=== PATIENT | male | born 1950 | race Caucasian/White ===

== ENCOUNTER 2018-06-11 13:30 | Inpatient (IN) | payer OTHER, MEDICARE ==
[2018-06-11] MEDS ORDERED: ASPIRIN 81 MG PO STA (13:58)
[2018-06-11] MEDS ORDERED: NITROGLYCERIN OINT 1 INCH/GM PACKET TOPICAL STA (13:58)
[2018-06-11] MEDS ORDERED: SODIUM CHLORIDE 0.9% 500 ML 500 ML IV STA (13:58)
[2018-06-11] MEDS ORDERED: HEPARIN SODIUM,PORCINE 5,000 UNIT/ML 1 ML VIAL IV ONE (14:03)
--- NOTE | 2018-06-11 14:03 | ED ---
General Adult HPI - General Chief complaint: Chest Pain Stated complaint: arm pain Time Seen by Provider: 06/11/18 13:30 Source: patient, RN notes reviewed Mode of arrival: wheelchair Limitations: no limitations - History of Present Illness Initial comments: This is a 67-year-old male who presents emergency department comes in with a past medical history of smoking. Family history positive for cardiac disease. Patient states that he started having chest pain on the 11th he's had 3 episodes since. Patient states that about 15 minutes long. Patient states the pressure on his chest and is on the right side of his chest. Patient states it radiates to his right shoulder. Patient states she's also short of breath with it. Patient states he is also diaphoretic when these episodes occur. Today it started 1:00 lasted over 20 minutes and eventually subsided but he was very diaphoretic and felt her blood the time. Patient denies any fever chills or cough per patient denies headache patient denies numbness weakness. Patient denies any lightheadedness dizziness or near syncopal episode. Patient denies any swelling to legs or calf tenderness. - Related Data Home Medications Medication Instructions Recorded Confirmed Ibuprofen [Motrin Ib] 400 mg PO Q6H PRN 06/11/18 06/11/18 Allergies Allergy/AdvReac Type Severity Reaction Status Date / Time No Known Allergies Allergy Verified 06/11/18 13:43 Review of Systems ROS Statement: Those systems with pertinent positive or pertinent negative responses have been documented in the HPI. ROS Other: All systems not noted in ROS Statement are negative. Past Medical History Past Medical History: No Reported History Additional Past Medical History / Comment(s): glaucoma History of Any Multi-Drug Resistant Organisms: None Reported Additional Past Surgical History / Comment(s): mary eye surgery for glaucoma Past Anesthesia/Blood Transfusion Reactions: No Reported Reaction Past Psychological History: No Psychological Hx Reported Smoking Status: Current every day smoker Past Alcohol Use History: Occasional Past Drug Use History: None Reported - Past Family History Father Family Medical History: Cancer Mother Family Medical History: Cancer General Exam - General Exam Comments Initial Comments: GENERAL: Patient is well-developed and well-nourished. Patient is nontoxic and well- hydrated and is in mild distress. ENT: Neck is soft and supple. No significant lymphadenopathy is noted. Oropharynx is clear. Moist mucous membranes. Neck has full range of motion without eliciting any pain. EYES: The sclera were anicteric and conjunctiva were pink and moist. Extraocular movements were intact and pupils were equal round and reactive to light. Eyelids were unremarkable. PULMONARY: Unlabored respirations. Good breath sounds bilaterally. No audible rales rhonchi or wheezing was noted. CARDIOVASCULAR: There is a regular rate and rhythm without any murmurs gallops or rubs. ABDOMEN: Soft and nontender with normal bowel sounds. No palpable organomegaly was noted. There is no palpable pulsatile mass. SKIN: Skin is clear with no lesions or rashes and otherwise unremarkable. NEUROLOGIC: Patient is alert and oriented x3. Cranial nerves II through XII are grossly intact. Motor and sensory are also intact. Normal speech, volume and content. Symmetrical smile. MUSCULOSKELETAL: Normal extremities with adequate strength and full range of motion. No lower extremity swelling or edema. No calf tenderness. LYMPHATICS: No significant lymphadenopathy is noted PSYCHIATRIC: Normal psychiatric evaluation. Limitations: no limitations Course Vital Signs 06/11/18 06/11/18 13:40 14:41 Temperature 97.7 F Pulse Rate 57 L 57 L Respiratory 18 16 Rate Blood Pressure 152/79 149/81 O2 Sat by Pulse 98 97 Oximetry Medical Decision Making - Medical Decision Making EKG shows normal sinus rhythm at 60 bpm AR interval 126 QRS is 86 QT interval is 454 QTC is 454. Patient's EKG shows some ST segment depression in leads V3 through V6. Says the patient had a good story and EKG abnormalities I called Dr. Torres right away he stated he would come down and see the patient and I ordered an echo at this time. I started the patient on heparin ordered the patient aspirin and Nitropaste. I also ordered the patient Lipitor. Dr. Torres came down on the echo was being done and decided take the patient to the catheterization lab. Her chest x-ray showed no acute abnormality. - Lab Data Result diagrams: 06/11/18 14:00 06/11/18 14:00 Lab Results 06/11/18 06/11/18 06/11/18 Range/Units 14:00 14:00 14:00 WBC 9.0 (3.8-10.6) k/uL RBC 5.41 (4.30-5.90) m/uL Hgb 17.3 (13.0-17.5) gm/dL Hct 51.1 (39.0-53.0) % MCV 94.4 (80.0-100.0) fL MCH 31.9 (25.0-35.0) pg MCHC 33.8 (31.0-37.0) g/dL RDW 13.1 (11.5-15.5) % Plt Count 257 (150-450) k/uL Neutrophils % 69 % Lymphocytes % 21 % Monocytes % 6 % Eosinophils % 2 % Basophils % 1 % Neutrophils # 6.2 (1.3-7.7) k/uL Lymphocytes # 1.9 (1.0-4.8) k/uL Monocytes # 0.6 (0-1.0) k/uL Eosinophils # 0.2 (0-0.7) k/uL Basophils # 0.1 (0-0.2) k/uL PT (9.0-12.0) sec INR (<1.2) APTT (22.0-30.0) sec Sodium 140 (137-145) mmol/L Potassium 4.3 (3.5-5.1) mmol/L Chloride 107 (98-107) mmol/L Carbon Dioxide 23 (22-30) mmol/L Anion Gap 10 mmol/L BUN 12 (9-20) mg/dL Creatinine 0.86 (0.66-1.25) mg/dL Est GFR (CKD-EPI)AfAm >90 (>60 ml/min/1.73 sqM) Est GFR (CKD-EPI)NonAf 89 (>60 ml/min/1.73 sqM) Glucose 90 (74-99) mg/dL Calcium 9.5 (8.4-10.2) mg/dL Magnesium 2.2 (1.6-2.3) mg/dL Total Bilirubin 0.8 (0.2-1.3) mg/dL AST 22 (17-59) U/L ALT 20 L (21-72) U/L Alkaline Phosphatase 68 (38-126) U/L Total Creatine Kinase 84 (55-170) U/L CK-MB (CK-2) 1.6 (0.0-2.4) ng/mL CK-MB (CK-2) Rel Index 1.9 Total Protein 7.3 (6.3-8.2) g/dL Albumin 4.2 (3.5-5.0) g/dL 06/11/18 Range/Units 14:00 WBC (3.8-10.6) k/uL RBC (4.30-5.90) m/uL Hgb (13.0-17.5) gm/dL Hct (39.0-53.0) % MCV (80.0-100.0) fL MCH (25.0-35.0) pg MCHC (31.0-37.0) g/dL RDW (11.5-15.5) % Plt Count (150-450) k/uL Neutrophils % % Lymphocytes % % Monocytes % % Eosinophils % % Basophils % % Neutrophils # (1.3-7.7) k/uL Lymphocytes # (1.0-4.8) k/uL Monocytes # (0-1.0) k/uL Eosinophils # (0-0.7) k/uL Basophils # (0-0.2) k/uL PT 10.6 (9.0-12.0) sec INR 1.1 (<1.2) APTT 23.6 (22.0-30.0) sec Sodium (137-145) mmol/L Potassium (3.5-5.1) mmol/L Chloride (98-107) mmol/L Carbon Dioxide (22-30) mmol/L Anion Gap mmol/L BUN (9-20) mg/dL Creatinine (0.66-1.25) mg/dL Est GFR (CKD-EPI)AfAm (>60 ml/min/1.73 sqM) Est GFR (CKD-EPI)NonAf (>60 ml/min/1.73 sqM) Glucose (74-99) mg/dL Calcium (8.4-10.2) mg/dL Magnesium (1.6-2.3) mg/dL Total Bilirubin (0.2-1.3) mg/dL AST (17-59) U/L ALT (21-72) U/L Alkaline Phosphatase (38-126) U/L Total Creatine Kinase (55-170) U/L CK-MB (CK-2) (0.0-2.4) ng/mL CK-MB (CK-2) Rel Index Total Protein (6.3-8.2) g/dL Albumin (3.5-5.0) g/dL Critical Care Time Critical Care Time: Yes Total Critical Care Time: 35 Disposition Clinical Impression: Non-STEMI (non-ST elevated myocardial infarction) Disposition: ADMITTED IP TO THIS HOSP Referrals: [facility],Clinic [Primary Care Provider] - 1-2 days Time of Disposition: 15:09
[2018-06-11] MEDS ORDERED: ATORVASTATIN 80 MG TAB PO STA (14:04)
--- NOTE | 2018-06-11 14:13 | XR ---
EXAMINATION TYPE: XR chest 2V DATE OF EXAM: 06/11/2018 COMPARISON: NONE HISTORY: Chest pain TECHNIQUE: Frontal and lateral views of the chest are obtained. FINDINGS: There is no focal air space opacity, pleural effusion, or pneumothorax seen. The cardiac silhouette size is within normal limits. The osseous structures are intact. There are overlying car diac leads. Interstitium is mildly prominent, the volumes of the lungs are increased which may be ind icative of underlying COPD. Patient is rotated. The aorta is dense. IMPRESSION: No acute cardiopulmonary process.
[2018-06-11] MEDS ORDERED: HEPARIN SOD,PORK IN 0.45% NACL 25,000 UNIT in 0.45% NACL 1 500ML.BAG IV SCH ×2 (14:15→20:00)
[2018-06-11 14:25] LABS: Basophils # (A) 0.1 k/uL (0-0.2); Basophils % (A) 1 %; Eosinophils # (A) 0.2 k/uL (0-0.7); Eosinophils % (A) 2 %; HCT 51.1 % (39.0-53.0); HGB 17.3 gm/dL (13.0-17.5); Lymphocytes # (A) 1.9 k/uL (1.0-4.8); Lymphocytes % (A) 21 %; MCH 31.9 pg (25.0-35.0); MCHC 33.8 g/dL (31.0-37.0); MCV 94.4 fL (80.0-100.0); Mean Platelet Volume 6.9; Monocytes # (A) 0.6 k/uL (0-1.0); Monocytes % (A) 6 %; Neutrophils # (A) 6.2 k/uL (1.3-7.7); Neutrophils % (A) 69 %; Platelet Count 257 k/uL (150-450); RBC 5.41 m/uL (4.30-5.90); RDW 13.1 % (11.5-15.5)
[2018-06-11 14:27] LABS: ALT 20 U/L (21-72); AST 22 U/L (17-59); Albumin 4.2 g/dL (3.5-5.0); Alkaline Phosphatase 68 U/L (38-126); Anion Gap 10 mmol/L; Blood Urea Nitrogen 12 mg/dL (9-20); Calcium 9.5 mg/dL (8.4-10.2); Carbon Dioxide 23 mmol/L (22-30); Chloride 107 mmol/L (98-107); Glucose 90 mg/dL (74-99); Magnesium 2.2 mg/dL (1.6-2.3); Potassium 4.3 mmol/L (3.5-5.1); Sodium 140 mmol/L (137-145); Total Bilirubin 0.8 mg/dL (0.2-1.3); Total Protein 7.3 g/dL (6.3-8.2)
[2018-06-11] MEDS ORDERED: MIDAZOLAM 2 MG/2 ML VIAL ONE (14:35)
[2018-06-11] MEDS ORDERED: LIDOCAINE 1% INJ 10MG/ML (20 ML MDV) ONE (14:35)
[2018-06-11] MEDS ORDERED: fentaNYL (PF) 50 MCG/ML 2 ML AMP ONE (14:36)
[2018-06-11 14:46] LABS: INR 1.1 (<1.2); Partial Thromboplastin Time 23.6 sec (22.0-30.0); Prothrombin Time 10.6 sec (9.0-12.0)
[2018-06-11 15:02] LABS: Creatine Kinase MB 1.6 ng/mL (0.0-2.4)
[2018-06-11 15:08] LABS: Troponin I 0.325 ng/mL (0.000-0.034)
[2018-06-11] MEDS ORDERED: LIDOCAINE 1% INJ 10MG/ML (20 ML MDV) SQ ONE (15:16)
[2018-06-11] MEDS ORDERED: MIDAZOLAM 2 MG/2 ML VIAL IVP ONE (15:17)
[2018-06-11] MEDS ORDERED: fentaNYL (PF) 50 MCG/ML 2 ML AMP IVP ONE (15:17)
[2018-06-11] MEDS ORDERED: IV FLUID CONTINUATION 1,000 ML IV ONE (15:19)
--- NOTE | 2018-06-11 15:22 | CONS ---
CONSULTATION Mr. Ramires is a 67-year-old gentleman who was seen in the emergency room because of the chest discomfort. This patient has been having intermittent chest discomfort since June 02. The pain he describes is in the right anterior part of the chest, dull aching pain, lasting for 20-30 minutes, associated with a cold, clammy sweats as well as shortness of breath. Since June 02. the patient had about 3 or 4 episodes of the chest discomfort. This morning, again, patient was not feeling well and he was pale and diaphoretic and having chest pain. Patient was brought to the emergency room. EKG shows evidence of some horizontal ST depression in V3 and V4 suggestive of possible true posterior wall myocardial infarction. There is no previous history of myocardial infarction or angina. Patient denies any history of diabetes or hypertension. Patient does not smoke. There is no family history of premature coronary artery disease. PAST MEDICAL HISTORY: No history of any major surgeries. REVIEW OF THE SYSTEM: Unremarkable. There is no history of any GI bleeding or stroke. PHYSICAL EXAMINATION: At present reveals a 67-year-old, thinly built gentleman who does not appear to be in any acute distress. Patient's blood pressure is 150/80 mmHg. HEENT examination is negative. Neck is supple. There is no increase in jugular venous pressure. Both the carotid pulses are felt. There is no bruit. Chest is symmetrical. Heart, the PMI is not felt. First and second heart sounds are heard. There is no evidence of any murmur. Lungs are clinically clear to auscultation and percussion. Abdomen is soft. Extremities, peripheral pulsations are 1+. EKG shows evidence of a horizontal ST-segment depression in V2 to V3 suggestive of possible true posterior wall myocardial infarction. Echocardiogram shows evidence of extensive inferior lateral as well as inferior septal hypokinesia. FINAL IMPRESSION: This patient history suggestive of possible true posterior wall myocardial infarction or non ST-segment elevation myocardial infarction. In view of the wall motion abnormality and EKG changes, the patient is advised urgent cardiac catheterization. Procedure and risks were fully discussed with the patient and he wants to proceed with it. MMODL / IJN: [id number] /
[2018-06-11] MEDS ORDERED: IOPAMIDOL-300 50ML BTL INJ ONE (15:34)
[2018-06-11] MEDS ORDERED: IOPAMIDOL-370 125ML BTL INJ ONE (15:35)
[2018-06-11] MEDS ORDERED: NITROGLYCERIN-D5W PMX 50 MG in DEXTROSE/WATER 1 250ML.BAG IV ONE (16:00)
[2018-06-11] MEDS ORDERED: RX INFO: IV CONTRAST WAS GIVEN 1 EACH MISC MISCELLANE PRN (16:01)
[2018-06-11 16:30] LABS: Glucose,Whole Blood 91 mg/dL (75-99)
--- NOTE | 2018-06-11 16:31 | CC ---
CARDIAC CATHETERIZATION REPORT Mr. Ramires is a 67-year-old gentleman who came to the emergency room with a complaint of chest discomfort. Patient's history was suggestive of ila-XY-cjnumkj-elevation myocardial infarction. Patient had a horizontal ST-segment depression in V2 and V3. Echocardiogram showed evidence of inferolateral hypokinesia. In view of that, the patient was advised urgent cardiac catheterization. Initial troponin came back as 0.3. PROCEDURE: The right groin was prepped and draped in the usual manner and the skin was infiltrated with 2% Xylocaine. The right femoral artery was entered using Seldinger technique. A #6- Bengali sheath was placed in. Selective coronary angiography was then performed in multiple projections and left ventriculography was performed. Patient tolerated the procedure well. Sheath was removed and good hemostasis was achieved with manual compression. Patient's right superficial femoral artery is totally occluded. HEMODYNAMICS: Left ventricular end-diastolic pressure was 16 mmHg prior to angiography. No gradient is noted across the aortic valve. SELECTIVE CORONARY ANGIOGRAPHY: Left main coronary artery is normal and patent. LAD is a good-caliber blood vessel and there is ostial stenosis of 85% to 90% with some haziness noted suggestive of thrombus. Circumflex coronary artery is a large-caliber blood vessel with evidence of thrombus in the ostial circumflex with 99% stenosis. Right coronary artery has ostial stenosis of 80% to 90%. Mid RCA has another area of 85% stenosis. Distal RCA is totally occluded. The distal RCA fills collaterals from the left coronary system. Moderate sedation was used. Total sedation time was 20 minutes. RECOMMENDATIONS: Films were reviewed with Dr. Guillory. In view of the ostial stenosis of LAD and circumflex as well as the total right, patient will be considered for coronary artery bypass surgery urgently. MMODL / IJN: [id number] /
[2018-06-11] MEDS ORDERED: NITROGLYCERIN-D5W PMX 50 MG in DEXTROSE/WATER 1 250ML.BAG IV SCH (16:45)
[2018-06-11] MEDS ORDERED: MD COMMUNICATION TO PHARMACY 1 EACH MISC PO ONE ×4 (16:56)
[2018-06-11] MEDS: SODIUM CHLORIDE 0.9% 1,000 ML IV SCH (17:23)
--- NOTE | 2018-06-11 17:37 | P.CNPUL ---
History of Present Illness Consult date: 06/11/18 Requesting physician: Neil Torres Reason for consult: COPD, other (Preoperative pulmonary clearance) Chief complaint: Chest pain History of present illness: This is a 67-year-old white male, heavy smoker over the years, but no documentation of COPD, not on any bronchodilators for COPD, patient usually sees Dr. Oro as his primary care physician in [place]. Patient presented to the emergency room today with chest pain and abnormal cardiac panel. Patient was noted to have non-ST segment elevation myocardial infarction. He was noted to have ST segment depression in V2 and V3, echocardiogram showed evidence of inferior lateral hypokinesia. Patient underwent cardiac catheterization. And he was found to have evidence of thrombus in the ostial circumflex with 99% stenosis. His LAD was noted to have 85-90% stenosis also suggestive of thrombus. Circumflex was noted to have 99% stenosis. Considering the findings , patient was advised to undergo coronary artery bypass surgery. He was transferred out of the cardiac catheterization lab to the ICU, and I was asked to see him on consultation. Presently the patient denies any pain or discomfort. Denies any shortness of breath, no cough, no wheezing. Has been a very heavy smoker over the years, and until recently he was smoking about half pack per day on the average. Patient describes slight dyspnea on exertion however he is able to walk 2-3 blocks without any significant dyspnea. Patient was never seen by any cardiopulmonary specialist, and according to him he never had any issues related to his lungs. Presently denies any headache, no blurred vision, no dizziness, no chest pain, no shortness of breath no cough no wheezing no nausea no vomiting no abdominal pain no palpitations no dysuria and no frequency no urgency. Has occasional joints aches and pains for which she takes Aleve on when necessary basis. Labs on admission were noted to be relatively normal and his troponin was 0.325 on admission. Review of Systems 14 point review of systems were obtained, please refer to pertinent positives and negatives as noted in HPI. Otherwise remaining systems are negative Past Medical History Past Medical History: No Reported History Additional Past Medical History / Comment(s): glaucoma History of Any Multi-Drug Resistant Organisms: None Reported Additional Past Surgical History / Comment(s): mary eye surgery for glaucoma Past Anesthesia/Blood Transfusion Reactions: No Reported Reaction Past Psychological History: No Psychological Hx Reported Smoking Status: Current every day smoker Past Alcohol Use History: Occasional Past Drug Use History: None Reported - Past Family History Father Family Medical History: Cancer Mother Family Medical History: Cancer Medications and Allergies Home Medications Medication Instructions Recorded Confirmed Type Ibuprofen [Motrin Ib] 400 mg PO Q6H PRN 06/11/18 06/11/18 History Allergies Allergy/AdvReac Type Severity Reaction Status Date / Time No Known Allergies Allergy Verified 06/11/18 13:43 Physical Exam Vitals: Vital Signs Temp Pulse Pulse Resp BP Pulse Ox 06/11/18 17:00 58 L 16 132/74 93 L 06/11/18 16:45 59 L 24 127/78 94 L 06/11/18 16:30 97.7 F 58 L 14 131/77 94 L 06/11/18 14:41 97.9 F 57 L 16 149/81 97 06/11/18 13:45 66 20 06/11/18 13:40 97.7 F 57 L 18 152/79 98 Intake and Output 06/11/18 06/11/18 06/11/18 06:59 14:59 22:59 Intake Total 375 Balance 375 Intake: IV 375 Sodium Chloride 0.9% 1, 75 000 ml @ 75 mls/hr IV . [id number] [facility] Rx#:[id number] Other: Weight 81.647 kg Physical Exam: Revealed a 67-year-old white male in no distress. Head: Atraumatic, normocephalic. HEENT:[Neck is supple.] [No neck masses.] [No thyromegaly.] [No JVD.] Dry mucous membranes. Chest: [Diminished breath sounds at the bases, no crackles, no rhonchi and no wheezes. Symmetrical chest expansion, no chest wall tenderness. Cardiac Exam: [Normal S1 and S2, no S3 gallop, no murmur.] Abdomen: [Soft, nontender, no megaly, no rebound, no guarding, normal bowel sounds.] Extremities: [No clubbing, no edema, no cyanosis.] Neurological Exam: [No focal neurologic deficit.] Alert oriented 3. Psychiatric: Normal mood, affect and mental status examination. Skin: No rashes, evidence of onychomycosis noted. Results - Laboratory Findings CBC and BMP: 06/11/18 14:00 06/11/18 14:00 PT/INR, D-dimer PT 10.6 sec (9.0-12.0) 06/11/18 14:00 INR 1.1 (<1.2) 06/11/18 14:00 Abnormal lab findings: Abnormal Labs 06/11/18 06/11/18 14:00 14:00 ALT 20 L Troponin I 0.325 H* - Diagnostic Findings Chest x-ray: image reviewed (Chest x-ray was reviewed, indicative of COPD, no acute pulmonary processes noted) Assessment and Plan Assessment: Impression: 1 acute non-ST elevation myocardial infarction. 2 triple-vessel coronary artery disease as noted on his cardiac catheterization , done today. 3 suspect moderate component of chronic obstructive pulmonary disease, especially considering his symptoms and considering his smoking history. Hence the patient will have preoperative FEV1 ordered, in the meantime we'll place the patient on bronchodilators in the form of DuoNeb updrafts 4 times a day and when necessary, and place the patient on incentive spirometry. Recommendation: Agree with the present treatment plan, patient is moderate operative risk, however I'm yet to review his FEV1 which will likely be done either later today or tomorrow in a.m. We'll continue to follow. Time with Patient: Greater than 30
[2018-06-11 18:29] LABS: Magnesium 2.2 mg/dL (1.6-2.3)
[2018-06-11] MEDS ORDERED: ALPRAZolam 0.25 MG TAB PO PRN (18:44)
[2018-06-11] MEDS ORDERED: ACETAMINOPHEN TAB 500 MG TAB PO PRN (18:44)
[2018-06-11] MEDS ORDERED: HYDROcodone/APAP 5-325MG 1 EACH TAB PO PRN (18:44)
[2018-06-11] MEDS ORDERED: NICOTINE 14MG/24HR PATCH TRANSDERM SCH (18:45)
[2018-06-11 19:38] LABS: Appearance,Urine Clear (Clear); Bilirubin,Urine Negative (Negative); Blood,Urine Trace (Negative); Color,Urine Light Yellow; Glucose,Urine (UA) Negative (Negative); Ketones,Urine Negative (Negative); Leukocyte Esterase,Urine Negative (Negative); Nitrite,Urine Negative (Negative); PH, Urine 5.5 (5.0-8.0); Protein,Urine Negative (Negative); RBC,Urine 1 /hpf (0-5); Urobilinogen,Urine <2.0 mg/dL (<2.0); WBC,Urine <1 /hpf (0-5)
[2018-06-11 19:39] LABS: Specific Gravity,Urine >1.050 (1.001-1.035)
--- NOTE | 2018-06-11 19:56 | P.GSCN ---
History of Present Illness Consult date: 06/11/18 Reason for Consult: Non-STEMI, coronary artery disease. Requesting physician: Neil Torres History of present illness: This is a 67-year-old gentleman who is followed by Dr. Cezar Oro on an outpatient basis. Patient has a past medical history significant for current nicotine dependence, cataracts and glaucoma. The patient presented to the emergency department here at [facility] today with complaints of chest pain which radiated down his right arm, the chest pain was associated with shortness of breath and diaphoresis. He denies any complaints of nausea, chills, vomiting, dizziness, or syncope. He reports that the pain has been coming and episodes off and on which started around 06/02/2018. The pain he experienced last night woke him up from sleep and lasted for about 20-25 minutes. In the emergency department a 12-lead EKG was completed which demonstrated normal sinus rhythm with ST segment depression in V3 through V6. Lab work was completed which showed a troponin level of 0.325. Subsequently the patient was seen and examined by Dr. Torres from cardiology and due to the patient's presenting symptoms and elevated troponins a cardiac catheterization was recommended. The cardiac catheterization results demonstrated a 90% ostial stenosis to his left anterior descending coronary artery, a 99% stenosis to his ostial circumflex coronary artery and a 90% stenosis to his right coronary artery. Also during heart catheterization the left ventriculogram was completed which showed him to have an ejection fraction of 45%. A 2-D echocardiogram result was also obtained although the results remain pending. His cardiac catheterization results were reviewed with the patient and his family by Dr. Torres and a consult was placed to Dr. Rowe from cardiothoracic surgery for recommendations on myocardial revascularization surgery. Review of Systems A 14 point review of systems was completed and was negative except as mentioned in HPI. Past Medical History Past Medical History: Eye Disorder Additional Past Medical History / Comment(s): glaucoma.past cataracts(sx) History of Any Multi-Drug Resistant Organisms: None Reported Additional Past Surgical History / Comment(s): 06-11-18 heart cath. [facility]ary eye surgery for glaucoma, cataaracts removedlens implants, colonoscopy 2014, Past Anesthesia/Blood Transfusion Reactions: No Reported Reaction Past Psychological History: No Psychological Hx Reported Smoking Status: Current every day smoker Past Alcohol Use History: Occasional Past Drug Use History: None Reported - Past Family History Father Family Medical History: Cancer Mother Family Medical History: Cancer Medications and Allergies Home Medications Medication Instructions Recorded Confirmed Type Ibuprofen [Motrin Ib] 400 mg PO Q6H PRN 06/11/18 06/11/18 History Allergies Allergy/AdvReac Type Severity Reaction Status Date / Time No Known Allergies Allergy Verified 06/11/18 13:43 Surgical - Exam Vital Signs Temp Pulse Resp BP Pulse Ox 97.7 F 57 L 18 152/79 98 06/11/18 13:40 06/11/18 13:40 06/11/18 13:40 06/11/18 13:40 06/11/18 13:40 - General well developed, well nourished, no distress, no pain - Eyes PERRL, normal ocular movement - ENT normal pinna, normal nares, normal mucosa, no congestion, dentures - Neck Neck is supple, no lymphadenopathy. no masses, no bruits, trachea midline, no venous distension - Respiratory Lungs sounds are essentially clear throughout, diminished to his bilateral bases. Respirations are symmetrical and nonlabored. Oxygen saturation are 95% on 2 L nasal cannula. - Cardiovascular Regular rhythm and rate. S1 and S2 present, negative for S3, gallop or murmur. No edema present. Bedside telemetry showing sinus bradycardia heart rate 57. - Abdomen Abdomen is soft, nontender and nondistended. Active bowel sounds all 4 abdominal quadrants. No guarding or rigidity. No organomegaly. - Genitourinary Deferred - Rectum Deferred - Integumentary no rash, no growths, no abnormal pigmentation - Neurologic normal coordination, normal sensation - Musculoskeletal normal gait, normal posture - Psychiatric oriented to time, oriented to person, oriented to place, speech is normal, memory intact Results - Labs 06/11/18 14:00 06/11/18 14:00 Abnormal Lab Results - Last 24 Hours (Table) 06/11/18 06/11/18 Range/Units 14:00 14:00 ALT 20 L (21-72) U/L Troponin I 0.325 H* (0.000-0.034) ng/mL Diabetes panel 06/11/18 Range/Units 14:00 Sodium 140 (137-145) mmol/L Potassium 4.3 (3.5-5.1) mmol/L Chloride 107 (98-107) mmol/L Carbon Dioxide 23 (22-30) mmol/L BUN 12 (9-20) mg/dL Creatinine 0.86 (0.66-1.25) mg/dL Glucose 90 (74-99) mg/dL Calcium 9.5 (8.4-10.2) mg/dL AST 22 (17-59) U/L ALT 20 L (21-72) U/L Alkaline Phosphatase 68 (38-126) U/L Total Protein 7.3 (6.3-8.2) g/dL Albumin 4.2 (3.5-5.0) g/dL Calcium panel 06/11/18 Range/Units 14:00 Calcium 9.5 (8.4-10.2) mg/dL Albumin 4.2 (3.5-5.0) g/dL Pituitary panel 06/11/18 Range/Units 14:00 Sodium 140 (137-145) mmol/L Potassium 4.3 (3.5-5.1) mmol/L Chloride 107 (98-107) mmol/L Carbon Dioxide 23 (22-30) mmol/L BUN 12 (9-20) mg/dL Creatinine 0.86 (0.66-1.25) mg/dL Glucose 90 (74-99) mg/dL Calcium 9.5 (8.4-10.2) mg/dL Adrenal panel 06/11/18 Range/Units 14:00 Sodium 140 (137-145) mmol/L Potassium 4.3 (3.5-5.1) mmol/L Chloride 107 (98-107) mmol/L Carbon Dioxide 23 (22-30) mmol/L BUN 12 (9-20) mg/dL Creatinine 0.86 (0.66-1.25) mg/dL Glucose 90 (74-99) mg/dL Calcium 9.5 (8.4-10.2) mg/dL Total Bilirubin 0.8 (0.2-1.3) mg/dL AST 22 (17-59) U/L ALT 20 L (21-72) U/L Alkaline Phosphatase 68 (38-126) U/L Total Protein 7.3 (6.3-8.2) g/dL Albumin 4.2 (3.5-5.0) g/dL - Imaging Comments: Heart catheterization and 2-D echo results reviewed by Dr. Rowe. Chest x-ray: report reviewed, image reviewed Assessment and Plan (1) Nicotine dependence Current Visit: Yes Status: Acute Code(s): F17.200 - NICOTINE DEPENDENCE, UNSPECIFIED, UNCOMPLICATED SNOMED Code(s): 91194345 (2) History of bilateral cataract extraction Current Visit: Yes Status: Acute Code(s): Z98.41 - CATARACT EXTRACTION STATUS, RIGHT EYE; Z98.42 - CATARACT EXTRACTION STATUS, LEFT EYE SNOMED Code(s ): 288080081 (3) Glaucoma Current Visit: Yes Status: Acute Code(s): H40.9 - UNSPECIFIED GLAUCOMA SNOMED Code(s): 32712081 (4) Non-STEMI (non-ST elevated myocardial infarction) Current Visit: Yes Status: Acute Code(s): I21.4 - NON-ST ELEVATION (NSTEMI) MYOCARDIAL INFARCTION SNOMED Code(s): 404997673 Plan: The patient was seen and examined. His chart and diagnostics were reviewed. Preoperative teaching and preoperative testing was initiated. The patient was seen and examined by Dr. Rowe from cardiothoracic surgery. Dr. Rowe reviewed the cardiac catheterization results and 2-D echo cardiogram results with the patient and his family at his bedside. The risks and benefits of myocardial revascularization surgery have been discussed with the patient has family and the patient wishes to proceed with myocardial revascularization surgery. The patient will be scheduled for an urgent coronary artery bypass grafting surgery tomorrow 06/12/2018 to be performed by Dr. Anival Sim. Thank you Dr. Torres for this consult and we'll look forward to working with you in the care of your patient. Time with Patient: Greater than 30
[2018-06-11] MEDS ORDERED: MD COMMUNICATION TO PHARMACY 1 EACH MISC PO PRN (20:07)
[2018-06-11] MEDS: IPRATROPIUM-ALBUTEROL 3 ML NEB INHALATION SCH (20:34)
--- NOTE | 2018-06-11 20:43 | HP ---
HISTORY AND PHYSICAL DATE OF SERVICE: 06/11/2018 CHIEF COMPLAINT: Chest pain. HISTORY OF PRESENT ILLNESS: This 67-year-old gentleman who had a past medical history of glaucoma, [facility] was taken to [facility] with complaints of chest pain. The patient has strong family history of coronary artery disease. The chest pain was on June 02 and had at least 3 episodes, mainly on the center part of right-sided chest. Patient diaphoretic. EKG showed ST-T changes. Troponins elevated indicating acute non ST segment myocardial infarction. Patient underwent cardiac catheterization and patient found to have three vessel coronary artery disease with 90% stenosis. Patient admitted for further evaluation and treatment. There is no history of fever, rigors or chills. No history of headache, loss of consciousness, seizures. PAST MEDICAL HISTORY: Glaucoma. Nicotine dependence. MEDICATIONS PRIOR TO ADMISSION: Include home medications are: Motrin p.r.n. ALLERGIES: None. FAMILY HISTORY: History of cancer in the family. SOCIAL HISTORY: History of smoking. Occasional alcohol intake. REVIEW OF SYSTEMS: ENT: No diminished hearing or vision. CARDIOVASCULAR: As mentioned earlier. Respiration as mentioned earlier. GI: No nausea or vomiting. no dysuria. Nervous system: No numbness or weakness. Allergy/Immunology: No asthma or hayfever. Musculoskeletal as mentioned earlier. HEMATOLOGY/ONCOLOGY: No history of anemia. ENDOCRINE: No history of diabetes or hypothyroidism. CONSTITUTIONAL: As mentioned earlier. Dermatology: Negative. Rheumatology: Negative. Psychiatry: As mentioned earlier. PHYSICAL EXAM: Alert and oriented times three. Pulse 57, blood pressure 114/64. Respirations 15. Temperature normal. Pulse ox 93% on room air. HEENT: Conjunctivae normal. Oral mucosa moist. Neck is no jugular venous distention. No carotid bruit. No lymph node enlargement. Cardiovascular system: S1, S2 muffled. No S3, no s4. Respiratory : Breath sounds diminished in the bases. No rhonchi. No crackles. ABDOMEN: Soft, nontender. No mass palpable. Legs: No edema. No swelling. NERVOUS SYSTEM: Higher functions as mentioned earlier. Moves all four extremities. No focal deficits. Lymphatics: No lymph nodes palpable in the neck, axillae or groin. SKIN: No ulcer, rash or bleeding. LABS: CBC within normal limits and troponin 0.325 and LDL is 115. ASSESSMENT: 1. Acute non ST segment elevation myocardial infarction status post cardiac catheterization, previous coronary artery disease. 2. Hyperlipidemia. 3. History of nicotine dependence. 4. Glaucoma. RECOMMENDATIONS AND DISCUSSION: Recommend to continue current medications, management and symptomatic treatment. Otherwise, at this time, I recommend closely monitor the patient along with continue with antiplatelet agents, Lipitor. Smoking cessation advised. Guarded prognosis because of multiple complex medical issues. Further recommendations to follow. Cardiothoracic surgery has been consulted. MMODL / IJN: [id number] / JUVENTINO
[2018-06-11] MEDS ORDERED: ATORVASTATIN 80 MG TAB PO SCH (21:00)
[2018-06-11] MEDS ORDERED: METOPROLOL TARTRATE 25 MG TAB PO SCH (21:00)
[2018-06-11] MEDS ORDERED: MUPIROCIN 2% OINT 22 GM TUBE NASAL SCH (21:00)
--- NOTE | 2018-06-12 00:34 | US ---
EXAMINATION TYPE: US carotid duplex BILAT DATE OF EXAM: 06/11/2018 COMPARISON: NONE CLINICAL HISTORY: PreOp Cardiac Surgery. PreOP heart surgery. EXAM MEASUREMENTS: RIGHT: Peak Systolic Velocity (PSV) cm/sec ----- Right CCA: 121.0 ----- Right ICA: 104.8 ----- Right ECA: 106.4 ICA/CCA ratio: 0.9 RIGHT: End Diastole cm/sec ----- Right CCA: 19.2 ----- Right ICA: 19.2 ----- Right ECA: 0 LEFT: Peak Systolic Velocity (PSV) cm/sec ----- Left CCA: 100.3 ----- Left ICA: 118.0 ----- Left ECA: 160.1 ICA/CCA ratio: 1.2 LEFT: End Diastole cm/sec ----- Left CCA: 13.6 ----- Left ICA: 17.5 ----- Left ECA: 0 VERTEBRALS (direction of flow): Right Vertebral: Antegrade Left Vertebral: Antegrade Rhythm: Normal Bilateral plaque seen in bulbs and RT ICA. Left ECA is elevated. No significant stenosis seen IMPRESSION: There is antegrade flow in the vertebral arteries. There is bilateral plaque formation a nd less than 50% stenosis in the common and internal carotid arteries. There is 50-70% stenosis in th e left external carotid artery. Criteria for Assigning % of Stenosis / Diameter reduction (Estimation based on the indirect measurements of the internal carotid artery velocities (ICA PSV). 1. Normal (no stenosis)=ICA PSV < 125 cm/s: ratio < 2.0: ICA EDV<40 cm/s. 2. Less than 50% stenosis=ICA PSV < 125 cm/s: ratio < 2.0: ICA EDV<40 cm/s. 3. 50 to 69% stenosis=ICA PSV of 125 to 230 cm/s: ration 2.0 ? 4.0: ICA EDV 40-100 cm/s. 4. Greater than 70% stenosis to near occlusion= ICA PSV > 230 cm/s: ratio > 4.0: ICA EDV > 100 cm/s. 5. Near occlusion= ICA PSV velocities may be low or undetectable: variable ratio and ICA EDV. 6. Total occlusion=unable to detect flow.
[2018-06-12 03:23] LABS: Hepatitis A Antibody IgM Non-Reactive (Non-Reactive); Hepatitis B Core IgM Non-Reactive (Non-Reactive)
[2018-06-12 04:18] LABS: Hemoglobin A1C 5.5 % (4.0-6.0)
[2018-06-12] MEDS ORDERED: TRANEXAMIC ACID 2,000 MG in SODIUM CHLORIDE 0.9% 180 ML IV ONE (05:00)
[2018-06-12] MEDS ORDERED: PAPAVERINE 360 MG in SODIUM CHLORIDE 0.9% 90 ML IV ONE (05:00)
[2018-06-12] MEDS ORDERED: CHLORHEXIDINE GLUCONATE 15 ML CUP MUCOUS MEM ONE (05:00)
[2018-06-12] MEDS ORDERED: PHENYLEPHRINE 40 MG in SODIUM CHLORIDE 0.9% 250 ML IV ONE (05:00)
[2018-06-12] MEDS ORDERED: ceFAZolin 2 GM in SODIUM CHLORIDE 0.9% 30 ML IVPB ONE (05:00)
[2018-06-12] MEDS ORDERED: NOREPINEPHRINE 4 MG in SODIUM CHLORIDE 0.9% 250 ML IV SCH (05:00)
[2018-06-12] MEDS ORDERED: HEPARIN SODIUM,PORCINE 5,000 UNIT in SODIUM CHLORIDE 0.9% 500 ML 500 ML IV ONE (05:00)
[2018-06-12] MEDS ORDERED: HEPARIN SODIUM 1,000 UN/ML (10ML VL) IV ONE (05:00)
[2018-06-12] MEDS ORDERED: PROPOFOL 1,000 MG in EMPTY BAG 1 BAG IV ONE (05:00)
[2018-06-12] MEDS ORDERED: CALCIUM CHLORIDE 100 MG/ML 10 ML SYRINGE IVP ONE (05:00)
[2018-06-12] MEDS ORDERED: METOPROLOL TARTRATE 12.5 MG TAB PO ONE (05:00)
[2018-06-12] MEDS ORDERED: MANNITOL 25% 12.5 GM/50 ML VIAL IV ONE ×2 (05:00)
[2018-06-12] MEDS ORDERED: PHENYLEPHRINE-0.9% NACL SYG 1 MG/10 ML SYRINGE IV ONE ×4 (05:00)
[2018-06-12] MEDS ORDERED: PROTAMINE SULFATE 250 MG in EMPTY BAG 1 BAG IV ONE (05:00)
[2018-06-12] MEDS ORDERED: NITROGLYCERIN-D5W PMX 50 MG in DEXTROSE/WATER 1 250ML.BAG IV ONE (05:00)
[2018-06-12] MEDS ORDERED: SODIUM BICARB 8.4% 50 ML SYR (1 MEQ/ML) IV ONE (05:00)
[2018-06-12] MEDS ORDERED: INSULIN REGULAR 100 UNIT in SODIUM CHLORIDE 0.9% 100 ML IV ONE (05:00)
[2018-06-12] MEDS ORDERED: CLEVIDIPINE BUTYRATE 25 MG in EMPTY BAG 1 BAG IV ONE (05:00)
[2018-06-12] MEDS ORDERED: ATORVASTATIN 10 MG TAB PO ONE (05:00)
[2018-06-12] MEDS ORDERED: ALBUMIN HUMAN 5% 500 ML in EMPTY BAG 1 BAG IVPB ONE ×6 (05:00)
[2018-06-12] MEDS ORDERED: ASPIRIN 325 MG TAB PO ONE (05:00)
[2018-06-12] MEDS ORDERED: PROTAMINE SULFATE 10 MG/ML 25 ML VIAL IV ONE ×2 (05:00→13:16)
[2018-06-12] MEDS ORDERED: NITROGLYCERIN-D5W PMX 25 MG/250 ML BTL IV ONE (05:00)
[2018-06-12] MEDS ORDERED: ceFAZolin 1,000 MG in SODIUM CHLORIDE 0.9% IRRIGATIO 1,000 ML IRRIGATION ONE (05:00)
[2018-06-12] MEDS ORDERED: ALBUMIN HUMAN 25% 50 ML in EMPTY BAG 1 BAG IVPB ONE (05:00)
[2018-06-12] MEDS ORDERED: MAGNESIUM SULFATE SYG 4.06 MEQ/ML SYRINGE IV ONE (05:00)
[2018-06-12] MEDS ORDERED: DILTIAZEM 50 MG in SODIUM CHLORIDE 0.9% 40 ML IV SCH (05:00)
[2018-06-12] MEDS ORDERED: ceFAZolin 2,000 MG in SODIUM CHLORIDE 0.9% 30 ML IVPB ONE (05:00)
[2018-06-12 05:30] LABS: Basophils # (A) 0.1 k/uL (0-0.2); Basophils % (A) 1 %; Eosinophils # (A) 0.1 k/uL (0-0.7); Eosinophils % (A) 1 %; HCT 39.7 % (39.0-53.0); Lymphocytes # (A) 1.6 k/uL (1.0-4.8); Lymphocytes % (A) 21 %; MCH 31.4 pg (25.0-35.0); MCHC 33.2 g/dL (31.0-37.0); MCV 94.6 fL (80.0-100.0); Mean Platelet Volume 6.8; Monocytes # (A) 0.5 k/uL (0-1.0); Monocytes % (A) 7 %; Neutrophils # (A) 5.3 k/uL (1.3-7.7); Neutrophils % (A) 69 %; Platelet Count 206 k/uL (150-450); RBC 4.19 m/uL (4.30-5.90); RDW 13.3 % (11.5-15.5); WBC 7.7 k/uL (3.8-10.6)
[2018-06-12] MEDS ORDERED: DEXTROSE 5% IN WATER 1,000 ML with POTASSIUM CHLORIDE 110 MEQ, MAGNESIUM SULFATE 16 MEQ... IV SCH ×5 (05:30)
[2018-06-12] MEDS ORDERED: DEXTROSE 5% IN WATER 1,000 ML with POTASSIUM CHLORIDE 25 MEQ, SODIUM CHLORIDE 2.5MEQ/ML... IV SCH ×6 (05:30)
[2018-06-12 05:42] LABS: HGB 13.2 gm/dL (13.0-17.5)
[2018-06-12 05:44] LABS: Anion Gap 4 mmol/L; Blood Urea Nitrogen 12 mg/dL (9-20); Calcium 8.2 mg/dL (8.4-10.2); Carbon Dioxide 23 mmol/L (22-30); Chloride 110 mmol/L (98-107); Glucose 97 mg/dL (74-99); Sodium 137 mmol/L (137-145)
[2018-06-12] MEDS ORDERED: PANTOPRAZOLE 40 MG TABLET PO SCH (07:30)
[2018-06-12] MEDS: IPRATROPIUM-ALBUTEROL 3 ML NEB INHALATION SCH ×5 (08:05→23:54)
[2018-06-12] MEDS ORDERED: ASPIRIN 81 MG PO SCH (09:00)
--- NOTE | 2018-06-12 09:25 | P.PN ---
Subjective Progress Note Date: 06/12/18 Principal diagnosis: Acute non-ST elevation myocardial infarction, triple vessel coronary artery disease. This is a 67-year-old white male, heavy smoker over the years, but no documentation of COPD, not on any bronchodilators for COPD, patient usually sees Dr. Oro as his primary care physician in [place]. Patient presented to the emergency room today with chest pain and abnormal cardiac panel. Patient was noted to have non-ST segment elevation myocardial infarction. He was noted to have ST segment depression in V2 and V3, echocardiogram showed evidence of inferior lateral hypokinesia. Patient underwent cardiac catheterization. And he was found to have evidence of thrombus in the ostial circumflex with 99% stenosis. His LAD was noted to have 85-90% stenosis also suggestive of thrombus. Circumflex was noted to have 99% stenosis. Considering the findings , patient was advised to undergo coronary artery bypass surgery. He was transferred out of the cardiac catheterization lab to the ICU, and I was asked to see him on consultation. Presently the patient denies any pain or discomfort. Denies any shortness of breath, no cough, no wheezing. Has been a very heavy smoker over the years, and until recently he was smoking about half pack per day on the average. Patient describes slight dyspnea on exertion however he is able to walk 2-3 blocks without any significant dyspnea. Patient was never seen by any student education specialist, and according to him he never had any issues related to his lungs. Presently denies any headache, no blurred vision, no dizziness, no chest pain, no shortness of breath no cough no wheezing no nausea no vomiting no abdominal pain no palpitations no dysuria and no frequency no urgency. Has occasional joints aches and pains for which she takes Aleve on when necessary basis. Labs on admission were noted to be relatively normal and his troponin was 0.325 on admission. Patient was reevaluated today on 06/12/2018, doing well, asymptomatic. Denies any shortness of breath, no cough, no wheezing, he is hemodynamically stable, denies any chest pain. Labs including CBC and basic metabolic profile were reviewed, troponin is 0.413. Patient already had preoperative teaching and preoperative testing initiated by cardiac surgery, risks and benefits of myocardial revascularization was already discussed by cardiac surgery with the patient, patient is likely to undergo urgent coronary artery bypass grafting surgery today this p.m. Objective - Vital Signs Vital signs: Vital Signs Temp 98 F 06/12/18 08:00 Pulse 67 06/12/18 08:25 Resp 16 06/12/18 08:00 BP 110/64 06/12/18 08:00 Pulse Ox 95 06/12/18 08:09 Intake & Output 06/11/18 06/12/18 06/12/18 18:59 06:59 18:59 Intake Total 450 845 20 Output Total 1000 Balance 450 -155 20 Weight 81.647 kg 82.4 kg Intake: IV 450 845 20 Sodium Chloride 0.9% 1, 150 845 20 000 ml @ 75 mls/hr IV . [id number] Rx#:[id number] Output: Urine 1000 Other: Voiding Method Urinal - Exam Physical Exam: Revealed a 67-year-old white male in no distress. Head: Atraumatic, normocephalic. HEENT:[Neck is supple.] [No neck masses.] [No thyromegaly.] [No JVD.] Dry mucous membranes. Chest: [Diminished breath sounds at the bases, no crackles, no rhonchi and no wheezes. Symmetrical chest expansion, no chest wall tenderness. Cardiac Exam: [Normal S1 and S2, no S3 gallop, no murmur.] Abdomen: [Soft, nontender, no megaly, no rebound, no guarding, normal bowel sounds.] Extremities: [No clubbing, no edema, no cyanosis.] Neurological Exam: [No focal neurologic deficit.] Alert oriented 3. Psychiatric: Normal mood, affect and mental status examination. Skin: No rashes, evidence of onychomycosis noted. - Labs CBC & Chem 7: 06/12/18 04:54 06/12/18 04:54 Labs: Abnormal Lab Results - Last 24 Hours (Table) 06/11/18 06/11/18 06/11/18 Range/Units 14:00 14:00 17:29 RBC (4.30-5.90) m/uL Chloride (98-107) mmol/L Calcium (8.4-10.2) mg/dL ALT 20 L (21-72) U/L Troponin I 0.325 H* 0.402 H* (0.000-0.034) ng/mL Triglycerides (<150) mg/dL LDL Cholesterol, Calc (0-99) mg/dL Ur Specific [place] (1.001-1.035) Urine Blood (Negative) Crossmatch 06/11/18 06/11/18 06/11/18 Range/Units 17:29 17:29 18:55 RBC (4.30-5.90) m/uL Chloride (98-107) mmol/L Calcium (8.4-10.2) mg/dL ALT (21-72) U/L Troponin I (0.000-0.034) ng/mL Triglycerides 153 H (<150) mg/dL LDL Cholesterol, Calc 115 H (0-99) mg/dL Ur Specific [place] >1.050 H (1.001-1.035) Urine Blood Trace H (Negative) Crossmatch See Detail 06/12/18 06/12/18 06/12/18 Range/Units 04:54 04:54 04:54 RBC 4.19 L (4.30-5.90) m/uL Chloride 110 H (98-107) mmol/L Calcium 8.2 L (8.4-10.2) mg/dL ALT (21-72) U/L Troponin I 0.413 H* (0.000-0.034) ng/mL Triglycerides (<150) mg/dL LDL Cholesterol, Calc (0-99) mg/dL Ur Specific [place] (1.001-1.035) Urine Blood (Negative) Crossmatch Microbiology - Last 24 Hours (Table) 06/11/18 18:55 Urine Culture - Preliminary Urine,Clean Catch 06/11/18 20:30 Nasal Screen MRSA/MSSA - Preliminary Nasal Swab Assessment and Plan Assessment: Impression: 1 acute non-ST elevation myocardial infarction. 2 triple-vessel coronary artery disease as noted on his cardiac catheterization , done today. 3 suspect moderate component of chronic obstructive pulmonary disease, especially considering his symptoms and considering his smoking history. Patient would likely have FEV1 done today. And he is already scheduled for surgery this p.m. Agree with the present treatment plan, patient is moderate operative risk, however I'm yet to review his FEV1 which will likely be done either later today or tomorrow in a.m. We'll continue to follow. Time with Patient: Less than 30
--- NOTE | 2018-06-12 10:38 | PN ---
PROGRESS NOTE This patient was admitted with non ST-segment elevation myocardial infarction. The patient has severe triple-vessel disease with ostial 99% of the circumflex as well as ostial LAD. The patient has remained stable overnight without any chest pain or shortness of breath. The maximum troponin was 0.413. EKG shows improvement in the mild ST-segment changes. Patient is going to have a surgery today. Patient's vital signs remains stable. He is not in any respiratory distress. There is no reoccurrence of the pain. First and second heart sounds are normal. Lungs are clinically clear to auscultation and percussion. We will continue the current medications and the family was updated regarding the surgery this afternoon. MMODL / IJN: [id number] /
--- NOTE | 2018-06-12 11:32 | P.PN ---
Subjective Progress Note Date: 06/12/18 Principal diagnosis: 5 m walk test completed by the sound engineer: Time 1:5.75 seconds, time 2: 6.32 seconds, time 3:5.33 seconds. STS risk score was calculated and was discussed with the patient by Dr. Sim. Objective - Vital Signs Vital signs: Vital Signs Temp 98 F 06/12/18 08:00 Pulse 52 L 06/12/18 11:22 Resp 16 06/12/18 09:00 BP 116/62 06/12/18 09:00 Pulse Ox 94 L 06/12/18 09:00 Intake & Output 06/11/18 06/12/18 06/12/18 18:59 06:59 18:59 Intake Total 450 845 30 Output Total 1000 Balance 450 -155 30 Weight 81.647 kg 82.4 kg Intake: IV 450 845 30 Sodium Chloride 0.9% 1, 150 845 30 000 ml @ 75 mls/hr IV . [id number] [facility] Rx#:[id number] Output: Urine 1000 Other: Voiding Method Urinal Urinal - Labs CBC & Chem 7: 06/12/18 04:54 06/12/18 04:54 Labs: Abnormal Lab Results - Last 24 Hours (Table) 06/11/18 06/11/18 06/11/18 Range/Units 14:00 14:00 17:29 RBC (4.30-5.90) m/uL Chloride (98-107) mmol/L Calcium (8.4-10.2) mg/dL ALT 20 L (21-72) U/L Troponin I 0.325 H* 0.402 H* (0.000-0.034) ng/mL Triglycerides (<150) mg/dL LDL Cholesterol, Calc (0-99) mg/dL Ur Specific [place] (1.001-1.035) Urine Blood (Negative) Crossmatch 06/11/18 06/11/18 06/11/18 Range/Units 17:29 17:29 18:55 RBC (4.30-5.90) m/uL Chloride (98-107) mmol/L Calcium (8.4-10.2) mg/dL ALT (21-72) U/L Troponin I (0.000-0.034) ng/mL Triglycerides 153 H (<150) mg/dL LDL Cholesterol, Calc 115 H (0-99) mg/dL Ur Specific [place] >1.050 H (1.001-1.035) Urine Blood Trace H (Negative) Crossmatch See Detail 06/12/18 06/12/18 06/12/18 Range/Units 04:54 04:54 04:54 RBC 4.19 L (4.30-5.90) m/uL Chloride 110 H (98-107) mmol/L Calcium 8.2 L (8.4-10.2) mg/dL ALT (21-72) U/L Troponin I 0.413 H* (0.000-0.034) ng/mL Triglycerides (<150) mg/dL LDL Cholesterol, Calc (0-99) mg/dL Ur Specific [place] (1.001-1.035) Urine Blood (Negative) Crossmatch Microbiology - Last 24 Hours (Table) 06/11/18 18:55 Urine Culture - Preliminary Urine,Clean Catch 06/11/18 20:30 Nasal Screen MRSA/MSSA - Preliminary Nasal Swab Assessment and Plan (1) Nicotine dependence Current Visit: Yes Status: Acute Code(s): F17.200 - NICOTINE DEPENDENCE, UNSPECIFIED, UNCOMPLICATED SNOMED Code(s): 30978854 (2) History of bilateral cataract extraction Current Visit: Yes Status: Acute Code(s): Z98.41 - CATARACT EXTRACTION STATUS, RIGHT EYE; Z98.42 - CATARACT EXTRACTION STATUS, LEFT EYE SNOMED Code(s ): 946526372 (3) Glaucoma Current Visit: Yes Status: Acute Code(s): H40.9 - UNSPECIFIED GLAUCOMA SNOMED Code(s): 90600523 (4) Non-STEMI (non-ST elevated myocardial infarction) Current Visit: Yes Status: Acute Code(s): I21.4 - NON-ST ELEVATION (NSTEMI) MYOCARDIAL INFARCTION SNOMED Code(s): 210696896
--- NOTE | 2018-06-12 12:28 | ECHOF ---
Referral Reason:Chest pain MEASUREMENTS -------- HEIGHT: 185.4 cm WEIGHT: 81.6 kg BP: 149/85 RVIDd: 2.7 cm (< 3.3) IVSd: 1.5 cm (0.6 - 1.1) LVIDd: 4.5 cm (3.9 - 5.3) LVPWd: 1.3 cm (0.6 - 1.1) IVSs: 1.8 cm LVIDs: 3.4 cm LVPWs: 1.3 cm LA Diam: 3.4 cm (2.7 - 3.8) LAESV Index (A-L): 33.43 ml/m Ao Diam: 3.6 cm (2.0 - 3.7) AV Cusp: 2.0 cm (1.5 - 2.6) MV EXCURSION: 20.477 mm (> 18.000) MV EF SLOPE: 99 mm/s (70 - 150) EPSS: 1.0 cm MV E Addison: 0.72 m/s MV DecT: 316 ms MV A Addison: 0.58 m/s MV E/A Ratio: 1.25 AR PHT: 649 ms RAP: 5.00 mmHg RVSP: 38.03 mmHg FINDINGS -------- Sinus rhythm. This was a technically adequate study. The left ventricular size is normal. There is moderate concentric left ventricular hypertrophy. O verall left ventricular systolic function is mild-moderately impaired with, an EF between 40 - 45 %. Basal posterior LV wall motion is hypokinetic. Basal inferior LV wall motion is hypokinetic. Mid posterior LV wall motion is hypokinetic. The right ventricle is normal in size. Normal LA size by volume 22+/-6 ml/m2. The right atrium is normal in size. Aortic valve is trileaflet and is mildly thickened. There is [id number] aortic regurgitation. Mild mitral annular calcification present. Mild mitral regurgitation is present. Mild tricuspid regurgitation present. There is mild pulmonary hypertension. The right ventricular systolic pressure, as measured by Doppler, is 38.03mmHg. Trace/mild (physiologic) pulmonic regurgitation. The aortic root size is normal. Normal inferior vena cava with normal inspiratory collapse consistent with estimated right atrial pre ssure of 5 mmHg. There is no pericardial effusion. CONCLUSIONS -------- 1. Sinus rhythm. 2. This was a technically adequate study. 3. The left ventricular size is normal. 4. There is moderate concentric left ventricular hypertrophy. 5. Overall left ventricular systolic function is mild-moderately impaired with, an EF between 40 - 45 %. 6. Basal posterior LV wall motion is hypokinetic. 7. Basal inferior LV wall motion is hypokinetic. 8. Mid posterior LV wall motion is hypokinetic. 9. The right ventricle is normal in size. 10. Normal LA size by volume 22+/-6 ml/m2. 11. The right atrium is normal in size. 12. Aortic valve is trileaflet and is mildly thickened. 13. There is [id number] aortic regurgitation. 14. Mild mitral annular calcification present. 15. Mild mitral regurgitation is present. 16. Mild tricuspid regurgitation present. 17. There is mild pulmonary hypertension. 18. The right ventricular systolic pressure, as measured by Doppler, is 38.03mmHg. 19. Trace/mild (physiologic) pulmonic regurgitation. 20. The aortic root size is normal. 21. Normal inferior vena cava with normal inspiratory collapse consistent with estimated right atrial pressure of 5 mmHg. 22. There is no pericardial effusion. HUMANITIES DIVISION CHAIR: Sonia Marina RDCS
[2018-06-12] MEDS ORDERED: fentaNYL (PF) 50 MCG/ML 50 ML VIAL ONE (13:16)
[2018-06-12] MEDS ORDERED: VECURONIUM 10 MG VIAL IV ONE (13:16)
[2018-06-12] MEDS ORDERED: TRANEXAMIC ACID 1,000 MG/10 ML VIAL ONE (13:16)
[2018-06-12] MEDS ORDERED: CALCIUM CHLORIDE 100 MG/ML 10 ML SYRINGE ONE (13:16)
[2018-06-12] MEDS ORDERED: SODIUM CHLORIDE 0.9% IRRIG 1,000 ML BTL IRRIGATION ONE (13:16)
[2018-06-12] MEDS ORDERED: MIDAZOLAM 2 MG/2 ML VIAL ONE (13:16)
[2018-06-12] MEDS ORDERED: fentaNYL (PF) 50 MCG/ML 2 ML AMP ONE (13:16)
[2018-06-12] MEDS ORDERED: PROPOFOL 10 MG/ML 20 ML VIAL IV ONE (13:16)
[2018-06-12] MEDS ORDERED: MAGNESIUM SULFATE 4 MEQ/ML 10ML VIAL ONE (13:16)
[2018-06-12] MEDS ORDERED: HEPARIN SODIUM,PORCINE 10,000 UNIT/ML 1 ML VIAL ONE (13:16)
[2018-06-12] MEDS ORDERED: SODIUM CHLORIDE 0.9% 250 ML BAG ONE (13:16)
[2018-06-12] MEDS ORDERED: ATROPINE SULFATE 0.4 MG/ML 1 ML VIAL ONE (13:16)
[2018-06-12] MEDS ORDERED: SODIUM BICARB 8.4% 50 ML SYR (1 MEQ/ML) ONE (13:16)
[2018-06-12] MEDS ORDERED: ELECTROLYTE-R (PH 7.4) 1,000 ML IV.SOLN IV ONE (13:16)
[2018-06-12] MEDS ORDERED: PHENYLEPHRINE-0.9% NACL SYG 1 MG/10 ML SYRINGE ONE (13:16)
[2018-06-12] MEDS ORDERED: ePHEDrine SULFATE/0.9% NACL/PF 50 MG/5 ML SYRINGE IV ONE (13:16)
[2018-06-12] MEDS: VANCOMYCIN MISCELLANE SCH ×3 (15:00→20:38)
[2018-06-12 15:07] LABS: ABG Base Excess -3.5 mmol/L; ABG HCO3 22 mmol/L (21-25); ABG Oxygen Saturation 97.5 % (94-97); ABG PCO2 42 mmHg (35-45); ABG PH 7.33 (7.35-7.45); ABG PO2 101 mmHg (83-108); ABG Potassium Whole Blood 3.8 mmol/L (3.4-4.5); ABG Sodium Whole Blood 140 mmol/L (135-146); ABG TCO2 24 mmol/L (19-24)
[2018-06-12] MEDS ORDERED: SODIUM CHLORIDE 0.9% 500 ML 500 ML with HEPARIN SODIUM,PORCINE 5,000 UNIT IV ONE ×2 (16:15)
[2018-06-12 16:36] LABS: ABG Base Excess -8.7 mmol/L; ABG HCO3 21 mmol/L (21-25); ABG PCO2 58 mmHg (35-45); ABG PO2 116 mmHg (83-108); ABG Potassium Whole Blood 4.6 mmol/L (3.4-4.5); ABG Sodium Whole Blood 138 mmol/L (135-146); ABG TCO2 22 mmol/L (19-24)
[2018-06-12 16:49] LABS: ABG HCO3 24 mmol/L (21-25); ABG Oxygen Saturation 99.8 % (94-97); ABG PCO2 55 mmHg (35-45); ABG PH 7.24 (7.35-7.45); ABG PO2 371 mmHg (83-108); ABG Potassium Whole Blood 4.1 mmol/L (3.4-4.5); ABG Sodium Whole Blood 137 mmol/L (135-146); ABG TCO2 25 mmol/L (19-24)
[2018-06-12 17:20] LABS: ABG Base Excess -2.1 mmol/L; ABG HCO3 22 mmol/L (21-25); ABG Oxygen Saturation 99.9 % (94-97); ABG PCO2 36 mmHg (35-45); ABG PO2 378 mmHg (83-108); ABG Potassium Whole Blood 5.1 mmol/L (3.4-4.5); ABG Sodium Whole Blood 135 mmol/L (135-146); ABG TCO2 24 mmol/L (19-24)
[2018-06-12 17:48] LABS: ABG Base Excess -2.8 mmol/L; ABG HCO3 22 mmol/L (21-25); ABG Oxygen Saturation 99.9 % (94-97); ABG PCO2 38 mmHg (35-45); ABG PH 7.37 (7.35-7.45); ABG PO2 372 mmHg (83-108); ABG Potassium Whole Blood 4.7 mmol/L (3.4-4.5); ABG Sodium Whole Blood 136 mmol/L (135-146); ABG TCO2 23 mmol/L (19-24)
[2018-06-12 18:51] LABS: ABG PH 7.16 (7.35-7.45)
[2018-06-12] MEDS ORDERED: DEXTROSE 5% IN WATER 100 ML with AMIODARONE 150 MG IV PRN (19:22)
[2018-06-12] MEDS ORDERED: IPRATROPIUM-ALBUTEROL 3 ML NEB INHALATION PRN (19:22)
[2018-06-12] MEDS ORDERED: Phosphorus Replacement Protoco 1 EACH MISC MISCELLANE PRN (19:22)
[2018-06-12] MEDS ORDERED: Magnesium Replacement Protocol 1 EACH MISC MISCELLANE PRN (19:22)
[2018-06-12] MEDS ORDERED: NITROGLYCERIN-D5W PMX 50 MG in DEXTROSE/WATER 1 250ML.BAG IV SCH (19:22)
[2018-06-12] MEDS ORDERED: CLEVIDIPINE BUTYRATE 25 MG in EMPTY BAG 1 BAG IV SCH (19:22)
[2018-06-12] MEDS ORDERED: ONDANSETRON 4 MG/2 ML VIAL IVP PRN (19:22)
[2018-06-12] MEDS ORDERED: CALCIUM CHLORIDE 1,000 MG in SODIUM CHLORIDE 0.9% 100 ML IV PRN (19:22)
[2018-06-12] MEDS ORDERED: Potassium Replacement Protocol 1 EACH MISC MISCELLANE PRN (19:22)
[2018-06-12] MEDS ORDERED: BENZOCAINE/MENTHOL LOZENG 1 EACH LOZENGE MUCOUS MEM PRN (19:22)
[2018-06-12] MEDS ORDERED: METOCLOPRAMIDE 5 MG/ML 2 ML VIAL IVP PRN (19:22)
[2018-06-12 19:34] LABS: Basophils # (A) 0.1 k/uL (0-0.2); Basophils % (A) 0 %; Eosinophils # (A) 0.1 k/uL (0-0.7); Eosinophils % (A) 1 %; HGB 11.8 gm/dL (13.0-17.5); Lymphocytes # (A) 1.3 k/uL (1.0-4.8); Lymphocytes % (A) 11 %; MCH 32.3 pg (25.0-35.0); MCHC 33.7 g/dL (31.0-37.0); MCV 95.8 fL (80.0-100.0); Mean Platelet Volume 7.6; Monocytes # (A) 0.6 k/uL (0-1.0); Monocytes % (A) 5 %; Neutrophils # (A) 9.9 k/uL (1.3-7.7); Neutrophils % (A) 83 %; Platelet Count 127 k/uL (150-450); RBC 3.65 m/uL (4.30-5.90); RDW 13.2 % (11.5-15.5); WBC 11.9 k/uL (3.8-10.6)
[2018-06-12 19:38] LABS: ABG Base Excess -0.6 mmol/L; ABG HCO3 26 mmol/L (21-25); ABG PCO2 51 mmHg (35-45); ABG PH 7.31 (7.35-7.45); ABG PO2 278 mmHg (83-108); ABG TCO2 27 mmol/L (19-24)
[2018-06-12 19:39] LABS: Ionized Calcium 4.6 mg/dL (4.5-5.3)
[2018-06-12 19:44] LABS: INR 1.3 (<1.2); Prothrombin Time 12.3 sec (9.0-12.0)
[2018-06-12] MEDS ORDERED: PROPOFOL 1,000 MG in EMPTY BAG 1 BAG IV SCH (19:45)
[2018-06-12 19:50] LABS: ALT 27 U/L (21-72); AST 34 U/L (17-59); Albumin 2.1 g/dL (3.5-5.0); Alkaline Phosphatase 27 U/L (38-126); Anion Gap 4 mmol/L; Blood Urea Nitrogen 11 mg/dL (9-20); Calcium 7.4 mg/dL (8.4-10.2); Carbon Dioxide 25 mmol/L (22-30); Chloride 110 mmol/L (98-107); Glucose 100 mg/dL (74-99); Magnesium 2.9 mg/dL (1.6-2.3); Potassium 4.2 mmol/L (3.5-5.1); Sodium 139 mmol/L (137-145); Total Bilirubin 0.6 mg/dL (0.2-1.3); Total Protein 3.9 g/dL (6.3-8.2)
[2018-06-12 19:51] LABS: Glucose,Whole Blood 102 mg/dL (75-99)
[2018-06-12] MEDS ORDERED: INSULIN REGULAR 100 UNIT in SODIUM CHLORIDE 0.9% 100 ML IV SCH (20:00)
--- NOTE | 2018-06-12 20:01 | XR ---
EXAMINATION TYPE: XR chest 1V portable DATE OF EXAM: 06/12/2018 COMPARISON: Yesterday HISTORY: Postop findings There is endotracheal tube With the tip 4 cm from the nicci. Nasogastric tube is noted. This is prob ably in good position. There is left jugular catheter with the tip in the main pulmonary artery. Ther e are drains over the heart. There are chest leads. There is general coarsening of interstitial pulmo nary markings. TECHNIQUE: Single frontal view of the chest is obtained. IMPRESSION: Recent surgery. Mild pulmonary vascular congestion and interstitial fibrosis. Congestion is new compared to last exam. No pneumothorax.
[2018-06-12 20:09] LABS: Glucose,Whole Blood 101 mg/dL (75-99)
[2018-06-12] MEDS: SODIUM CHLORIDE 0.9% 1,000 ML IV SCH (20:37)
[2018-06-12] MEDS: LACTATED RINGERS 1,000 ML IV SCH (20:41)
[2018-06-12 21:08] LABS: Glucose,Whole Blood 99 mg/dL (75-99)
[2018-06-12 22:05] LABS: Glucose,Whole Blood 128 mg/dL (75-99)
[2018-06-12] MEDS: MUPIROCIN 2% OINT 22 GM TUBE NASAL SCH (22:14)
[2018-06-12] MEDS: ceFAZolin IN SWFI 2 GM/20 ML SYRINGE IVP SCH (22:22)
[2018-06-12 22:57] LABS: Basophils % (A) 0 %; Eosinophils # (A) 0.1 k/uL (0-0.7); Eosinophils % (A) 1 %; HCT 39.2 % (39.0-53.0); HGB 13.1 gm/dL (13.0-17.5); Lymphocytes # (A) 1.4 k/uL (1.0-4.8); Lymphocytes % (A) 14 %; MCH 31.9 pg (25.0-35.0); MCHC 33.4 g/dL (31.0-37.0); MCV 95.5 fL (80.0-100.0); Mean Platelet Volume 7.2; Monocytes # (A) 0.6 k/uL (0-1.0); Monocytes % (A) 6 %; Neutrophils # (A) 7.9 k/uL (1.3-7.7); Neutrophils % (A) 79 %; Platelet Count 137 k/uL (150-450); RDW 13.4 % (11.5-15.5); WBC 10.1 k/uL (3.8-10.6)
[2018-06-12 23:06] LABS: Glucose,Whole Blood 137 mg/dL (75-99)
[2018-06-12 23:56] LABS: Glucose,Whole Blood 132 mg/dL (75-99)
[2018-06-13] MEDS: ACETAMINOPHEN IV (For NPO) 1,000 MG in EMPTY BAG 1 BAG IVPB SCH ×4 (00:02→17:11)
[2018-06-13] MEDS: ALBUMIN HUMAN 5% 250 ML in EMPTY BAG 1 BAG IVPB PRN ×3 (00:25→08:24)
[2018-06-13] MEDS ORDERED: DEXMEDETOMIDINE/0.9% NACL(PMX) 400 MCG in EMPTY BAG 1 BAG IV SCH (00:30)
[2018-06-13 00:52] LABS: Basophils % (A) 0 %; Eosinophils % (A) 0 %; HGB 11.5 gm/dL (13.0-17.5); Lymphocytes # (A) 0.4 k/uL (1.0-4.8); Lymphocytes % (A) 5 %; MCHC 33.7 g/dL (31.0-37.0); Mean Platelet Volume 7.2; Monocytes # (A) 0.5 k/uL (0-1.0); Monocytes % (A) 5 %; Neutrophils # (A) 7.8 k/uL (1.3-7.7); Neutrophils % (A) 89 %; Platelet Count 126 k/uL (150-450); RBC 3.57 m/uL (4.30-5.90); WBC 8.8 k/uL (3.8-10.6)
[2018-06-13 01:04] LABS: Glucose,Whole Blood 122 mg/dL (75-99)
[2018-06-13] MEDS: IPRATROPIUM-ALBUTEROL 3 ML NEB INHALATION SCH ×5 (01:09→19:49)
[2018-06-13 01:46] LABS: Anion Gap 3 mmol/L; Blood Urea Nitrogen 12 mg/dL (9-20); Calcium 7.5 mg/dL (8.4-10.2); Carbon Dioxide 25 mmol/L (22-30); Chloride 110 mmol/L (98-107); Glucose 112 mg/dL (74-99); Potassium 4.1 mmol/L (3.5-5.1); Sodium 138 mmol/L (137-145)
[2018-06-13 02:18] LABS: Glucose,Whole Blood 122 mg/dL (75-99)
[2018-06-13] MEDS: HEPARIN SODIUM,PORCINE 5,000 UNIT/ML 1 ML VIAL SQ SCH ×3 (02:18→15:14)
[2018-06-13 03:00] LABS: Glucose,Whole Blood 118 mg/dL (75-99)
[2018-06-13 03:58] LABS: Glucose,Whole Blood 126 mg/dL (75-99)
[2018-06-13 03:59] LABS: Basophils % (A) 0 %; Eosinophils % (A) 1 %; HCT 31.3 % (39.0-53.0); HGB 10.9 gm/dL (13.0-17.5); Lymphocytes # (A) 0.4 k/uL (1.0-4.8); Lymphocytes % (A) 5 %; MCHC 34.8 g/dL (31.0-37.0); MCV 94.8 fL (80.0-100.0); Mean Platelet Volume 7.8; Monocytes # (A) 0.5 k/uL (0-1.0); Monocytes % (A) 6 %; Neutrophils # (A) 7.5 k/uL (1.3-7.7); Neutrophils % (A) 87 %; Platelet Count 123 k/uL (150-450); RBC 3.31 m/uL (4.30-5.90); RDW 13.1 % (11.5-15.5); WBC 8.6 k/uL (3.8-10.6)
[2018-06-13 04:07] LABS: INR 1.2 (<1.2); Partial Thromboplastin Time 25.8 sec (22.0-30.0); Prothrombin Time 11.7 sec (9.0-12.0)
[2018-06-13 04:15] LABS: Ionized Calcium 4.5 mg/dL (4.5-5.3)
[2018-06-13 04:23] LABS: ALT 30 U/L (21-72); AST 60 U/L (17-59); Albumin 2.6 g/dL (3.5-5.0); Alkaline Phosphatase 36 U/L (38-126); Anion Gap 1 mmol/L; Blood Urea Nitrogen 12 mg/dL (9-20); Calcium 7.5 mg/dL (8.4-10.2); Carbon Dioxide 26 mmol/L (22-30); Chloride 110 mmol/L (98-107); Glucose 114 mg/dL (74-99); Magnesium 2.4 mg/dL (1.6-2.3); Potassium 4.2 mmol/L (3.5-5.1); Sodium 137 mmol/L (137-145); Total Bilirubin 0.8 mg/dL (0.2-1.3); Total Protein 4.5 g/dL (6.3-8.2)
[2018-06-13 04:59] LABS: Glucose,Whole Blood 123 mg/dL (75-99)
[2018-06-13] MEDS ORDERED: NOREPINEPHRINE 4 MG in SODIUM CHLORIDE 0.9% 250 ML IV SCH (05:15)
[2018-06-13 05:58] LABS: Glucose,Whole Blood 120 mg/dL (75-99)
[2018-06-13 06:05] LABS: ABG HCO3 25 mmol/L (21-25); ABG Oxygen Saturation 99.1 % (94-97); ABG PCO2 37 mmHg (35-45); ABG PH 7.44 (7.35-7.45); ABG PO2 112 mmHg (83-108); ABG TCO2 26 mmol/L (19-24)
[2018-06-13] MEDS: ceFAZolin IN SWFI 2 GM/20 ML SYRINGE IVP SCH ×2 (06:06→16:10)
[2018-06-13 07:06] LABS: Glucose,Whole Blood 128 mg/dL (75-99)
--- NOTE | 2018-06-13 07:23 | XR ---
EXAMINATION TYPE: XR chest 1V portable DATE OF EXAM: 06/13/2018 COMPARISON: 06/12/2018 HISTORY: SOB, Follow Up FINDINGS: Indwelling tubes and catheters are unchanged. No change in bibasilar opacities. Stable appearance of the cardio-mediastinal structures at this time. Pleural effusion unchanged. IMPRESSION: 1. Stable portable chest. Clinical correlation and follow up until resolution is recommended.
[2018-06-13 08:05] LABS: Glucose,Whole Blood 137 mg/dL (75-99)
[2018-06-13] MEDS: ATORVASTATIN 40 MG TAB PO SCH (08:28)
[2018-06-13] MEDS: ASPIRIN 325 MG TAB PO SCH (08:28)
[2018-06-13] MEDS: CLOPIDOGREL 75 MG TAB PO SCH (08:28)
[2018-06-13] MEDS: MUPIROCIN 2% OINT 22 GM TUBE NASAL SCH ×2 (08:30→20:36)
[2018-06-13] MEDS ORDERED: PANTOPRAZOLE 40 MG/10 ML VIAL IVP SCH (09:00)
[2018-06-13] MEDS ORDERED: METOPROLOL TARTRATE 12.5 MG TAB PO SCH ×2 (09:00→21:00)
[2018-06-13 09:04] LABS: Glucose,Whole Blood 135 mg/dL (75-99)
[2018-06-13 10:00] LABS: Glucose,Whole Blood 132 mg/dL (75-99)
--- NOTE | 2018-06-13 11:05 | P.PN ---
Subjective Progress Note Date: 06/13/18 Principal diagnosis: Non-STEMI this admission, severe three-vessel coronary artery disease, current nicotine abuse. POD #1 coronary artery bypass grafting 3 vessels, left internal mammary artery to the left anterior descending coronary artery, a reverse greater saphenous vein graft off the aorta to the obtuse marginal coronary artery and a reverse greater saphenous vein graft off the aorta to the posterior descending coronary artery. Endoscopic vein harvest of the left greater saphenous vein and intraoperative transesophageal echocardiogram. The patient is laying in bed in the intensive care unit. He is in no acute distress. He was extubated from mechanical ventilation at 742 this a.m. he denies any complaints of pain or shortness of breath at this time. Oxygen saturations are 93% on 4 L nasal cannula. He is achieving 750 mL on his incentive spirometry with encouragement. He is hemodynamically stable. His and son are at his bedside and have been updated on his care. Objective - Vital Signs Vital signs: Vital Signs Temp 98.4 F 06/13/18 08:00 Pulse 65 06/13/18 10:00 Resp 16 06/13/18 10:00 BP 104/65 06/12/18 11:00 Pulse Ox 91 L 06/13/18 10:00 Intake & Output 06/12/18 06/13/18 06/13/18 18:59 06:59 18:59 Intake Total 71 1943.600 246.445 Output Total 2500 1404 203 Balance -2429 539.600 43.445 Weight 88.3 kg 88.3 kg Intake: IV 71 1828 237 ACETAMINOPHEN IV (For NPO 200 ) 1,000 mg In Empty Bag 1 bag @ 400 mls/hr IVPB Q6HR [facility] Rx#:[id number] Albumin Human 5% 250 ml 500 In Empty Bag 1 bag @ 250 mls/hr IVPB Q1HR PRN Rx#: [id number] Co/CI 360 60 Lactated Ringers 1,000 ml 600 150 @ 20 mls/hr IV .Q24H [facility] Rx#:[id number] Pressure bag 108 27 Sodium Chloride 0.9% 1, 40 000 ml @ 75 mls/hr IV . [id number] [facility] Rx#:[id number] ceFAZolin 2,000 mg In 60 Sodium Chloride 0.9% 30 ml @ 999 mls/hr IVPB ONCE ONE Rx#:[id number] Intake, IV Titration 115.600 9.445 Amount Clevidipine Butyrate 25 1.567 mg In Empty Bag 1 bag @ 1 MG/HR 2 mls/hr IV .Q24H [facility] Rx#:[id number] Dexmedetomidine/0.9% NaCl 24.686 (Pmx) 400 mcg In Empty Bag 1 bag @ Titrate IV . Q0M [facility] Rx#:[id number] Insulin Regular 100 unit 6.075 1.517 In Sodium Chloride 0.9% 100 ml @ Per Protocol IV .Q0M [facility] Rx#:[id number] Norepinephrine 4 mg In 18.75 7.928 Sodium Chloride 0.9% 250 ml @ Titrate IV .Q0M [facility] Rx#:[id number] Propofol 1,000 mg In 64.522 Empty Bag 1 bag @ Titrate IV .Q0M [facility] Rx#: [id number] Output: Chest Tube Drainage 606 78 Left Pleural 130 28 Mediastinal x2 476 50 Urine 500 798 125 Estimated Blood Loss 1999 Other: Voiding Method Urinal Indwelling Catheter Indwelling Catheter ABP, PAP, CO, CI - Last Documented Arterial Blood Pressure 116/51 Pulmonary Artery Pressure 37/16 Cardiac Output 4.4 Cardiac Index 2.1 - Constitutional General appearance: Present: cooperative, no acute distress - Respiratory Details: Lungs sounds essentially clear to his bilateral upper lobes and decreased to his bilateral bases. Respirations are symmetrical and nonlabored. Oxygen saturation are 93% on 4 L nasal cannula. He is achieving 750 mL on his incentive spirometry. Mediastinal and left pleural Casey chest tubes in place to low continuous wall suction -20 cm H2O. No air leak is present. They are draining thin serosanguineous drainage. Mediastinal chest tubes drained 450 mL since surgery and 120 mL output in the last 8 hours, left pleural chest tube drained 140 mL output since surgery, 55 mL output in the last 8 hours. - Cardiovascular Details: Regular rhythm and rate. S1 and S2 present, negative for S3, gallop or murmur. Bedside telemetry showing normal sinus rhythm heart rate 65. Sternum is stable. Heart hugger is in place and he is demonstrating appropriate use. Knee -high SUE hose and sequential compression devices in place to his bilateral lower extremities. Atrial and ventricular epicardial pacemaker wires in place and connected to backup pacemaker generator with a VVI 50. Left IJ Cordis in place with Fortuna-Marcio catheter patent and functioning. Current CVP pressure 10 mmHg, PA pressures 31/15, cardiac output 4.8, cardiac index 2.3. Right radial arterial line in place and functioning. - Gastrointestinal Gastrointestinal Comment(s): Abdomen is soft, nontender and nondistended. Hypoactive bowel sounds to all 4 abdominal quadrants. No guarding or rigidity. No organomegaly. - Genitourinary Genitourinary Comment(s): Al catheter for accurate I&O. Draining clear yellow urine. 475 mL output in the last 8 hours. - Integumentary Integumentary Comment(s): Skin is warm and dry. No clubbing or cyanosis present. Midline sternal incision clean and dry and approximated. No drainage or redness present. Gauze dressing clean dry and intact. Left lower extremity EVH site clean dry and approximated. No drainage or redness present. - Neurologic Neurologic: Present: CNII-XII intact - Musculoskeletal Musculoskeletal: Present: generalized weakness, strength equal bilaterally - Psychiatric Psychiatric: Present: A&O x's 3, appropriate affect, intact judgment & insight - Allied health notes Allied health notes reviewed: nursing - Labs CBC & Chem 7: 06/13/18 03:45 06/13/18 03:45 Labs: Abnormal Lab Results - Last 24 Hours (Table) 06/11/18 06/12/18 06/12/18 Range/Units 17:29 14:09 16:43 WBC (3.8-10.6) k/uL RBC (4.30-5.90) m/uL Hgb (13.0-17.5) gm/dL Hct (39.0-53.0) % Plt Count (150-450) k/uL Neutrophils # (1.3-7.7) k/uL Lymphocytes # (1.0-4.8) k/uL PT (9.0-12.0) sec INR (<1.2) ABG pH 7.33 L 7.16 L* (7.35-7.45) ABG pCO2 58 H (35-45) mmHg ABG pO2 116 H (83-108) mmHg ABG HCO3 (21-25) mmol/L ABG Total CO2 (19-24) mmol/L ABG O2 Saturation 97.5 H (94-97) % ABG Hematocrit (34.0-46.0) % ABG Potassium 4.6 H (3.4-4.5) mmol/L ABG Ionized Calcium (4.5-5.3) mg/dL ABG Glucose 119 H (75-99) mg/dL ABG Lactic Acid 2.9 H* (0.5-1.6) mmol/L Hemoglobin (13.0-17.5) gm/dL Chloride (98-107) mmol/L Glucose (74-99) mg/dL POC Glucose (mg/dL) (75-99) mg/dL Calcium (8.4-10.2) mg/dL Magnesium (1.6-2.3) mg/dL AST (17-59) U/L Alkaline Phosphatase (38-126) U/L Total Protein (6.3-8.2) g/dL Albumin (3.5-5.0) g/dL Arterial Blood Potassium 4.6 H (3.4-4.5) mmol/L Arterial Blood Glucose 119 H (75-99) mg/dL Crossmatch See Detail 06/12/18 06/12/18 06/12/18 Range/Units 16:47 17:18 17:47 WBC (3.8-10.6) k/uL RBC (4.30-5.90) m/uL Hgb (13.0-17.5) gm/dL Hct (39.0-53.0) % Plt Count (150-450) k/uL Neutrophils # (1.3-7.7) k/uL Lymphocytes # (1.0-4.8) k/uL PT (9.0-12.0) sec INR (<1.2) ABG pH 7.24 L (7.35-7.45) ABG pCO2 55 H (35-45) mmHg ABG pO2 371 H 378 H 372 H (83-108) mmHg ABG HCO3 (21-25) mmol/L ABG Total CO2 25 H (19-24) mmol/L ABG O2 Saturation 99.8 H 99.9 H 99.9 H (94-97) % ABG Hematocrit 29 L 29 L 29 L (34.0-46.0) % ABG Potassium 5.1 H 4.7 H (3.4-4.5) mmol/L ABG Ionized Calcium 3.7 L 3.8 L 3.9 L (4.5-5.3) mg/dL ABG Glucose 127 H 183 H 168 H (75-99) mg/dL ABG Lactic Acid 2.3 H* (0.5-1.6) mmol/L Hemoglobin 9.3 L 9.4 L 9.3 L (13.0-17.5) gm/dL Chloride (98-107) mmol/L Glucose (74-99) mg/dL POC Glucose (mg/dL) (75-99) mg/dL Calcium (8.4-10.2) mg/dL Magnesium (1.6-2.3) mg/dL AST (17-59) U/L Alkaline Phosphatase (38-126) U/L Total Protein (6.3-8.2) g/dL Albumin (3.5-5.0) g/dL Arterial Blood Potassium 5.1 H 4.7 H (3.4-4.5) mmol/L Arterial Blood Glucose 127 H 183 H 168 H (75-99) mg/dL Crossmatch 06/12/18 06/12/18 06/12/18 Range/Units 19:24 19:27 19:27 WBC 11.9 H (3.8-10.6) k/uL RBC 3.65 L (4.30-5.90) m/uL Hgb 11.8 L (13.0-17.5) gm/dL Hct 35.0 L (39.0-53.0) % Plt Count 127 L (150-450) k/uL Neutrophils # 9.9 H (1.3-7.7) k/uL Lymphocytes # (1.0-4.8) k/uL PT (9.0-12.0) sec INR (<1.2) ABG pH (7.35-7.45) ABG pCO2 (35-45) mmHg ABG pO2 (83-108) mmHg ABG HCO3 (21-25) mmol/L ABG Total CO2 (19-24) mmol/L ABG O2 Saturation (94-97) % ABG Hematocrit (34.0-46.0) % ABG Potassium (3.4-4.5) mmol/L ABG Ionized Calcium (4.5-5.3) mg/dL ABG Glucose (75-99) mg/dL ABG Lactic Acid (0.5-1.6) mmol/L Hemoglobin (13.0-17.5) gm/dL Chloride 110 H (98-107) mmol/L Glucose 100 H (74-99) mg/dL POC Glucose (mg/dL) 102 H (75-99) mg/dL Calcium 7.4 L (8.4-10.2) mg/dL Magnesium 2.9 H (1.6-2.3) mg/dL AST (17-59) U/L Alkaline Phosphatase 27 L (38-126) U/L Total Protein 3.9 L (6.3-8.2) g/dL Albumin 2.1 L (3.5-5.0) g/dL Arterial Blood Potassium (3.4-4.5) mmol/L Arterial Blood Glucose (75-99) mg/dL Crossmatch 06/12/18 06/12/18 06/12/18 Range/Units 19:27 19:36 19:58 WBC (3.8-10.6) k/uL RBC (4.30-5.90) m/uL Hgb (13.0-17.5) gm/dL Hct (39.0-53.0) % Plt Count (150-450) k/uL Neutrophils # (1.3-7.7) k/uL Lymphocytes # (1.0-4.8) k/uL PT 12.3 H (9.0-12.0) sec INR 1.3 H (<1.2) ABG pH 7.31 L (7.35-7.45) ABG pCO2 51 H (35-45) mmHg ABG pO2 278 H (83-108) mmHg ABG HCO3 26 H (21-25) mmol/L ABG Total CO2 27 H (19-24) mmol/L ABG O2 Saturation 100.0 H (94-97) % ABG Hematocrit (34.0-46.0) % ABG Potassium (3.4-4.5) mmol/L ABG Ionized Calcium (4.5-5.3) mg/dL ABG Glucose (75-99) mg/dL ABG Lactic Acid (0.5-1.6) mmol/L Hemoglobin (13.0-17.5) gm/dL Chloride (98-107) mmol/L Glucose (74-99) mg/dL POC Glucose (mg/dL) 101 H (75-99) mg/dL Calcium (8.4-10.2) mg/dL Magnesium (1.6-2.3) mg/dL AST (17-59) U/L Alkaline Phosphatase (38-126) U/L Total Protein (6.3-8.2) g/dL Albumin (3.5-5.0) g/dL Arterial Blood Potassium (3.4-4.5) mmol/L Arterial Blood Glucose (75-99) mg/dL Crossmatch 06/12/18 06/12/18 06/12/18 Range/Units 21:30 21:54 22:55 WBC (3.8-10.6) k/uL RBC 4.10 L (4.30-5.90) m/uL Hgb (13.0-17.5) gm/dL Hct (39.0-53.0) % Plt Count 137 L (150-450) k/uL Neutrophils # 7.9 H (1.3-7.7) k/uL Lymphocytes # (1.0-4.8) k/uL PT (9.0-12.0) sec INR (<1.2) ABG pH (7.35-7.45) ABG pCO2 (35-45) mmHg ABG pO2 (83-108) mmHg ABG HCO3 (21-25) mmol/L ABG Total CO2 (19-24) mmol/L ABG O2 Saturation (94-97) % ABG Hematocrit (34.0-46.0) % ABG Potassium (3.4-4.5) mmol/L ABG Ionized Calcium (4.5-5.3) mg/dL ABG Glucose (75-99) mg/dL ABG Lactic Acid (0.5-1.6) mmol/L Hemoglobin (13.0-17.5) gm/dL Chloride (98-107) mmol/L Glucose (74-99) mg/dL POC Glucose (mg/dL) 128 H 137 H (75-99) mg/dL Calcium (8.4-10.2) mg/dL Magnesium (1.6-2.3) mg/dL AST (17-59) U/L Alkaline Phosphatase (38-126) U/L Total Protein (6.3-8.2) g/dL Albumin (3.5-5.0) g/dL Arterial Blood Potassium (3.4-4.5) mmol/L Arterial Blood Glucose (75-99) mg/dL Crossmatch 06/12/18 06/13/18 06/13/18 Range/Units 23:45 00:35 00:53 WBC (3.8-10.6) k/uL RBC 3.57 L (4.30-5.90) m/uL Hgb 11.5 L (13.0-17.5) gm/dL Hct 34.0 L (39.0-53.0) % Plt Count 126 L (150-450) k/uL Neutrophils # 7.8 H (1.3-7.7) k/uL Lymphocytes # 0.4 L (1.0-4.8) k/uL PT (9.0-12.0) sec INR (<1.2) ABG pH (7.35-7.45) ABG pCO2 (35-45) mmHg ABG pO2 (83-108) mmHg ABG HCO3 (21-25) mmol/L ABG Total CO2 (19-24) mmol/L ABG O2 Saturation (94-97) % ABG Hematocrit (34.0-46.0) % ABG Potassium (3.4-4.5) mmol/L ABG Ionized Calcium (4.5-5.3) mg/dL ABG Glucose (75-99) mg/dL ABG Lactic Acid (0.5-1.6) mmol/L Hemoglobin (13.0-17.5) gm/dL Chloride (98-107) mmol/L Glucose (74-99) mg/dL POC Glucose (mg/dL) 132 H 122 H (75-99) mg/dL Calcium (8.4-10.2) mg/dL Magnesium (1.6-2.3) mg/dL AST (17-59) U/L Alkaline Phosphatase (38-126) U/L Total Protein (6.3-8.2) g/dL Albumin (3.5-5.0) g/dL Arterial Blood Potassium (3.4-4.5) mmol/L Arterial Blood Glucose (75-99) mg/dL Crossmatch 06/13/18 06/13/18 06/13/18 Range/Units 01:15 02:07 02:49 WBC (3.8-10.6) k/uL RBC (4.30-5.90) m/uL Hgb (13.0-17.5) gm/dL Hct (39.0-53.0) % Plt Count (150-450) k/uL Neutrophils # (1.3-7.7) k/uL Lymphocytes # (1.0-4.8) k/uL PT (9.0-12.0) sec INR (<1.2) ABG pH (7.35-7.45) ABG pCO2 (35-45) mmHg ABG pO2 (83-108) mmHg ABG HCO3 (21-25) mmol/L ABG Total CO2 (19-24) mmol/L ABG O2 Saturation (94-97) % ABG Hematocrit (34.0-46.0) % ABG Potassium (3.4-4.5) mmol/L ABG Ionized Calcium (4.5-5.3) mg/dL ABG Glucose (75-99) mg/dL ABG Lactic Acid (0.5-1.6) mmol/L Hemoglobin (13.0-17.5) gm/dL Chloride 110 H (98-107) mmol/L Glucose 112 H (74-99) mg/dL POC Glucose (mg/dL) 122 H 118 H (75-99) mg/dL Calcium 7.5 L (8.4-10.2) mg/dL Magnesium (1.6-2.3) mg/dL AST (17-59) U/L Alkaline Phosphatase (38-126) U/L Total Protein (6.3-8.2) g/dL Albumin (3.5-5.0) g/dL Arterial Blood Potassium (3.4-4.5) mmol/L Arterial Blood Glucose (75-99) mg/dL Crossmatch 06/13/18 06/13/18 06/13/18 Range/Units 03:45 03:45 03:45 WBC (3.8-10.6) k/uL RBC 3.31 L (4.30-5.90) m/uL Hgb 10.9 L (13.0-17.5) gm/dL Hct 31.3 L (39.0-53.0) % Plt Count 123 L (150-450) k/uL Neutrophils # (1.3-7.7) k/uL Lymphocytes # 0.4 L (1.0-4.8) k/uL PT (9.0-12.0) sec INR 1.2 H (<1.2) ABG pH (7.35-7.45) ABG pCO2 (35-45) mmHg ABG pO2 (83-108) mmHg ABG HCO3 (21-25) mmol/L ABG Total CO2 (19-24) mmol/L ABG O2 Saturation (94-97) % ABG Hematocrit (34.0-46.0) % ABG Potassium (3.4-4.5) mmol/L ABG Ionized Calcium (4.5-5.3) mg/dL ABG Glucose (75-99) mg/dL ABG Lactic Acid (0.5-1.6) mmol/L Hemoglobin (13.0-17.5) gm/dL Chloride 110 H (98-107) mmol/L Glucose 114 H (74-99) mg/dL POC Glucose (mg/dL) (75-99) mg/dL Calcium 7.5 L (8.4-10.2) mg/dL Magnesium 2.4 H (1.6-2.3) mg/dL AST 60 H (17-59) U/L Alkaline Phosphatase 36 L (38-126) U/L Total Protein 4.5 L (6.3-8.2) g/dL Albumin 2.6 L (3.5-5.0) g/dL Arterial Blood Potassium (3.4-4.5) mmol/L Arterial Blood Glucose (75-99) mg/dL Crossmatch 06/13/18 06/13/18 06/13/18 Range/Units 03:47 04:47 05:47 WBC (3.8-10.6) k/uL RBC (4.30-5.90) m/uL Hgb (13.0-17.5) gm/dL Hct (39.0-53.0) % Plt Count (150-450) k/uL Neutrophils # (1.3-7.7) k/uL Lymphocytes # (1.0-4.8) k/uL PT (9.0-12.0) sec INR (<1.2) ABG pH (7.35-7.45) ABG pCO2 (35-45) mmHg ABG pO2 (83-108) mmHg ABG HCO3 (21-25) mmol/L ABG Total CO2 (19-24) mmol/L ABG O2 Saturation (94-97) % ABG Hematocrit (34.0-46.0) % ABG Potassium (3.4-4.5) mmol/L ABG Ionized Calcium (4.5-5.3) mg/dL ABG Glucose (75-99) mg/dL ABG Lactic Acid (0.5-1.6) mmol/L Hemoglobin (13.0-17.5) gm/dL Chloride (98-107) mmol/L Glucose (74-99) mg/dL POC Glucose (mg/dL) 126 H 123 H 120 H (75-99) mg/dL Calcium (8.4-10.2) mg/dL Magnesium (1.6-2.3) mg/dL AST (17-59) U/L Alkaline Phosphatase (38-126) U/L Total Protein (6.3-8.2) g/dL Albumin (3.5-5.0) g/dL Arterial Blood Potassium (3.4-4.5) mmol/L Arterial Blood Glucose (75-99) mg/dL Crossmatch 06/13/18 06/13/18 06/13/18 Range/Units 05:59 06:55 07:54 WBC (3.8-10.6) k/uL RBC (4.30-5.90) m/uL Hgb (13.0-17.5) gm/dL Hct (39.0-53.0) % Plt Count (150-450) k/uL Neutrophils # (1.3-7.7) k/uL Lymphocytes # (1.0-4.8) k/uL PT (9.0-12.0) sec INR (<1.2) ABG pH (7.35-7.45) ABG pCO2 (35-45) mmHg ABG pO2 112 H (83-108) mmHg ABG HCO3 (21-25) mmol/L ABG Total CO2 26 H (19-24) mmol/L ABG O2 Saturation 99.1 H (94-97) % ABG Hematocrit (34.0-46.0) % ABG Potassium (3.4-4.5) mmol/L ABG Ionized Calcium (4.5-5.3) mg/dL ABG Glucose (75-99) mg/dL ABG Lactic Acid (0.5-1.6) mmol/L Hemoglobin (13.0-17.5) gm/dL Chloride (98-107) mmol/L Glucose (74-99) mg/dL POC Glucose (mg/dL) 128 H 137 H (75-99) mg/dL Calcium (8.4-10.2) mg/dL Magnesium (1.6-2.3) mg/dL AST (17-59) U/L Alkaline Phosphatase (38-126) U/L Total Protein (6.3-8.2) g/dL Albumin (3.5-5.0) g/dL Arterial Blood Potassium (3.4-4.5) mmol/L Arterial Blood Glucose (75-99) mg/dL Crossmatch 06/13/18 06/13/18 Range/Units 08:53 09:58 WBC (3.8-10.6) k/uL RBC (4.30-5.90) m/uL Hgb (13.0-17.5) gm/dL Hct (39.0-53.0) % Plt Count (150-450) k/uL Neutrophils # (1.3-7.7) k/uL Lymphocytes # (1.0-4.8) k/uL PT (9.0-12.0) sec INR (<1.2) ABG pH (7.35-7.45) ABG pCO2 (35-45) mmHg ABG pO2 (83-108) mmHg ABG HCO3 (21-25) mmol/L ABG Total CO2 (19-24) mmol/L ABG O2 Saturation (94-97) % ABG Hematocrit (34.0-46.0) % ABG Potassium (3.4-4.5) mmol/L ABG Ionized Calcium (4.5-5.3) mg/dL ABG Glucose (75-99) mg/dL ABG Lactic Acid (0.5-1.6) mmol/L Hemoglobin (13.0-17.5) gm/dL Chloride (98-107) mmol/L Glucose (74-99) mg/dL POC Glucose (mg/dL) 135 H 132 H (75-99) mg/dL Calcium (8.4-10.2) mg/dL Magnesium (1.6-2.3) mg/dL AST (17-59) U/L Alkaline Phosphatase (38-126) U/L Total Protein (6.3-8.2) g/dL Albumin (3.5-5.0) g/dL Arterial Blood Potassium (3.4-4.5) mmol/L Arterial Blood Glucose (75-99) mg/dL Crossmatch Microbiology - Last 24 Hours (Table) 06/11/18 18:55 Urine Culture - Final Urine,Clean Catch - Imaging and Cardiology Chest x-ray: report reviewed, image reviewed Assessment and Plan (1) Nicotine dependence Current Visit: Yes Status: Acute Code(s): F17.200 - NICOTINE DEPENDENCE, UNSPECIFIED, UNCOMPLICATED SNOMED Code(s): 86699789 (2) History of bilateral cataract extraction Current Visit: Yes Status: Acute Code(s): Z98.41 - CATARACT EXTRACTION STATUS, RIGHT EYE; Z98.42 - CATARACT EXTRACTION STATUS, LEFT EYE SNOMED Code(s ): 964054843 (3) Glaucoma Current Visit: Yes Status: Acute Code(s): H40.9 - UNSPECIFIED GLAUCOMA SNOMED Code(s): 77032796 (4) Non-STEMI (non-ST elevated myocardial infarction) Current Visit: Yes Status: Acute Code(s): I21.4 - NON-ST ELEVATION (NSTEMI) MYOCARDIAL INFARCTION SNOMED Code(s): 255473594 Plan: 1. Continue aspirin, statin, Plavix and beta ajson. The Beta jason will be increased as tolerated. 2. Wean norepinephrine as tolerated. 3. Wean oxygen as tolerated, encourage use of his incentive spirometry every hour while awake. 4. Bronchodilator and pulmonary management recommendations per Dr. Nicole. 5. Will monitor daily labs and x-rays. 6. GI prophylaxis with Protonix, DVT prophylaxis with subcu heparin and SCDs. 7. Insulin management per primary care service. 8. Increased activity. PT/OT/cardiac rehab consulted. 9. Discussed the importance of smoking cessation. 10. More recommendations to follow based on patient's clinical course Time with Patient: Greater than 30
[2018-06-13 11:08] LABS: Glucose,Whole Blood 106 mg/dL (75-99)
[2018-06-13 11:11] VITALS: BMI 25.7
--- NOTE | 2018-06-13 11:18 | P.PN ---
Subjective Progress Note Date: 06/13/18 Principal diagnosis: Acute non-ST elevation myocardial infarction, triple vessel coronary artery disease. Status post CABG, postoperative day #1 This is a 67-year-old white male, heavy smoker over the years, but no documentation of COPD, not on any bronchodilators for COPD, patient usually sees Dr. Oro as his primary care physician in [place]. Patient presented to the emergency room today with chest pain and abnormal cardiac panel. Patient was noted to have non-ST segment elevation myocardial infarction. He was noted to have ST segment depression in V2 and V3, echocardiogram showed evidence of inferior lateral hypokinesia. Patient underwent cardiac catheterization. And he was found to have evidence of thrombus in the ostial circumflex with 99% stenosis. His LAD was noted to have 85-90% stenosis also suggestive of thrombus. Circumflex was noted to have 99% stenosis. Considering the findings , patient was advised to undergo coronary artery bypass surgery. He was transferred out of the cardiac catheterization lab to the ICU, and I was asked to see him on consultation. Presently the patient denies any pain or discomfort. Denies any shortness of breath, no cough, no wheezing. Has been a very heavy smoker over the years, and until recently he was smoking about half pack per day on the average. Patient describes slight dyspnea on exertion however he is able to walk 2-3 blocks without any significant dyspnea. Patient was never seen by any client success specialist, and according to him he never had any issues related to his lungs. Presently denies any headache, no blurred vision, no dizziness, no chest pain, no shortness of breath no cough no wheezing no nausea no vomiting no abdominal pain no palpitations no dysuria and no frequency no urgency. Has occasional joints aches and pains for which she takes Aleve on when necessary basis. Labs on admission were noted to be relatively normal and his troponin was 0.325 on admission. Patient was reevaluated today on 06/12/2018, doing well, asymptomatic. Denies any shortness of breath, no cough, no wheezing, he is hemodynamically stable, denies any chest pain. Labs including CBC and basic metabolic profile were reviewed, troponin is 0.413. Patient already had preoperative teaching and preoperative testing initiated by cardiac surgery, risks and benefits of myocardial revascularization was already discussed by cardiac surgery with the patient, patient is likely to undergo urgent coronary artery bypass grafting surgery today this p.m. On 06/13/2018, patient was seen, and he is still on mechanical ventilation this morning. Patient underwent CABG 3 vessels, MIR to LAD, reverse greater saphenous vein graft off the aorta to the upper twos marginal coronary artery and reverse greater saphenous vein graft off the aorta to the posterior descending coronary artery. Patient is now postoperative day #1. Last night could not be extubated because the patient was getting extremely agitated and restless. We kept him on mechanical ventilation overnight, switched his propofol this morning to Precedex, awaken the patient, gave him a short weaning trial with pressure support and CPAP, and before he became agitated, patient was extubated. Post extubation the patient seems to be doing well, and tolerating the extubation well. I was actually at bedside during the process. Chest x-ray showed minimal bibasilar opacity, and small tiny effusions. This is expected finding post CABG. Labs this morning showed a WBC count of 8.8 hemoglobin of 11.5. ABG showed a pO2 of 112 pCO2 of 37 pH of 7.44. Objective - Vital Signs Vital signs: Vital Signs Temp 98.4 F 06/13/18 08:00 Pulse 65 06/13/18 10:00 Resp 16 06/13/18 10:00 BP 104/65 06/12/18 11:00 Pulse Ox 91 L 06/13/18 10:00 Intake & Output 06/12/18 06/13/18 06/13/18 18:59 06:59 18:59 Intake Total 71 1943.600 246.445 Output Total 2500 1404 203 Balance -2429 539.600 43.445 Weight 88.3 kg 88.3 kg Intake: IV 71 1828 237 ACETAMINOPHEN IV (For NPO 200 ) 1,000 mg In Empty Bag 1 bag @ 400 mls/hr IVPB Q6HR [facility] Rx#:[id number] Albumin Human 5% 250 ml 500 In Empty Bag 1 bag @ 250 mls/hr IVPB Q1HR PRN Rx#: [id number] Co/CI 360 60 Lactated Ringers 1,000 ml 600 150 @ 20 mls/hr IV .Q24H [facility] Rx#:[id number] Pressure bag 108 27 Sodium Chloride 0.9% 1, 40 000 ml @ 75 mls/hr IV . [id number] [facility] Rx#:[id number] ceFAZolin 2,000 mg In 60 Sodium Chloride 0.9% 30 ml @ 999 mls/hr IVPB ONCE ONE Rx#:[id number] Intake, IV Titration 115.600 9.445 Amount Clevidipine Butyrate 25 1.567 mg In Empty Bag 1 bag @ 1 MG/HR 2 mls/hr IV .Q24H [facility] Rx#:[id number] Dexmedetomidine/0.9% NaCl 24.686 (Pmx) 400 mcg In Empty Bag 1 bag @ Titrate IV . Q0M [facility] Rx#:[id number] Insulin Regular 100 unit 6.075 1.517 In Sodium Chloride 0.9% 100 ml @ Per Protocol IV .Q0M [facility] Rx#:[id number] Norepinephrine 4 mg In 18.75 7.928 Sodium Chloride 0.9% 250 ml @ Titrate IV .Q0M [facility] Rx#:[id number] Propofol 1,000 mg In 64.522 Empty Bag 1 bag @ Titrate IV .Q0M [facility] Rx#: [id number] Output: Chest Tube Drainage 606 78 Left Pleural 130 28 Mediastinal x2 476 50 Urine 500 798 125 Estimated Blood Loss 1999 Other: Voiding Method Urinal Indwelling Catheter Indwelling Catheter ABP, PAP, CO, CI - Last Documented Arterial Blood Pressure 116/51 Pulmonary Artery Pressure 37/16 Cardiac Output 4.4 Cardiac Index 2.1 - Exam Physical Exam: Revealed a 67-year-old white male in no distress. On mechanical ventilation, endotracheal tube and orogastric tube are intact. Head: Atraumatic, normocephalic. HEENT:[Neck is supple.] [No neck masses.] [No thyromegaly.] [No JVD.] Moist mucous membranes. PERRLA, EOMI, no icterus. Tubes are intact. And in proper position. Chest: [Diminished breath sounds at the bases, no crackles, no rhonchi and no wheezes. Symmetrical chest expansion, no chest wall tenderness. Cardiac Exam: [Normal S1 and S2, no S3 gallop, no murmur.] Abdomen: [Soft, nontender, no megaly, no rebound, no guarding, normal bowel sounds.] Extremities: [No clubbing, no edema, no cyanosis.] Neurological Exam: [No focal neurologic deficit.] . Skin: No rashes, evidence of onychomycosis noted. - Labs CBC & Chem 7: 06/13/18 03:45 06/13/18 03:45 Labs: Abnormal Lab Results - Last 24 Hours (Table) 06/11/18 06/12/18 06/12/18 Range/Units 17:29 14:09 16:43 WBC (3.8-10.6) k/uL RBC (4.30-5.90) m/uL Hgb (13.0-17.5) gm/dL Hct (39.0-53.0) % Plt Count (150-450) k/uL Neutrophils # (1.3-7.7) k/uL Lymphocytes # (1.0-4.8) k/uL PT (9.0-12.0) sec INR (<1.2) ABG pH 7.33 L 7.16 L* (7.35-7.45) ABG pCO2 58 H (35-45) mmHg ABG pO2 116 H (83-108) mmHg ABG HCO3 (21-25) mmol/L ABG Total CO2 (19-24) mmol/L ABG O2 Saturation 97.5 H (94-97) % ABG Hematocrit (34.0-46.0) % ABG Potassium 4.6 H (3.4-4.5) mmol/L ABG Ionized Calcium (4.5-5.3) mg/dL ABG Glucose 119 H (75-99) mg/dL ABG Lactic Acid 2.9 H* (0.5-1.6) mmol/L Hemoglobin (13.0-17.5) gm/dL Chloride (98-107) mmol/L Glucose (74-99) mg/dL POC Glucose (mg/dL) (75-99) mg/dL Calcium (8.4-10.2) mg/dL Magnesium (1.6-2.3) mg/dL AST (17-59) U/L Alkaline Phosphatase (38-126) U/L Total Protein (6.3-8.2) g/dL Albumin (3.5-5.0) g/dL Arterial Blood Potassium 4.6 H (3.4-4.5) mmol/L Arterial Blood Glucose 119 H (75-99) mg/dL Crossmatch See Detail 06/12/18 06/12/18 06/12/18 Range/Units 16:47 17:18 17:47 WBC (3.8-10.6) k/uL RBC (4.30-5.90) m/uL Hgb (13.0-17.5) gm/dL Hct (39.0-53.0) % Plt Count (150-450) k/uL Neutrophils # (1.3-7.7) k/uL Lymphocytes # (1.0-4.8) k/uL PT (9.0-12.0) sec INR (<1.2) ABG pH 7.24 L (7.35-7.45) ABG pCO2 55 H (35-45) mmHg ABG pO2 371 H 378 H 372 H (83-108) mmHg ABG HCO3 (21-25) mmol/L ABG Total CO2 25 H (19-24) mmol/L ABG O2 Saturation 99.8 H 99.9 H 99.9 H (94-97) % ABG Hematocrit 29 L 29 L 29 L (34.0-46.0) % ABG Potassium 5.1 H 4.7 H (3.4-4.5) mmol/L ABG Ionized Calcium 3.7 L 3.8 L 3.9 L (4.5-5.3) mg/dL ABG Glucose 127 H 183 H 168 H (75-99) mg/dL ABG Lactic Acid 2.3 H* (0.5-1.6) mmol/L Hemoglobin 9.3 L 9.4 L 9.3 L (13.0-17.5) gm/dL Chloride (98-107) mmol/L Glucose (74-99) mg/dL POC Glucose (mg/dL) (75-99) mg/dL Calcium (8.4-10.2) mg/dL Magnesium (1.6-2.3) mg/dL AST (17-59) U/L Alkaline Phosphatase (38-126) U/L Total Protein (6.3-8.2) g/dL Albumin (3.5-5.0) g/dL Arterial Blood Potassium 5.1 H 4.7 H (3.4-4.5) mmol/L Arterial Blood Glucose 127 H 183 H 168 H (75-99) mg/dL Crossmatch 1106/12/18 06/12/18 Range/Units 19:24 19:27 19:27 WBC 11.9 H (3.8-10.6) k/uL RBC 3.65 L (4.30-5.90) m/uL Hgb 11.8 L (13.0-17.5) gm/dL Hct 35.0 L (39.0-53.0) % Plt Count 127 L (150-450) k/uL Neutrophils # 9.9 H (1.3-7.7) k/uL Lymphocytes # (1.0-4.8) k/uL PT (9.0-12.0) sec INR (<1.2) ABG pH (7.35-7.45) ABG pCO2 (35-45) mmHg ABG pO2 (83-108) mmHg ABG HCO3 (21-25) mmol/L ABG Total CO2 (19-24) mmol/L ABG O2 Saturation (94-97) % ABG Hematocrit (34.0-46.0) % ABG Potassium (3.4-4.5) mmol/L ABG Ionized Calcium (4.5-5.3) mg/dL ABG Glucose (75-99) mg/dL ABG Lactic Acid (0.5-1.6) mmol/L Hemoglobin (13.0-17.5) gm/dL Chloride 110 H (98-107) mmol/L Glucose 100 H (74-99) mg/dL POC Glucose (mg/dL) 102 H (75-99) mg/dL Calcium 7.4 L (8.4-10.2) mg/dL Magnesium 2.9 H (1.6-2.3) mg/dL AST (17-59) U/L Alkaline Phosphatase 27 L (38-126) U/L Total Protein 3.9 L (6.3-8.2) g/dL Albumin 2.1 L (3.5-5.0) g/dL Arterial Blood Potassium (3.4-4.5) mmol/L Arterial Blood Glucose (75-99) mg/dL Crossmatch 06/12/18 06/12/18 06/12/18 Range/Units 19:27 19:36 19:58 WBC (3.8-10.6) k/uL RBC (4.30-5.90) m/uL Hgb (13.0-17.5) gm/dL Hct (39.0-53.0) % Plt Count (150-450) k/uL Neutrophils # (1.3-7.7) k/uL Lymphocytes # (1.0-4.8) k/uL PT 12.3 H (9.0-12.0) sec INR 1.3 H (<1.2) ABG pH 7.31 L (7.35-7.45) ABG pCO2 51 H (35-45) mmHg ABG pO2 278 H (83-108) mmHg ABG HCO3 26 H (21-25) mmol/L ABG Total CO2 27 H (19-24) mmol/L ABG O2 Saturation 100.0 H (94-97) % ABG Hematocrit (34.0-46.0) % ABG Potassium (3.4-4.5) mmol/L ABG Ionized Calcium (4.5-5.3) mg/dL ABG Glucose (75-99) mg/dL ABG Lactic Acid (0.5-1.6) mmol/L Hemoglobin (13.0-17.5) gm/dL Chloride (98-107) mmol/L Glucose (74-99) mg/dL POC Glucose (mg/dL) 101 H (75-99) mg/dL Calcium (8.4-10.2) mg/dL Magnesium (1.6-2.3) mg/dL AST (17-59) U/L Alkaline Phosphatase (38-126) U/L Total Protein (6.3-8.2) g/dL Albumin (3.5-5.0) g/dL Arterial Blood Potassium (3.4-4.5) mmol/L Arterial Blood Glucose (75-99) mg/dL Crossmatch 06/12/18 06/12/18 06/12/18 Range/Units 21:30 21:54 22:55 WBC (3.8-10.6) k/uL RBC 4.10 L (4.30-5.90) m/uL Hgb (13.0-17.5) gm/dL Hct (39.0-53.0) % Plt Count 137 L (150-450) k/uL Neutrophils # 7.9 H (1.3-7.7) k/uL Lymphocytes # (1.0-4.8) k/uL PT (9.0-12.0) sec INR (<1.2) ABG pH (7.35-7.45) ABG pCO2 (35-45) mmHg ABG pO2 (83-108) mmHg ABG HCO3 (21-25) mmol/L ABG Total CO2 (19-24) mmol/L ABG O2 Saturation (94-97) % ABG Hematocrit (34.0-46.0) % ABG Potassium (3.4-4.5) mmol/L ABG Ionized Calcium (4.5-5.3) mg/dL ABG Glucose (75-99) mg/dL ABG Lactic Acid (0.5-1.6) mmol/L Hemoglobin (13.0-17.5) gm/dL Chloride (98-107) mmol/L Glucose (74-99) mg/dL POC Glucose (mg/dL) 128 H 137 H (75-99) mg/dL Calcium (8.4-10.2) mg/dL Magnesium (1.6-2.3) mg/dL AST (17-59) U/L Alkaline Phosphatase (38-126) U/L Total Protein (6.3-8.2) g/dL Albumin (3.5-5.0) g/dL Arterial Blood Potassium (3.4-4.5) mmol/L Arterial Blood Glucose (75-99) mg/dL Crossmatch 06/12/18 06/13/18 06/13/18 Range/Units 23:45 00:35 00:53 WBC (3.8-10.6) k/uL RBC 3.57 L (4.30-5.90) m/uL Hgb 11.5 L (13.0-17.5) gm/dL Hct 34.0 L (39.0-53.0) % Plt Count 126 L (150-450) k/uL Neutrophils # 7.8 H (1.3-7.7) k/uL Lymphocytes # 0.4 L (1.0-4.8) k/uL PT (9.0-12.0) sec INR (<1.2) ABG pH (7.35-7.45) ABG pCO2 (35-45) mmHg ABG pO2 (83-108) mmHg ABG HCO3 (21-25) mmol/L ABG Total CO2 (19-24) mmol/L ABG O2 Saturation (94-97) % ABG Hematocrit (34.0-46.0) % ABG Potassium (3.4-4.5) mmol/L ABG Ionized Calcium (4.5-5.3) mg/dL ABG Glucose (75-99) mg/dL ABG Lactic Acid (0.5-1.6) mmol/L Hemoglobin (13.0-17.5) gm/dL Chloride (98-107) mmol/L Glucose (74-99) mg/dL POC Glucose (mg/dL) 132 H 122 H (75-99) mg/dL Calcium (8.4-10.2) mg/dL Magnesium (1.6-2.3) mg/dL AST (17-59) U/L Alkaline Phosphatase (38-126) U/L Total Protein (6.3-8.2) g/dL Albumin (3.5-5.0) g/dL Arterial Blood Potassium (3.4-4.5) mmol/L Arterial Blood Glucose (75-99) mg/dL Crossmatch 06/13/18 06/13/18 06/13/18 Range/Units 01:15 02:07 02:49 WBC (3.8-10.6) k/uL RBC (4.30-5.90) m/uL Hgb (13.0-17.5) gm/dL Hct (39.0-53.0) % Plt Count (150-450) k/uL Neutrophils # (1.3-7.7) k/uL Lymphocytes # (1.0-4.8) k/uL PT (9.0-12.0) sec INR (<1.2) ABG pH (7.35-7.45) ABG pCO2 (35-45) mmHg ABG pO2 (83-108) mmHg ABG HCO3 (21-25) mmol/L ABG Total CO2 (19-24) mmol/L ABG O2 Saturation (94-97) % ABG Hematocrit (34.0-46.0) % ABG Potassium (3.4-4.5) mmol/L ABG Ionized Calcium (4.5-5.3) mg/dL ABG Glucose (75-99) mg/dL ABG Lactic Acid (0.5-1.6) mmol/L Hemoglobin (13.0-17.5) gm/dL Chloride 110 H (98-107) mmol/L Glucose 112 H (74-99) mg/dL POC Glucose (mg/dL) 122 H 118 H (75-99) mg/dL Calcium 7.5 L (8.4-10.2) mg/dL Magnesium (1.6-2.3) mg/dL AST (17-59) U/L Alkaline Phosphatase (38-126) U/L Total Protein (6.3-8.2) g/dL Albumin (3.5-5.0) g/dL Arterial Blood Potassium (3.4-4.5) mmol/L Arterial Blood Glucose (75-99) mg/dL Crossmatch 06/13/18 06/13/18 06/13/18 Range/Units 03:45 03:45 03:45 WBC (3.8-10.6) k/uL RBC 3.31 L (4.30-5.90) m/uL Hgb 10.9 L (13.0-17.5) gm/dL Hct 31.3 L (39.0-53.0) % Plt Count 123 L (150-450) k/uL Neutrophils # (1.3-7.7) k/uL Lymphocytes # 0.4 L (1.0-4.8) k/uL PT (9.0-12.0) sec INR 1.2 H (<1.2) ABG pH (7.35-7.45) ABG pCO2 (35-45) mmHg ABG pO2 (83-108) mmHg ABG HCO3 (21-25) mmol/L ABG Total CO2 (19-24) mmol/L ABG O2 Saturation (94-97) % ABG Hematocrit (34.0-46.0) % ABG Potassium (3.4-4.5) mmol/L ABG Ionized Calcium (4.5-5.3) mg/dL ABG Glucose (75-99) mg/dL ABG Lactic Acid (0.5-1.6) mmol/L Hemoglobin (13.0-17.5) gm/dL Chloride 110 H (98-107) mmol/L Glucose 114 H (74-99) mg/dL POC Glucose (mg/dL) (75-99) mg/dL Calcium 7.5 L (8.4-10.2) mg/dL Magnesium 2.4 H (1.6-2.3) mg/dL AST 60 H (17-59) U/L Alkaline Phosphatase 36 L (38-126) U/L Total Protein 4.5 L (6.3-8.2) g/dL Albumin 2.6 L (3.5-5.0) g/dL Arterial Blood Potassium (3.4-4.5) mmol/L Arterial Blood Glucose (75-99) mg/dL Crossmatch 06/13/18 06/13/18 06/13/18 Range/Units 03:47 04:47 05:47 WBC (3.8-10.6) k/uL RBC (4.30-5.90) m/uL Hgb (13.0-17.5) gm/dL Hct (39.0-53.0) % Plt Count (150-450) k/uL Neutrophils # (1.3-7.7) k/uL Lymphocytes # (1.0-4.8) k/uL PT (9.0-12.0) sec INR (<1.2) ABG pH (7.35-7.45) ABG pCO2 (35-45) mmHg ABG pO2 (83-108) mmHg ABG HCO3 (21-25) mmol/L ABG Total CO2 (19-24) mmol/L ABG O2 Saturation (94-97) % ABG Hematocrit (34.0-46.0) % ABG Potassium (3.4-4.5) mmol/L ABG Ionized Calcium (4.5-5.3) mg/dL ABG Glucose (75-99) mg/dL ABG Lactic Acid (0.5-1.6) mmol/L Hemoglobin (13.0-17.5) gm/dL Chloride (98-107) mmol/L Glucose (74-99) mg/dL POC Glucose (mg/dL) 126 H 123 H 120 H (75-99) mg/dL Calcium (8.4-10.2) mg/dL Magnesium (1.6-2.3) mg/dL AST (17-59) U/L Alkaline Phosphatase (38-126) U/L Total Protein (6.3-8.2) g/dL Albumin (3.5-5.0) g/dL Arterial Blood Potassium (3.4-4.5) mmol/L Arterial Blood Glucose (75-99) mg/dL Crossmatch 06/13/18 06/13/18 06/13/18 Range/Units 05:59 06:55 07:54 WBC (3.8-10.6) k/uL RBC (4.30-5.90) m/uL Hgb (13.0-17.5) gm/dL Hct (39.0-53.0) % Plt Count (150-450) k/uL Neutrophils # (1.3-7.7) k/uL Lymphocytes # (1.0-4.8) k/uL PT (9.0-12.0) sec INR (<1.2) ABG pH (7.35-7.45) ABG pCO2 (35-45) mmHg ABG pO2 112 H (83-108) mmHg ABG HCO3 (21-25) mmol/L ABG Total CO2 26 H (19-24) mmol/L ABG O2 Saturation 99.1 H (94-97) % ABG Hematocrit (34.0-46.0) % ABG Potassium (3.4-4.5) mmol/L ABG Ionized Calcium (4.5-5.3) mg/dL ABG Glucose (75-99) mg/dL ABG Lactic Acid (0.5-1.6) mmol/L Hemoglobin (13.0-17.5) gm/dL Chloride (98-107) mmol/L Glucose (74-99) mg/dL POC Glucose (mg/dL) 128 H 137 H (75-99) mg/dL Calcium (8.4-10.2) mg/dL Magnesium (1.6-2.3) mg/dL AST (17-59) U/L Alkaline Phosphatase (38-126) U/L Total Protein (6.3-8.2) g/dL Albumin (3.5-5.0) g/dL Arterial Blood Potassium (3.4-4.5) mmol/L Arterial Blood Glucose (75-99) mg/dL Crossmatch 06/13/18 06/13/18 06/13/18 Range/Units 08:53 09:58 11:06 WBC (3.8-10.6) k/uL RBC (4.30-5.90) m/uL Hgb (13.0-17.5) gm/dL Hct (39.0-53.0) % Plt Count (150-450) k/uL Neutrophils # (1.3-7.7) k/uL Lymphocytes # (1.0-4.8) k/uL PT (9.0-12.0) sec INR (<1.2) ABG pH (7.35-7.45) ABG pCO2 (35-45) mmHg ABG pO2 (83-108) mmHg ABG HCO3 (21-25) mmol/L ABG Total CO2 (19-24) mmol/L ABG O2 Saturation (94-97) % ABG Hematocrit (34.0-46.0) % ABG Potassium (3.4-4.5) mmol/L ABG Ionized Calcium (4.5-5.3) mg/dL ABG Glucose (75-99) mg/dL ABG Lactic Acid (0.5-1.6) mmol/L Hemoglobin (13.0-17.5) gm/dL Chloride (98-107) mmol/L Glucose (74-99) mg/dL POC Glucose (mg/dL) 135 H 132 H 106 H (75-99) mg/dL Calcium (8.4-10.2) mg/dL Magnesium (1.6-2.3) mg/dL AST (17-59) U/L Alkaline Phosphatase (38-126) U/L Total Protein (6.3-8.2) g/dL Albumin (3.5-5.0) g/dL Arterial Blood Potassium (3.4-4.5) mmol/L Arterial Blood Glucose (75-99) mg/dL Crossmatch Microbiology - Last 24 Hours (Table) 06/11/18 18:55 Urine Culture - Final Urine,Clean Catch Assessment and Plan Assessment: Impression: 1 acute non-ST elevation myocardial infarction. 2 triple-vessel coronary artery disease as noted on his cardiac catheterization , . 3 suspect moderate component of chronic obstructive pulmonary disease, 4 status post CABG, postoperative day #1. Patient was extubated uneventfully this morning, will continue to follow. Recommendation: Continue bronchodilators, incentive spirometry, early ambulation , and his usual cardiac meds post CABG. Time with Patient: Less than 30
[2018-06-13 11:59] LABS: Glucose,Whole Blood 109 mg/dL (75-99)
--- NOTE | 2018-06-13 12:30 | PN ---
PROGRESS NOTE HISTORY: Mr. Ramires is a 67-year-old male who underwent coronary bypass grafting yesterday. He is extubated in sinus mechanism. He feels well. He is denying any chest pain. His breathing has been stable. He denies any dizziness. He received a MIR to the LAD, saphenous vein graft to the obtuse marginal branch and the PDA. Hemodynamically, he is stable and he is on no pressors. He continues to be, at this time, on aspirin once a day Lipitor 40 mg daily, Plavix 75 mg daily, metoprolol tartrate 12.5 mg twice a day. PHYSICAL EXAMINATION: Blood pressure 116/60 with a heart in the 60s. Lungs with mild decreased breath sounds no wheezes. Heart, regular rhythm S1, S2. No S3. Systolic ejection murmur. Abdomen is soft, nontender. Extremities, no significant edema. LAB DATA: Lab data revealed a BUN and creatinine of 12 and 0.75, hemoglobin of 10.9. IMPRESSION: 1. Status post bypass grafting, stable. 2. Recent non ST-segment elevation myocardial infarction. 3. Mild to moderate ischemic cardiomyopathy. 4. Hyperlipidemia. RECOMMENDATIONS: From the cardiac standpoint, we will continue present therapy. Depending on his blood pressure, beta jason, ISIDORO inhibitor will be added to his regimen. He will continue incentive spirometry. MMODL / IJN: [id number] /
[2018-06-13 12:58] LABS: Glucose,Whole Blood 122 mg/dL (75-99)
[2018-06-13] MEDS ORDERED: CALCIUM GLUCONATE 1,000 MG in SODIUM CHLORIDE 0.9% 100 ML IVPB ONE (13:00)
[2018-06-13] MEDS ORDERED: METOPROLOL TARTRATE 12.5 MG TAB PO STA (13:14)
[2018-06-13 14:12] LABS: Glucose,Whole Blood 122 mg/dL (75-99)
[2018-06-13 15:15] LABS: Glucose,Whole Blood 132 mg/dL (75-99)
[2018-06-13] MEDS: LACTATED RINGERS 1,000 ML IV SCH (16:00)
[2018-06-13 16:04] LABS: Glucose,Whole Blood 141 mg/dL (75-99)
[2018-06-13 16:45] LABS: Glucose,Whole Blood 147 mg/dL (75-99)
[2018-06-13] MEDS: AMIODARONE 450 MG in DEXTROSE 5% IN WATER 250 ML IV PRN ×2 (18:07)
[2018-06-13] MEDS ORDERED: HYDROcodone/APAP 5-325MG 1 EACH TAB PO PRN ×2 (18:13)
[2018-06-13] MEDS ORDERED: MAGNESIUM HYDROXIDE 2,400 MG/10 ML CUP PO PRN (18:15)
[2018-06-13] MEDS ORDERED: BISACODYL 10 MG SUPP RECTAL PRN (18:15)
[2018-06-13 18:17] LABS: Glucose,Whole Blood 149 mg/dL (75-99)
[2018-06-13 18:58] LABS: Glucose,Whole Blood 142 mg/dL (75-99)
[2018-06-13] MEDS: SENNOSIDES-DOCUSATE SODIUM 1 EACH TAB PO SCH (20:34)
[2018-06-13 20:53] LABS: Glucose,Whole Blood 154 mg/dL (75-99)
[2018-06-13 21:56] LABS: Glucose,Whole Blood 136 mg/dL (75-99)
[2018-06-13 22:59] LABS: Glucose,Whole Blood 121 mg/dL (75-99)
[2018-06-13 23:49] LABS: Glucose,Whole Blood 115 mg/dL (75-99)
[2018-06-14] MEDS: AMIODARONE 450 MG in DEXTROSE 5% IN WATER 250 ML IV PRN ×2
--- NOTE | 2018-06-14 00:03 | PN ---
PROGRESS NOTE DATE OF SERVICE: 06/13/2018 This 67-year-old gentleman admitted with acute non ST elevation myocardial infarction and had severe coronary artery disease. The patient underwent CABG. The patient is extubated. Patient being closely monitored. No chest pain. No palpitations. No fever. EXAM: Alert and oriented x3. Pulse 65. Blood pressure 162/51. Respiratory rate 16, temperature normal. Pulse ox 98% on 5 L. HEENT: Conjunctivae normal. Oral mucosa moist. Neck is no jugular venous distention. No carotid bruit. No lymph node enlargement. Cardiovascular: S1, S2 muffled. Respirations: Breath sounds diminished in the bases. A few scattered rhonchi and crackles. Abdomen is soft, nontender. Legs are no edema. No swelling. Central nervous system: No focal deficits. LABS: At this time shows WBC 8.8, hemoglobin 11.5, otherwise, Accu-Cheks are noted. Troponin 0.413. ASSESSMENT: 1. Acute non ST-segment elevation myocardial infarction, present on admission, cardiac catheterization and three-vessel coronary artery disease status post coronary artery bypass grafting. 2. Hyperlipidemia. 3. History of nicotine dependence. 4. Glaucoma. RECOMMENDATIONS AND DISCUSSION: Recommend to continue current medications, monitoring, management and symptomatic treatment. Otherwise, continue the beta blockers, antiplatelet agents, closely follow. Incentive spirometry. Monitor blood sugars. Closely follow with Cardiology and Cardiothoracic surgery. Further recommendations to follow. JOSÉ MIGUEL / YASMEEN: [id number] /
[2018-06-14] MEDS: ACETAMINOPHEN IV (For NPO) 1,000 MG in EMPTY BAG 1 BAG IVPB SCH (00:28)
[2018-06-14] MEDS: HEPARIN SODIUM,PORCINE 5,000 UNIT/ML 1 ML VIAL SQ SCH ×3 (00:28→16:17)
[2018-06-14 02:09] LABS: Glucose,Whole Blood 128 mg/dL (75-99)
[2018-06-14 04:06] LABS: Glucose,Whole Blood 126 mg/dL (75-99)
[2018-06-14 05:04] LABS: Basophils % (A) 0 %; Eosinophils % (A) 0 %; HCT 32.3 % (39.0-53.0); HGB 10.8 gm/dL (13.0-17.5); Lymphocytes # (A) 0.9 k/uL (1.0-4.8); Lymphocytes % (A) 7 %; MCHC 33.6 g/dL (31.0-37.0); MCV 95.3 fL (80.0-100.0); Mean Platelet Volume 7.5; Monocytes # (A) 0.7 k/uL (0-1.0); Monocytes % (A) 6 %; Neutrophils # (A) 10.3 k/uL (1.3-7.7); Neutrophils % (A) 86 %; Platelet Count 141 k/uL (150-450); RBC 3.39 m/uL (4.30-5.90); RDW 13.2 % (11.5-15.5)
[2018-06-14 05:05] LABS: Ionized Calcium 4.6 mg/dL (4.5-5.3)
[2018-06-14 05:08] LABS: INR 1.3 (<1.2); Prothrombin Time 12.2 sec (9.0-12.0)
[2018-06-14 05:14] LABS: ALT 27 U/L (21-72); AST 48 U/L (17-59); Albumin 2.8 g/dL (3.5-5.0); Alkaline Phosphatase 40 U/L (38-126); Anion Gap 7 mmol/L; Blood Urea Nitrogen 13 mg/dL (9-20); Calcium 8.1 mg/dL (8.4-10.2); Carbon Dioxide 22 mmol/L (22-30); Chloride 108 mmol/L (98-107); Glucose 117 mg/dL (74-99); Magnesium 2.3 mg/dL (1.6-2.3); Potassium 3.9 mmol/L (3.5-5.1); Sodium 137 mmol/L (137-145); Total Bilirubin 0.9 mg/dL (0.2-1.3); Total Protein 4.8 g/dL (6.3-8.2)
[2018-06-14 06:04] LABS: Glucose,Whole Blood 110 mg/dL (75-99)
[2018-06-14] MEDS: PANTOPRAZOLE 40 MG TABLET PO SCH (06:59)
[2018-06-14 07:04] LABS: Glucose,Whole Blood 112 mg/dL (75-99)
[2018-06-14] MEDS ORDERED: DEXTROSE 5% IN WATER 100 ML with AMIODARONE 150 MG IV ONE (07:31)
[2018-06-14] MEDS: IPRATROPIUM-ALBUTEROL 3 ML NEB INHALATION SCH ×4 (07:33→19:21)
--- NOTE | 2018-06-14 07:45 | XR ---
EXAMINATION TYPE: XR chest 1V portable DATE OF EXAM: 06/14/2018 COMPARISON: Prior chest x-ray 06/13/2018 HISTORY: Status post coronary artery bypass graft TECHNIQUE: Single frontal view of the chest is obtained. FINDINGS: Left-sided chest tube, central venous sheath remain in place. Endotracheal tube and NG tub e have been removed. Patient is post median sternotomy. Median sternal drain remains in place. There is a lucency at the level of the right hemidiaphragm. Patchy bibasilar density persists. Heart remain s enlarged. Interstitium is increased. IMPRESSION: Interval extubation. Cannot exclude pneumoperitoneum, follow-up recommended. Xander Blake in formed of the finding telephonically at the time of interpretation.
[2018-06-14 08:00] LABS: Glucose,Whole Blood 135 mg/dL (75-99)
[2018-06-14] MEDS ORDERED: POTASSIUM CHLORIDE ER 20 MEQ TAB.ER PO ONE (08:00)
[2018-06-14] MEDS: ATORVASTATIN 40 MG TAB PO SCH (08:39)
[2018-06-14] MEDS: AMIODARONE 200 MG TAB PO SCH ×2 (08:39→20:23)
[2018-06-14] MEDS: CLOPIDOGREL 75 MG TAB PO SCH (08:39)
[2018-06-14] MEDS: MUPIROCIN 2% OINT 22 GM TUBE NASAL SCH ×2 (08:39→20:24)
[2018-06-14] MEDS: ASPIRIN 325 MG TAB PO SCH (08:39)
[2018-06-14] MEDS ORDERED: FUROSEMIDE 10 MG/ML 2 ML VIAL IV STA (08:51)
[2018-06-14] MEDS ORDERED: METOPROLOL TARTRATE 25 MG TAB PO SCH (09:00)
[2018-06-14] MEDS ORDERED: METOPROLOL TARTRATE 25 MG TAB PO STA (10:23)
[2018-06-14] MEDS: AMIODARONE 450 MG in DEXTROSE 5% IN WATER 250 ML IV SCH ×2 (10:27)
[2018-06-14 11:55] LABS: Glucose,Whole Blood 127 mg/dL (75-99)
[2018-06-14] MEDS: INSULIN ASPART 100 UNIT/ML 1 ML 10 ML VIAL SQ SCH ×3 (11:55→20:24)
--- NOTE | 2018-06-14 12:28 | PN ---
PROGRESS NOTE Mr. Ramires is a 67-year-old male status post coronary artery bypass grafting. He is extubated. He went into atrial fibrillation earlier. Hemodynamically he is stable. His ventricular response is on the rapid range and he was started on IV amiodarone. He has chest wall discomfort. His breathing has been stable. He continues to be on the IV amiodarone drip. Otherwise, he is on aspirin once a day, Lipitor 40 mg daily, Plavix 75 mg daily, metoprolol tartrate 25 mg twice a day. PHYSICAL EXAMINATION: Blood pressure 130/60 with a heart rate in the 90s. Lungs with mild decrease in breath sounds at the bases. No wheezes. Heart irregularly irregular, S1, S2. No S3 with systolic murmur. No diastolic murmur. No rub. ABDOMEN: Soft, nontender. EXTREMITIES: No significant edema. LAB DATA: Revealed BUN creatinine 13 and 0.73, potassium 3.9, hemoglobin of 10.8. IMPRESSION: 1. Status post coronary artery bypass grafting. 2. Paroxysmal atrial fibrillation, patient is in atrial fibrillation postoperatively. 3. Mild to moderate ischemic cardiomyopathy. 4. Hyperlipidemia. RECOMMENDATIONS: We will continue present therapy. If he remains in atrial fibrillation, then anticoagulation should be initiated. We will follow his blood pressure and depending on the trend, an ISIDORO inhibitor will be added. We will increase his level of activity. MMODL / IJN: [id number] /
--- NOTE | 2018-06-14 12:53 | P.PN ---
Subjective Progress Note Date: 06/14/18 Principal diagnosis: Non-STEMI this admission, severe three-vessel coronary artery disease, glaucoma and current nicotine abuse. POD #2 coronary artery bypass grafting 3 vessels, left internal mammary artery to the left anterior descending coronary artery, a reverse greater saphenous vein graft off the aorta to the obtuse marginal coronary artery and a reverse greater saphenous vein graft off the aorta to the posterior descending coronary artery. Endoscopic vein harvest of the left greater saphenous vein and intraoperative transesophageal echocardiogram. Postoperative paroxysmal atrial fibrillation, an unexpected but potential outcome of surgery. Patient is currently sitting up to bedside chair. He is in no acute distress. He currently rates his pain 4 out of 10 on the pain scale and denies any complaints of shortness of breath. States his pain is to his chest tube insertion sites. Bedside telemetry showing atrial fibrillation heart rate 104. Amiodarone drip per protocol was initiated last evening for his atrial fibrillation. His chest x-ray this morning demonstrates a lucency at the level of his right hemidiaphragm, we will continue to monitor this. He remains hemodynamically stable. He is achieving 1000 mL on his incentive spirometry. Objective - Vital Signs Vital signs: Vital Signs Temp 97.4 F L 06/14/18 08:00 Pulse 101 H 06/14/18 09:00 Resp 16 06/14/18 09:00 BP 111/69 06/14/18 09:00 Pulse Ox 93 L 06/14/18 09:00 Intake & Output 06/13/18 06/14/18 06/14/18 18:59 06:59 18:59 Intake Total 650.561 959.927 373.7 Output Total 558 726 140 Balance 92.561 233.927 233.7 Weight 88.3 kg 85.4 kg Intake: IV 637 592.2 123.7 ACETAMINOPHEN IV (For NPO 100 ) 1,000 mg In Empty Bag 1 bag @ 400 mls/hr IVPB Q6HR [facility] Rx#:[id number] Amiodarone 450 mg In 33 298.2 48.7 Dextrose 5% in Water 250 ml @ 1 MG/MIN 34.53 mls/ hr IV .Q7H31M PRN Rx#: [id number] Co/CI 80 Lactated Ringers 1,000 ml 310 240 60 @ 20 mls/hr IV .Q24H [facility] Rx#:[id number] Pressure bag 84 54 15 ceFAZolin 2,000 mg In 30 Sodium Chloride 0.9% 30 ml @ 999 mls/hr IVPB ONCE ONE Rx#:[id number] Intake, IV Titration 13.561 217.727 Amount Amiodarone 450 mg In 203.151 Dextrose 5% in Water 250 ml @ 1 MG/MIN 34.53 mls/ hr IV .Q7H31M PRN Rx#: [id number] Insulin Regular 100 unit 5.633 14.576 In Sodium Chloride 0.9% 100 ml @ Per Protocol IV .Q0M [facility] Rx#:[id number] Norepinephrine 4 mg In 7.928 Sodium Chloride 0.9% 250 ml @ Titrate IV .Q0M [facility] Rx#:[id number] Oral 150 250 Output: Chest Tube Drainage 228 276 50 Left Pleural 58 26 0 Mediastinal x2 170 250 50 Urine 330 450 90 Other: Voiding Method Indwelling Catheter Indwelling Catheter # Voids 25 35 ABP, PAP, CO, CI - Last Documented Arterial Blood Pressure 135/64 Pulmonary Artery Pressure 34/13 Cardiac Output 5.1 Cardiac Index 2.4 - Constitutional General appearance: Present: cooperative, no acute distress - Respiratory Details: Lung sounds essentially clear to his bilateral upper lobes and diminished to his bilateral bases. Respirations are symmetrical and nonlabored. Oxygen saturation are 96% on 6 L nasal cannula. He is achieving 1000 mL on his incentive spirometry with encouragement. Mediastinal and left pleural Casey chest tubes remain in place to low continuous wall suction -20 cm H2O. No air leak is present. Chest tubes are draining thin serosanguineous drainage. Left chest tube drained 80 mL in the last 24 hours, 20 mL in the last 8 hours. Mediastinal chest tubes drained 470 mL output in the last 24 hours, 160 mL output in the last 8 hours. - Cardiovascular Details: Irregular rhythm with a tachycardic rate. S1 and S2 present, negative for S3, gallop or murmur. Sternum is stable. Bedside telemetry showing atrial fibrillation heart rate 104. Heart hugger is in place and is demonstrating appropriate use. Atrial and ventricular epicardial pacemaker wires in place and connected to backup pacemaker generator had a VVI at 50. Knee-high SUE hose and sequential compression devices in place to his bilateral lower extremities. Left IJ cordis in place to continue CVP monitoring, current CVP pressure is 12 mmHg. - Gastrointestinal Gastrointestinal Comment(s): Abdomen is soft, nontender and nondistended. Hypoactive bowel sounds to all 4 abdominal quadrants. Tolerating oral intake. Passing flatus. No organomegaly , no guarding or rigidity. - Genitourinary Genitourinary Comment(s): Al catheter for accurate I&O. Draining clear norm urine. 365 mL output in the last 8 hours. - Integumentary Integumentary Comment(s): Skin is warm and dry. No clubbing or cyanosis present. Midline sternal incision clean, dry and approximated. No redness or drainage present. Gauze dressing remains clean, dry and intact. Left lower extremity EVH site clean dry and approximated. No drainage or redness present. - Neurologic Neurologic: Present: CNII-XII intact - Musculoskeletal Musculoskeletal: Present: gait normal, generalized weakness, strength equal bilaterally - Psychiatric Psychiatric: Present: A&O x's 3, appropriate affect, intact judgment & insight - Allied health notes Allied health notes reviewed: nursing - Labs CBC & Chem 7: 06/14/18 04:30 06/14/18 04:30 Labs: Abnormal Lab Results - Last 24 Hours (Table) 06/13/18 06/13/18 06/13/18 Range/Units 11:06 11:58 12:57 WBC (3.8-10.6) k/uL RBC (4.30-5.90) m/uL Hgb (13.0-17.5) gm/dL Hct (39.0-53.0) % Plt Count (150-450) k/uL Neutrophils # (1.3-7.7) k/uL Lymphocytes # (1.0-4.8) k/uL PT (9.0-12.0) sec INR (<1.2) Chloride (98-107) mmol/L Glucose (74-99) mg/dL POC Glucose (mg/dL) 106 H 109 H 122 H (75-99) mg/dL Calcium (8.4-10.2) mg/dL Total Protein (6.3-8.2) g/dL Albumin (3.5-5.0) g/dL 06/13/18 06/13/18 06/13/18 Range/Units 14:11 15:14 16:03 WBC (3.8-10.6) k/uL RBC (4.30-5.90) m/uL Hgb (13.0-17.5) gm/dL Hct (39.0-53.0) % Plt Count (150-450) k/uL Neutrophils # (1.3-7.7) k/uL Lymphocytes # (1.0-4.8) k/uL PT (9.0-12.0) sec INR (<1.2) Chloride (98-107) mmol/L Glucose (74-99) mg/dL POC Glucose (mg/dL) 122 H 132 H 141 H (75-99) mg/dL Calcium (8.4-10.2) mg/dL Total Protein (6.3-8.2) g/dL Albumin (3.5-5.0) g/dL 06/13/18 06/13/18 06/13/18 Range/Units 16:40 18:15 18:56 WBC (3.8-10.6) k/uL RBC (4.30-5.90) m/uL Hgb (13.0-17.5) gm/dL Hct (39.0-53.0) % Plt Count (150-450) k/uL Neutrophils # (1.3-7.7) k/uL Lymphocytes # (1.0-4.8) k/uL PT (9.0-12.0) sec INR (<1.2) Chloride (98-107) mmol/L Glucose (74-99) mg/dL POC Glucose (mg/dL) 147 H 149 H 142 H (75-99) mg/dL Calcium (8.4-10.2) mg/dL Total Protein (6.3-8.2) g/dL Albumin (3.5-5.0) g/dL 06/13/18 06/13/18 06/13/18 Range/Units 20:52 21:54 22:57 WBC (3.8-10.6) k/uL RBC (4.30-5.90) m/uL Hgb (13.0-17.5) gm/dL Hct (39.0-53.0) % Plt Count (150-450) k/uL Neutrophils # (1.3-7.7) k/uL Lymphocytes # (1.0-4.8) k/uL PT (9.0-12.0) sec INR (<1.2) Chloride (98-107) mmol/L Glucose (74-99) mg/dL POC Glucose (mg/dL) 154 H 136 H 121 H (75-99) mg/dL Calcium (8.4-10.2) mg/dL Total Protein (6.3-8.2) g/dL Albumin (3.5-5.0) g/dL 06/13/18 06/14/18 06/14/18 Range/Units 23:47 02:07 04:05 WBC (3.8-10.6) k/uL RBC (4.30-5.90) m/uL Hgb (13.0-17.5) gm/dL Hct (39.0-53.0) % Plt Count (150-450) k/uL Neutrophils # (1.3-7.7) k/uL Lymphocytes # (1.0-4.8) k/uL PT (9.0-12.0) sec INR (<1.2) Chloride (98-107) mmol/L Glucose (74-99) mg/dL POC Glucose (mg/dL) 115 H 128 H 126 H (75-99) mg/dL Calcium (8.4-10.2) mg/dL Total Protein (6.3-8.2) g/dL Albumin (3.5-5.0) g/dL 06/14/18 06/14/18 06/14/18 Range/Units 04:30 04:30 04:30 WBC 12.0 H (3.8-10.6) k/uL RBC 3.39 L (4.30-5.90) m/uL Hgb 10.8 L (13.0-17.5) gm/dL Hct 32.3 L (39.0-53.0) % Plt Count 141 L (150-450) k/uL Neutrophils # 10.3 H (1.3-7.7) k/uL Lymphocytes # 0.9 L (1.0-4.8) k/uL PT 12.2 H (9.0-12.0) sec INR 1.3 H (<1.2) Chloride 108 H (98-107) mmol/L Glucose 117 H (74-99) mg/dL POC Glucose (mg/dL) (75-99) mg/dL Calcium 8.1 L (8.4-10.2) mg/dL Total Protein 4.8 L (6.3-8.2) g/dL Albumin 2.8 L (3.5-5.0) g/dL 06/14/18 06/14/18 06/14/18 Range/Units 06:03 07:02 07:58 WBC (3.8-10.6) k/uL RBC (4.30-5.90) m/uL Hgb (13.0-17.5) gm/dL Hct (39.0-53.0) % Plt Count (150-450) k/uL Neutrophils # (1.3-7.7) k/uL Lymphocytes # (1.0-4.8) k/uL PT (9.0-12.0) sec INR (<1.2) Chloride (98-107) mmol/L Glucose (74-99) mg/dL POC Glucose (mg/dL) 110 H 112 H 135 H (75-99) mg/dL Calcium (8.4-10.2) mg/dL Total Protein (6.3-8.2) g/dL Albumin (3.5-5.0) g/dL Microbiology - Last 24 Hours (Table) 06/11/18 20:30 Nasal Screen MRSA/MSSA - Final Nasal Swab - Imaging and Cardiology Chest x-ray: report reviewed, image reviewed Assessment and Plan (1) Nicotine dependence Current Visit: Yes Status: Acute Code(s): F17.200 - NICOTINE DEPENDENCE, UNSPECIFIED, UNCOMPLICATED SNOMED Code(s): 31972390 (2) History of bilateral cataract extraction Current Visit: Yes Status: Acute Code(s): Z98.41 - CATARACT EXTRACTION STATUS, RIGHT EYE; Z98.42 - CATARACT EXTRACTION STATUS, LEFT EYE SNOMED Code(s ): 086350711 (3) Glaucoma Current Visit: Yes Status: Acute Code(s): H40.9 - UNSPECIFIED GLAUCOMA SNOMED Code(s): 45864883 (4) Non-STEMI (non-ST elevated myocardial infarction) Current Visit: Yes Status: Acute Code(s): I21.4 - NON-ST ELEVATION (NSTEMI) MYOCARDIAL INFARCTION SNOMED Code(s): 901264573 Plan: 1. Continue aspirin, statin, Plavix and beta jason. We will increase his metoprolol tartrate 50 mg by mouth twice a day. 2. Lasix 20 mg IV 1 now. 3. Wean oxygen as tolerated, encourage use of his incentive spirometry every hour while awake. 4. Bronchodilator and pulmonary management recommendations per Dr. Nicole. 5. Will monitor daily labs and chest x-rays. 6. GI prophylaxis with Protonix, DVT prophylaxis with subcu heparin and SCDs. 7. Insulin management per primary care service. 8. Increased activity. PT/OT/cardiac rehab consulted. 9. Discussed the importance of smoking cessation. 10. Amiodarone drip per protocol for atrial fibrillation prophylaxis. 11. Repeat potassium per protocol, recheck potassium level at 4 PM today. 12. Discontinue left IJ Cordis. 13. Discontinue Al catheter. 14. More recommendations to follow based on patient's clinical course. Time with Patient: Greater than 30
--- NOTE | 2018-06-14 13:23 | P.PN ---
Subjective Progress Note Date: 06/14/18 Principal diagnosis: Acute non-ST elevation myocardial infarction, triple vessel coronary artery disease. Status post CABG, postoperative day #2 This is a 67-year-old white male, heavy smoker over the years, but no documentation of COPD, not on any bronchodilators for COPD, patient usually sees Dr. Oro as his primary care physician in [place]. Patient presented to the emergency room today with chest pain and abnormal cardiac panel. Patient was noted to have non-ST segment elevation myocardial infarction. He was noted to have ST segment depression in V2 and V3, echocardiogram showed evidence of inferior lateral hypokinesia. Patient underwent cardiac catheterization. And he was found to have evidence of thrombus in the ostial circumflex with 99% stenosis. His LAD was noted to have 85-90% stenosis also suggestive of thrombus. Circumflex was noted to have 99% stenosis. Considering the findings , patient was advised to undergo coronary artery bypass surgery. He was transferred out of the cardiac catheterization lab to the ICU, and I was asked to see him on consultation. Presently the patient denies any pain or discomfort. Denies any shortness of breath, no cough, no wheezing. Has been a very heavy smoker over the years, and until recently he was smoking about half pack per day on the average. Patient describes slight dyspnea on exertion however he is able to walk 2-3 blocks without any significant dyspnea. Patient was never seen by any occupational health specialist, and according to him he never had any issues related to his lungs. Presently denies any headache, no blurred vision, no dizziness, no chest pain, no shortness of breath no cough no wheezing no nausea no vomiting no abdominal pain no palpitations no dysuria and no frequency no urgency. Has occasional joints aches and pains for which she takes Aleve on when necessary basis. Labs on admission were noted to be relatively normal and his troponin was 0.325 on admission. Patient was reevaluated today on 06/12/2018, doing well, asymptomatic. Denies any shortness of breath, no cough, no wheezing, he is hemodynamically stable, denies any chest pain. Labs including CBC and basic metabolic profile were reviewed, troponin is 0.413. Patient already had preoperative teaching and preoperative testing initiated by cardiac surgery, risks and benefits of myocardial revascularization was already discussed by cardiac surgery with the patient, patient is likely to undergo urgent coronary artery bypass grafting surgery today this p.m. On 06/13/2018, patient was seen, and he is still on mechanical ventilation this morning. Patient underwent CABG 3 vessels, MIR to LAD, reverse greater saphenous vein graft off the aorta to the upper twos marginal coronary artery and reverse greater saphenous vein graft off the aorta to the posterior descending coronary artery. Patient is now postoperative day #1. Last night could not be extubated because the patient was getting extremely agitated and restless. We kept him on mechanical ventilation overnight, switched his propofol this morning to Precedex, awaken the patient, gave him a short weaning trial with pressure support and CPAP, and before he became agitated, patient was extubated. Post extubation the patient seems to be doing well, and tolerating the extubation well. I was actually at bedside during the process. Chest x-ray showed minimal bibasilar opacity, and small tiny effusions. This is expected finding post CABG. Labs this morning showed a WBC count of 8.8 hemoglobin of 11.5. ABG showed a pO2 of 112 pCO2 of 37 pH of 7.44. On 06/14/2018, patient was reevaluated again, he tolerated the extubation well over the last 24 hours, patient denies any specific complaints, he is however now on amiodarone for new onset atrial fibrillation. Rate is about 120 and regular. Chest x-ray from this morning showed free air under the right hemidiaphragm, being monitored by cardiac surgery, felt it may have been iatrogenic during mediastinal tube placement. In addition to all of this the patient has no clinical symptoms to suggest perforated viscus, and the amount of air under the right hemidiaphragm is extremely minimal. Does not seem to be expanding. All labs were reviewed, and chest x-ray was reviewed and discussed with cardiac surgery. Objective - Vital Signs Vital signs: Vital Signs Temp 97.9 F 06/14/18 12:00 Pulse 104 H 06/14/18 12:06 Resp 17 06/14/18 12:00 BP 124/79 06/14/18 12:00 Pulse Ox 96 06/14/18 12:00 Intake & Output 06/13/18 06/14/18 06/14/18 18:59 06:59 18:59 Intake Total 650.561 959.927 633.7 Output Total 558 726 555 Balance 92.561 233.927 78.7 Weight 88.3 kg 85.4 kg Intake: IV 637 592.2 383.7 ACETAMINOPHEN IV (For NPO 100 ) 1,000 mg In Empty Bag 1 bag @ 400 mls/hr IVPB Q6HR [facility] Rx#:[id number] Amiodarone 450 mg In 33 298.2 230.7 Dextrose 5% in Water 250 ml @ 1 MG/MIN 34.53 mls/ hr IV .Q7H31M PRN Rx#: [id number] Co/CI 80 Lactated Ringers 1,000 ml 310 240 120 @ 20 mls/hr IV .Q24H [facility] Rx#:[id number] Pressure bag 84 54 33 ceFAZolin 2,000 mg In 30 Sodium Chloride 0.9% 30 ml @ 999 mls/hr IVPB ONCE ONE Rx#:[id number] Intake, IV Titration 13.561 217.727 Amount Amiodarone 450 mg In 203.151 Dextrose 5% in Water 250 ml @ 1 MG/MIN 34.53 mls/ hr IV .Q7H31M PRN Rx#: [id number] Insulin Regular 100 unit 5.633 14.576 In Sodium Chloride 0.9% 100 ml @ Per Protocol IV .Q0M [facility] Rx#:[id number] Norepinephrine 4 mg In 7.928 Sodium Chloride 0.9% 250 ml @ Titrate IV .Q0M [facility] Rx#:[id number] Oral 150 250 Output: Chest Tube Drainage 228 276 100 Left Pleural 58 26 10 Mediastinal x2 170 250 90 Urine 330 450 455 Other: Voiding Method Indwelling Catheter Indwelling Catheter Indwelling Catheter # Voids 25 35 0 ABP, PAP, CO, CI - Last Documented Arterial Blood Pressure 141/70 Pulmonary Artery Pressure 34/13 Cardiac Output 5.1 Cardiac Index 2.4 - Exam Physical Exam: Revealed a 67-year-old white male in no distress. On 2 L nasal cannula. Head: Atraumatic, normocephalic. HEENT:[Neck is supple.] [No neck masses.] [No thyromegaly.] [No JVD.] Moist mucous membranes. PERRLA, EOMI, no icterus. Tubes are intact. And in proper position. Chest: [Diminished breath sounds at the bases, no crackles, no rhonchi and no wheezes. Symmetrical chest expansion, no chest wall tenderness. Cardiac Exam: [Irregular irregular rhythm. Normal S1 and S2, no S3 gallop, no murmur.] Abdomen: [Soft, nontender, no megaly, no rebound, no guarding, normal bowel sounds.] Positive bowel sounds. Extremities: [No clubbing, no edema, no cyanosis.] Neurological Exam: [No focal neurologic deficit.] . Skin: No rashes, evidence of onychomycosis noted. Psychiatric: Normal mood, affect and mental status examination. - Labs CBC & Chem 7: 06/14/18 04:30 06/14/18 04:30 Labs: Abnormal Lab Results - Last 24 Hours (Table) 06/13/18 06/13/18 06/13/18 Range/Units 14:11 15:14 16:03 WBC (3.8-10.6) k/uL RBC (4.30-5.90) m/uL Hgb (13.0-17.5) gm/dL Hct (39.0-53.0) % Plt Count (150-450) k/uL Neutrophils # (1.3-7.7) k/uL Lymphocytes # (1.0-4.8) k/uL PT (9.0-12.0) sec INR (<1.2) Chloride (98-107) mmol/L Glucose (74-99) mg/dL POC Glucose (mg/dL) 122 H 132 H 141 H (75-99) mg/dL Calcium (8.4-10.2) mg/dL Total Protein (6.3-8.2) g/dL Albumin (3.5-5.0) g/dL 06/13/18 06/13/18 06/13/18 Range/Units 16:40 18:15 18:56 WBC (3.8-10.6) k/uL RBC (4.30-5.90) m/uL Hgb (13.0-17.5) gm/dL Hct (39.0-53.0) % Plt Count (150-450) k/uL Neutrophils # (1.3-7.7) k/uL Lymphocytes # (1.0-4.8) k/uL PT (9.0-12.0) sec INR (<1.2) Chloride (98-107) mmol/L Glucose (74-99) mg/dL POC Glucose (mg/dL) 147 H 149 H 142 H (75-99) mg/dL Calcium (8.4-10.2) mg/dL Total Protein (6.3-8.2) g/dL Albumin (3.5-5.0) g/dL 06/13/18 06/13/18 06/13/18 Range/Units 20:52 21:54 22:57 WBC (3.8-10.6) k/uL RBC (4.30-5.90) m/uL Hgb (13.0-17.5) gm/dL Hct (39.0-53.0) % Plt Count (150-450) k/uL Neutrophils # (1.3-7.7) k/uL Lymphocytes # (1.0-4.8) k/uL PT (9.0-12.0) sec INR (<1.2) Chloride (98-107) mmol/L Glucose (74-99) mg/dL POC Glucose (mg/dL) 154 H 136 H 121 H (75-99) mg/dL Calcium (8.4-10.2) mg/dL Total Protein (6.3-8.2) g/dL Albumin (3.5-5.0) g/dL 06/13/18 06/14/18 06/14/18 Range/Units 23:47 02:07 04:05 WBC (3.8-10.6) k/uL RBC (4.30-5.90) m/uL Hgb (13.0-17.5) gm/dL Hct (39.0-53.0) % Plt Count (150-450) k/uL Neutrophils # (1.3-7.7) k/uL Lymphocytes # (1.0-4.8) k/uL PT (9.0-12.0) sec INR (<1.2) Chloride (98-107) mmol/L Glucose (74-99) mg/dL POC Glucose (mg/dL) 115 H 128 H 126 H (75-99) mg/dL Calcium (8.4-10.2) mg/dL Total Protein (6.3-8.2) g/dL Albumin (3.5-5.0) g/dL 06/14/18 06/14/18 06/14/18 Range/Units 04:30 04:30 04:30 WBC 12.0 H (3.8-10.6) k/uL RBC 3.39 L (4.30-5.90) m/uL Hgb 10.8 L (13.0-17.5) gm/dL Hct 32.3 L (39.0-53.0) % Plt Count 141 L (150-450) k/uL Neutrophils # 10.3 H (1.3-7.7) k/uL Lymphocytes # 0.9 L (1.0-4.8) k/uL PT 12.2 H (9.0-12.0) sec INR 1.3 H (<1.2) Chloride 108 H (98-107) mmol/L Glucose 117 H (74-99) mg/dL POC Glucose (mg/dL) (75-99) mg/dL Calcium 8.1 L (8.4-10.2) mg/dL Total Protein 4.8 L (6.3-8.2) g/dL Albumin 2.8 L (3.5-5.0) g/dL 06/14/18 06/14/18 06/14/18 Range/Units 06:03 07:02 07:58 WBC (3.8-10.6) k/uL RBC (4.30-5.90) m/uL Hgb (13.0-17.5) gm/dL Hct (39.0-53.0) % Plt Count (150-450) k/uL Neutrophils # (1.3-7.7) k/uL Lymphocytes # (1.0-4.8) k/uL PT (9.0-12.0) sec INR (<1.2) Chloride (98-107) mmol/L Glucose (74-99) mg/dL POC Glucose (mg/dL) 110 H 112 H 135 H (75-99) mg/dL Calcium (8.4-10.2) mg/dL Total Protein (6.3-8.2) g/dL Albumin (3.5-5.0) g/dL 06/14/18 Range/Units 11:54 WBC (3.8-10.6) k/uL RBC (4.30-5.90) m/uL Hgb (13.0-17.5) gm/dL Hct (39.0-53.0) % Plt Count (150-450) k/uL Neutrophils # (1.3-7.7) k/uL Lymphocytes # (1.0-4.8) k/uL PT (9.0-12.0) sec INR (<1.2) Chloride (98-107) mmol/L Glucose (74-99) mg/dL POC Glucose (mg/dL) 127 H (75-99) mg/dL Calcium (8.4-10.2) mg/dL Total Protein (6.3-8.2) g/dL Albumin (3.5-5.0) g/dL Microbiology - Last 24 Hours (Table) 06/11/18 20:30 Nasal Screen MRSA/MSSA - Final Nasal Swab Assessment and Plan Assessment: Impression: 1 acute non-ST elevation myocardial infarction. 2 triple-vessel coronary artery disease as noted on his cardiac catheterization , . 3 suspect moderate component of chronic obstructive pulmonary disease, 4 status post CABG, postoperative day #2 Patient was extubated uneventfully this morning, will continue to follow. 5 free air under the right hemidiaphragm seen on chest x-ray today, however clinically the patient does not seem to have acute surgical abdomen or perforated viscus. Cardiac surgery is aware. Recommendation: Continue bronchodilators, incentive spirometry, early ambulation , we'll continue to follow. Time with Patient: Less than 30
[2018-06-14] MEDS: LACTATED RINGERS 1,000 ML IV SCH (16:26)
[2018-06-14 17:03] LABS: Glucose,Whole Blood 111 mg/dL (75-99)
[2018-06-14] MEDS: BENZOCAINE/MENTHOL LOZENG 1 EACH LOZENGE MUCOUS MEM PRN ×2 (20:12→23:05)
[2018-06-14 20:15] LABS: Glucose,Whole Blood 120 mg/dL (75-99)
[2018-06-14] MEDS: METOPROLOL TARTRATE 50 MG TAB PO SCH (20:23)
[2018-06-14] MEDS: SENNOSIDES-DOCUSATE SODIUM 1 EACH TAB PO SCH (20:23)
--- NOTE | 2018-06-14 20:25 | PN ---
PROGRESS NOTE DATE OF SERVICE: 06/14/2018 This 67-year-old gentleman admitted after CAD, CABG was extubated. No chest pain. No palpitations. No fever. EXAM: Alert and oriented x2. Pulse is 55, blood pressure 112/62, respirations 17, temperature 97.9, pulse ox 94% on 6 L. HEENT: Conjunctivae normal. NECK: No jugular venous distention. CARDIOVASCULAR: S1, S2. RESPIRATORY: Breath sounds diminished in the bases. A few scattered rhonchi and crackles. ABDOMEN: Soft, nontender. No mass. LEGS: No edema. NERVOUS SYSTEM: No focal deficits. LAB STUDIES: WBC 12, hemoglobin is 10.8. Sodium 137, potassium 3.9. Albumin is 2.8. ASSESSMENT: 1. Coronary artery disease status post coronary artery bypass grafting. 2. Acute non ST-segment elevation myocardial infarction, status post cardiac catheterization. 3. Hyperlipidemia. 4. History of nicotine dependence. 5. Glaucoma. 6. Hypoalbuminemia. RECOMMENDATIONS AND DISCUSSION: I recommend to continue current management and symptomatic treatment. Continue with incentive spirometry. Continue the DVT prophylaxis. Continue the rest of medications. Closely monitor with Cardiology and Cardiothoracic Surgery. Further recommendations to follow. Monitor sugars closely. MMODL / IJN: [id number] /
[2018-06-14] MEDS ORDERED: INSULIN NPH 300 UNIT/3 ML VIAL SQ SCH (21:00)
[2018-06-15] MEDS: HEPARIN SODIUM,PORCINE 5,000 UNIT/ML 1 ML VIAL SQ SCH ×3 (01:01→16:38)
[2018-06-15] MEDS: AMIODARONE 450 MG in DEXTROSE 5% IN WATER 250 ML IV SCH ×2 (01:01)
[2018-06-15] MEDS: INSULIN ASPART 100 UNIT/ML 1 ML 10 ML VIAL SQ SCH ×5 (01:04→20:04)
[2018-06-15 01:06] LABS: Glucose,Whole Blood 116 mg/dL (75-99)
[2018-06-15] MEDS: KETOROLAC 30 MG/ML 1 ML VIAL IVP PRN ×2 (04:00→09:08)
[2018-06-15 05:15] LABS: Basophils % (A) 0 %; Eosinophils # (A) 0.1 k/uL (0-0.7); Eosinophils % (A) 1 %; HGB 10.5 gm/dL (13.0-17.5); Lymphocytes # (A) 0.8 k/uL (1.0-4.8); Lymphocytes % (A) 8 %; MCH 32.3 pg (25.0-35.0); MCHC 34.9 g/dL (31.0-37.0); MCV 92.5 fL (80.0-100.0); Mean Platelet Volume 7.8; Monocytes # (A) 0.6 k/uL (0-1.0); Monocytes % (A) 6 %; Neutrophils # (A) 8.4 k/uL (1.3-7.7); Neutrophils % (A) 84 %; Platelet Count 140 k/uL (150-450); RBC 3.24 m/uL (4.30-5.90); RDW 13.2 % (11.5-15.5)
[2018-06-15 05:30] LABS: ALT 24 U/L (21-72); AST 31 U/L (17-59); Albumin 2.5 g/dL (3.5-5.0); Alkaline Phosphatase 52 U/L (38-126); Anion Gap 8 mmol/L; Blood Urea Nitrogen 20 mg/dL (9-20); Calcium 7.8 mg/dL (8.4-10.2); Carbon Dioxide 21 mmol/L (22-30); Chloride 104 mmol/L (98-107); Glucose 102 mg/dL (74-99); Potassium 3.9 mmol/L (3.5-5.1); Sodium 133 mmol/L (137-145); Total Bilirubin 1.1 mg/dL (0.2-1.3); Total Protein 4.7 g/dL (6.3-8.2)
[2018-06-15 07:02] LABS: Glucose,Whole Blood 111 mg/dL (75-99)
[2018-06-15 07:20] LABS: Glucose,Whole Blood 111 mg/dL (75-99)
[2018-06-15] MEDS ORDERED: INSULN ASP PRT/INSULIN ASPART 100 UNIT/ML 10 ML VIAL SQ SCH (07:30)
[2018-06-15] MEDS: PANTOPRAZOLE 40 MG TABLET PO SCH (07:37)
--- NOTE | 2018-06-15 07:52 | XR ---
EXAMINATION TYPE: XR chest 1V portable DATE OF EXAM: 06/15/2018 CLINICAL HISTORY: Difficulty breathing progress study. Post open CABG procedure. TECHNIQUE: Single AP portable semiupright view of the chest is obtained. COMPARISON: Chest x-ray from one day earlier and older studies. FINDINGS: There is interval removal of left internal jugular cordis sheath. There are persistent med iastinal drainage catheters and left basilar lateral chest tube redemonstrated. Post CABG changes wit h mediastinal clips and sternal wires is redemonstrated. Cardiac silhouette size is stable and mildly enlarged. There is background chronic emphysematous change with reticulonodular opacities bilaterall y, left greater than right most prominent in the lower lungs. Increasing lateral left mid lung opacit y is seen. No large pleural effusion or pneumothorax is noted. Possible Pneumoperitoneum below diaphr agm is less well-seen on current study. Osseous structures are intact. IMPRESSION: There is mild cardiomegaly and chronic parenchymal change with left greater than right bi lateral lower lung infiltrate and/or edema redemonstrated, no sizable pneumothorax is seen. Slightly more prominent lateral left mid lung focal infiltrate and/or edema is noted.
[2018-06-15] MEDS ORDERED: POTASSIUM CHLORIDE ER 20 MEQ TAB.ER PO SCH ×2 (08:00)
[2018-06-15] MEDS: IPRATROPIUM-ALBUTEROL 3 ML NEB INHALATION SCH ×4 (08:22→19:12)
[2018-06-15] MEDS: AMIODARONE 200 MG TAB PO SCH ×2 (09:08→20:04)
[2018-06-15] MEDS: CLOPIDOGREL 75 MG TAB PO SCH (09:08)
[2018-06-15] MEDS: LISINOPRIL 5 MG TAB PO SCH (09:08)
[2018-06-15] MEDS: ATORVASTATIN 40 MG TAB PO SCH (09:08)
[2018-06-15] MEDS: METOPROLOL TARTRATE 50 MG TAB PO SCH ×2 (09:09→20:04)
[2018-06-15] MEDS: ASPIRIN 325 MG TAB PO SCH (09:09)
[2018-06-15] MEDS: MUPIROCIN 2% OINT 22 GM TUBE NASAL SCH ×2 (09:09→20:05)
--- NOTE | 2018-06-15 09:23 | PN ---
PROGRESS NOTE Mr. Ramires is a 67-year-old male status post coronary artery bypass grafting. He is feeling well today. He is back in sinus mechanism. Hemodynamically stable. He is denying any chest pain. His breathing has been stable. He denies any dizziness or palpitation. He denies any nausea. He continues to be on aspirin once a day, amiodarone 400 mg twice a day, Lipitor 40 mg daily, Plavix 75 mg daily and metoprolol tartrate 50 mg twice a day. PHYSICAL EXAMINATION: Blood pressure 130/50 with a heart rate in the 60s. Lungs with a few crackles at the bases. HEART: Regular rate and rhythm S1, S2. No S3. No rub. ABDOMEN: Soft, nontender. EXTREMITIES: No significant edema. LAB DATA: BUN and creatinine 20 and 0.9. Potassium 3.9, hemoglobin of 10.5. IMPRESSION: 1. Status post coronary artery bypass grafting, stable. 2. Paroxysmal atrial fibrillation remains back in sinus mechanism. 3. Pneumothorax, resolved. 4. History of ischemic cardiomyopathy. 5. Hyperlipidemia. RECOMMENDATIONS: I will add to his regimen an ISIDORO inhibitor in view of his cardiomyopathy. Continue the rest of his medical regimen. Increase his level activity. If he has recurrent episode of atrial fibrillation, the issue of anticoagulation needs to be addressed. MMODL / IJN: [id number] /
--- NOTE | 2018-06-15 11:46 | P.PN ---
Subjective Progress Note Date: 06/15/18 Principal diagnosis: Acute non-ST elevation myocardial infarction, triple vessel coronary artery disease. Status post CABG, postoperative day #3 This is a 67-year-old white male, heavy smoker over the years, but no documentation of COPD, not on any bronchodilators for COPD, patient usually sees Dr. Oro as his primary care physician in [place]. Patient presented to the emergency room today with chest pain and abnormal cardiac panel. Patient was noted to have non-ST segment elevation myocardial infarction. He was noted to have ST segment depression in V2 and V3, echocardiogram showed evidence of inferior lateral hypokinesia. Patient underwent cardiac catheterization. And he was found to have evidence of thrombus in the ostial circumflex with 99% stenosis. His LAD was noted to have 85-90% stenosis also suggestive of thrombus. Circumflex was noted to have 99% stenosis. Considering the findings , patient was advised to undergo coronary artery bypass surgery. He was transferred out of the cardiac catheterization lab to the ICU, and I was asked to see him on consultation. Presently the patient denies any pain or discomfort. Denies any shortness of breath, no cough, no wheezing. Has been a very heavy smoker over the years, and until recently he was smoking about half pack per day on the average. Patient describes slight dyspnea on exertion however he is able to walk 2-3 blocks without any significant dyspnea. Patient was never seen by any transportation maintenance specialist, and according to him he never had any issues related to his lungs. Presently denies any headache, no blurred vision, no dizziness, no chest pain, no shortness of breath no cough no wheezing no nausea no vomiting no abdominal pain no palpitations no dysuria and no frequency no urgency. Has occasional joints aches and pains for which she takes Aleve on when necessary basis. Labs on admission were noted to be relatively normal and his troponin was 0.325 on admission. Patient was reevaluated today on 06/12/2018, doing well, asymptomatic. Denies any shortness of breath, no cough, no wheezing, he is hemodynamically stable, denies any chest pain. Labs including CBC and basic metabolic profile were reviewed, troponin is 0.413. Patient already had preoperative teaching and preoperative testing initiated by cardiac surgery, risks and benefits of myocardial revascularization was already discussed by cardiac surgery with the patient, patient is likely to undergo urgent coronary artery bypass grafting surgery today this p.m. On 06/13/2018, patient was seen, and he is still on mechanical ventilation this morning. Patient underwent CABG 3 vessels, MIR to LAD, reverse greater saphenous vein graft off the aorta to the upper twos marginal coronary artery and reverse greater saphenous vein graft off the aorta to the posterior descending coronary artery. Patient is now postoperative day #1. Last night could not be extubated because the patient was getting extremely agitated and restless. We kept him on mechanical ventilation overnight, switched his propofol this morning to Precedex, awaken the patient, gave him a short weaning trial with pressure support and CPAP, and before he became agitated, patient was extubated. Post extubation the patient seems to be doing well, and tolerating the extubation well. I was actually at bedside during the process. Chest x-ray showed minimal bibasilar opacity, and small tiny effusions. This is expected finding post CABG. Labs this morning showed a WBC count of 8.8 hemoglobin of 11.5. ABG showed a pO2 of 112 pCO2 of 37 pH of 7.44. On 06/14/2018, patient was reevaluated again, he tolerated the extubation well over the last 24 hours, patient denies any specific complaints, he is however now on amiodarone for new onset atrial fibrillation. Rate is about 120 and regular. Chest x-ray from this morning showed free air under the right hemidiaphragm, being monitored by cardiac surgery, felt it may have been iatrogenic during mediastinal tube placement. In addition to all of this the patient has no clinical symptoms to suggest perforated viscus, and the amount of air under the right hemidiaphragm is extremely minimal. Does not seem to be expanding. All labs were reviewed, and chest x-ray was reviewed and discussed with cardiac surgery. Patient was reevaluated today on 06/11/2018, sitting in a chair, relatively asymptomatic, very compliant with incentive spirometry, good cough effort, patient is in sinus rhythm, asymptomatic. Chest x-ray is showing some atelectasis, possibly some component of interstitial edema. No clear-cut evidence of pneumonia. Clinically the patient does not have pneumonia.Free air below the right hemidiaphragm has resolved. And his abdomen is basically benign. All his labs were reviewed including renal profile normal lites are normal CBC is relatively normal hemoglobin is 10.5 Objective - Vital Signs Vital signs: Vital Signs Temp 98.3 F 06/15/18 08:00 Pulse 62 06/15/18 11:40 Resp 20 06/15/18 11:05 BP 123/72 06/15/18 11:00 Pulse Ox 98 06/15/18 11:00 Intake & Output 06/14/18 06/15/18 06/15/18 18:59 06:59 18:59 Intake Total 789.7 529 75 Output Total 805 820 280 Balance -15.3 -291 -205 Weight 83.3 kg 83.3 kg Intake: IV 539.7 279 75 Amiodarone 450 mg In 230.7 Dextrose 5% in Water 250 ml @ 1 MG/MIN 34.53 mls/ hr IV .Q7H31M PRN Rx#: [id number] Lactated Ringers 1,000 ml 240 240 60 @ 20 mls/hr IV .Q24H [facility] Rx#:[id number] Pressure bag 69 39 15 Oral 250 Blood Product 250 Output: Chest Tube Drainage 120 70 30 Left Pleural 10 20 10 Mediastinal x2 110 50 20 Urine 685 750 250 Other: Voiding Method Indwelling Catheter Indwelling Catheter Urinal # Voids 0 0 ABP, PAP, CO, CI - Last Documented Arterial Blood Pressure 139/57 Pulmonary Artery Pressure 34/13 Cardiac Output 5.1 Cardiac Index 2.4 - Exam Physical Exam: Revealed a 67-year-old white male in no distress. On 2 L nasal cannula. Head: Atraumatic, normocephalic. HEENT:[Neck is supple.] [No neck masses.] [No thyromegaly.] [No JVD.] Moist mucous membranes. PERRLA, EOMI, no icterus. Chest: [Diminished breath sounds at the bases, no crackles, no rhonchi and no wheezes. Symmetrical chest expansion, no chest wall tenderness. Cardiac Exam: [Irregular irregular rhythm. Normal S1 and S2, no S3 gallop, no murmur.] Abdomen: [Soft, nontender, no megaly, no rebound, no guarding, normal bowel sounds.] Positive bowel sounds. Extremities: [No clubbing, no edema, no cyanosis.] Neurological Exam: [No focal neurologic deficit.] . Skin: No rashes, evidence of onychomycosis noted. Psychiatric: Normal mood, affect and mental status examination. - Labs CBC & Chem 7: 06/15/18 04:40 06/15/18 04:40 Labs: Abnormal Lab Results - Last 24 Hours (Table) 06/14/18 06/14/18 06/14/18 Range/Units 11:54 17:01 20:14 RBC (4.30-5.90) m/uL Hgb (13.0-17.5) gm/dL Hct (39.0-53.0) % Plt Count (150-450) k/uL Neutrophils # (1.3-7.7) k/uL Lymphocytes # (1.0-4.8) k/uL Sodium (137-145) mmol/L Carbon Dioxide (22-30) mmol/L Glucose (74-99) mg/dL POC Glucose (mg/dL) 127 H 111 H 120 H (75-99) mg/dL Calcium (8.4-10.2) mg/dL Total Protein (6.3-8.2) g/dL Albumin (3.5-5.0) g/dL 06/15/18 06/15/18 06/15/18 Range/Units 01:03 04:40 04:40 RBC 3.24 L (4.30-5.90) m/uL Hgb 10.5 L (13.0-17.5) gm/dL Hct 30.0 L (39.0-53.0) % Plt Count 140 L (150-450) k/uL Neutrophils # 8.4 H (1.3-7.7) k/uL Lymphocytes # 0.8 L (1.0-4.8) k/uL Sodium 133 L (137-145) mmol/L Carbon Dioxide 21 L (22-30) mmol/L Glucose 102 H (74-99) mg/dL POC Glucose (mg/dL) 116 H (75-99) mg/dL Calcium 7.8 L (8.4-10.2) mg/dL Total Protein 4.7 L (6.3-8.2) g/dL Albumin 2.5 L (3.5-5.0) g/dL 06/15/18 06/15/18 Range/Units 07:00 07:19 RBC (4.30-5.90) m/uL Hgb (13.0-17.5) gm/dL Hct (39.0-53.0) % Plt Count (150-450) k/uL Neutrophils # (1.3-7.7) k/uL Lymphocytes # (1.0-4.8) k/uL Sodium (137-145) mmol/L Carbon Dioxide (22-30) mmol/L Glucose (74-99) mg/dL POC Glucose (mg/dL) 111 H 111 H (75-99) mg/dL Calcium (8.4-10.2) mg/dL Total Protein (6.3-8.2) g/dL Albumin (3.5-5.0) g/dL Assessment and Plan Assessment: Impression: 1 acute non-ST elevation myocardial infarction. 2 triple-vessel coronary artery disease as noted on his cardiac catheterization , . 3 suspect moderate component of chronic obstructive pulmonary disease, 4 status post CABG, postoperative day #3 Patient was extubated uneventfully this morning, will continue to follow. 5 free air under the right hemidiaphragm seen on chest x-ray today, not seen on chest x-ray today 06/15. Recommendation: Continue bronchodilators, incentive spirometry, early ambulation , we'll continue to follow. Time with Patient: Less than 30
[2018-06-15] MEDS ORDERED: FUROSEMIDE 10 MG/ML 2 ML VIAL IV STA (11:52)
[2018-06-15 12:19] LABS: Glucose,Whole Blood 84 mg/dL (75-99)
[2018-06-15 17:04] LABS: Glucose,Whole Blood 91 mg/dL (75-99)
[2018-06-15] MEDS: BENZOCAINE/MENTHOL LOZENG 1 EACH LOZENGE MUCOUS MEM PRN (18:29)
[2018-06-15] MEDS: SENNOSIDES-DOCUSATE SODIUM 1 EACH TAB PO SCH (20:04)
[2018-06-15 20:10] LABS: Glucose,Whole Blood 109 mg/dL (75-99)
--- NOTE | 2018-06-15 21:38 | PN ---
PROGRESS NOTE DATE OF SERVICE: 06/15/2018 This 67-year-old gentleman was admitted with CAD, CABG, is improving significantly. No chest pain. No palpitations. No fever. Chest tubes have been removed. EXAM: Alert and oriented times three. Pulse is 78/60. Blood pressure 107/60, respirations 18, temperature 97 degrees, pulse ox 98% on 6 L. HEENT: Conjunctivae normal. NECK: No jugular venous distention. CARDIOVASCULAR: S1, S2 muffled. RESPIRATORY: Breath sounds diminished in the bases. A few scattered rhonchi. Abdomen: Soft, nontender. LEGS: No edema, no swelling. Central nervous system: No focal deficits. LABS: WBC 10, hemoglobin 10.5. Accu-Cheks are noted. ASSESSMENT: 1. Coronary artery disease, coronary artery bypass grafting. 2. Acute non ST segment elevation myocardial infarction status post cardiac catheterization, present on admission. 3. Hyperlipidemia. 4. History of nicotine dependence. 5. Glaucoma. 6. Hypoalbuminemia. DISCUSSION AND RECOMMENDATIONS: Continue current medications, management, continue with monitoring. Symptomatic treatment. Otherwise, we will monitor the patient closely. Recommend monitor Accu- Cheks closely. DVT prophylaxis. Incentive spirometry. Further recommendations to follow. MMODL / IJN: [id number] /
[2018-06-16] MEDS: INSULIN ASPART 100 UNIT/ML 1 ML 10 ML VIAL SQ SCH ×5 (00:29→21:11)
[2018-06-16] MEDS: HEPARIN SODIUM,PORCINE 5,000 UNIT/ML 1 ML VIAL SQ SCH ×4 (00:29→22:24)
[2018-06-16 05:17] LABS: Basophils % (A) 0 %; Eosinophils # (A) 0.1 k/uL (0-0.7); Eosinophils % (A) 1 %; HCT 32.5 % (39.0-53.0); Lymphocytes # (A) 0.7 k/uL (1.0-4.8); Lymphocytes % (A) 10 %; MCH 31.8 pg (25.0-35.0); MCHC 33.7 g/dL (31.0-37.0); MCV 94.4 fL (80.0-100.0); Mean Platelet Volume 7.2; Monocytes # (A) 0.4 k/uL (0-1.0); Monocytes % (A) 6 %; Neutrophils # (A) 5.4 k/uL (1.3-7.7); Neutrophils % (A) 82 %; Platelet Count 197 k/uL (150-450); RBC 3.44 m/uL (4.30-5.90); RDW 13.3 % (11.5-15.5); WBC 6.5 k/uL (3.8-10.6)
[2018-06-16 05:28] LABS: ALT 22 U/L (21-72); AST 32 U/L (17-59); Albumin 2.7 g/dL (3.5-5.0); Alkaline Phosphatase 61 U/L (38-126); Anion Gap 7 mmol/L; Blood Urea Nitrogen 19 mg/dL (9-20); Carbon Dioxide 22 mmol/L (22-30); Chloride 105 mmol/L (98-107); Glucose 100 mg/dL (74-99); Potassium 3.6 mmol/L (3.5-5.1); Sodium 134 mmol/L (137-145); Total Bilirubin 1.2 mg/dL (0.2-1.3); Total Protein 4.9 g/dL (6.3-8.2)
[2018-06-16] MEDS: IPRATROPIUM-ALBUTEROL 3 ML NEB INHALATION SCH ×4 (06:56→19:25)
[2018-06-16] MEDS ORDERED: POTASSIUM CHLORIDE ER 20 MEQ TAB.ER PO SCH (07:00)
[2018-06-16 07:23] LABS: Glucose,Whole Blood 105 mg/dL (75-99)
[2018-06-16] MEDS: PANTOPRAZOLE 40 MG TABLET PO SCH (07:23)
--- NOTE | 2018-06-16 07:44 | XR ---
EXAMINATION TYPE: XR chest 2V DATE OF EXAM: 06/16/2018 COMPARISON: 06/15/2018 HISTORY: Shortness of breath TECHNIQUE: Frontal and lateral views of the chest are obtained. FINDINGS: Scattered senescent parenchymal changes noted. Hyperinflation compatible with COPD. Scattered patchy infiltrates are noted. Overall no significant interval change appreciated. Heart size is stable. Mediastinal structures are stable and grossly unremarkable. No evidence for hilar prominence. Degenerative changes dorsal spine. IMPRESSION: 1. Scattered patchy infiltrates are noted. Overall no significant interval change appreciated.
[2018-06-16] MEDS: ATORVASTATIN 40 MG TAB PO SCH (08:55)
[2018-06-16] MEDS: CLOPIDOGREL 75 MG TAB PO SCH (08:55)
[2018-06-16] MEDS: AMIODARONE 200 MG TAB PO SCH ×2 (08:56→21:05)
[2018-06-16] MEDS: METOPROLOL TARTRATE 50 MG TAB PO SCH ×2 (08:57→21:05)
[2018-06-16] MEDS: ASPIRIN 325 MG TAB PO SCH (08:57)
[2018-06-16] MEDS: LISINOPRIL 5 MG TAB PO SCH (08:57)
[2018-06-16] MEDS ORDERED: ACETAMINOPHEN TAB 325 MG TAB PO PRN (09:33)
--- NOTE | 2018-06-16 10:06 | PN ---
PROGRESS NOTE Mr. Ramires is a 67-year-old male with a known history of coronary artery disease status post coronary artery bypass grafting. He is doing well this morning. Remains in sinus mechanism. Sitting up in the chair. Hemodynamically stable. He denies any chest pain. No dizziness or palpitation. He denies any nausea. He continues to be on aspirin once a day, Plavix 75 mg daily, Lipitor 40 mg daily, lisinopril 5 mg daily, metoprolol tartrate 50 mg twice a day. PHYSICAL EXAMINATION: Blood pressure 127/60 with a heart rate in the 70s. LUNGS: Clear with a few crackles at the bases. HEART: Regular rate and rhythm S1, S2. No S3. No rub. ABDOMEN: Soft, nontender. Extremities: No significant edema. LAB DATA: Revealed BUN and creatinine 19 and 0.87, potassium 3.6, hemoglobin 8, hemoglobin of 11. IMPRESSION: 1. Status post coronary artery bypass grafting stable. 2. Ischemic cardiomyopathy. No evidence of heart failure. 3. Paroxysmal atrial fibrillation remains in sinus mechanism. 4. Hyperlipidemia. RECOMMENDATION: We will continue present therapy. Increase his level of activity. MMODL / IJN: [id number] /
--- NOTE | 2018-06-16 10:52 | P.PN ---
Subjective Progress Note Date: 06/16/18 Principal diagnosis: Non-STEMI this admission, severe three-vessel coronary artery disease, glaucoma and current nicotine abuse. POD #4 coronary artery bypass grafting 3 vessels, left internal mammary artery to the left anterior descending coronary artery, a reverse greater saphenous vein graft off the aorta to the obtuse marginal coronary artery and a reverse greater saphenous vein graft off the aorta to the posterior descending coronary artery. Endoscopic vein harvest of the left greater saphenous vein and intraoperative transesophageal echocardiogram. Postoperative paroxysmal atrial fibrillation, an unexpected but potential outcome of surgery. Patient is currently sitting up to bedside chair. He is in no acute distress. Currently denies any complaints of pain or shortness of breath. His bedside telemetry is showing normal sinus rhythm heart rate 77, no further episodes of atrial fibrillation. He is on 3 L nasal cannula and his oxygen saturations are 94% and he is achieving 2000 mL on his incentive spirometry. Objective - Vital Signs Vital signs: Vital Signs Temp 98 F 06/16/18 08:00 Pulse 75 06/16/18 08:00 Resp 20 06/16/18 08:00 BP 127/68 06/16/18 08:00 Pulse Ox 92 L 06/16/18 08:00 Intake & Output 06/15/18 06/16/18 06/16/18 18:59 06:59 18:59 Intake Total 78 250 Output Total 1480 930 450 Balance -1402 -680 -450 Weight 83.3 kg 78.9 kg Intake: IV 78 Lactated Ringers 1,000 ml 60 @ 20 mls/hr IV .Q24H [facility] Rx#:[id number] Pressure bag 18 Oral 250 Output: Chest Tube Drainage 30 30 Left Pleural 10 30 Mediastinal x2 20 Urine 1450 900 450 Other: Voiding Method Urinal Urinal Urinal # Voids 0 # Bowel Movements 2 3 ABP, PAP, CO, CI - Last Documented Arterial Blood Pressure 139/56 Pulmonary Artery Pressure 34/13 Cardiac Output 5.1 Cardiac Index 2.4 - Constitutional General appearance: Present: cooperative, no acute distress - Respiratory Details: Lungs sounds essentially clear to his bilateral upper lobes, few scattered crackles to his bilateral bases. Respirations are symmetrical and nonlabored. Oxygen saturation are 94% on 3 L nasal cannula. He is achieving 2000 mL on his incentive spirometry. - Cardiovascular Details: Regular rhythm and rate. S1 and S2 present, negative for S3, gallop or murmur. Sternum is stable. Bedside telemetry showing normal sinus rhythm heart rate 77. Heart hugger is in place and is demonstrating appropriate use. Knee-high SUE hose and sequential compression devices in place to his bilateral lower extremities. Atrial and ventricular epicardial pacemaker wires in place and grounded. - Gastrointestinal Gastrointestinal Comment(s): Abdomen is soft, nontender and nondistended. Active bowel sounds all 4 abdominal quadrants. Tolerating oral intake. Bowel movement this a.m. - Genitourinary Genitourinary Comment(s): Voiding clear yellow urine. 1050 mL output in the last 8 hours. - Integumentary Integumentary Comment(s): Skin is warm and dry. No clubbing or cyanosis present. Midline sternal incision clean, dry and approximated. No drainage or redness present. Gauze dressing clean and dry. Left lower extremity EVH site clean dry and approximated. No drainage or redness present. Scattered ecchymosis to his left thigh. Soft to touch, nontender. - Neurologic Neurologic: Present: CNII-XII intact - Musculoskeletal Musculoskeletal: Present: gait normal, strength equal bilaterally - Psychiatric Psychiatric: Present: A&O x's 3, appropriate affect, intact judgment & insight - Allied health notes Allied health notes reviewed: nursing - Labs CBC & Chem 7: 06/16/18 04:50 06/16/18 04:50 Labs: Abnormal Lab Results - Last 24 Hours (Table) 06/15/18 06/16/18 06/16/18 Range/Units 19:58 04:50 04:50 RBC 3.44 L (4.30-5.90) m/uL Hgb 11.0 L (13.0-17.5) gm/dL Hct 32.5 L (39.0-53.0) % Lymphocytes # 0.7 L (1.0-4.8) k/uL Sodium 134 L (137-145) mmol/L Glucose 100 H (74-99) mg/dL POC Glucose (mg/dL) 109 H (75-99) mg/dL Calcium 8.0 L (8.4-10.2) mg/dL Total Protein 4.9 L (6.3-8.2) g/dL Albumin 2.7 L (3.5-5.0) g/dL 06/16/18 Range/Units 07:11 RBC (4.30-5.90) m/uL Hgb (13.0-17.5) gm/dL Hct (39.0-53.0) % Lymphocytes # (1.0-4.8) k/uL Sodium (137-145) mmol/L Glucose (74-99) mg/dL POC Glucose (mg/dL) 105 H (75-99) mg/dL Calcium (8.4-10.2) mg/dL Total Protein (6.3-8.2) g/dL Albumin (3.5-5.0) g/dL - Imaging and Cardiology Chest x-ray: report reviewed, image reviewed Assessment and Plan (1) Nicotine dependence Current Visit: Yes Status: Acute Code(s): F17.200 - NICOTINE DEPENDENCE, UNSPECIFIED, UNCOMPLICATED SNOMED Code(s): 48441671 (2) History of bilateral cataract extraction Current Visit: Yes Status: Acute Code(s): Z98.41 - CATARACT EXTRACTION STATUS, RIGHT EYE; Z98.42 - CATARACT EXTRACTION STATUS, LEFT EYE SNOMED Code(s ): 928720779 (3) Glaucoma Current Visit: Yes Status: Acute Code(s): H40.9 - UNSPECIFIED GLAUCOMA SNOMED Code(s): 21395297 (4) Non-STEMI (non-ST elevated myocardial infarction) Current Visit: Yes Status: Acute Code(s): I21.4 - NON-ST ELEVATION (NSTEMI) MYOCARDIAL INFARCTION SNOMED Code(s): 893447589 Plan: 1. Continue aspirin, statin, Plavix and beta jason. We will increase his beta jason as tolerated. 2. Continue amiodarone 400 mg by mouth twice a day for atrial fibrillation prophylaxis. 3. Wean oxygen as tolerated, encourage use of his incentive spirometry every hour while awake. 4. Bronchodilator and pulmonary management recommendations per Dr. Nicole. 5. Will monitor daily labs and chest x-rays. 6. GI prophylaxis with Protonix, DVT prophylaxis with subcu heparin and SCDs. 7. Insulin management per primary care service. 8. Increased activity. PT/OT/cardiac rehab following. 9. Discussed the importance of smoking cessation. 10. Anticipate discharge home within the next 24 hours with home care. 11. More recommendations to follow based on patient's clinical course Time with Patient: Greater than 30
[2018-06-16 11:59] LABS: Glucose,Whole Blood 93 mg/dL (75-99)
--- NOTE | 2018-06-16 13:28 | P.PN ---
Subjective Progress Note Date: 06/16/18 Principal diagnosis: Acute non-ST elevation myocardial infarction, triple vessel coronary artery disease. Status post CABG, postoperative day #4 This is a 67-year-old white male, heavy smoker over the years, but no documentation of COPD, not on any bronchodilators for COPD, patient usually sees Dr. Oro as his primary care physician in [place]. Patient presented to the emergency room today with chest pain and abnormal cardiac panel. Patient was noted to have non-ST segment elevation myocardial infarction. He was noted to have ST segment depression in V2 and V3, echocardiogram showed evidence of inferior lateral hypokinesia. Patient underwent cardiac catheterization. And he was found to have evidence of thrombus in the ostial circumflex with 99% stenosis. His LAD was noted to have 85-90% stenosis also suggestive of thrombus. Circumflex was noted to have 99% stenosis. Considering the findings , patient was advised to undergo coronary artery bypass surgery. He was transferred out of the cardiac catheterization lab to the ICU, and I was asked to see him on consultation. Presently the patient denies any pain or discomfort. Denies any shortness of breath, no cough, no wheezing. Has been a very heavy smoker over the years, and until recently he was smoking about half pack per day on the average. Patient describes slight dyspnea on exertion however he is able to walk 2-3 blocks without any significant dyspnea. Patient was never seen by any sales development specialist, and according to him he never had any issues related to his lungs. Presently denies any headache, no blurred vision, no dizziness, no chest pain, no shortness of breath no cough no wheezing no nausea no vomiting no abdominal pain no palpitations no dysuria and no frequency no urgency. Has occasional joints aches and pains for which she takes Aleve on when necessary basis. Labs on admission were noted to be relatively normal and his troponin was 0.325 on admission. Patient was reevaluated today on 06/12/2018, doing well, asymptomatic. Denies any shortness of breath, no cough, no wheezing, he is hemodynamically stable, denies any chest pain. Labs including CBC and basic metabolic profile were reviewed, troponin is 0.413. Patient already had preoperative teaching and preoperative testing initiated by cardiac surgery, risks and benefits of myocardial revascularization was already discussed by cardiac surgery with the patient, patient is likely to undergo urgent coronary artery bypass grafting surgery today this p.m. On 06/13/2018, patient was seen, and he is still on mechanical ventilation this morning. Patient underwent CABG 3 vessels, MIR to LAD, reverse greater saphenous vein graft off the aorta to the upper twos marginal coronary artery and reverse greater saphenous vein graft off the aorta to the posterior descending coronary artery. Patient is now postoperative day #1. Last night could not be extubated because the patient was getting extremely agitated and restless. We kept him on mechanical ventilation overnight, switched his propofol this morning to Precedex, awaken the patient, gave him a short weaning trial with pressure support and CPAP, and before he became agitated, patient was extubated. Post extubation the patient seems to be doing well, and tolerating the extubation well. I was actually at bedside during the process. Chest x-ray showed minimal bibasilar opacity, and small tiny effusions. This is expected finding post CABG. Labs this morning showed a WBC count of 8.8 hemoglobin of 11.5. ABG showed a pO2 of 112 pCO2 of 37 pH of 7.44. On 06/14/2018, patient was reevaluated again, he tolerated the extubation well over the last 24 hours, patient denies any specific complaints, he is however now on amiodarone for new onset atrial fibrillation. Rate is about 120 and regular. Chest x-ray from this morning showed free air under the right hemidiaphragm, being monitored by cardiac surgery, felt it may have been iatrogenic during mediastinal tube placement. In addition to all of this the patient has no clinical symptoms to suggest perforated viscus, and the amount of air under the right hemidiaphragm is extremely minimal. Does not seem to be expanding. All labs were reviewed, and chest x-ray was reviewed and discussed with cardiac surgery. Patient was reevaluated today on 06/15/2018, sitting in a chair, relatively asymptomatic, very compliant with incentive spirometry, good cough effort, patient is in sinus rhythm, asymptomatic. Chest x-ray is showing some atelectasis, possibly some component of interstitial edema. No clear-cut evidence of pneumonia. Clinically the patient does not have pneumonia.Free air below the right hemidiaphragm has resolved. And his abdomen is basically benign. All his labs were reviewed including renal profile normal lites are normal CBC is relatively normal hemoglobin is 10.5 Reevaluated today on 06/16/2018, patient remains in the ICU, doing well, relatively asymptomatic. No cough no wheezing no shortness of breath, doing much better with incentive spirometer. He is off all the drips. Sitting in a bedside chair. Seems to be quite comfortable. He is in sinus rhythm, and no further episodes of atrial fibrillation. On nasal cannula at 3 L/m with O2 saturation is 95%. He is achieving about 2000 mL on incentive spirometry. Objective - Vital Signs Vital signs: Vital Signs Temp 98 F 06/16/18 08:00 Pulse 73 06/16/18 12:00 Resp 20 06/16/18 12:00 BP 100/82 06/16/18 12:00 Pulse Ox 96 06/16/18 12:00 Intake & Output 06/15/18 06/16/18 06/16/18 18:59 06:59 18:59 Intake Total 78 250 Output Total 1480 930 700 Balance -1402 -680 -700 Weight 83.3 kg 78.9 kg Intake: IV 78 Lactated Ringers 1,000 ml 60 @ 20 mls/hr IV .Q24H KWAME Rx#:[id number] Pressure bag 18 Oral 250 Output: Chest Tube Drainage 30 30 Left Pleural 10 30 Mediastinal x2 20 Urine 1450 900 700 Other: Voiding Method Urinal Urinal Urinal # Voids 0 # Bowel Movements 2 3 ABP, PAP, CO, CI - Last Documented Arterial Blood Pressure 139/56 Pulmonary Artery Pressure 34/13 Cardiac Output 5.1 Cardiac Index 2.4 - Exam Physical Exam: Revealed a 67-year-old white male in no distress. On 3 L nasal cannula. Head: Atraumatic, normocephalic. HEENT:[Neck is supple.] [No neck masses.] [No thyromegaly.] [No JVD.] Moist mucous membranes. PERRLA, EOMI, no icterus. Chest: [Diminished breath sounds at the bases, no crackles, no rhonchi and no wheezes. Symmetrical chest expansion, no chest wall tenderness. Cardiac Exam: [ Normal S1 and S2, no S3 gallop, no murmur.] Abdomen: [Soft, nontender, no megaly, no rebound, no guarding, normal bowel sounds.] Positive bowel sounds. Extremities: [No clubbing, no edema, no cyanosis.] Neurological Exam: [No focal neurologic deficit.] . Skin: No rashes, evidence of onychomycosis noted. Psychiatric: Normal mood, affect and mental status examination. - Labs CBC & Chem 7: 06/16/18 04:50 06/16/18 04:50 Labs: Abnormal Lab Results - Last 24 Hours (Table) 06/15/18 06/16/18 06/16/18 Range/Units 19:58 04:50 04:50 RBC 3.44 L (4.30-5.90) m/uL Hgb 11.0 L (13.0-17.5) gm/dL Hct 32.5 L (39.0-53.0) % Lymphocytes # 0.7 L (1.0-4.8) k/uL Sodium 134 L (137-145) mmol/L Glucose 100 H (74-99) mg/dL POC Glucose (mg/dL) 109 H (75-99) mg/dL Calcium 8.0 L (8.4-10.2) mg/dL Total Protein 4.9 L (6.3-8.2) g/dL Albumin 2.7 L (3.5-5.0) g/dL 06/16/18 Range/Units 07:11 RBC (4.30-5.90) m/uL Hgb (13.0-17.5) gm/dL Hct (39.0-53.0) % Lymphocytes # (1.0-4.8) k/uL Sodium (137-145) mmol/L Glucose (74-99) mg/dL POC Glucose (mg/dL) 105 H (75-99) mg/dL Calcium (8.4-10.2) mg/dL Total Protein (6.3-8.2) g/dL Albumin (3.5-5.0) g/dL Assessment and Plan Assessment: Impression: 1 acute non-ST elevation myocardial infarction. 2 triple-vessel coronary artery disease as noted on his cardiac catheterization , . 3 suspect moderate component of chronic obstructive pulmonary disease, 4 status post CABG, postoperative day #4 Patient was extubated uneventfully the following day.. 5 free air under the right hemidiaphragm seen on chest x-ray noted few days ago , has resolved, patient has no clinical signs of perforated viscus Recommendation: Continue bronchodilators, incentive spirometry, likely transfer to a monitor bed on selective today. Time with Patient: Less than 30
[2018-06-16] MEDS: SENNOSIDES-DOCUSATE SODIUM 1 EACH TAB PO SCH (21:11)
[2018-06-16 21:21] LABS: Glucose,Whole Blood 105 mg/dL (75-99)
--- NOTE | 2018-06-16 23:24 | PN ---
PROGRESS NOTE DATE OF SERVICE: 06/16/2018 This 67-year-old gentleman who was admitted with CAD and CABG also had acute non ST elevation myocardial infarction. The patient pattie cardiac catheterization and the patient being closely monitored. No chest pain. No palpitations. No fever. EXAM: Alert and oriented x3. Pulse 78, blood pressure 109/60 respirations 20, pulse ox 98% on 3 L. Patient is alert, oriented x3. Pulse 115, blood pressure 139/70, respiration 18, temperature 98.8, pulse ox 98% on room air. HEENT: Conjunctivae normal. Oral mucosa. NECK: No jugular venous distention. No lymph node enlargement. CARDIOVASCULAR: S1, S2. RESPIRATORY: Diminished breath sounds at the bases. Bilateral scattered rhonchi, no crackles. ABDOMEN: Soft, nontender. LEGS: No swelling. NERVOUS SYSTEM: No focal deficits. LABS: WBC 6.2, hemoglobin is 11. ASSESSMENT: 1. Coronary artery disease status post coronary artery bypass grafting. 2. Acute non ST-segment elevation myocardial infarction status post cardiac incision present on admission. 3. Hyperlipidemia. 4. History of nicotine dependence. 5. Glaucoma. 6. Hypoalbuminemia. RECOMMENDATION: Recommend to continue current management, Incentive spirometry and DVT prophylaxis. Otherwise, beta blockers and antiplatelet agents. Continue to monitor. Further recommendations to follow. MMODL / IJN: [id number] /
[2018-06-17 03:07] LABS: Glucose,Whole Blood 96 mg/dL (75-99)
[2018-06-17] MEDS: INSULIN ASPART 100 UNIT/ML 1 ML 10 ML VIAL SQ SCH ×3 (04:15→12:51)
[2018-06-17] MEDS: PANTOPRAZOLE 40 MG TABLET PO SCH (05:37)
[2018-06-17 05:46] LABS: Glucose,Whole Blood 86 mg/dL (75-99)
[2018-06-17 05:46] LABS: Glucose,Whole Blood 92 mg/dL (75-99)
[2018-06-17 05:58] LABS: Glucose,Whole Blood 92 mg/dL (75-99)
[2018-06-17 07:36] LABS: Basophils % (A) 0 %; Eosinophils % (A) 1 %; HCT 30.3 % (39.0-53.0); HGB 10.3 gm/dL (13.0-17.5); Lymphocytes # (A) 0.7 k/uL (1.0-4.8); Lymphocytes % (A) 12 %; MCH 31.6 pg (25.0-35.0); MCHC 34.1 g/dL (31.0-37.0); MCV 92.8 fL (80.0-100.0); Monocytes # (A) 0.5 k/uL (0-1.0); Monocytes % (A) 8 %; Neutrophils % (A) 79 %; Platelet Count 240 k/uL (150-450); RBC 3.26 m/uL (4.30-5.90); RDW 13.5 % (11.5-15.5); WBC 6.4 k/uL (3.8-10.6)
[2018-06-17 07:46] LABS: Anion Gap 7 mmol/L; Blood Urea Nitrogen 14 mg/dL (9-20); Calcium 7.7 mg/dL (8.4-10.2); Carbon Dioxide 23 mmol/L (22-30); Chloride 107 mmol/L (98-107); Glucose 85 mg/dL (74-99); Potassium 3.7 mmol/L (3.5-5.1); Sodium 137 mmol/L (137-145)
--- NOTE | 2018-06-17 08:23 | P.CONS ---
History of Present Illness - Chief Complaint Cardiac debility - History of Present Illness I had the opportunity to see patient for inpatient rehab consultation with regard to cardiac debility. He was admitted to [facility] June 17 with chest pain. Underwent three-vessel coronary bypass in June 17. Seen in ICU by Dr. Reyna. PT reports supervision for mobility and gait 100 feet, hand-held. OT prescribed. Chest x-rays demonstrated only scattered infiltrate. Previous functional history as this from patient: 67-year-old right-handed white male who is lives in one floor home with . Retired. does the cooking and laundry. Patient independent with driving, standing shower and gait without device. History smoking about past. Doesn't smoke and has rare drink currently. Regular doctor is the [place] [facility], Dr. Oro. Family history father with cancer. Review of Systems Review of systems: ENT: Denies sneezes or discharge. Eyes: Denies discharge or photophobia. Cardiac: Denies chest pain or palpitation. Pulmonary: Denies cough or shortness of breath. Gastrointestinal: Denies nausea, emesis, constipation, diarrhea. Genitourinary: Denies discharge or frequency. Musculoskeletal: Denies muscle or bone aches. Neurologic: Denies motor or sensory change. Endocrine: Denies shakes or sweats. Oncology: Denies cancers. Dermatologic: Denies rash, itching, pruritus. ALLERGY/immunology: Denies sneezes, rashes. Past Medical History Past Medical History: Eye Disorder Additional Past Medical History / Comment(s): glaucoma.past cataracts(sx) History of Any Multi-Drug Resistant Organisms: None Reported Additional Past Surgical History / Comment(s): 06-11-18 heart cath. mary eye surgery for glaucoma, cataaracts removedlens implants, colonoscopy 2014, Past Anesthesia/Blood Transfusion Reactions: No Reported Reaction Past Psychological History: No Psychological Hx Reported Smoking Status: Current every day smoker Past Alcohol Use History: Occasional Past Drug Use History: None Reported - Past Family History Father Family Medical History: Cancer Mother Family Medical History: Cancer Medications and Allergies Home Medications Medication Instructions Recorded Confirmed Type Ibuprofen [Motrin Ib] 400 mg PO Q6H PRN 06/11/18 06/11/18 History Allergies Allergy/AdvReac Type Severity Reaction Status Date / Time No Known Allergies Allergy Verified 06/11/18 13:43 Physical Exam Vitals: Vital Signs Temp Pulse Pulse Resp BP BP Pulse Ox 06/17/18 04:00 98.3 F 72 18 119/65 93 L 06/17/18 00:00 18 06/16/18 23:01 98.2 F 18 125/67 95 06/16/18 20:00 98.7 F 81 16 127/63 06/16/18 19:38 68 06/16/18 19:25 70 06/16/18 18:00 74 06/16/18 16:00 78 20 109/61 93 L 06/16/18 15:38 74 06/16/18 15:24 70 06/16/18 12:00 73 20 100/82 96 06/16/18 11:12 86 06/16/18 10:58 84 06/16/18 10:00 65 Intake and Output 06/16/18 06/17/18 06/17/18 22:59 06:59 14:59 Intake Total 240 Output Total 125 250 Balance -125 -250 240 Intake: Oral 240 Output: Urine 125 250 Other: Voiding Method Urinal # Voids 1 Weight 80.9 kg Skin: Good color, texture, turgor. General: Medium build and comfortable appearance. Head: Normocephalic, atraumatic. Eyes: Symmetric. Pupils equal round. Ears: Symmetric. Hearing within normal limits. Mouth: Clear. Neck: Supple. Carotid without bruit. Cardiac: Regular rate and rhythm. Chest clean and dressed. Wearing harness. Lungs: Clear anteriorly and posteriorly. Abdomen: Soft active nontender. Extremities: Normal tone. Neurological: Mental status: Alert, cooperative, pleasant. Cranial nerves: Symmetric facial tone and trapezius. Motor: Normal strength and isolation all 4 limbs. Sensation: Intact throughout. DTRs: Symmetric and equal throughout. Mobility: Sits without assistance or verbal cueing or loss of balance. Results CBC & Chem 7: 06/17/18 07:03 06/17/18 07:03 Labs: Abnormal Lab Results - Last 24 Hours (Table) 06/16/18 06/17/18 06/17/18 Range/Units 21:08 07:03 07:03 RBC 3.26 L (4.30-5.90) m/uL Hgb 10.3 L (13.0-17.5) gm/dL Hct 30.3 L (39.0-53.0) % Lymphocytes # 0.7 L (1.0-4.8) k/uL POC Glucose (mg/dL) 105 H (75-99) mg/dL Calcium 7.7 L (8.4-10.2) mg/dL Assessment and Plan (1) Non-STEMI (non-ST elevated myocardial infarction) Current Visit: Yes Status: Acute Code(s): I21.4 - NON-ST ELEVATION (NSTEMI) MYOCARDIAL INFARCTION SNOMED Code(s): 528630254 Plan: Impression: 1. Cardiac debility. 2. Non-STEMI. 3. Status post coronary bypass, three-vessel. Comments and plan: At this time PT ongoing in patient doing well but prior to cardiac surgery. Cardiac care and nurse reports patient with wobbly gait over weekend. Await PT and OT notes today.
[2018-06-17 08:25] VITALS: RESP 16
[2018-06-17] MEDS: IPRATROPIUM-ALBUTEROL 3 ML NEB INHALATION SCH ×2 (08:27→11:39)
[2018-06-17] MEDS ORDERED: FUROSEMIDE 10 MG/ML 2 ML VIAL IV ONE (08:50)
--- NOTE | 2018-06-17 08:59 | XR ---
EXAMINATION TYPE: XR chest 1V portable DATE OF EXAM: 06/17/2018 COMPARISON: 06/16/2018 HISTORY: Postop CABG TECHNIQUE: Single frontal view of the chest is obtained. FINDINGS: Scattered senescent parenchymal changes noted. Hyperinflation compatible with COPD. Scatte red patchy infiltrates are noted. Overall no significant interval change appreciated. Heart size is s table. Mediastinal structures are stable and grossly unremarkable. No evidence for hilar prominence. Degenerative changes dorsal spine. Small bilateral pleural effusions. IMPRESSION: 1. Scattered patchy infiltrates are stable. Underlying COPD and persistent interstitial lung disease or congestion suspected with small bilateral pleural effusions.
[2018-06-17] MEDS ORDERED: POTASSIUM CHLORIDE ER 20 MEQ TAB.ER PO SCH (09:00)
--- NOTE | 2018-06-17 09:04 | P.PN ---
Progress Note - Text Progress Note Date: 06/17/18 Atrial and ventricular epicardial pacemaker wires were removed at 9 AM today without incident. The patient will be on bedrest for 1 hour post pacemaker wire removal.
[2018-06-17] MEDS: HEPARIN SODIUM,PORCINE 5,000 UNIT/ML 1 ML VIAL SQ SCH (09:54)
[2018-06-17] MEDS: METOPROLOL TARTRATE 50 MG TAB PO SCH (09:54)
[2018-06-17] MEDS: ATORVASTATIN 40 MG TAB PO SCH (09:55)
[2018-06-17] MEDS: CLOPIDOGREL 75 MG TAB PO SCH (09:55)
[2018-06-17] MEDS: AMIODARONE 200 MG TAB PO SCH (09:55)
[2018-06-17] MEDS: ASPIRIN 325 MG TAB PO SCH (10:00)
--- NOTE | 2018-06-17 10:08 | P.PN ---
Subjective Progress Note Date: 06/17/18 This is a pleasant 67-year-old gentleman with known history of coronary artery disease, status post coronary artery bypass grafting surgery. He was seen and examined this morning, overall doing well. Remaining in normal sinus rhythm. Blood pressure this morning 120/60 with a heart rate in the 70s. Arrangements are being made for potential transfer to inpatient rehab today. Objective - Vital Signs Vital signs: Vital Signs Temp 97.4 F L 06/17/18 08:15 Pulse 67 06/17/18 08:37 Resp 16 06/17/18 08:15 BP 122/69 06/17/18 08:15 Pulse Ox 93 L 06/17/18 08:15 Intake & Output 06/16/18 06/17/18 06/17/18 18:59 06:59 18:59 Intake Total 240 Output Total 825 250 Balance -825 -250 240 Weight 80.9 kg Intake: Oral 240 Output: Urine 825 250 Other: Voiding Method Urinal # Voids 1 # Bowel Movements 3 ABP, PAP, CO, CI - Last Documented Arterial Blood Pressure 139/56 Pulmonary Artery Pressure 34/13 Cardiac Output 5.1 Cardiac Index 2.4 - Exam PHYSICAL EXAMINATION: GENERAL: 67-year-old gentleman in no acute distress at the time of my examination HEENT: Head is atraumatic, normocephalic. Pupils equal, round. Sclera anicteric. Conjunctiva are clear. Mucous membranes of the mouth are moist. Neck is supple. There is no elevated jugular venous pressure. No carotid bruit is heard. HEART EXAMINATION: Heart S1, S2 normal. No murmur or gallop heard. CHEST EXAMINATION: Lungs are clear with fine crackles to the bases. No chest wall tenderness is noted on palpation or with deep breathing. ABDOMEN: Soft, nontender. Bowel sounds are heard. No organomegaly noted. EXTREMITIES: 2+ peripheral pulses with no evidence of peripheral edema and no calf tenderness noted. NEUROLOGIC patient is awake, alert and oriented 3 . . - Labs CBC & Chem 7: 06/17/18 07:03 06/17/18 07:03 Labs: Abnormal Lab Results - Last 24 Hours (Table) 06/16/18 06/17/18 06/17/18 Range/Units 21:08 07:03 07:03 RBC 3.26 L (4.30-5.90) m/uL Hgb 10.3 L (13.0-17.5) gm/dL Hct 30.3 L (39.0-53.0) % Lymphocytes # 0.7 L (1.0-4.8) k/uL POC Glucose (mg/dL) 105 H (75-99) mg/dL Calcium 7.7 L (8.4-10.2) mg/dL Assessment and Plan Plan: Assessment and plan #1 status post coronary bypass grafting surgery #2 ischemic cardiomyopathy #3 paroxysmal atrial fibrillation, remaining in normal sinus rhythm #4 hyperlipidemia Plan Patient's current medications have been reviewed, we will continue with the medications as they are. Arrangements are being made for potential transfer to inpatient rehab today. Follow-up appointment will be made with cardiology in the office 2 weeks post discharge. DNP note has been reviewed, I agree with a documented findings and plan of care. Patient was seen and examined.
[2018-06-17 11:57] VITALS: BP 124/66; PULSE 66; TEMP 97.8
[2018-06-17 12:17] LABS: Glucose,Whole Blood 84 mg/dL (75-99)
[2018-06-17] MEDS: LISINOPRIL 5 MG TAB PO SCH (12:55)
--- NOTE | 2018-06-17 14:02 | P.DS ---
Providers Date of admission: 06/11/18 15:13 Expected date of discharge: 06/17/18 Attending physician: Neil Torres Consults: 06/11/18 16:56 Consult Physician Routine Consulting Provider: Froilan Nicole Consult Reason/Comments: Pulmonary management Do you want consulting provider notified?: Yes Consult Physician Routine Consulting Provider: Puneet Cervantes Consult Reason/Comments: Medical management Do you want consulting provider notified?: Yes Consult to Anesthesia Routine Consulting Provider: Anesthesia,Services Consult Reason/Comments: Cardiac Surgery Pre-Op 06/17/18 07:30 Consult Physician Routine Consulting Provider: Harshil Haines Consult Reason/Comments: assessment inpatient rehab placement Do you want consulting provider notified?: Yes Primary care physician: [facility] - Discharge Diagnosis(es) (1) Nicotine dependence Current Visit: Yes Status: Acute (2) History of bilateral cataract extraction Current Visit: Yes Status: Acute (3) Glaucoma Current Visit: Yes Status: Acute (4) Non-STEMI (non-ST elevated myocardial infarction) Current Visit: Yes Status: Acute Hospital Course: FINAL DIAGNOSIS: 1. Non-STEMI this admission 2. Severe triple-vessel coronary artery disease 3. Glaucoma 4. Chronic nicotine abuse 5. Ischemic cardiomyopathy 6. Hyperlipidemia 7. Postoperative paroxysmal atrial fibrillation, an unexpected but potential outcome of surgery PRINCIPAL PROCEDURE: 1. Selective coronary angiography and left ventriculography. 2. Urgent coronary artery bypass grafting with placement of his left internal mammary artery to left anterior setting coronary artery, a reverse greater saphenous vein graft off the aorta to the obtuse marginal coronary artery and a reverse greater saphenous vein graft off the aorta to the posterior descending coronary artery. 3. Endoscopic vein harvesting of the left greater saphenous vein. 4. Intraoperative transesophageal echocardiogram. HISTORY OF PRESENT ILLNESS: This is a 67-year-old gentleman who is followed by Dr. Cezar Oro on an outpatient basis at the [facility] in [place]. He has a past medical history significant for glaucoma, chronic nicotine abuse, ischemic cardiomyopathy and hyperlipidemia. Due to some complaints of chest pain which radiated down his right arm associated with shortness of breath and diaphoresis he presented to the emergency department here at [facility]. He was subsequently seen by Dr. VC Torres from cardiology associates. A 12- lead EKG was completed and demonstrated normal sinus rhythm with ST segment depression in V3 through V6. Lab work was completed and demonstrated a troponin level which was elevated and as high as 0.413. Subsequently due to his presenting symptoms and elevated troponins he was taken for a heart catheterization which demonstrated a 90% stenosis to his ostial left anterior descending coronary artery, a 99% stenosis to his ostial circumflex coronary artery and a 90% stenosis to his right coronary artery. During heart catheterization a left ventriculogram was completed which showed him to have an ejection fraction of 45%. A 2-D echocardiogram was also completed which showed an overall left ventricular systolic function to be mild to moderately impaired with an ejection fraction between 40 and 45%, [id number] aortic valve regurgitation, mild mitral valve regurgitation, and mild tricuspid valve regurgitation. Due to the heart catheterization results a consult was placed to Dr. Sim from cardiothoracic surgery to evaluate the patient for possible myocardial respiratory lesion surgery. HOSPITAL COURSE: The patient was admitted to the hospital, the cardiac catheterization results were reviewed with the patient and his family by Dr. Sim and an urgent myocardial revascularization surgery was recommended. The patient agreed and decided to undergo urgent myocardial revascularization surgery. Subsequently, after obtaining consent the patient was taken to the operating room where Dr. Sim performed an urgent coronary artery bypass grafting surgery 3 with placement of his left internal mammary artery to the left anterior descending coronary artery, reverse greater saphenous vein graft off the aorta to the obtuse marginal coronary artery and a reverse greater saphenous vein graft off the aorta to the posterior descending coronary artery. He also underwent endoscopic vein harvest of the left greater saphenous vein and an intraoperative transesophageal echocardiogram. Postoperatively the patient was transferred to the cardiovascular intensive care unit where he was recovered, monitored hemodynamically and where he progressed to cardiac dilatation phase 1. He was extubated, all lines, tubes and supportive drips were discontinued when appropriate and he was transferred to [address] [place] [address] cardiac stepdown unit for further rehabilitation and monitoring. His oxygen was weaned off and he has been maintaining good oxygen saturations on room air, he continued to work with physical and occupational therapy and has been tolerating an oral diet. Postoperatively he did have some paroxysmal atrial fibrillation which was treated accordingly. Due to some postoperative weakness and unsteadiness he will be discharged today on postoperative day #5 to [facility] for further rehabilitation needs. He has received written and verbal instructions regarding his medications, activity restrictions, signs and symptoms requiring physician notification and his follow-up appointments. COMPLICATIONS: his postoperative period was complicated by some paroxysmal atrial fibrillation which was treated accordingly. CONSULTATIONS: 1. Dr. Nicole for pulmonary and ventilator management. 2. Dr. VC Torres for cardiology management. 3. Dr. Cervantes for medical management. 4. Dr. Haines for rehab management. DISCHARGE INSTRUCTIONS: 1. No driving for 4 weeks, or until physician gives their ok. 2. The patient should sleep in their own bed, no medical bed needed. 3. Stairs are not an issue. If the bedroom is upstairs, it is advised that the patient go up at night and down in the morning for the first week. Go slowly, using handrail and take 1 step at a time. 4. SUE hose are to be worn for 30 days or until physician discontinues. 5. Heart hugger is to be worn 100% of the time until physician discontinues.( except when showering) 6. No lifting, pushing, or pulling more than 10 pounds for 12 weeks. The physician will advise of any restriction changes. 7. The patient is expected to continue the prescribed walking program. 8. Continue pain control per as needed orders. 9. Continue with incentive spirometry and splinting/heart hugger until otherwise directed by the physician. 10. Must shower daily using liquid antibacterial soap and a separate white washcloth for each individual incision. 11. Routine sternal incision care, no ointments, lotions or powders on the incisions. 12. Please notify surgeon/nurse practitioner for temperature greater than 101F or purulent drainage from incisions 13. Prescriptions for first 30 days given per cardiac surgery service. After 30 days, all prescription refills obtained through cardiology/primary care physician. 14. A red arm and has been placed on this patient it should be worn for 30 days post surgery and will be removed by the cardiothoracic surgeons. If an ER visit is necessary, please make sure the number on the red arm band is called. REHAB SERVICES TO PROVIDE: RN SKILLED HOME CARE SERVICES FOR POST-OP SURGICAL PATIENTS WITH THE FOLLOWING: Coronary Artery Bypass Surgery (CABG), Mitral Valve Replacement/ Repair ( MVR), Aortic Valve Replacement/Repair (AVR) RN TO CONTINUE EDUCATION FROM ``ROAD TO A HEALTH HEART PATIENT EDUCATION MANUAL" (GIVEN TO PATIENT IN THE HOSPITAL) MEDICATION RECONCILIATION WITH EDUCATION NEEDED ON FIRST HOME VISIT EMPHASIZE IMPORTANCE OF WEARING BREAST SUPPORT/HEART HUGGER ENCOURAGE USE OF INCENTIVE SPIROMETER 10 X EVERY HOUR WHILE AWAKE ENCOURAGE UTILIZATION OF LOWER EXTREMITY COMPRESSION STOCKINGS/SUE HOSE and ELEVATE LEGS ABOVE LEVEL OF HEART WHILE AT REST. ENCOURAGE AMBULATION 3-5x/day INCREASING TOLERATES, WHILE AVOID EXTREMES IN TEMPERATURE FREQUENCY: WHEN DISCHARGED HOME, RN TO OPEN THE PATIENT WITHIN 24 HOURS OF DISCHARGE FROM THE HOSPITAL WITH TELEHEALTH INSTALLED AT [facility], RN TO VISIT 2-3 X A WEEK FOR 4 WEEKS ESTABLISHED BY PATIENT NEEDS. LABORATORY: CBC, CMP TO BE DRAWN ON THE THIRD DAY FROM DISCHARGE, , 06/20/2018 (RAN STAT) FAX RESULTS TO [phone]. TELEHEALTH PARAMETERS: WEIGHT: NOTIFY MD OF WEIGHT GAIN OF 2 LBS IN 24 HOURS OR 5 LBS IN ONE WEEK HR: NOTIFY MD OF HR <55 BPM OR HR>100 BPM BP: NOTIFY MD IF BP <90/55 OR BP>140/100 O2 SAT: NOTIFY MD IF PO2<93% ON ROOM AIR SEND TELEHEALTH REPORT TO MARKETING MGR AND CARDIOVASCULAR SURGEON THE FIRST WEEK OF CARE AND THEN BI-WEEKLY. PLEASE ADDITIONALLY COMMUNICATE ANY ABNORMALS AND NEW FINDINGS TO THE SURGEONS OFFICE. Plan - Discharge Summary Discharge Rx Participant: No New Discharge Prescriptions: New Acetaminophen Tab [Tylenol] 650 mg PO Q4HR PRN tab PRN Reason: Fever And/ Or Pain Amiodarone [Cordarone] 400 mg PO BID tab Aspirin 325 mg PO DAILY tab Atorvastatin [Lipitor] 40 mg PO DAILY tab Bisacodyl [Dulcolax] 10 mg RECTAL DAILY PRN supp PRN Reason: Constipation Clopidogrel [Plavix] 75 mg PO DAILY tab Ipratropium-Albuterol Nebulize [Duoneb 0.5 mg-3 mg/3 ml Soln] 3 ml INHALATION RT-QID ampul.neb Ipratropium-Albuterol Nebulize [Duoneb 0.5 mg-3 mg/3 ml Soln] 3 ml INHALATION RT-Q2H PRN ampul.neb PRN Reason: Shortness Of Breath Or Wheezing Lisinopril [Zestril] 5 mg PO DAILY tab Magnesium Hydroxide [Milk of Magnesia Concentrate] 2,400 mg PO BID PRN ml PRN Reason: Constipation Metoprolol Tartrate [Lopressor] 50 mg PO BID tab Pantoprazole [Protonix] 40 mg PO AC-BRKFST tablet. Senkailey-Docusate Sodium [Senokot-S] 2 each PO HS tab Discontinued Ibuprofen [Motrin Ib] 400 mg PO Q6H PRN PRN Reason: Pain Discharge Medication List Acetaminophen Tab [Tylenol] 650 mg PO Q4HR PRN tab 06/17/18 [Rx] Amiodarone [Cordarone] 400 mg PO BID tab 06/17/18 [Rx] Aspirin 325 mg PO DAILY tab 06/17/18 [Rx] Atorvastatin [Lipitor] 40 mg PO DAILY tab 06/17/18 [Rx] Bisacodyl [Dulcolax] 10 mg RECTAL DAILY PRN supp 06/17/18 [Rx] Clopidogrel [Plavix] 75 mg PO DAILY tab 06/17/18 [Rx] Ipratropium-Albuterol Nebulize [Duoneb 0.5 mg-3 mg/3 ml Soln] 3 ml INHALATION RT -Q2H PRN ampul.neb 06/17/18 [Rx] Ipratropium-Albuterol Nebulize [Duoneb 0.5 mg-3 mg/3 ml Soln] 3 ml INHALATION RT -QID ampul.neb 06/17/18 [Rx] Lisinopril [Zestril] 5 mg PO DAILY tab 06/17/18 [Rx] Magnesium Hydroxide [Milk of Magnesia Concentrate] 2,400 mg PO BID PRN ml 06/17 [Rx] Metoprolol Tartrate [Lopressor] 50 mg PO BID tab 06/17/18 [Rx] Pantoprazole [Protonix] 40 mg PO AC-BRKFST tablet. 06/17/18 [Rx] Sennosides-Docusate Sodium [Senokot-S] 2 each PO HS tab 06/17/18 [Rx] Follow up Appointment(s)/Referral(s): Froilan Nicole MD [STAFF PHYSICIAN] - 06/27/18 1:15 pm Krys Figueroa NPC [Nurse Practitioner] - 06/28/18 1:00 pm Anival Sim MD [REFERRING] - 3 Weeks (Dr. Calderón's office will call with a follow-up appointment.) Neil Torres MD [STAFF PHYSICIAN] - 06/24/18 9:30 am [facility] [Primary Care Provider] - 06/26/18 8:00 am (Follow-up with Yenny Galloway's physician golf player assistant [facility]03/[facility] [place] Ambulatory/Diagnostic Orders: Complete Blood Count w/diff [LAB.AMB] Time Frame: 06/20/18, Facility: [facility], Location: Laboratory [facility] Comprehensive Metabolic Panel [LAB.AMB] Time Frame: 06/20/18, Facility: [facility], Location: Laboratory [facility] Discharge Disposition: TRANSFER TO SNF/ECF
--- NOTE | 2018-06-17 15:57 | P.PN ---
Subjective Progress Note Date: 06/17/18 Principal diagnosis: Acute non-ST segment elevation myocardial infarction, triple-vessel coronary disease. Status post coronary bypass grafting. This is a 67-year-old white male, heavy smoker over the years, but no documentation of COPD, not on any bronchodilators for COPD, patient usually sees Dr. Oro as his primary care physician in [place]. Patient presented to the emergency room today with chest pain and abnormal cardiac panel. Patient was noted to have non-ST segment elevation myocardial infarction. He was noted to have ST segment depression in V2 and V3, echocardiogram showed evidence of inferior lateral hypokinesia. Patient underwent cardiac catheterization. And he was found to have evidence of thrombus in the ostial circumflex with 99% stenosis. His LAD was noted to have 85-90% stenosis also suggestive of thrombus. Circumflex was noted to have 99% stenosis. Considering the findings , patient was advised to undergo coronary artery bypass surgery. He was transferred out of the cardiac catheterization lab to the ICU, and I was asked to see him on consultation. Presently the patient denies any pain or discomfort. Denies any shortness of breath, no cough, no wheezing. Has been a very heavy smoker over the years, and until recently he was smoking about half pack per day on the average. Patient describes slight dyspnea on exertion however he is able to walk 2-3 blocks without any significant dyspnea. Patient was never seen by any import/export specialist, and according to him he never had any issues related to his lungs. Presently denies any headache, no blurred vision, no dizziness, no chest pain, no shortness of breath no cough no wheezing no nausea no vomiting no abdominal pain no palpitations no dysuria and no frequency no urgency. Has occasional joints aches and pains for which she takes Aleve on when necessary basis. Labs on admission were noted to be relatively normal and his troponin was 0.325 on admission. Patient was reevaluated today on 06/12/2018, doing well, asymptomatic. Denies any shortness of breath, no cough, no wheezing, he is hemodynamically stable, denies any chest pain. Labs including CBC and basic metabolic profile were reviewed, troponin is 0.413. Patient already had preoperative teaching and preoperative testing initiated by cardiac surgery, risks and benefits of myocardial revascularization was already discussed by cardiac surgery with the patient, patient is likely to undergo urgent coronary artery bypass grafting surgery today this p.m. On 06/13/2018, patient was seen, and he is still on mechanical ventilation this morning. Patient underwent CABG 3 vessels, MIR to LAD, reverse greater saphenous vein graft off the aorta to the upper twos marginal coronary artery and reverse greater saphenous vein graft off the aorta to the posterior descending coronary artery. Patient is now postoperative day #1. Last night could not be extubated because the patient was getting extremely agitated and restless. We kept him on mechanical ventilation overnight, switched his propofol this morning to Precedex, awaken the patient, gave him a short weaning trial with pressure support and CPAP, and before he became agitated, patient was extubated. Post extubation the patient seems to be doing well, and tolerating the extubation well. I was actually at bedside during the process. Chest x-ray showed minimal bibasilar opacity, and small tiny effusions. This is expected finding post CABG. Labs this morning showed a WBC count of 8.8 hemoglobin of 11.5. ABG showed a pO2 of 112 pCO2 of 37 pH of 7.44. On 06/14/2018, patient was reevaluated again, he tolerated the extubation well over the last 24 hours, patient denies any specific complaints, he is however now on amiodarone for new onset atrial fibrillation. Rate is about 120 and regular. Chest x-ray from this morning showed free air under the right hemidiaphragm, being monitored by cardiac surgery, felt it may have been iatrogenic during mediastinal tube placement. In addition to all of this the patient has no clinical symptoms to suggest perforated viscus, and the amount of air under the right hemidiaphragm is extremely minimal. Does not seem to be expanding. All labs were reviewed, and chest x-ray was reviewed and discussed with cardiac surgery. Patient was reevaluated today on 06/15/2018, sitting in a chair, relatively asymptomatic, very compliant with incentive spirometry, good cough effort, patient is in sinus rhythm, asymptomatic. Chest x-ray is showing some atelectasis, possibly some component of interstitial edema. No clear-cut evidence of pneumonia. Clinically the patient does not have pneumonia.Free air below the right hemidiaphragm has resolved. And his abdomen is basically benign. All his labs were reviewed including renal profile normal lites are normal CBC is relatively normal hemoglobin is 10.5 Reevaluated today on 06/16/2018, patient remains in the ICU, doing well, relatively asymptomatic. No cough no wheezing no shortness of breath, doing much better with incentive spirometer. He is off all the drips. Sitting in a bedside chair. Seems to be quite comfortable. He is in sinus rhythm, and no further episodes of atrial fibrillation. On nasal cannula at 3 L/m with O2 saturation is 95%. He is achieving about 2000 mL on incentive spirometry. Patient is seen again today 06/17/2018 in follow-up on the selective care unit. He is currently sitting up in a chair at the bedside. He is awake and alert in no acute distress. He denies any worsening shortness of breath, cough or congestion. He is working well with the incentive spirometer. His maintaining good O2 saturations in the 90s on room air. He's afebrile. Hemodynamically stable. Today's chest x-ray revealed scattered patchy infiltrates which are stable compared to previous. There is underlying COPD and persistent interstitial lung disease with small bilateral pleural effusions. White count 6.4. Hemoglobin 10.3. Platelet count 240,000. Creatinine 0.78. Objective - Vital Signs Vital signs: Vital Signs Temp 97.8 F 06/17/18 11:57 Pulse 66 06/17/18 11:57 Resp 16 06/17/18 11:57 BP 124/66 06/17/18 11:57 Pulse Ox 92 L 06/17/18 12:00 Intake & Output 06/16/18 06/17/18 06/17/18 18:59 06:59 18:59 Intake Total 480 Output Total 825 250 600 Balance -825 -250 -120 Weight 80.9 kg Intake: Oral 480 Output: Urine 825 250 600 Other: Voiding Method Urinal Urinal # Voids 1 # Bowel Movements 3 ABP, PAP, CO, CI - Last Documented Arterial Blood Pressure 139/56 Pulmonary Artery Pressure 34/13 Cardiac Output 5.1 Cardiac Index 2.4 - Exam GENERAL EXAM: Alert, active, comfortable in no apparent distress. On room air. HEAD: Normocephalic. EYES: Normal reaction of pupils, equal size. NOSE: Clear with pink turbinates. THROAT: No erythema or exudates. NECK: No masses, no JVD. CHEST: Rhythm stable. Incision clean dry well approximated. LUNGS: Equal air entry with few scattered rhonchi. CVS: S1 and S2 normal with no audible murmur, regular rhythm. ABDOMEN: No hepatosplenomegaly, normal bowel sounds, no guarding or rigidity. SPINE: No scoliosis or deformity SKIN: No rashes CENTRAL NERVOUS SYSTEM: No focal deficits, tone is normal in all 4 extremities. EXTREMITIES: There is no peripheral edema. No clubbing, no cyanosis. Peripheral pulses are intact. - Labs CBC & Chem 7: 06/17/18 07:03 06/17/18 07:03 Labs: Abnormal Lab Results - Last 24 Hours (Table) 06/16/18 06/17/18 06/17/18 Range/Units 21:08 07:03 07:03 RBC 3.26 L (4.30-5.90) m/uL Hgb 10.3 L (13.0-17.5) gm/dL Hct 30.3 L (39.0-53.0) % Lymphocytes # 0.7 L (1.0-4.8) k/uL POC Glucose (mg/dL) 105 H (75-99) mg/dL Calcium 7.7 L (8.4-10.2) mg/dL Assessment and Plan Assessment: Impression: 1 acute non-ST elevation myocardial infarction. 2 triple-vessel coronary artery disease as noted on his cardiac catheterization , . 3 suspect moderate component of chronic obstructive pulmonary disease, 4 status post CABG, Patient was extubated uneventfully the following day.. 5 free air under the right hemidiaphragm seen on chest x-ray noted few days ago , has resolved, patient has no clinical signs of perforated viscus Recommendation: The patient was seen and evaluated by Dr. Vera. Chest x-ray and labs reviewed. The patient is doing well from the pulmonary standpoint. The plan is to discharge home today. He will follow-up in our office in 1 week's time. We'll repeat a chest x-ray then. He isn't ALLERGIC regarding the continued use the incentive spirometer and cough and deep breathing exercises. Activity as tolerated. I, the cosigning physician, performed a history & physical examination of the patient. Lungs sounds faint crackles in the posterior bases. Maintaining good O2 saturations in the 90s on room air. I discussed the assessment and plan of care with my nurse practitioner, Iris Hughes. I attest to the above note as dictated by her.
--- NOTE | 2018-06-17 17:06 | P.PN ---
Subjective Progress Note Date: 06/17/18 Progress note being dictated for Dr. Cervantes. Interval history: This is a 67-year-old gentleman admitted with CAD, acute non- STEMI, status post cardiac catheterization and CABG. Denies chest pain, palpitations or increasing shortness of breath. Stable chest x-ray. Maintaining O2 sats in the 90s on room air .Afebrile. Objective - Vital Signs Vital signs: Vital Signs Temp 97.8 F 06/17/18 11:57 Pulse 66 06/17/18 11:57 Resp 16 06/17/18 11:57 BP 124/66 06/17/18 11:57 Pulse Ox 92 L 06/17/18 12:00 Intake & Output 06/16/18 06/17/18 06/17/18 18:59 06:59 18:59 Intake Total 480 Output Total 825 250 600 Balance -825 -250 -120 Weight 80.9 kg Intake: Oral 480 Output: Urine 825 250 600 Other: Voiding Method Urinal Urinal # Voids 1 # Bowel Movements 3 ABP, PAP, CO, CI - Last Documented Arterial Blood Pressure 139/56 Pulmonary Artery Pressure 34/13 Cardiac Output 5.1 Cardiac Index 2.4 - Exam PHYSICAL EXAM: VITAL SIGNS: As above GENERAL: Sitting up in bed, no acute distress HEENT: Conjunctivae normal. eyes normal. Oral mucosa moist NECK: No JVD. No thyroid enlargement. No LNs CARDIOVASCULAR: S1, S2 muffled. No murmur RESPIRATION: Breath sounds diminished in the bases. Occasional scattered rhonchi , no crackles. ABDOMEN: Soft, nontender . No guarding. no masses palpable. Bowel sounds heard. LEGS: No edema. no swelling PSYCHIATRY: Alert and oriented -3, mood and affect normal. NERVOUS SYSTEM: Cranial N 2-12 grossly normal. Moves all 4 limbs. Diffuse weakness No focal deficits. Skin: no ulcer no rash Joints: No active swelling. No inflammation. - Labs CBC & Chem 7: 06/17/18 07:03 06/17/18 07:03 Labs: Abnormal Lab Results - Last 24 Hours (Table) 06/16/18 06/17/18 06/17/18 Range/Units 21:08 07:03 07:03 RBC 3.26 L (4.30-5.90) m/uL Hgb 10.3 L (13.0-17.5) gm/dL Hct 30.3 L (39.0-53.0) % Lymphocytes # 0.7 L (1.0-4.8) k/uL POC Glucose (mg/dL) 105 H (75-99) mg/dL Calcium 7.7 L (8.4-10.2) mg/dL Assessment and Plan Assessment: -CAD, status post CABG -Acute non-STEMI, status post cardiac catheterization -COPD -Hyperlipidemia -History of nicotine dependence -Glaucoma Plan: Continue on current medication regime , beta blockers, antiplatelet agents , GI and DVT prophylaxis ,monitoring and symptomatic treatment. Aggressive pulmonary toileting. Discharge planning in progress for inpatient rehab today as per cardiothoracic surgery. The impression and plan of care has been dictated as directed. : I performed a history and examination of this patient, discussed the same with the dictator. I agree with the dictator's note ,documented as a scribe. Any additional findings or plans will be noted.
--- NOTE | 2018-06-19 15:00 | P.VSCSTY ---
Greater Saphenous Vein Mapping This is bilateral lower extremity greater saphenous vein mapping. Date of service 06/11/2018 Vein quality and ultrasound appearance no intraluminal thrombus or wall changes are visualized. Vein size groin right 6.8 x 5.3 groin left 6.1 x 5.5 High thigh right 3.3 x 3.4 high thigh left 3.9 x 2.9 Mid thigh right 6.0 x 5.2 mid thigh left 3.3 x 2.0 Above-knee right 4.8 x 4.8 above- knee left 2.8 x 2.7 Below knee right 3.2 x 2.7 below-knee left 2.9 x 1.7 Mid calf right 2.0 x 1.9 mid calf left 1.8 x 2.0 Ankle right 2.7 x 2.9 ankle left 3.8 x 2.2 Impression usable bilateral greater saphenous vein. There are areas in the mid calf on both sides that are bit small..
== END 2018-06-17 15:59 | DRG 234 ==
LOC: EC 13:30 → 3SCARD 15:13 → 2SICU 15:52 → 3SCARD 06-16 22:51
PROVIDERS: ADMIT Internal Medicine Cardiovascular Disease; ATTEND Internal Medicine Cardiovascular Disease
PROC: 4A023N7 Measurement of Cardiac Sampling and Pressure, Left Heart, Percutaneous Approach (ICD-10-PCS; 2018-06-11)
PROC: B2111ZZ Fluoroscopy of Multiple Coronary Arteries using Low Osmolar Contrast (ICD-10-PCS; 2018-06-11)
PROC: B2151ZZ Fluoroscopy of Left Heart using Low Osmolar Contrast (ICD-10-PCS; 2018-06-11)
PROC: 06BP4ZZ Excision of Right Saphenous Vein, Percutaneous Endoscopic Approach (ICD-10-PCS; 2018-06-12)
PROC: 5A1221Z Performance of Cardiac Output, Continuous (ICD-10-PCS; 2018-06-12)
PROC: B246ZZ4 Ultrasonography of Right and Left Heart, Transesophageal (ICD-10-PCS; 2018-06-12)
PROC: 02100Z9 Bypass Coronary Artery, One Artery from Left Internal Mammary, Open Approach (ICD-10-PCS; principal; 2018-06-12 08:30)
PROC: 021109W Bypass Coronary Artery, Two Arteries from Aorta with Autologous Venous Tissue, Open Approach (ICD-10-PCS; 2018-06-12 08:30)
DX: I21.4 Non-ST elevation (NSTEMI) myocardial infarction (principal); J84.9 Interstitial pulmonary disease, unspecified; J93.9 Pneumothorax, unspecified; I97.190 Other postprocedural cardiac functional disturbances following cardiac surgery; E78.5 Hyperlipidemia, unspecified; F17.210 Nicotine dependence, cigarettes, uncomplicated; Z98.42 Cataract extraction status, left eye; Z98.41 Cataract extraction status, right eye; Z96.1 Presence of intraocular lens; H40.9 Unspecified glaucoma; I08.3 Combined rheumatic disorders of mitral, aortic and tricuspid valves; I25.10 Atherosclerotic heart disease of native coronary artery without angina pectoris; I25.5 Ischemic cardiomyopathy; I48.0 Paroxysmal atrial fibrillation; J44.9 Chronic obstructive pulmonary disease, unspecified; Z79.02 Long term (current) use of antithrombotics/antiplatelets; Z79.82 Long term (current) use of aspirin; Z79.899 Other long term (current) drug therapy; Z80.9 Family history of malignant neoplasm, unspecified; Z82.49 Family history of ischemic heart disease and other diseases of the circulatory system; Y83.2 Surgical operation with anastomosis, bypass or graft as the cause of abnormal reaction of the patient, or of later complication, without mention of misadventure at the time of the procedure
CPT/HCPCS: 36415; 71045; 71046; 80048; 80053; 80061; 80074; 81001; 82330; 82550; 82553; 82805; 83036; 83735; 84443; 84484; 85025; 85347; 85520; 85610; 85730; 86850; 86891; 86900; 86901; 86920; 87070; 87086; 93005; 93306; 93458; 93880; 93970; 94002; 94150; 94640; 96374; 99291

== ENCOUNTER 2019-05-21 09:53 | Day surgery (SDC) | payer MEDICARE, OTHER ==
[~2019-05-21 09:53] MED LIST: ALPRAZolam 0.25 MG TAB PO PRN; ASPIRIN 325 MG TAB PO ONE; SODIUM CHLORIDE 0.9% 1,000 ML in EMPTY BAG 1 BAG IV ONE
[2019-05-21 10:35] LABS: Basophils # (A) 0.2 k/uL (0-0.2); Basophils % (A) 3 %; Eosinophils # (A) 0.4 k/uL (0-0.7); Eosinophils % (A) 4 %; HCT 45.3 % (39.0-53.0); HGB 15.3 gm/dL (13.0-17.5); Lymphocytes # (A) 1.4 k/uL (1.0-4.8); Lymphocytes % (A) 18 %; MCH 31.9 pg (25.0-35.0); MCHC 33.7 g/dL (31.0-37.0); MCV 94.4 fL (80.0-100.0); Mean Platelet Volume 6.9; Monocytes # (A) 0.5 k/uL (0-1.0); Monocytes % (A) 7 %; Neutrophils # (A) 5.3 k/uL (1.3-7.7); Neutrophils % (A) 67 %; Platelet Count 280 k/uL (150-450); RDW 13.2 % (11.5-15.5); WBC 7.9 k/uL (3.8-10.6)
[2019-05-21 10:44] LABS: Calcium 9.5 mg/dL (8.4-10.2); Potassium 4.5 mmol/L (3.5-5.1)
[2019-05-21] MEDS ORDERED: SODIUM CHLORIDE 0.9% 1,000 ML IV ONE (10:49)
[2019-05-21] MEDS ORDERED: MIDAZOLAM 2 MG/2 ML VIAL IVP ONE (11:09)
[2019-05-21] MEDS ORDERED: LIDOCAINE 1% INJ 10MG/ML (20 ML MDV) SQ ONE (11:20)
[2019-05-21] MEDS ORDERED: SODIUM CHLORIDE 0.9% 500 ML 500 ML with niCARdipine 6.25 MG, NITROGLYCERIN-D5W PMX 0.05... IV ONE ×12 (11:21→14:02)
[2019-05-21] MEDS ORDERED: HEPARIN SODIUM 1,000 UN/ML (10ML VL) IV ONE (11:28)
[2019-05-21] MEDS: MIDAZOLAM 2 MG/2 ML VIAL IVP ONE ×2 (12:36→12:38)
[2019-05-21] MEDS ORDERED: NITROGLYCERIN 1000MCG/10ML SYRINGE INTRAARTER ONE (14:57)
[2019-05-21] MEDS ORDERED: niCARdipine Syringe (1,000 mcg/10 mL) INTRAARTER ONE (14:58)
[2019-05-21] MEDS ORDERED: CLOPIDOGREL 75 MG TAB PO ONE (15:16)
[2019-05-21] MEDS ORDERED: ALBUTEROL NEBULIZED 2.5 MG/3 ML INHALATION PRN (15:21)
[2019-05-21] MEDS ORDERED: ACETAMINOPHEN TAB 325 MG TAB PO PRN (15:21)
[2019-05-21] MEDS ORDERED: SODIUM CHLORIDE 0.9% 1,000 ML IV SCH (15:30)
[2019-05-21] MEDS ORDERED: HYDROmorphone 1 MG/ML 1 ML SYRINGE IVP PRN (15:52)
[2019-05-21] MEDS ORDERED: ATROPINE SULFATE 0.1 MG/ML 10ML SYRINGE ONE (18:12)
[2019-05-21] MEDS ORDERED: ONDANSETRON 4 MG/2 ML VIAL IVP PRN (18:24)
[2019-05-21 19:02] VITALS: BMI 23.8
--- NOTE | 2019-05-21 20:53 | P.PCN ---
Date of Procedure: 05/21/19 Operative Findings: PERCUTANEOUS PERIPHERAL INTERVENTION Performing physician Mohsen Guillory M.D. Procedure performed 1. Right lower extremity angiogram 2. Successful crossing chronic total occlusion of the right popliteal and right SFA 3. Intravascular ultrasound (IVUS) of the right posterior TBL, tibial peroneal trunk, popliteal, and SFA 4. An atherectomy of the right tibial peroneal trunk, and popliteal, using the orbital atherectomy device (CSI) 5. Successful balloon angioplasty of the right tibioperoneal truck and right popliteal 6. Successful stenting of the right SFA using three Zilver PTX drug-coated stents with an excellent angiographic result 7. Selective left common femoral artery angiogram Indication This is a pleasant 68-year-old gentleman with a past medical history significant for hypertension and dyslipidemia was experiencing bilateral lower extremities intermittent claudication. He underwent a peripheral angiogram and that revealed chronic total occlusion of the right popliteal and right SFA. He was brought today to undergo an intervention. Approach Left common femoral artery. Right posterior tibial artery Complication None Level of sedation Moderate sedation with sedation duration of 188 minutes Procedure description After obtaining an informed consent the patient was brought to the cardiac woods laborer. The left common femoral artery was cannulated using micropuncture technique, the micropuncture wire passed easily, then I placed a 6-Iraqi 11 cm sheath at the left common femoral artery. At that point anticoagulation was initiated using heparin where the patient was given 6000 use of heparin at the beginning of the procedure with continuous ACT monitoring throughout the procedure. Subsequently I did selective the right profunda using an 035 glide advantage wire with a backup support of 5-Iraqi rim catheter. After that I did exchange my 11 cm 6-Iraqi sheath into 70 cm 6-Iraqi sheath using the 035 glide advantage wire and the tip of the long sheath was positioned at the level of the right common femoral artery. At that point I did right lower extremity angiogram which revealed 3 vessels run off below the knee with chronic total occlusion of the right popliteal and right SFA. I did cross the chronic total occlusion of the right SFA and right popliteal using 018 Gold doubled Glidewire in antegrade technique with adjunctive use of an 035 catheter was placed through a sheath in the right posterior tibial artery to help me direct the wire to posterior tibial artery. After that I did intravascular ultrasound of the right posterior TBL, tibioperoneal trunk, popliteal, the SFA, which revealed that I was in the true lumen at the level of the right tibioperoneal trunk and popliteal but I was in the false lumen at the level of the right SFA. Because of that I decided to do one atherectomy of the right tibioperoneal trunk and popliteal. I did exchange my 014 wire into 014 Viber wire preparing for atherectomy. I did atherectomy and her low, medium, and high-speed. Subsequently I did balloon angioplasty of the right tibioperoneal trunk and ri ght popliteal using 4 mm chocolate balloon and then 4 mm drug-coated balloon with the following angiogram showing excellent angiographic results. For the right SFA I deployed 3 Zilver PTX drug-coated stents. I deployed distally 6.0 x 140, in the mid 7.0 x 140, and proximal 7.0 x 114 mm. Subsequently a postoperative the stent using 6 mm balloon. The final angiogram showed excellent angiographic results. Subsequently I did exchange my long sheath into short sheath using 035 glide advantage wire before I did selective left common femoral artery angiogram and we did achieve hemostasis using the Angio-Seal device. The procedure was completed without any complication. Postprocedure management Dual antiplatelet therapy Risk factors modifications Overnight stay Follow-up with the patient Additional CC's: Wilfrido Banegas
[2019-05-21] MEDS ORDERED: ATORVASTATIN 20 MG TAB PO SCH (21:00)
[2019-05-21] MEDS: METOPROLOL TARTRATE 50 MG TAB PO SCH (21:31)
[2019-05-22 07:12] LABS: Basophils # (A) 0.1 k/uL (0-0.2); Basophils % (A) 1 %; Eosinophils # (A) 0.1 k/uL (0-0.7); Eosinophils % (A) 1 %; HCT 38.7 % (39.0-53.0); HGB 12.7 gm/dL (13.0-17.5); Lymphocytes # (A) 1.6 k/uL (1.0-4.8); Lymphocytes % (A) 11 %; MCH 31.1 pg (25.0-35.0); MCHC 32.8 g/dL (31.0-37.0); MCV 94.8 fL (80.0-100.0); Monocytes # (A) 0.8 k/uL (0-1.0); Monocytes % (A) 6 %; Neutrophils # (A) 11.6 k/uL (1.3-7.7); Neutrophils % (A) 81 %; Platelet Count 233 k/uL (150-450); RBC 4.08 m/uL (4.30-5.90); RDW 13.2 % (11.5-15.5); WBC 14.2 k/uL (3.8-10.6)
[2019-05-22 07:22] LABS: African American GFR (CKD) >90 (>60 ml/min/1.73 sqM); Anion Gap 8 mmol/L; Blood Urea Nitrogen 15 mg/dL (9-20); Calcium 9.3 mg/dL (8.4-10.2); Carbon Dioxide 24 mmol/L (22-30); Chloride 109 mmol/L (98-107); Glucose 108 mg/dL (74-99); Potassium 5.2 mmol/L (3.5-5.1); Sodium 141 mmol/L (137-145)
[2019-05-22] MEDS ORDERED: PANTOPRAZOLE 40 MG TABLET PO SCH (07:30)
[2019-05-22] MEDS: METOPROLOL TARTRATE 50 MG TAB PO SCH (08:52)
[2019-05-22] MEDS ORDERED: LISINOPRIL 5 MG TAB PO SCH (09:00)
[2019-05-22] MEDS ORDERED: ASPIRIN 81 MG PO SCH (09:00)
[2019-05-22] MEDS ORDERED: CLOPIDOGREL 75 MG TAB PO SCH (09:00)
[2019-05-22 09:03] VITALS: BP 121/59; PULSE 84; RESP 18; TEMP 98
--- NOTE | 2019-05-22 13:17 | P.DS ---
Providers Date of admission: 05/21/2019 Attending physician: Mohsen Guillory Primary care physician: [facility] Course: This is a pleasant 68-year-old gentleman who underwent yesterday successful recanalizing chronically occluded right SFA and the right popliteal with an excellent angiographic results by the end and without any complication. The procedure was performed from the left groin. The left groin is soft and nontender and without any bruises. The patient was seen and evaluated this morning. He is going to be discharged home on dual antiplatelet therapy along with a statin and I will follow-up with the patient next week in the office Patient Condition at Discharge: Stable Plan - Discharge Summary Discharge Rx Participant: No New Discharge Prescriptions: Continue Acetaminophen Tab [Tylenol] 650 mg PO Q4HR PRN tab PRN Reason: Fever And/ Or Pain Metoprolol Tartrate [Lopressor] 50 mg PO BID tab Pantoprazole [Protonix] 40 mg PO AC-BRKFST tablet. Lisinopril [Zestril] 5 mg PO QAM Clopidogrel [Plavix] 75 mg PO QAM Aspirin [Adult Low Dose Aspirin EC] 81 mg PO DAILY Albuterol Nebulized (Conc) [Ventolin Nebulized (Conc)] 1 dose INHALATION QID PRN PRN Reason: Congestion Rosuvastatin [Crestor] 10 mg PO HS Discharge Medication List Acetaminophen Tab [Tylenol] 650 mg PO Q4HR PRN tab 06/17/18 [Rx] Metoprolol Tartrate [Lopressor] 50 mg PO BID tab 06/17/18 [Rx] Pantoprazole [Protonix] 40 mg PO AC-BRKFST tablet. 06/17/18 [Rx] Albuterol Nebulized (Conc) [Ventolin Nebulized (Conc)] 1 dose INHALATION QID PRN 05/16/19 [History] Aspirin [Adult Low Dose Aspirin EC] 81 mg PO DAILY 05/16/19 [History] Clopidogrel [Plavix] 75 mg PO QAM 05/16/19 [History] Lisinopril [Zestril] 5 mg PO QAM 05/16/19 [History] Rosuvastatin [Crestor] 10 mg PO HS 05/16/19 [History] Follow up Appointment(s)/Referral(s): Mohsen Guillory MD [STAFF PHYSICIAN] - 11/04/19 1:00 pm (Sunday) Patient Instructions/Handouts: *Surgery [facility] - After Heart Catheterization - Regional Marketing Manager Instructions, How to Stop Smoking (DC), Peripheral Vascular Angioplasty (DC) Activity/Diet/Wound Care/Special Instructions: PERIPHERAL CATHETERIZATION INSTRUCTIONS: 1. Support your puncture site by applying firm, steady pressure whenever you cough, laugh, sneeze or bear down to have a bowel movement (2-day restriction). 2. Watch for any excessive bruising, active bleeding, a firm knot forming under your skin, extreme tenderness and signs of infection (redness, swelling, fever). 3. Shower daily, do not soak puncture in a tub bath, jacuzzi, pool, vang etc. for 1 week. This is to prevent risk of infection. 4. Drink plenty of fluids the day of and day after your procedure to flush contrast dye out of your kidneys. 5. Take all medications as directed. Never stop any new medication without your physicians OK. 6. No driving for 2 days after procedure. 7. 10- pound weight lifting restriction for 1 week. 8. Low sodium/low fat diet. 9. Activity limited until follow up appointment with your sql programmer. In case of any problems, please call [facility] [place] @ [phone]. Discharge Disposition: HOME SELF-CARE
--- NOTE | 2019-05-22 16:08 | IR ---
EXAMINATION TYPE: IR stent intravas non coronary DATE OF EXAM: 05/21/2019 COMPARISON: NONE HISTORY: Fluoroscopy time. Fluoroscopy was provided to the referring clinician.
== END 2019-05-22 10:22 | disposition home or self-care (01) ==
LOC: CATHCVL 09:53 → 3SCARD 16:27 → CATHCVL 05-22 10:22
PROVIDERS: ATTEND Internal Medicine Interventional Cardiology
DX: I70.213 Atherosclerosis of native arteries of extremities with intermittent claudication, bilateral legs (principal); I70.92 Chronic total occlusion of artery of the extremities; Z72.0 Tobacco use; I10 Essential (primary) hypertension; E78.5 Hyperlipidemia, unspecified; Z95.1 Presence of aortocoronary bypass graft; Z79.02 Long term (current) use of antithrombotics/antiplatelets; Z79.82 Long term (current) use of aspirin; Z79.899 Other long term (current) drug therapy
CPT/HCPCS: 37227; 37229; 85347; 37252; 37253; 80048 ×2; 85025 ×2; C1894 ×3; C1769 ×10; C1714; C1887; C1725 ×2; C1753; C2623; C1874; J2250; J1644 ×2; J2405; J2001; J1170

== ENCOUNTER → 2019-05-26 | Outpatient (CLI) | payer MEDICARE, OTHER ==
[2019-05-26 14:43] LABS: HGB 12.9 gm/dL (13.0-17.5); MCH 32.5 pg (25.0-35.0); MCHC 33.9 g/dL (31.0-37.0); MCV 95.9 fL (80.0-100.0); Mean Platelet Volume 6.2; Platelet Count 280 k/uL (150-450); RBC 3.96 m/uL (4.30-5.90); RDW 13.1 % (11.5-15.5); WBC 8.8 k/uL (3.8-10.6)
[2019-05-26 14:54] LABS: Potassium 4.8 mmol/L (3.5-5.1)
== END | disposition home or self-care (01) ==
LOC: LABPAT 13:53
PROVIDERS: ATTEND Internal Medicine Interventional Cardiology
DX: Z01.812 Encounter for preprocedural laboratory examination (principal); I70.213 Atherosclerosis of native arteries of extremities with intermittent claudication, bilateral legs
CPT/HCPCS: 36415; 80051; 82565; 84520; 85027

== ENCOUNTER 2019-06-18 06:19 | Day surgery (SDC) | payer MEDICARE, OTHER ==
[2019-06-13 15:29] VITALS: BMI 23.0
[2019-06-18] MEDS ORDERED: SODIUM CHLORIDE 0.9% 1,000 ML in EMPTY BAG 1 BAG IV ONE (06:25)
[2019-06-18] MEDS ORDERED: ALPRAZolam 0.5 MG TAB PO PRN (06:25)
[2019-06-18] MEDS ORDERED: ASPIRIN 325 MG TAB PO STA (06:25)
[2019-06-18] MEDS ORDERED: LIDOCAINE 1% INJ 10MG/ML (20 ML MDV) SQ ONE (07:50)
[2019-06-18] MEDS ORDERED: MIDAZOLAM 2 MG/2 ML VIAL IVP ONE (07:50)
[2019-06-18] MEDS ORDERED: HEPARIN SODIUM 1,000 UN/ML (10ML VL) IV ONE ×2 (07:55→08:35)
[2019-06-18] MEDS ORDERED: fentaNYL (PF) 50 MCG/ML 2 ML AMP ONE (08:16)
[2019-06-18] MEDS ORDERED: MIDAZOLAM 2 MG/2 ML VIAL ONE (08:16)
[2019-06-18] MEDS ORDERED: PROPOFOL 10 MG/ML 20 ML VIAL IV ONE (08:16)
[2019-06-18] MEDS ORDERED: niCARdipine Syringe (1,000 mcg/10 mL) INTRAARTER ONE (08:41)
[2019-06-18] MEDS ORDERED: IOPAMIDOL-250 100ML BTL INTRAARTER ONE (08:59)
[2019-06-18] MEDS ORDERED: ALBUTEROL NEBULIZED 2.5 MG/3 ML INHALATION PRN (09:06)
[2019-06-18] MEDS ORDERED: ACETAMINOPHEN TAB 325 MG TAB PO PRN (09:06)
[2019-06-18] MEDS ORDERED: SODIUM CHLORIDE 0.9% 1,000 ML IV SCH (09:15)
[2019-06-18] MEDS ORDERED: NICOTINE 14MG/24HR PATCH TRANSDERM ONE (10:06)
--- NOTE | 2019-06-18 11:05 | IR ---
Fluoroscopy HISTORY: Peripheral vascular occlusive disease 21.4 minutes fluoroscopy time supplied to the [place] clinician. 810 intraoperative C-arm images document the procedure. See dictated report from cardio logy.
[2019-06-18] MEDS: METOPROLOL TARTRATE 50 MG TAB PO SCH (20:13)
[2019-06-19 07:29] LABS: Basophils # (A) 0.1 k/uL (0-0.2); Basophils % (A) 1 %; Eosinophils # (A) 0.2 k/uL (0-0.7); Eosinophils % (A) 3 %; HCT 41.1 % (39.0-53.0); HGB 13.7 gm/dL (13.0-17.5); Lymphocytes # (A) 1.3 k/uL (1.0-4.8); Lymphocytes % (A) 15 %; MCH 32.4 pg (25.0-35.0); MCHC 33.4 g/dL (31.0-37.0); MCV 96.8 fL (80.0-100.0); Mean Platelet Volume 6.9; Monocytes # (A) 0.6 k/uL (0-1.0); Monocytes % (A) 7 %; Neutrophils # (A) 6.4 k/uL (1.3-7.7); Neutrophils % (A) 73 %; Platelet Count 224 k/uL (150-450); RBC 4.25 m/uL (4.30-5.90); RDW 12.9 % (11.5-15.5); WBC 8.8 k/uL (3.8-10.6)
[2019-06-19] MEDS ORDERED: PANTOPRAZOLE 40 MG TABLET PO SCH (07:30)
--- NOTE | 2019-06-19 07:53 | AN ---
ANGIOGRAPHY REPORT DATE OF SERVICE: June 18, 2019 PERFORMING PHYSICIAN: Mohsen Guillory M.D. PROCEDURE PERFORMED: 1. Left lower extremity angiogram. 2. Successful crossing chronic total occlusion of the left superficial femoral artery. 3. Intravascular ultrasound IVUS of the left SFA. 4. An atherectomy of the proximal and distal left SFA. 5. Successful balloon angioplasty of the proximal left SFA using 5 x 80 mm drug-coated balloon with an excellent angiographic results and reduction of stenosis from 90% to 0%. 6. Successful stenting of the distal left SFA using 7 x 100 mm Zilver PTX with an excellent angiographic results and reduction of stenosis from 100% to 0%. 7. Gradient measurement across the left iliac artery. 8. Selective right common femoral artery angiogram. INDICATION: This is a pleasant 68-year-old gentleman with history of hypertension as well as dyslipidemia who was experiencing bilateral lower extremities intermittent claudication and underwent a peripheral angiogram recently that revealed severe peripheral arterial disease related to atherosclerosis. He was brought today to undergo an atherectomy and balloon angioplasty of the left SFA. APPROACH: Right common femoral artery. COMPLICATION: None. LEVEL OF SEDATION: Moderate with sedation length of 60 minutes. SEDATION: The procedure was initially performed under conscious sedation, then it was switched to general anesthesia. PROCEDURE DESCRIPTION: After obtaining informed consent, the patient was brought to the cardiac field laborer. The right common femoral artery was cannulated using micropuncture technique, the micropuncture wire passed easily then I placed a 6-Pakistani sheath 11 cm in the right common femoral artery. At that point, anticoagulation was initiated using heparin where the patient was given a weight-based heparin with continuous ACT monitoring throughout the procedure. Subsequently, I did select the left SFA using 0.035 [place] Advantage wire with the backup support of 5-Pakistani Rim catheter. After that, I did exchange my 11 cm sheath into 70 cm 6-Pakistani Raabe sheath using 0.035 [place] Advantage wire. The tip of the sheath was positioned at the left common femoral artery. Subsequently, I did left lower extremity angiogram which revealed 3 vessel runoff below the knee with chronic total occlusion of the left SFA distally as well as critical disease involving the SFA in the proximal portion. I did cross the chronic total occlusion of the left SFA using 018 [place] tip glidewire with the backup support of 0.018 CXI catheter. After that, I did advance the wire all the way to the left peroneal, where I did selective left peroneal angiogram to prove that I was in the true lumen. Subsequently, I did exchange my 018 wire into 0.014 wire. I did that using the 018 CXI catheter. After that, subsequently I did intravascular ultrasound IVUS of the left SFA, which revealed the diameter of 6 mm as well as the length of the lesion which was about 100 mm. After that I did atherectomy of the left SFA using the TurboHawk device with extraction of significant plaque. That was performed in the distal as well as proximal left SFA. After that, I did balloon angioplasty of the left SFA using 6 mm chocolate balloon but the following angiogram showed severe residual dissection appeared to be flow-limiting and because of that I decided to stent the SFA distally. I deployed distally 7 x 100 mm Zilver PTX drug-coated stent where the stent was positioned under fluoroscopy guidance and deployed under its under fluoroscopy guidance. Subsequently the stent was dilated using 6 mm balloon. The following angiogram showed great angiographic results. For the lesion in the proximal left SFA, after atherectomy, I did balloon angioplasty using 5 mm drug-coated balloon with the following angiogram showed excellent angiographic results. After the balloon was inflated for 3 minutes. The procedure was completed without any complication. After that, I did a gradient measurement across the lesions in the left iliac artery which came into be about 30 mmHg. After that, I did exchange my long sheath into short sheath using 035 glidewire. Then I did selective right common femoral artery angiogram. The procedure was completed without any complication. POSTPROCEDURE MANAGEMENT: 1. NET DEVELOPER ARCHITECT of the right SFA. 2. Stenting of the left as well as right iliac arteries to be done at the same time. 3. Follow up with the patient. MMODL / IJN: [id number] /
[2019-06-19 07:59] LABS: African American GFR (CKD) >90 (>60 ml/min/1.73 sqM); Anion Gap 8 mmol/L; Blood Urea Nitrogen 10 mg/dL (9-20); Calcium 9.1 mg/dL (8.4-10.2); Carbon Dioxide 24 mmol/L (22-30); Chloride 108 mmol/L (98-107); Glucose 99 mg/dL (74-99); Non-African American GFR(CKD) 89 (>60 ml/min/1.73 sqM); Potassium 4.3 mmol/L (3.5-5.1); Sodium 140 mmol/L (137-145)
[2019-06-19] MEDS: METOPROLOL TARTRATE 50 MG TAB PO SCH (08:38)
[2019-06-19] MEDS ORDERED: ATORVASTATIN 20 MG TAB PO SCH (09:00)
[2019-06-19] MEDS ORDERED: ASPIRIN 81 MG PO SCH (09:00)
[2019-06-19] MEDS ORDERED: LISINOPRIL 5 MG TAB PO SCH (09:00)
[2019-06-19] MEDS ORDERED: CLOPIDOGREL 75 MG TAB PO SCH (09:00)
[2019-06-19 09:19] VITALS: BP 125/78; PULSE 57; RESP 18; TEMP 96.2
--- NOTE | 2019-06-19 11:14 | DS ---
DISCHARGE SUMMARY DATE OF SERVICE: June 19, 2019 This is a 68-year-old gentleman who underwent yesterday successful percutaneous peripheral intervention of the left SFA. The procedure was performed from the right groin which is soft and nontender and without any bruises. The patient is going to be discharged home on dual anti-platelet therapy and I will follow up with the patient next week in the office. MMJAE / YASMEEN: [id number] /
== END 2019-06-19 11:02 | disposition home or self-care (01) ==
LOC: CATHCVL 06:19 → 3SCARD 09:03 → CATHCVL 06-19 11:02
PROVIDERS: ATTEND Internal Medicine Interventional Cardiology
DX: I70.213 Atherosclerosis of native arteries of extremities with intermittent claudication, bilateral legs (principal); I70.92 Chronic total occlusion of artery of the extremities; I25.10 Atherosclerotic heart disease of native coronary artery without angina pectoris; I10 Essential (primary) hypertension; E78.2 Mixed hyperlipidemia; F17.210 Nicotine dependence, cigarettes, uncomplicated; Z95.1 Presence of aortocoronary bypass graft; Z79.82 Long term (current) use of aspirin; Z79.02 Long term (current) use of antithrombotics/antiplatelets; Z79.899 Other long term (current) drug therapy
CPT/HCPCS: 37227; 85347 ×2; 37252; 80048; 85025; C1894 ×2; C1725 ×2; C1769 ×5; C1714; C1753; C2623; C1874; S4990; J2250; J2001; J3010; J1644; J2704; Q9966

== ENCOUNTER 2023-03-06 11:57 | Day surgery (SDC) | payer MEDICARE ==
[~2023-03-06 11:57] MED LIST changes: +ALPRAZolam 0.5 MG TAB PO PRN; +NITROGLYCERIN SL TABS 0.4 MG TAB SUBLINGUAL PRN; -SODIUM CHLORIDE 0.9% 1,000 ML in EMPTY BAG 1 BAG IV ONE
[2023-03-06 12:38] LABS: Basophils # (A) 0.1 k/uL (0-0.2); Basophils % (A) 1 %; Eosinophils # (A) 0.1 k/uL (0-0.7); Eosinophils % (A) 1 %; HCT 46.9 % (39.0-53.0); Lymphocytes # (A) 2.2 k/uL (1.0-4.8); Lymphocytes % (A) 25 %; MCH 32.7 pg (25.0-35.0); MCHC 34.2 g/dL (31.0-37.0); MCV 95.7 fL (80.0-100.0); Mean Platelet Volume 7.5; Monocytes # (A) 0.6 k/uL (0-1.0); Monocytes % (A) 7 %; Neutrophils # (A) 5.8 k/uL (1.3-7.7); Neutrophils % (A) 65 %; Platelet Count 227 k/uL (150-450); RBC 4.91 m/uL (4.30-5.90); RDW 13.6 % (11.5-15.5); WBC 8.9 k/uL (3.8-10.6)
[2023-03-06] MEDS: SODIUM CHLORIDE 0.9% 1,000 ML in EMPTY BAG 1 BAG IV SCH ×2 (12:38→18:35)
[2023-03-06 12:51] LABS: African American GFR (CKD) >90 (>60 ml/min/1.73 sqM); Anion Gap 10 mmol/L; Blood Urea Nitrogen 11 mg/dL (9-20); Calcium 9.1 mg/dL (8.4-10.2); Carbon Dioxide 23 mmol/L (22-30); Chloride 107 mmol/L (98-107); Glucose 99 mg/dL (74-99); Non-African American GFR(CKD) 88 (>60 ml/min/1.73 sqM); Potassium 4.5 mmol/L (3.5-5.1); Sodium 140 mmol/L (137-145)
[2023-03-06] MEDS ORDERED: fentaNYL (PF) 50 MCG/ML 2 ML AMP ONE (14:21)
[2023-03-06] MEDS ORDERED: VERAPAMIL 2.5 MG/ML 2 ML AMP ONE (14:21)
[2023-03-06] MEDS ORDERED: LIDOCAINE 1% INJ 10MG/ML (20 ML MDV) ONE (14:21)
[2023-03-06] MEDS ORDERED: HEPARIN SODIUM 1,000 UN/ML (10ML VL) ONE (14:22)
[2023-03-06] MEDS ORDERED: fentaNYL (PF) 50 MCG/ML 2 ML AMP IVP ONE (14:35)
[2023-03-06] MEDS ORDERED: MIDAZOLAM 2 MG/2 ML VIAL IVP ONE (14:35)
[2023-03-06] MEDS ORDERED: LIDOCAINE 1% INJ 10MG/ML (5 ML VIAL-PF) SQ ONE (14:36)
[2023-03-06] MEDS ORDERED: VERAPAMIL SYRINGE (5 MG/10 ML) INTRAARTER ONE (14:38)
[2023-03-06] MEDS ORDERED: HEPARIN SODIUM 1,000 UN/ML (10ML VL) IV ONE (14:45)
[2023-03-06] MEDS ORDERED: HEPARIN SODIUM 1,000 UN/ML (10ML VL) IVP ONE (15:05)
[2023-03-06] MEDS ORDERED: IOPAMIDOL-370 100ML BTL INJ ONE ×2 (15:07→15:47)
[2023-03-06] MEDS ORDERED: NITROGLYCERIN 1000MCG/10ML SYRINGE INTRACORON ONE (15:15)
[2023-03-06] MEDS ORDERED: SODIUM CHLORIDE 0.9% 250 ML IV ONE (15:25)
[2023-03-06] MEDS: HEPARIN SODIUM 1,000 UN/ML (10ML VL) IVP ONE ×2 (15:42→15:52)
[2023-03-06] MEDS ORDERED: MAG HYDROX/AL HYDROX/SIMETH 30 ML CUP PO PRN (15:59)
[2023-03-06] MEDS ORDERED: NITROGLYCERIN SL TABS 0.4 MG TAB SUBLINGUAL PRN (15:59)
[2023-03-06] MEDS ORDERED: RX INFO: IV CONTRAST WAS GIVEN 1 EACH MISC MISCELLANE PRN (15:59)
[2023-03-06] MEDS ORDERED: ZOLPIDEM 5 MG TAB PO PRN (15:59)
[2023-03-06] MEDS ORDERED: ATROPINE SULFATE 0.1 MG/ML 10ML SYRINGE IV PRN (15:59)
--- NOTE | 2023-03-06 15:59 | P.PRCINT ---
Percutaneous Coronary Int. - Percutaneous Coronary Intervention Percutaneous Coronary Intervention: PROCEDURES PERFORMED: Left heart catheterization, bilateral coronary angiography, ultrasound guided arterial access, iFR of the LAD, IVUS of the LAD, MIR to LAD, SVG to PDA and SVG to OM angiography, PCI left main into LAD with a 3.5 x 28mm Xience DAVID, post dilated with a 4.5 and 5.0 NC balloon INDICATION: Increasing dyspnea on exertion consistent with unstable angina CONSENT:I have discussed the risks, benefits and alternative therapies for the above-mentioned procedure and for both sedation/analgesia as well as necessary blood product administration, if indicated, as they pertain to this patient. The patient has indicated understanding and acceptance of the risks and procedures discussed. PROCEDURE: After the risks, benefits and alternatives of the above mentioned procedure explained in detail with the patient, informed consent was obtained. Patient was taken to the catheterization lab and prepped and draped in usual fashion. Ultrasound guidance was used to assess for arterial access. 1% lidocai ne was used to anesthetize the left radial artery. A 6-[place] sheath was placed in the left radial artery using modified Seldinger technique and ultrasound guidance. Left coronary angiography was performed with a 5-[place] JL 4.0 catheter and right coronary angiography was attempted subselectively however noted to be occluded ostially. A 5-[place] FL 4 catheter was inserted into the left ventricle and pressure measurements were obtained. MIR to LAD, SVG to OM and SVG to PDA angiography was performed with the 5-[place] FL 4 catheter in various views. MIR was noted to be atretic with poor antegrade flow not necessarily filling the LAD and therefore decision made to perform iFR of the LAD. A 6-[place] CLS 3.5 guide disease engage the left main. A 0.014 pressure wire was inserted into the proximal left main and normalize. It was then advanced 1-2 cm distal to the LAD lesion and iFR was performed and was abnormal at 0.82. Therefore decision was made to perform stenting of the left main and the LAD. A 0.014 [place] wire was advanced into the distal LAD. Predilation was performed with a 3.0 x 12 mm noncompliant balloon. Intravascular ultrasound was performed which showed reference vessel 3.5 mm and left main approximately 4.5-5 mm with diffuse mid calcified plaque and more proximal focal ostial LAD lesion. Predilation again was performed with a 3.5 x 20 mm noncompliant balloon. Next a 3.5 x 28 mm Xience DAVID was advanced and deployed from the left main into the LAD. The proximal portion was dilated with a 4.5 noncompliant balloon. Repeat intravascular ultrasound showed some continued mild stenosis of the ostial LAD site and therefore an additional 5.0 noncompliant balloon was advanced and deployed at the site. Final angiograms were performed. Preintervention there is 90% stenosis with OLMAN 3 flow and postintervention there was less than 10% stenosis with OLMAN 3 flow. The left radial sheath was removed and a TR band was placed with hemostasis achieved. The patient tolerated the procedure well. Patient was transported back to the post catheterization holding area in stable condition. Conscious Sedation: Patient was monitored under the direct supervision of myself for conscious sedation using Versed and fentanyl for a total duration of 69 minutes HEMODYNAMICS: Aorta: 131/76 LV: 134/0, LVEDP to SELECTIVE CORONARY ARTERIOGRAPHY: LEFT MAIN: The left main is a large caliber vessel which bifurcates into the LAD and circumflex. There is mild 10-20% stenosis however significant stenosis of the origin of the LAD. LEFT ANTERIOR DESCENDING CORONARY ARTERY: LAD is a large caliber vessel which wraps around to the apex. There is 90% proximal LAD stenosis and otherwise diffuse 20-30% proximal stenosis. LEFT CIRCUMFLEX CORONARY ARTERY: Left circumflex is a moderate caliber vessel with 100% ostial circumflex stenosis. RIGHT CORONARY ARTERY: The right coronary artery is a large caliber vessel which gives off a PDA and PLV branch and is the dominant vessel. The RCA was subselectively imaged however appears to be 100% stenosis at the origin MIR to LAD: MIR is patent however atretic with poor antegrade flow to the apical LAD SVG to OM: Widely patent SVG to PDA: Widely patent FINAL IMPRESSION: 1. [place] CAD as described above including 10-20% left main stenosis, 90% proximal LAD stenosis, 100% ostial circumflex stenosis, 100% ostial RCA stenosis 2. Patent SVG to OM, SVG to RCA however atretic MIR to LAD 3. iFR ostial LAD abnormal at 0.82 4. S/p PCI left main into LAD with a 3.5 x 28mm Xience DAVID, post dilated with a 4.5 and 5.0 NC balloon 5. Low left-sided filling pressure PLAN: 1. Aggressive risk factor modification per most recent ACC/AHA guidelines. 2. Continue with dual antiplatelets for 12 months with aspirin and Plavix.
[2023-03-06] MEDS ORDERED: SODIUM CHLORIDE 0.9% 1,000 ML in EMPTY BAG 1 BAG IV SCH (16:00)
[2023-03-06 21:51] VITALS: BP 142/89; PULSE 95; RESP 24; TEMP 97.5
== END 2023-03-06 21:52 | disposition home or self-care (01) ==
LOC: CATHCVL 11:57 → 6NMEDSUR 15:45 → CATHCVL 21:52
PROVIDERS: ATTEND Internal Medicine
DX: I25.10 Atherosclerotic heart disease of native coronary artery without angina pectoris (principal); I25.82 Chronic total occlusion of coronary artery; I10 Essential (primary) hypertension; E78.5 Hyperlipidemia, unspecified; J44.9 Chronic obstructive pulmonary disease, unspecified; F17.210 Nicotine dependence, cigarettes, uncomplicated; Z79.82 Long term (current) use of aspirin; Z79.83 Long term (current) use of bisphosphonates; Z79.899 Other long term (current) drug therapy; Z95.1 Presence of aortocoronary bypass graft
CPT/HCPCS: 93571; 92978; 93459; 93799; 80048; 85025; C1769 ×5; C9600; C1887; C1894; C1753; C1874; C1725 ×4; J2250; J2001; J3010; J1644; Q9967; J2305

== ENCOUNTER → 2023-03-13 | Outpatient (CLI) | payer MEDICARE ==
--- NOTE | 2023-03-13 12:04 | CTL ---
EXAMINATION TYPE: CT Low Dose Lung DATE OF EXAM ORDERED: 03/13/2023 HISTORY: Z12.2 SCREEN NEOPLASM F17.210 HX OF SMOKING. Current smoker, 55 pack year history. Lung [facility] er screening CT DLP: 87.[address] CTDI: 2.1 mGy Automated exposure control for dose reduction was used. SCREENING VISIT: First screening visit COMPARISON: Chest radiograph 06/27/2018 TECHNIQUE: Low dose computed tomography scan was performed through the chest at 1 mm thick sections a nd reconstructed images in multiple planes at 1 mm and [address] DIAGNOSTIC QUALITY: Satisfactory FINDINGS: LUNG NODULES: Right upper lobe 4 mm pulmonary nodule (series 6, image 11). Right midlung 5 more pulmo nary nodule (series 6, image 43). Right lower lobe 2 mm pulmonary nodule (series 6, image 51). Right lower lobe subpleural 2 mm pulmonary nodule (series 6, image 50). LUNGS: COPD: Severity: Moderate Fibrosis: Severity: None Lymph nodes: None Other findings: Elevation of the left hemidiaphragm. RIGHT PLEURAL SPACE: Effusion: None Calcification: None Thickening: None Pneumothorax: None LEFT PLEURAL SPACE: Effusion: None Calcification: None Thickening: None Pneumothorax: None HEART: Heart Size: Normal Coronary Calcification: Moderate to severe coronary arterial calcifications and/or stents. Pericardial Effusion: None OTHER FINDINGS: Upper abdomen: Left renal cysts with largest measuring up to 2.0 cm Bony thorax: No acute osseous abnormality. Midline sternotomy wires. Multilevel degenerative disc dis ease of the thoracic spine. Supraclavicular region: None Other: Atherosclerotic of the aorta and its branches. Post CABG changes. IMPRESSION: 1. Few pulmonary nodules measuring up to 4 [address] 2. Moderate COPD changes. CT LUNG RAD AND CT CHEST RECOMMENDATION: Lung-Rad 2 Benign Appearance or Behavior: Continue annual sc reening with LDCT in 12 months. S Modifier (other clinically significant findings): None
== END | disposition home or self-care (01) ==
LOC: RADCTMAIN 11:17
PROVIDERS: ATTEND Family Medicine
DX: Z12.2 Encounter for screening for malignant neoplasm of respiratory organs (principal); F17.210 Nicotine dependence, cigarettes, uncomplicated; J44.9 Chronic obstructive pulmonary disease, unspecified; R91.8 Other nonspecific abnormal finding of lung field
CPT/HCPCS: 71271

== ENCOUNTER → 2024-08-15 | Outpatient (CLI) | payer MEDICARE, OTHER ==
--- NOTE | 2024-08-16 10:41 | PE ---
EXAMINATION TYPE: PET CT fusion skull to thigh DATE OF EXAM: 08/15/2024 CLINICAL INDICATION:Male, 74 years old with history of R91.1 LUNG NODULE; TECHNIQUE: Following the intravenous administration of 9.69 mCi of F-18 FDG, whole body images are performed from the skull base to the midthigh. Images are reviewed on the computer in the coronal, a xial, and sagittal planes. Reconstructed rotating images are created on independent workstation and reviewed on the computer. A non-contrast CT is performed in conjunction with the PET scan. Glucose level 100 mg/dL CT DLP: 764.95 mGycm, Automated exposure control for dose reduction was used. COMPARISON: CT 03/13/2023, PET/CT None, MRI: None FINDINGS: Mediastinal SUV mean is 1.8. Hepatic parenchyma SUV mean is 2.7. SKULL BASE AND NECK: Left inferior parotid gland 0.8 cm nodule which demonstrates FDG activity with a maximum SUV of 7.4. CHEST, MEDIASTINUM, AND HILAR REGION: Right upper lobe pulmonary nodular opacity measuring up to 1.2 cm (series 3, image 68). This is FDG a vid with maximum SUV of 11.5. No FDG avid lymphadenopathy. ABDOMEN AND PELVIS: No suspicious radiotracer activity. MUSCULOSKELETAL STRUCTURES: Right iliac bone 1.4 cm peripherally sclerotic lesion (series 3, image 200). This demonstrates mild F DG activity with a maximum SUV of 5.0. OTHER CT: Bilateral aphakia. Bilateral carotid bulb calcifications. Atherosclerotic calcifications ao rta and its branches. Median sternotomy wires. Post-CABG changes. Coronary artery calcifications and/ or stents. Bilateral gynecomastia. Bilateral renal cysts. Distal colonic diverticulosis without evide nce for acute diverticulitis. Right superficial femoral artery stent. Infrarenal fusiform abdominal a ortic ectasia measuring up to 2.8 cm. Centrilobular and paraseptal emphysematous changes. Multilevel degenerative changes of the visualized spine. IMPRESSION: 1. Right upper lobe 1.2 cm FDG avid pulmonary nodular opacity concerning for primary lung malignancy . 2. Left parotid FDG avid 0.8 cm nodule. 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 Metastasis is not excluded. Further evaluation ultrasound is recommended. 3. Indeterminate right iliac bone 1.4 cm sclerotic lesion with mild FDG activity. Etiologies include a variety of osseous lesions. Metastasis is not excluded. Consider further evaluation nuclear medici ne bone scan. [facility], , 08/16/2024 10:39 AM
== END | disposition home or self-care (01) ==
LOC: RADPETMAIN 14:09
PROVIDERS: ATTEND Family Medicine
DX: R91.8 Other nonspecific abnormal finding of lung field (principal)
CPT/HCPCS: 78815; A9552

== ENCOUNTER 2024-09-25 13:02 | Day surgery (SDC) | payer MEDICARE, OTHER ==
[2024-09-24 11:06] VITALS: BMI 24.4
[~2024-09-25 13:02] MED LIST changes: -ALPRAZolam 0.25 MG TAB PO PRN; -ALPRAZolam 0.5 MG TAB PO PRN; -ASPIRIN 325 MG TAB PO ONE; +LACTATED RINGERS 1,000 ML IV SCH; -NITROGLYCERIN SL TABS 0.4 MG TAB SUBLINGUAL PRN
[2024-09-25 14:01] VITALS: TEMP 97.2
[2024-09-25] MEDS: LACTATED RINGERS 1,000 ML IV SCH (14:04)
[2024-09-25] MEDS: LIDOCAINE 1% (10MG/ML) FOR IV START INTRADERMA STA (14:05)
[2024-09-25] MEDS: IV FLUID CONTINUATION 1,000 ML IV ONE (14:05)
--- NOTE | 2024-09-25 14:05 | CT ---
EXAMINATION TYPE: CT Chest wo ION protocol DATE OF EXAM: 09/25/2024 COMPARISON: CT low-dose thorax at 2223 CLINICAL INDICATION: Male, 74 years old with history of ION BRONCH; [facility], pre-op bronch TECHNIQUE: CT scan of the thorax is performed without IV contrast. CT DLP: [address] CTDI: mGy Automated exposure control for dose reduction was used. FINDINGS: There are marked emphysematous changes with an upper lobe predominance. There is a 17.4 x 13.3 mm ill-defined somewhat spiculated nodular density in the right upper lobe pos teriorly. There is no airspace consolidation There is no pleural effusion or pneumothorax.. The great vessels the chest are normal. There is no mediastinal, hilar or axillary adenopathy. There has been median sternotomy. No focal osseous lesions are seen. IMPRESSION: 1. 17.4 x 13.3 the finding spiculated nodular density in the right upper lobe posteriorly highly susp icious for neoplasm and further evaluation is warranted. 2. Marked emphysematous changes [facility], , 09/25/2024 2:03 PM
[2024-09-25] MEDS: ONDANSETRON 4 MG/2 ML VIAL IVP STA (14:20)
[2024-09-25] MEDS: DEXAMETHASONE SOD PHOSPHATE 4 MG/ML 1 ML VIAL IVP STA (14:21)
[2024-09-25] MEDS ORDERED: NEOSTIGMINE 1 MG/ML 10 ML VIAL ONE (15:24)
[2024-09-25] MEDS ORDERED: ROCURONIUM 10 MG/ML (5 ML VIAL) IV ONE (15:24)
[2024-09-25] MEDS ORDERED: PROPOFOL 10 MG/ML 20 ML VIAL IV ONE (15:24)
[2024-09-25] MEDS ORDERED: fentaNYL (PF) 50 MCG/ML 2 ML AMP ONE (15:24)
[2024-09-25] MEDS ORDERED: SUCCINYLCHOLINE CHLORIDE 200 MG/10 ML VIAL IV ONE (15:24)
[2024-09-25] MEDS ORDERED: LIDOCAINE 1% INJ 10MG/ML (20 ML MDV) ONE (15:24)
[2024-09-25] MEDS ORDERED: GLYCOPYRROLATE 0.2 MG/ML 2 ML VIAL ONE (15:24)
--- NOTE | 2024-09-25 17:08 | P.PCN ---
Date of Procedure: 09/25/24 Operative Findings: Preoperative Diagnosis: Right upper lobe pulmonary nodule Postoperative Diagnosis: Right upper lobe pulmonary nodule Procedure(s) Performed: Flexible bronchoscopy Robotic-assisted bronchoscopy and radial ultrasound evaluation of the right upper lobe pulmonary nodule Robotic-assisted transbronchial needle aspirate, transbronchial biopsy, and a bronchioloalveolar lavage of a right upper lobe pulmonary nodule Anesthesia: KIM Surgeon: Kaylah Goodman Estimated Blood Loss (ml): 0 Pathology: other Condition: stable Disposition: same day Operative Findings: A physical exam was performed. Informed consent was obtained from the patient after explaining all the risks (pneumothorax, life threatening bleeding, infection and adverse effects due to medications), benefits and alternatives to the procedure which the patient appeared to understand and so stated. The patient was connected to the monitoring devices. General anesthesia was induced and the patient was intubated by anesthesia. A final timeout was performed and the procedure confirmed by the attending staff bronchoscopist. The bronchoscope was inserted and the airway examined. Airway examination of the airway was essentially within normal limits. There was no significant endobronchial abnormalities noted. The flexible bronchoscope was removed and the robotic bronchoscope was inserted. Registration was completed. I next guided the robotic bronchoscope using the navigation system into the right upper lobe posterior segment and later on into the various subsegment based on the guided navigation. Once in proper position, the bronchoscope was frozen. The radial EBUS probe was placed through the bronchoscope and confirmed abnormal u/s images vs normal lung. A needle was placed through the working channel and another fluoroscopic guidance, we sampled the area in the right upper lobe where the opacity was present. We then used a cloud biopsy pattern with ultrasound confirmation for 2 additional passes with the needle. Following that, a forceps were next introduced through working channel and extended the appropriate distance and 3 transbronchial biopsies were performed using fluoroscopic guidance. The u/s probe was then reinserted to confirm location. When confirmed this process was repeated for a total of 8-10 transbronchial biopsies. Following that, a total of 40 cc of saline was infused into the right upper lobe and approximately 8 to 10 cc of saline was aspirated and the bronchial lavage was sent for cytologic evaluation. Flex. bronchoscope was inserted and regular suctioning was done. At the completion of the procedure, no residual secretions or bloody material within the airway. The bronchoscope was removed. The patient was extubated. RECOMMENDATIONS: Await pathology and cytology results The referring physician will be alerted to the results when available. The patient was advised to follow up with the referring physician with the biopsy results Patient will be called with results.
--- NOTE | 2024-09-25 17:18 | FL ---
EXAMINATION TYPE: FL bronchoscopy Intraoperative/procedural fluoroscopic services were provided. CLINICAL INDICATION:Male, 74 years old with history of bronchoscopy for right-sided upper lung mass; , [facility] FINDINGS: Approximately 3 fluoroscopic images demonstrate bronchoscopy with biopsy within the right upper lung. No radiographic evidence for complication within the submitted images. Total fluoroscopy time is 4.20 min. DAP: 9.3733 Gycm2 Please see the operative/procedural note for further details. [facility], , 09/25/2024 5:16 PM
--- NOTE | 2024-09-25 17:44 | XR ---
EXAMINATION TYPE: XR chest 1V DATE OF EXAM: 09/25/2024 5:33 PM COMPARISON: Fluoroscopic images 09/25/2024 CT chest 09/25/2024, chest radiograph 09/05/2024 TECHNIQUE: XR chest 1V Frontal view of the chest. CLINICAL INDICATION:Male, 74 years old with history of post biopsy; FINDINGS: Lungs/Pleura: Development of moderate size right pneumothorax. Diffuse interstitial prominence. Pulmonary vascularity: Unremarkable. Heart/mediastinum: Cardiomediastinal silhouette is prominent in size. Atherosclerotic calcifications are seen in the aorta. Musculoskeletal: No acute osseous pathology. Midline sternotomy wires are noted and stable. IMPRESSION: 1. Development of moderate size right pneumothorax. 2. Diffuse interstitial prominence which may represent developing pulmonary edema. Findings called to and discussed with Dr. Vera at 5:41 PM on 09/25/2024. He states he will relay the m essage to the ordering provider Dr. Goodman. [facility], , 09/25/2024 5:41 PM
--- NOTE | 2024-09-25 18:02 | XR ---
EXAMINATION TYPE: XR chest 1V portable DATE OF EXAM: 09/25/2024 5:56 PM COMPARISON: Chest radiographs from 09/25/2024 TECHNIQUE: XR chest 1V portable Portable AP radiograph of the chest. CLINICAL INDICATION:Male, 74 years old with history of PNEUMO. THORAVENT; FINDINGS: Patient is rotated which limits evaluation. Lungs/Pleura: There is no evidence of pleural effusion, focal consolidation, or pneumothorax. Diffus e interstitial prominence. Heart/mediastinum: Cardiomediastinal silhouette is prominent in size. Musculoskeletal: No acute osseous pathology. Midline sternotomy wires are noted and stable. Other findings: None Lines/Tubes: Interval placement of right thoravent tube in the upper right pleural space. IMPRESSION: 1. Improvement in now small right pneumothorax status post thoravent placement. 2. Diffuse interstitial prominence which may represent developing bone edema. [facility], , 09/25/2024 5:59 PM
[2024-09-25 18:24] VITALS: BP 140/66; PULSE 68; RESP 18
--- NOTE | 2024-09-25 21:49 | P.PCN ---
Date of Procedure: 09/25/24 Preoperative Diagnosis: Right-sided pneumothorax, post lung biopsy Postoperative Diagnosis: Same Procedure(s) Performed: Right sided Thoravent tube insertion Surgeon: Kaylah Goodman Estimated Blood Loss (ml): 0 Pathology: other Condition: stable Disposition: same day Operative Findings: The patient developed an iatrogenic right-sided pneumothorax post bronchoscopy and right lung biopsy. Noted the patient had extensive emphysematous change in the right upper lobe surrounding the area of the pulmonary nodule that was biopsied. Noted, the chest x-ray postbiopsy showed a large right-sided pneumothorax. Nevertheless, the patient was oxygenating adequately with a pulse ox of 94 to 95% room air oxygen and the patient denies having any significant shortness of breath and he did not have any significant hemodynamic instability The procedure was done in the recovery room. The anterior chest was cleaned using ChloraPrep and the space between the second and third intercostal over the anterior chest wall was anesthetized using 1% lidocaine. A scalpel was used to make a horizontal incision and following that a 13 [place] Thoravent catheter was inserted to the right hemithorax over a trocar. Trocar was removed and the catheter was secured in place. Manual aspiration of the pneumothorax was done with subsequent chest x-ray shows adequate reexpansion of the right lung. The Thora vent was secured in place. The patient will be discharged home as the patient is clinically stable. The patient was seen back in the office within the next 24 hours for a repeat chest x-ray and further management and removal of the Thora vent will be done on an outpatient basis. No complications.
== END 2024-09-25 18:31 | disposition home or self-care (01) ==
LOC: ORWHC2ENDO 13:02
PROVIDERS: ATTEND Internal Medicine Critical Care Medicine
DX: C34.11 Malignant neoplasm of upper lobe, right bronchus or lung (principal); J95.811 Postprocedural pneumothorax; J44.9 Chronic obstructive pulmonary disease, unspecified; I10 Essential (primary) hypertension; E78.00 Pure hypercholesterolemia, unspecified; I25.10 Atherosclerotic heart disease of native coronary artery without angina pectoris; Z79.82 Long term (current) use of aspirin; Z79.51 Long term (current) use of inhaled steroids; Z79.02 Long term (current) use of antithrombotics/antiplatelets; F17.200 Nicotine dependence, unspecified, uncomplicated
CPT/HCPCS: 88108; 88305; 87070; 87205; 87116; 87102; 87206; 71045; 71250; 31628; 31629; 31624; J0330; J1100; J2710; J2405; J2003; J3010; J2704; J1596; S2900; 88341; 88342

== ENCOUNTER 2024-09-26 11:07 | Inpatient (IN) | payer OTHER, MEDICARE ==
[2024-09-26] MEDS ORDERED: NALOXONE 0.4 MG/ML 1 ML VIAL IV PRN (11:18)
[2024-09-26] MEDS: ROCURONIUM 10 MG/ML (5 ML VIAL) IV ONE (11:22)
--- NOTE | 2024-09-26 11:31 | ED ---
General Adult HPI - General Chief complaint: Shortness of Breath Stated complaint: SOB Time Seen by Provider: 09/26/24 11:09 Source: EMS, RN notes reviewed, old records reviewed Mode of arrival: EMS Limitations: physical limitation - History of Present Illness Initial comments: 74-year-old male presents as transfer from outside hospital with right-sided pneumothorax, subcutaneous air and vent dependent respiratory failure. Patient had bronchoscopy and right-sided pneumothorax yesterday at this institution. Over the night he developed difficulty breathing and subcutaneous air within the chest and neck. He was intubated at outside hospital and right-sided chest tube was placed. He was transferred for evaluation by pulmonology. Patient was life flighted here and had stable vitals during transport. Pulmonology aware of transfer. - Related Data Home Medications Medication Instructions Recorded Confirmed Clopidogrel [Plavix] 75 mg PO DAILY 05/16/19 09/26/24 Atorvastatin [Lipitor] 40 mg PO DAILY 03/06/23 09/26/24 Dorzolamide-Timol 2.23%/0.68% 1 drop BOTH EYES BID 03/06/23 09/26/24 [Cosopt] Metoprolol Tartrate [Lopressor] 50 mg PO DAILY 03/06/23 09/26/24 Latanoprost [Latanoprost 0.005%] 1 drop BOTH EYES HS 09/24/24 09/26/24 amLODIPine [Norvasc] 2.5 mg PO DAILY 09/26/24 09/26/24 Allergies Allergy/AdvReac Type Severity Reaction Status Date / Time No Known Allergies Allergy Verified 09/25/24 13:55 Review of Systems ROS Statement: Those systems with pertinent positive or pertinent negative responses have been documented in the HPI. ROS Other: All systems not noted in ROS Statement are negative. Past Medical History Past Medical History: COPD, Eye Disorder, GERD/Reflux, Hyperlipidemia, Hypertension, Prostate Disorder, Vascular Disorder Additional Past Medical History / Comment(s): GLAUCOMA, SEE CARDIOLOGY H & P. History of Any Multi-Drug Resistant Organisms: None Reported Past Surgical History: Coronary Bypass/CABG, Heart Catheterization Additional Past Surgical History / Comment(s): ARTERIOGRAM @ [facility] CABG 06/12/18. 06-11-18 heart cath. glaucoma & cataracts, colonoscopy, vasectomy , ARTHRECTOMY WITH BALLOON ANGIOPLASTY AND RIGHT SFA STENT (05/21/19), left SFA arthrectomy 06/18/19 Past Anesthesia/Blood Transfusion Reactions: No Reported Reaction Past Psychological History: No Psychological Hx Reported Smoking Status: Current every day smoker - Past Family History Father Family Medical History: Cancer Mother Family Medical History: Cancer General Exam Limitations: no limitations General appearance: other (Intubated and sedated) ENT exam: Present: other (6.0 ET tube) Respiratory exam: Present: other (Right-sided chest tube in place prior to transfer). Absent: respiratory distress Cardiovascular Exam: Present: regular rate, normal rhythm GI/Abdominal exam: Present: soft. Absent: distended, tenderness Skin exam: Present: warm, dry, intact Course Vital Signs 09/26/24 09/26/24 09/26/24 11:08 11:10 11:45 Temperature Pulse Rate 66 Respiratory 18 Rate Blood Pressure 139/71 O2 Sat by Pulse 95 Oximetry Fraction of 100 100 Inspired Oxygen (FIO2) 09/26/24 09/26/24 09/26/24 12:15 12:20 12:34 Temperature 97.4 F L Pulse Rate 71 67 Respiratory 18 20 Rate Blood Pressure 139/57 123/54 O2 Sat by Pulse 99 95 Oximetry Fraction of 60 Inspired Oxygen (FIO2) - Reevaluation(s) Reevaluation #1: 09/26/24 11:20 Dr. Vera in the emergency department evaluating the patient and replacing chest tube Medical Decision Making - Medical Decision Making Was pt. sent in by a medical professional or institution (, PA, SURGICAL ELASTIC KNITTER, urgent care, hospital, or [facility]...) When possible be specific @ -Transferred from [facility] Did you speak to anyone other than the patient for history (EMS, parent, family, police, friend...)? What history was obtained from this source @ -No Did you review nursing and triage notes (agree or disagree)? Why? @ -I reviewed and agree with nursing and triage notes Were old charts reviewed (outside hosp., previous admission, EMS record, old EKG, old radiological studies, urgent care reports/EKG's, [facility] records)? Report findings @ -No old charts were reviewed Differential Dyspnea: Coronary syndrome, arrhythmia, tamponade, asthma, COPD, pulmonary embolism, pneumonia, pneumothorax, pulmonary effusion, anaphylaxis, diabetic ketoacidosis, flailed chest, pulmonary contusion, diaphragmatic rupture, anemia, neuromuscular, this is not meant to be an all-inclusive list. EKG interpreted by me (3pts min.). @Sinus rhythm rate of 63, [place] interval 150, QRS duration 100, QTc [address] segment elevation. X-rays interpreted by me (1pt min.). @ -None done CT interpreted by me (1pt min.). @ -None done U/S interpreted by me (1pt. min.). @ -None done What testing was considered but not performed or refused? (CT, X-rays, U/S, labs)? Why? @ -None What meds were considered but not given or refused? Why? @ -None Did you discuss the management of the patient with other professionals (professionals i.e. , PA, SURGICAL ELASTIC KNITTER, lab, RT, psych nurse, group social worker, antenna engineer, teacher, svp chief marketing officer, lining caser)? Give summary @ -[Sound physician group. Was smoking cessation discussed for >3mins.? @ -No Was critical care preformed (if so, how long)? @ -No Were there social determinants of health that impacted care today? How? (Homelessness, low income, unemployed, alcoholism, drug addiction, transpo rtation, low edu. Level, literacy, decrease access to med. care, retirement, rehab)? @ -No Was there de-escalation of care discussed even if they declined (Discuss DNR or withdrawal of care, Hospice)? DNR status @ -No What co-morbidities impacted this encounter? (DM, HTN, Smoking, COPD, CAD, Cancer, CVA, ARF, Chemo, Hep., AIDS, mental health diagnosis, sleep apnea, morbid obesity)? @ -[Recent bronchoscopy with right-sided pneumothorax Was patient admitted / discharged? Hospital course, mention meds given and route, prescriptions, significant lab abnormalities, going to OR and other pertinent info. @ -74-year-old male transfer from outside hospital, vent dependent respiratory failure, pneumothorax, subcutaneous emphysema. Patient has stable vital signs upon arrival. Repeat laboratory testing, repeat chest x-ray has been ordered. Patient care will be managed by Dr. Jody kirkland for pulmonary critical care. He is in the emergency department evaluating the patient. Admitted to internal medicine. Undiagnosed new problem with uncertain prognosis? @ -No Drug Therapy requiring intensive monitoring for toxicity (Heparin, Nitro, Insulin, Cardizem)? @ -No Were any procedures done? @ -No Diagnosis/symptom? @Ventilator dependent respiratory failure subcutaneous emphysema, pneumothorax Acute, or Chronic, or Acute on Chronic? @ -Acute Uncomplicated (without systemic symptoms) or Complicated (systemic symptoms)? @ -Complicated Side effects of treatment? @ -No Exacerbation, Progression, or Severe Exacerbation? @ -No Poses a threat to life or bodily function? How? (Chest pain, [place], NH, pneumonia, PE, COPD, DKA, ARF, appy, cholecystitis, CVA, Diverticulitis, Homicidal, Suicidal, threat to staff... and all critical care pts) @Yes, tension pneumothorax, respiratory failure - Lab Data Result diagrams: 09/26/24 11:47 09/26/24 11:47 Disposition Clinical Impression: Pneumothorax, Respiratory failure requiring intubation Disposition: ADMITTED IP TO THIS [facility] Condition: Serious Is patient prescribed a controlled substance at d/c from ED?: No Time of Disposition: 11:31
[2024-09-26 12:03] LABS: Basophils % (A) 0 %; Eosinophils # (A) 0.1 k/uL (0-0.7); Eosinophils % (A) 0 %; HCT 47.2 % (39.0-53.0); HGB 15.2 gm/dL (13.0-17.5); Lymphocytes # (A) 0.6 k/uL (1.0-4.8); Lymphocytes % (A) 4 %; MCH 31.4 pg (25.0-35.0); MCHC 32.1 g/dL (31.0-37.0); MCV 97.7 fL (80.0-100.0); Mean Platelet Volume 7.4; Monocytes # (A) 0.4 k/uL (0-1.0); Monocytes % (A) 3 %; Neutrophils # (A) 15.1 k/uL (1.3-7.7); Neutrophils % (A) 93 %; Platelet Count 258 k/uL (150-450); RBC 4.84 m/uL (4.30-5.90); RDW 12.9 % (11.5-15.5); WBC 16.2 k/uL (3.8-10.6)
[2024-09-26] MEDS: HYDROmorphone 1 MG/ML 1 ML SYRINGE IVP STA (12:07)
[2024-09-26 12:10] LABS: ABG Base Excess -5.4 mmol/L; ABG HCO3 23 mmol/L (21-25); ABG Oxygen Saturation 99.3 % (94-97); ABG PCO2 53 mmHg (35-45); ABG PH 7.24 (7.35-7.45); ABG PO2 164 mmHg (83-108); ABG TCO2 24 mmol/L (19-24)
[2024-09-26 12:17] LABS: ALT 20 U/L (4-49); AST 23 U/L (17-59); African American GFR (CKD) >90 (>60 ml/min/1.73 sqM); Albumin 3.9 g/dL (3.5-5.0); Alkaline Phosphatase 81 U/L (38-126); Anion Gap 9 mmol/L; Blood Urea Nitrogen 12 mg/dL (9-20); Calcium 8.9 mg/dL (8.4-10.2); Carbon Dioxide 22 mmol/L (22-30); Chloride 104 mmol/L (98-107); Glucose 152 mg/dL (74-99); Magnesium 2.5 mg/dL (1.6-2.3); Non-African American GFR(CKD) 90 (>60 ml/min/1.73 sqM); Potassium 4.5 mmol/L (3.5-5.1); Sodium 135 mmol/L (137-145); Total Bilirubin 1.3 mg/dL (0.2-1.3); Total Protein 6.5 g/dL (6.3-8.2)
--- NOTE | 2024-09-26 12:18 | XR ---
EXAMINATION TYPE: XR chest 1V portable DATE OF EXAM: 09/26/2024 CLINICAL INDICATION: Male, 74 years old with history of Intubation, right-sided chest tube, progress study. TECHNIQUE: Single AP portable supine view of the chest is obtained. COMPARISON: Chest x-ray from one day earlier FINDINGS: There is new endotracheal tube terminating at aortic knob level proximally 4 cm above the nicci. There is new larger right-sided chest tube. There is now significant overlying subcutaneous emphysema bilaterally. Overlying sternal wires are re demonstrated. Persistent cardiomegaly. Patchy bibasilar opacities. No definitive pneumothorax. IMPRESSION: 1. The new endotracheal tube is satisfactory in position. 2. New large or right-sided chest tube without visualized pneumothorax. There is however new extensiv e overlying subcutaneous emphysema. [facility], , 09/26/2024 12:15 PM
--- NOTE | 2024-09-26 12:20 | XR ---
EXAMINATION TYPE: XR chest 1V portable DATE OF EXAM: 09/26/2024 CLINICAL INDICATION: Male, 74 years old with history of chest tube, progress study. TECHNIQUE: Single AP portable supine view of the chest is obtained. COMPARISON: Chest x-ray from earlier today FINDINGS: There is new left subclavian central venous catheter terminating in SVC. Stable right-sided chest tube and endotracheal tube. Overlying sternal wires are redemonstrated. Persistent cardiomegaly. Persistent overlying subcutaneou s emphysema. No definitive pneumothorax given limitations of supine technique and subcutaneous emphys gonzalo. Lungs remain grossly clear. IMPRESSION: No definitive pneumothorax after left subclavian catheter insertion. Extensive overlying subcutaneous emphysema remains present. [facility], , 09/26/2024 12:18 PM
[2024-09-26 12:23] LABS: Partial Thromboplastin Time 23.6 sec (22.0-30.0); Prothrombin Time 11.2 sec (10.0-12.5)
--- NOTE | 2024-09-26 12:23 | PCN ---
PROCEDURE NOTE PROCEDURE: Left subclavian triple-lumen catheter. PREOPERATIVE DIAGNOSIS: Administration of fluids and pressors. POSTOPERATIVE DIAGNOSIS: Administration of fluids and pressors. There was informed consent and universal timeout. OPERATORS: Dr. Vera and Dr. Hughes. TRIPLE LUMEN CATHETER PLACEMENT: Indication: Hemodynamic monitoring/Intravenous access. A time-out was completed verifying correct patient, procedure, site, positioning, and implant(s) or special equipment if applicable. The patient was placed in a dependent position appropriate for triple lumen catheter placement based on the vein to be cannulated. The patient's left shoulder or left neck or left groin was prepped and draped in sterile fashion. 1% Lidocaine was used to anesthetize the surrounding skin area. A triple lumen 9F Cordis catheter was introduced into the left subclavian vein using Seldinger technique. The catheter was threaded smoothly over the guide wire and appropriate blood return was obtained. Each lumen of the catheter was evacuated of air and flushed with sterile saline. The catheter was then sutured in place to the skin and a sterile dressing applied. Perfusion to the extremity distal to the point of catheter insertion was checked and found to be adequate. We used the left subclavian vein. There was good blood return from all 3 ports. The catheter was sutured in place. A sterile dressing was applied by the nurse. The tip of the catheter was seen in the junction of superior vena cava, right atrium. A chest x- ray was ordered. There was no immediate complication. The patient tolerated the procedure well without difficulty. MMODL / IJN: [id number] /
--- NOTE | 2024-09-26 12:29 | PCN ---
PROCEDURE NOTE PROCEDURE: Right chest tube. PREOPERATIVE DIAGNOSIS: Right pneumothorax. POSTOPERATIVE DIAGNOSIS: Right pneumothorax. A #28-[place] chest tube was inserted at the 5th intercostal space between the anterior and mid axillary line. That area was cleansed and advanced. It was sterilely draped. A small incision was made parallel to the rib. There was blunt dissection down into the pleural space. A #28-[place] tube was inserted without difficulty apically. It was sutured in place. A sterile dressing was applied. It was connected to a Pleur-evac device. There was no immediate complication. A chest x-ray was ordered. MMODL / IJN: [id number] /
--- NOTE | 2024-09-26 12:41 | P.CNPUL ---
History of Present Illness Consult date: 09/26/24 Requesting physician: Cezar Oro Reason for consult: dyspnea, COPD, hypoxemia, pneumothorax, lung mass, abnormal CXR/CT Chief complaint: Subcutaneous emphysema, respiratory failure. History of present illness: Pulmonary consult dated September 26, 2024. 74-year-old male transferred from an outside hospital, with a right-sided pneumothorax. The patient apparently had a bronchoscopy yesterday, and, developed a moderate size right-sided pneumothorax, and had a Thora vent placed by my partner. The patient developed respiratory distress, over the night, and went into the outside hospital, where he was found to have significant facial edema and swelling. Initially, he was treated for anaphylaxis, but apparently they soon realized that he developed subcutaneous emphysema. For worsening respiratory status, and impending respiratory failure, the patient was intubated with #6-1/2 endotracheal tube, for airway protection. In addition, a very small 20 [place] chest tube was placed in the right chest area. The right sided Thora vent was still in place. The patient was flown over to our hospital, and we greeted the patient, in the emergency department. The patient was connected to the ventilator, with settings of volume assist-control, rate 16, tidal volume 450, FiO2 100% PEEP of 5. There was significant variations in exhaled tidal volumes. Initially, we went ahead and replaced the right sided chest tube, which was nonfunctional, and not even in the pleural space. We placed a 28 [place] chest tube, in its place, and eventually removed the 20 [place] chest tube that was placed at the outside hospital. The Thora vent device also was nonfunctional, that was removed. Next, we placed a left subclavian triple-lumen catheter, and a right radial art line. Finally, the patient was intubated with a 6-1/2 endotracheal tube, and we used the endotracheal tube changer, the place at 8 tube. The patient was placed on propofol, and also received some paralytic, and some Dilaudid. The patient is currently stable. Chest x-ray has been done. Blood work has been done. Blood gases have been done. The patient will eventually be transferred up to the intensive care unit. Blood gas showed a pO2 of 164, pCO2 of 53, pH is 7.24. AC 16, tidal volume 400, FiO2 100%, PEEP of 5. The rate was increased to 20, the FiO2 was dropped down to 60%. White count 16.2, hemoglobin 15.2, hematocrit 47.2, and platelet count 258,000. Coagulation studies were normal. Sodium 135, potassium 4.5, chlorides 104, CO2 22, BUN 12, creatinine 0.74. Glucose 152. Lactic acid 2.2. Magnesium 2.5. Chest x-ray showed extensive subcutaneous emphysema, no obvious pneumothorax, a properly placed endotracheal tube, and a properly placed left subclavian triple- lumen catheter. Review of Systems REVIEW OF SYSTEMS: CONSTITUTIONAL: [Negative.] NEUROLOGIC: [ Negative.] HEENT: [ Negative.] CARDIAC: [Negative.] PULMONARY: Shortness of breath. GI: [Negative.] : [Negative.] RHEUMATOLOGIC: [ Negative.] IMMUNOLOGIC: [ Negative.] ENDOCRINE: [Negative. ] DERMATOLOGIC: [Negative.] Past Medical History Past Medical History: COPD, Eye Disorder, GERD/Reflux, Hyperlipidemia, Hypertension, Prostate Disorder, Vascular Disorder Additional Past Medical History / Comment(s): GLAUCOMA, SEE CARDIOLOGY H & P. History of Any Multi-Drug Resistant Organisms: None Reported Past Surgical History: Coronary Bypass/CABG, Heart Catheterization Additional Past Surgical History / Comment(s): ARTERIOGRAM @ [facility] CABG 06/12/18. 06-11-18 heart cath. glaucoma & cataracts, colonoscopy, vasectomy , ARTHRECTOMY WITH BALLOON ANGIOPLASTY AND RIGHT SFA STENT (05/21/19), left SFA arthrectomy 06/18/19 Past Anesthesia/Blood Transfusion Reactions: No Reported Reaction Past Psychological History: No Psychological Hx Reported Smoking Status: Current every day smoker - Past Family History Father Family Medical History: Cancer Mother Family Medical History: Cancer Medications and Allergies Home Medications Medication Instructions Recorded Confirmed Type RX: Clopidogrel [Plavix] 75 mg PO DAILY 05/16/19 09/26/24 History Atorvastatin [Lipitor] 40 mg PO DAILY 03/06/23 09/26/24 History RX: Dorzolamide-Timol 2.23%/0.68% 1 drop BOTH EYES BID 03/06/23 09/26/24 History [Cosopt] RX: Metoprolol Tartrate [Lopressor] 50 mg PO DAILY 03/06/23 09/26/24 History Latanoprost [Latanoprost 0.005%] 1 drop BOTH EYES HS 09/24/24 09/26/24 History amLODIPine [Norvasc] 2.5 mg PO DAILY 09/26/24 09/26/24 History Allergies Allergy/AdvReac Type Severity Reaction Status Date / Time No Known Allergies Allergy Verified 09/25/24 13:55 Physical Exam Osteopathic Statement: *. No significant issues noted on an osteopathic structural exam other than those noted in the History and Physical/Consult. Vitals: Vital Signs Temp Pulse Resp BP Pulse Ox FiO2 09/26/24 12:15 97.4 F L 71 18 139/57 99 09/26/24 11:45 100 09/26/24 11:10 100 09/26/24 11:08 66 18 139/71 95 Intake and Output 09/25/24 09/26/24 09/26/24 22:59 06:59 14:59 Intake Total 8.779 Balance 8.779 Intake: Intake, IV Titration 8.779 Amount propofoL 1,000 mg In 8.779 Empty Bag 1 bag @ 15 MCG/ KG/MIN 8.45 mls/hr IV . [id number] [facility] Rx#:[id number] Other: Weight 93.894 kg No acute distress, sedated with orally placed endotracheal tube, and NG tube. HEENT examination is grossly unremarkable. Neck supple. Full range of motion. No adenopathy thyromegaly or neck vein distention. Left-sided subclavian triple-lumen catheter noted. Extensive subcutaneous emphysema noted as well. Cardiovascular examination reveals regular rhythm rate. S1-S2 normal. No S3 or S4. No discernible murmur noted. Heart sounds are distant. Lungs reveal diminished bilateral breath sounds. No distinct wheezes or rhonchi. No crackles. Extensive subcutaneous emphysema is noted bilaterally. Right sided chest tube is noted. Abdomen soft bowel sounds are heard. No masses or tenderness. Extremities are intact. No cyanosis clubbing or edema. Right radial art line is noted. Skin is without rash or lesion. Neurologic examination could not be evaluated as the patient is sedated. Results - Laboratory Findings CBC and BMP: 09/26/24 11:47 09/26/24 11:47 ABG ABG pH 7.24 (7.35-7.45) L 09/26/24 12:07 ABG pCO2 53 mmHg (35-45) H 09/26/24 12:07 ABG pO2 164 mmHg (83-108) H 09/26/24 12:07 ABG O2 Saturation 99.3 % (94-97) H 09/26/24 12:07 Abnormal lab findings: Abnormal Labs 09/26/24 09/26/24 09/26/24 11:47 11:47 12:07 WBC 16.2 H Neutrophils # 15.1 H Lymphocytes # 0.6 L ABG pH 7.24 L ABG pCO2 53 H ABG pO2 164 H ABG O2 Saturation 99.3 H Sodium 135 L Glucose 152 H Magnesium 2.5 H - Diagnostic Findings Chest x-ray: image reviewed Assessment and Plan Assessment: Acute hypoxemic respiratory failure, secondary to right-sided pneumothorax, with extensive subcutaneous emphysema, requiring intubation, mechanical ventilation, September 26, 2024. S/P flexible bronchoscopy, robotically assisted bronchoscopy with radial ultrasound evaluation of the right upper lobe pulmonary nodule, robotically as sisted transbronchial needle aspiration, transbronchial biopsy, and BAL, September 25, 2024. Right upper lobe pulmonary nodule. History of chronic obstructive pulmonary disease. History of hypertension. History of hyperlipidemia. History of gastroesophageal reflux disease. History of coronary artery disease, with previous CABG, 2018. Peripheral vascular occlusive disease. History of tobacco use. History of glaucoma. Plan: Plan dated September 26, 2024. The patient presented to an outside hospital, with shortness of breath and facial swelling. He was initially treated for anaphylaxis. He did not respond to that treatment, and they realized the patient had developed subcutaneous emphysema. For worsening respiratory failure, the patient was intubated with #6-1/2 endotracheal tube, and a right sided chest tube was placed. It was a #[address] [place] [facility] transport was called, and the patient was flown from [facility], down to [facility], and we greeted him in the emergency department, and did a number of things including replacing the nonfunctional #20 [place] right-sided chest tube with a 28 [place] chest tube. We removed the Thora vent. We placed a right radial art line and a left subclavian triple-lumen catheter. We also reintubated the patient as the patient had a 6-1/[address]. The patient was placed on a number of medications occluding Dilaudid, propofol, and received paralytic in the emergency department. The patient will be transferred up into the intensive care unit. I did let Dr. Goodman know about his patient. Additional recommendations and suggestions are forthcoming. Prognosis is guarded. Dictation was produced using [employer] software. Please excuse any grammatical, word or spelling errors. Time with Patient: Greater than 30
--- NOTE | 2024-09-26 12:47 | PCN ---
PROCEDURE NOTE PROCEDURE: Right radial arterial line. PREOPERATIVE DIAGNOSIS: Frequent blood draws and blood gas monitoring. POSTOPERATIVE DIAGNOSIS: Frequent blood draws and blood gas monitoring. OPERATORS: Dr. Vera and Dr. Hughes. There was informed consent and universal timeout. We used a right radial artery. ARTERIAL LINE PLACEMENT: Indications: Hemodynamic monitoring. A time-out was completed verifying correct patient, procedure, site, positioning, and implant(s) or special equipment if applicable. Aleksandr's test was performed to ensure adequate perfusion. The patient's right wrist or right groin was prepped and draped in sterile fashion. 1% Lidocaine was used to anesthetize the area. An 18G Arrow arterial line was introduced into the right radial artery. The catheter was threaded over the guide wire and the needle was removed with appropriate pulsatile blood return. Blood loss was minimal. The catheter was then sutured in place to the skin and a sterile dressing applied. Perfusion to the extremity distal to the point of catheter insertion was checked and found to be adequate. There was good blood return and waveform. The catheter was sutured in place. Sterile dressing was applied by the nurse. There was no immediate complication. The patient tolerated the procedure well. MMODL / IJN: [id number] /
--- NOTE | 2024-09-26 12:53 | XR ---
EXAMINATION TYPE: XR chest 1V portable DATE OF EXAM: 09/26/2024 CLINICAL INDICATION: Male, 74 years old with history of OG tube, progress study. TECHNIQUE: Two AP portable frontal supine views of the chest are obtained. COMPARISON: Chest x-ray from earlier today FINDINGS: There is new orogastric tube projecting to at least level of diaphragm outside the field-o f-view. Stable endotracheal tube and left-sided subclavian central venous catheter. Overlying sternal wires a re redemonstrated. Stable right-sided chest tube. Extensive overlying subcutaneous emphysema redemonstrated. Suspect small right basilar lateral pneumo thorax despite chest tube. Persistent cardiomegaly. IMPRESSION: New orogastric tube extends below the diaphragm. Small right basilar lateral pneumothorax despite right-sided chest tube. Extensive overlying subcutaneous emphysema again seen. [facility], , 09/26/2024 12:50 PM
--- NOTE | 2024-09-26 12:59 | PCN ---
PROCEDURE NOTE PROCEDURE: Endotracheal intubation. PREOPERATIVE DIAGNOSIS: Respiratory failure. POSTOPERATIVE DIAGNOSIS: Respiratory failure. The patient was previously intubated with a #6-1/2 endotracheal tube. We used endotracheal tube changer/a stylet, changed the patient to a #8 endotracheal tube. The patient was on 100% oxygen adequately sedated. The stylet was placed through the old endotracheal tube, at 40 cm. The old endotracheal tube was removed. The new #8 endotracheal tube was placed over the stylet, after it was fully in, at 24 cm at the lip, we checked to make sure there was good color change on the qualitative capnography device, there was. There were good bilateral breath sounds. The balloon on the endotracheal tube was inflated. The patient was reconnected to the ventilator. There was no immediate complication. A followup chest x-ray will be ordered. The patient tolerated the procedure well. OPERATORS: Dr. Vera and Dr. Hughes. JOSÉ MIGUEL / YASMEEN: [id number] /
[2024-09-26 14:13] LABS: Glucose,Whole Blood 150 mg/dL (70-110)
--- NOTE | 2024-09-26 14:28 | P.HPIM ---
History of Present Illness H&P Date: 09/26/24 Patient is a 74-year-old male with COPD, GERD, hyperlipidemia, hypertension, CAD (CABG and heart cath), current everyday smoker here for evaluation of difficulty of breathing and subcutaneous air within the chest and neck. Per family at bedside, Patient had bronchoscopy and right-sided pneumothorax yesterday 09/25 at our institution for lung biopsy of the right upper lobe lung nodule with 1.2 cm in size. He developed a pneumothorax post-op and was placed on a thora vent on discharge. managed care coordinator today 09/26, he developed difficulty breathing and subcutaneous air and swelling within the chest and neck. He was noted to be awake and alert during this time and did not have any other associated symptoms. He was transferred from [place] and was reported to have right-sided pneumothorax, subcutaneous air and ventilator dependent acute respiratory failure. He was intubated prior to transfer and right-sided chest tube was placed. He was transferred for evaluation by pulmonology. Patient was life flighted here and had stable vitals during transport. On admission, chest x-ray showed notable sternotomy and chest tube placement, with subcutaneous emphysema. On admission labs showed WBC 16.2, hemoglobin 15.2, platelet count 258,000. Sodium 135, potassium 4.5, chloride 104, bicarb 22, BUN 12, creatinine 0.74, glucose 152, plasmic lactic acid 2.2, calcium 8.9, magnesium 2.5, albumin 3.9 Vitals on admission showed pulse rate 66, respiratory rate 18, blood pressure 139/71, O2 saturation 95% on mechanical ventilation FiO2 100% ED documentation reviewed and case discussed with ED provider. Already mechanically ventilated on admission, IV propofol and ordered. Review of systems: Pertinent positives and negatives as discussed in HPI, a complete review of systems was performed and all other systems are negative. Social history: Tobacco: Current everyday smoker. Alcohol: No alcohol history per family Recreational drugs: No history with illicit or recreational drug use per family Travel: No prolonged travel per family Physical examination: Vital signs reviewed General: non toxic, no distress, appears at stated age, sedated and mechanically intubated Derm: no unusual rashes/lesions, warm Head: atraumatic, normocephalic, symmetric Eyes: EOMI, anicteric sclera, pupils equal round reactive to light ENT: Nose and ears atraumatic Neck: No cervical lymphadenopathy, trachea midline, supple, subcutaneous crepitus noted Mouth: no lip lesion, mucus membranes moist Cardiovascular: S1S2 reg, no murmur Lungs: Decreased breath sounds more on right than left lung lewis, subcutaneous crackles noted, no accessory muscle use, sternotomy scar midline, chest tube noted on right mid chest area Abdominal: soft, nondistended, nontender to palpation, no guarding Ext: muscle strength 5 out of 5 in all 4 extremities grossly, no gross muscle atrophy, no contractures, positive dorsalis pedis pulse bilateral, no edema Neuro: Cannot assess Psych: Cannot assess Assessment/Plan: 74-year-old male with COPD, solitary lung nodule here for evaluation acute respiratory failure due to pneumothorax now intubated and mechanically ventilated on admission #. Acute hypoxic respiratory failure secondary to right-sided pneumothorax -Chest x-ray independently interpreted showed notable sternotomy and chest tube placement, subcutaneous emphysema. -Continue supplemental oxygenation as needed. Currently on mechanical ventilation and on sedation -Placed on fentanyl IV drip -Cardiac telemetry -Consult pulmonary for ICU care #. Hypomagnesemia -Magnesium 2.5 on admission -Monitor magnesium levels #. Hyperglycemia -No history of diabetes -Glucose 152 -Check A1c -Monitor BMP Chronic Conditions: #. COPD #. GERD #. Hyperlipidemia #. Hypertension #. CAD -Currently on Plavix. Will hold for now given recent biopsy -Not on aspirin. Initiate ASA 81mg PO daily F: None for now E: Monitor electrolytes particularly magnesium N: N.p.o. DVT ppx: Lovenox 40 mg subcu daily GI ppx: Protonix 40 mg IV daily Dispo: The patient is admitted with an anticipated greater than 2 midnight stay for evaluation of ARF due to pneumothorax CODE STATUS: Full Anticipated discharge place: [facility] Liliam Coates MD PGY-1 IM Dictation was produced using [employer] dictation software. please excuse any grammatical, word or spelling errors. I saw and evaluated the patient during the sloan and critical portions of this encounter, and discussed the case in detail with the resident author of this note, I agree with the Assessment and Plan, and my changes, if any, are highlighted in blue. Past Medical History Past Medical History: COPD, Eye Disorder, GERD/Reflux, Hyperlipidemia, Hypertension, Prostate Disorder, Vascular Disorder Additional Past Medical History / Comment(s): GLAUCOMA, SEE CARDIOLOGY H & P. History of Any Multi-Drug Resistant Organisms: None Reported Past Surgical History: Coronary Bypass/CABG, Heart Catheterization Additional Past Surgical History / Comment(s): ARTERIOGRAM @ [facility] CABG 06/12/18. 06-11-18 heart cath. glaucoma & cataracts, colonoscopy, vasectomy , ARTHRECTOMY WITH BALLOON ANGIOPLASTY AND RIGHT SFA STENT (05/21/19), left SFA arthrectomy 06/18/19 Past Anesthesia/Blood Transfusion Reactions: No Reported Reaction Past Psychological History: No Psychological Hx Reported Smoking Status: Current every day smoker - Past Family History Father Family Medical History: Cancer Mother Family Medical History: Cancer Medications and Allergies Home Medications Medication Instructions Recorded Confirmed Type Clopidogrel [Plavix] 75 mg PO DAILY 05/16/19 09/26/24 History Atorvastatin [Lipitor] 40 mg PO DAILY 03/06/23 09/26/24 History Dorzolamide-Timol 2.23%/0.68% 1 drop BOTH EYES BID 03/06/23 09/26/24 History [Cosopt] Metoprolol Tartrate [Lopressor] 50 mg PO DAILY 03/06/23 09/26/24 History Latanoprost [Latanoprost 0.005%] 1 drop BOTH EYES HS 09/24/24 09/26/24 History amLODIPine [Norvasc] 2.5 mg PO DAILY 09/26/24 09/26/24 History Allergies Allergy/AdvReac Type Severity Reaction Status Date / Time No Known Allergies Allergy Verified 09/25/24 13:55 Physical Exam Osteopathic Statement: *. No significant issues noted on an osteopathic structural exam other than those noted in the History and Physical/Consult. Vitals: Vital Signs Pulse Resp BP Pulse Ox FiO2 09/26/24 11:45 100 09/26/24 11:10 100 09/26/24 11:08 66 18 139/71 95 Intake and Output 09/25/24 09/26/24 09/26/24 22:59 06:59 14:59 Intake Total 1.549 Balance 1.549 Intake: Intake, IV Titration 1.549 Amount propofoL 1,000 mg In 1.549 Empty Bag 1 bag @ 15 MCG/ KG/MIN 8.45 mls/hr IV . [id number] [facility] Rx#:[id number] Other: Weight 93.894 kg Results CBC & Chem 7: 03/07/25 11:47 09/26/24 11:47
[2024-09-26] MEDS: IPRATROPIUM-ALBUTEROL 3 ML NEB INHALATION SCH (17:06)
[2024-09-26] MEDS: methylPREDNISolone SOD SUCCI 125 MG/2 ML VIAL IV SCH (17:12)
[2024-09-26] MEDS: SODIUM CHLORIDE 0.9% 1,000 ML IV SCH (17:13)
[2024-09-26] MEDS: SODIUM CHLORIDE 0.9% 1,000 ML IV ONE (17:18)
[2024-09-26 17:30] LABS: Glucose,Whole Blood 157 mg/dL (70-110)
[2024-09-26] MEDS: BUDESONIDE 1 MG/2 ML NEBU INHALATION SCH (20:12)
[2024-09-26] MEDS: FORMOTEROL FUMARATE 20 MCG/2 ML NEBU INHALATION SCH (20:12)
[2024-09-26] MEDS: fentaNYL (PF). 1,000 MCG in SODIUM CHLORIDE 0.9% 80 ML IV SCH (20:19)
[2024-09-26] MEDS: CHLORHEXIDINE GLUCONATE 15 ML CUP MUCOUS MEM SCH (21:16)
[2024-09-27 04:56] LABS: Glucose,Whole Blood 170 mg/dL (70-110)
[2024-09-27 05:26] LABS: Basophils % (A) 0 %; Eosinophils % (A) 0 %; HCT 40.9 % (39.0-53.0); HGB 13.3 gm/dL (13.0-17.5); Lymphocytes # (A) 0.4 k/uL (1.0-4.8); Lymphocytes % (A) 3 %; MCH 31.6 pg (25.0-35.0); MCHC 32.4 g/dL (31.0-37.0); MCV 97.5 fL (80.0-100.0); Mean Platelet Volume 7.6; Monocytes # (A) 0.4 k/uL (0-1.0); Monocytes % (A) 3 %; Neutrophils # (A) 13.2 k/uL (1.3-7.7); Neutrophils % (A) 94 %; Platelet Count 218 k/uL (150-450); RBC 4.19 m/uL (4.30-5.90); RDW 13.3 % (11.5-15.5)
[2024-09-27 05:53] LABS: African American GFR (CKD) >90 (>60 ml/min/1.73 sqM); Anion Gap 9 mmol/L; Blood Urea Nitrogen 18 mg/dL (9-20); Calcium 7.9 mg/dL (8.4-10.2); Carbon Dioxide 19 mmol/L (22-30); Chloride 107 mmol/L (98-107); Glucose 167 mg/dL (74-99); Non-African American GFR(CKD) 84 (>60 ml/min/1.73 sqM); Potassium 4.3 mmol/L (3.5-5.1); Sodium 135 mmol/L (137-145)
[2024-09-27 06:18] LABS: ABG Base Excess -5.5 mmol/L; ABG HCO3 20 mmol/L (21-25); ABG Oxygen Saturation 88.4 % (94-97); ABG PCO2 36 mmHg (35-45); ABG PH 7.34 (7.35-7.45); ABG TCO2 21 mmol/L (19-24); Allen Test Performed? Yes
[2024-09-27 06:21] LABS: ABG PO2 55 mmHg (83-108)
--- NOTE | 2024-09-27 06:48 | XR ---
EXAMINATION TYPE: XR chest 1V portable DATE OF EXAM: 09/27/2024 COMPARISON: 09/26/2024 CLINICAL INDICATION: Male, 74 years old with history of Pneumothorax; TECHNIQUE: Single frontal view of the chest is obtained. FINDINGS: There is an ET tube 5.5 cm above the nicci. There is a central venous catheter tip in the SVC/RA hector ction. There is a right chest tube unchanged in position. There is extensive stable subcutaneous emphysema over the entire chest. There is no definite pneumoth orax. There is no change in the small retrocardiac infiltrate consistent with pneumonia or atelectasi s. There is probable mild pulmonary vascular congestion which is stable. IMPRESSION: 1. ET tube 5.5 cm above the nicci. 2. No change in the left-sided PICC line and right chest tube. No pneumothorax. 3. No change in exten sive subcutaneous emphysema. 4. Stable mild to moderate acute cardiopulmonary disease. [facility], Workstation: ROSEMARY 09/27/2024 6:46 AM
[2024-09-27] MEDS: ASPIRIN 81 MG PO SCH (09:25)
[2024-09-27] MEDS: ENOXAPARIN 40 MG/0.4 ML SYRINGE SQ SCH (09:25)
[2024-09-27] MEDS: ATORVASTATIN 40 MG TAB PO SCH (09:26)
[2024-09-27] MEDS: amLODIPine 2.5 MG TAB PO SCH (09:26)
[2024-09-27] MEDS: PANTOPRAZOLE 40 MG/10 ML VIAL IVP SCH (09:26)
[2024-09-27 11:43] LABS: Glucose,Whole Blood 158 mg/dL (70-110)
--- NOTE | 2024-09-27 11:52 | P.PN ---
Subjective Progress Note Date: 09/27/24 Patient is a 74-year-old male with COPD, GERD, hyperlipidemia, hypertension, CAD (CABG and heart cath), current everyday smoker here for evaluation of difficulty of breathing and subcutaneous air within the chest and neck. Per family at bedside, Patient had bronchoscopy and right-sided pneumothorax yesterday 09/25 at our institution for lung biopsy of the right upper lobe lung nodule with 1.2 cm in size. He developed a pneumothorax post-op and was placed on a thora vent on discharge. 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 He was noted to be awake and alert during this time and did not have any other associated symptoms. He was transferred from [place] and was reported to have right-sided pneumothorax, subcutaneous air and ventilator dependent acute respiratory failure. He was intubated prior to transfer and right-sided chest tube was placed. He was transferred for evaluation by pulmonology. Patient was life fl ighted here and had stable vitals during transport. On admission, chest x-ray showed notable sternotomy and chest tube placement, with subcutaneous emphysema. On admission labs showed WBC 16.2, hemoglobin 15.2, platelet count 258,000. Sodium 135, potassium 4.5, chloride 104, bicarb 22, BUN 12, creatinine 0.74, glucose 152, plasmic lactic acid 2.2, calcium 8.9, magnesium 2.5, albumin 3.9 Vitals on admission showed pulse rate 66, respiratory rate 18, blood pressure 139/71, O2 saturation 95% on mechanical ventilation FiO2 100% 09/27/2024 patient seen and examined at bedside. Agitated while sedated per RN overnight. Patient still sedated and mechanically ventilated. Labs today showed WBC 14, hemoglobin 13.3, platelet count 218,000, sodium 135, potassium 4.3, bicarb 19, BUN 18, creatinine 0.88, glucose 167, calcium 7.9, magnesium 2.4. Chest x-ray today showed stable mild to moderate acute cardiopulmonary disease which are extensive stable subcutaneous emphysema with no definite pneumothorax, no change in a small retrocardiac infiltrate consistent with pneumonia/atelectasis. ET tube, left-sided PICC line. ABG showed pH 7.34, pCO2 36, pO2 55. Physical examination: Vital signs reviewed General: non toxic, no distress, appears at stated age, sedated and mechanically intubated Derm: no unusual rashes/lesions, warm Head: atraumatic, normocephalic, symmetric Eyes: EOMI, anicteric sclera, pupils equal round reactive to light ENT: Nose and ears atraumatic Neck: No cervical lymphadenopathy, trachea midline, supple, subcutaneous crepitus noted Mouth: no lip lesion, mucus membranes moist Cardiovascular: S1S2 reg, no murmur Lungs: Decreased breath sounds more on right than left lung lewis, subcutaneous crackles noted, diffuse expiratory wheezes, bibasilar Rales, no accessory muscle use, sternotomy scar midline, chest tube noted on right mid chest area Abdominal: soft, nondistended, nontender to palpation, no guarding Ext: muscle strength 5 out of 5 in all 4 extremities grossly, no gross muscle atrophy, no contractures, positive dorsalis pedis pulse bilateral, no edema Neuro: Cannot assess Psych: Cannot assess Assessment/Plan: 74-year-old male with COPD, solitary lung nodule here for evaluation acute respiratory failure due to pneumothorax now intubated and mechanically ventilated on admission #. Acute hypoxic respiratory failure secondary to right-sided pneumothorax -Chest x-ray today showed stable mild to moderate acute cardiopulmonary disease which are extensive stable subcutaneous emphysema with no definite pneumothorax, no change in a small retrocardiac infiltrate consistent with pneumonia/atelectasis. -Continue supplemental oxygenation as needed. Currently on mechanical vent ilation and on sedation -Placed on Propofol IV and fentanyl IV drip -Solu-Medrol 60 mg IV every 6 hours per pulmonology -Cardiac telemetry -Consult pulmonary for ICU care #. Hypermagnesemia -Magnesium 2.5 -> 2.4 -Monitor magnesium levels #. Hyperglycemia -Due to steroid use -Glucose 172 -A1c 5.8 -Monitor BMP Chronic Conditions: #. COPD #. GERD #. Hyperlipidemia #. Hypertension #. CAD -Currently on Plavix. Will hold for now given recent biopsy -Not on aspirin. Initiate ASA 81mg PO daily F: None for now E: Monitor electrolytes particularly magnesium N: N.p.o. DVT ppx: Lovenox 40 mg subcu daily GI ppx: Protonix 40 mg IV daily Dispo: The patient is admitted with an anticipated greater than 2 midnight stay for evaluation of ARF due to pneumothorax CODE STATUS: Full Anticipated discharge place: [facility] Liliam Coates MD PGY-1 IM Dictation was produced using [employer] dictation software. please excuse any grammatical, word or spelling errors. I saw and evaluated the patient during the sloan and critical portions of this encounter, and discussed the case in detail with the resident author of this note, I agree with the Assessment and Plan, and my changes, if any, are highlighted in blue. Objective - Vital Signs Vital signs: Vital Signs Temp 98.6 F 09/27/24 04:00 Pulse 74 09/27/24 06:30 Resp 20 09/27/24 06:30 BP 107/60 09/27/24 04:00 Pulse Ox 94 L 09/27/24 06:30 FiO2 70 09/27/24 06:21 Intake & Output 09/26/24 09/27/24 09/27/24 18:59 06:59 18:59 Intake Total 236.571 797.170 Output Total 700 335 Balance -463.429 462.170 Weight 93.894 kg 89.8 kg Intake: IV 80 273 0.9 KVO 80 240 0.9 saline pressure bag 33 Intake, IV Titration 96.571 244.170 Amount fentaNYL (PF). 1,000 mcg 68.308 In Sodium Chloride 0.9% 80 ml @ 0.5 MCG/KG/HR 4. 695 mls/hr IV .[id number] [facility] Rx#:[id number] propofoL 1,000 mg In 96.571 175.862 Empty Bag 1 bag @ 15 MCG/ KG/MIN 8.45 mls/hr IV . [id number] [facility] Rx#:[id number] Tube Feeding 30 190 Other 30 90 Output: Urine 700 335 Uretheral (Al) 400 Other: Voiding Method Indwelling Catheter Indwelling Catheter ABP, PAP, CO, CI - Last Documented Arterial Blood Pressure 125/45 - Labs CBC & Chem 7: 09/27/24 04:52 09/27/24 04:52 Labs: Abnormal Lab Results - Last 24 Hours (Table) 09/26/24 09/26/24 09/26/24 Range/Units 11:47 11:47 11:47 WBC 16.2 H (3.8-10.6) k/uL RBC (4.30-5.90) m/uL Neutrophils # 15.1 H (1.3-7.7) k/uL Lymphocytes # 0.6 L (1.0-4.8) k/uL ABG pH (7.35-7.45) ABG pCO2 (35-45) mmHg ABG pO2 (83-108) mmHg ABG HCO3 (21-25) mmol/L ABG O2 Saturation (94-97) % Sodium 135 L (137-145) mmol/L Carbon Dioxide (22-30) mmol/L Glucose 152 H (74-99) mg/dL POC Glucose (mg/dL) (70-110) mg/dL Plasma Lactic Acid Catrachito 2.2 H* (0.7-2.0) mmol/L Calcium (8.4-10.2) mg/dL Magnesium 2.5 H (1.6-2.3) mg/dL 09/26/24 09/26/24 09/26/24 Range/Units 12:07 14:11 17:28 WBC (3.8-10.6) k/uL RBC (4.30-5.90) m/uL Neutrophils # (1.3-7.7) k/uL Lymphocytes # (1.0-4.8) k/uL ABG pH 7.24 L (7.35-7.45) ABG pCO2 53 H (35-45) mmHg ABG pO2 164 H (83-108) mmHg ABG HCO3 (21-25) mmol/L ABG O2 Saturation 99.3 H (94-97) % Sodium (137-145) mmol/L Carbon Dioxide (22-30) mmol/L Glucose (74-99) mg/dL POC Glucose (mg/dL) 150 H 157 H (70-110) mg/dL Plasma Lactic Acid Catrachito (0.7-2.0) mmol/L Calcium (8.4-10.2) mg/dL Magnesium (1.6-2.3) mg/dL 09/27/24 09/27/24 09/27/24 Range/Units 04:52 04:52 04:52 WBC 14.0 H (3.8-10.6) k/uL RBC 4.19 L (4.30-5.90) m/uL Neutrophils # 13.2 H (1.3-7.7) k/uL Lymphocytes # 0.4 L (1.0-4.8) k/uL ABG pH (7.35-7.45) ABG pCO2 (35-45) mmHg ABG pO2 (83-108) mmHg ABG HCO3 (21-25) mmol/L ABG O2 Saturation (94-97) % Sodium 135 L (137-145) mmol/L Carbon Dioxide 19 L (22-30) mmol/L Glucose 167 H (74-99) mg/dL POC Glucose (mg/dL) (70-110) mg/dL Plasma Lactic Acid Catrachito (0.7-2.0) mmol/L Calcium 7.9 L (8.4-10.2) mg/dL Magnesium 2.4 H (1.6-2.3) mg/dL 09/27/24 09/27/24 Range/Units 04:54 06:15 WBC (3.8-10.6) k/uL RBC (4.30-5.90) m/uL Neutrophils # (1.3-7.7) k/uL Lymphocytes # (1.0-4.8) k/uL ABG pH 7.34 L (7.35-7.45) ABG pCO2 (35-45) mmHg ABG pO2 55 L* (83-108) mmHg ABG HCO3 20 L (21-25) mmol/L ABG O2 Saturation 88.4 L (94-97) % Sodium (137-145) mmol/L Carbon Dioxide (22-30) mmol/L Glucose (74-99) mg/dL POC Glucose (mg/dL) 170 H (70-110) mg/dL Plasma Lactic Acid Catrachito (0.7-2.0) mmol/L Calcium (8.4-10.2) mg/dL Magnesium (1.6-2.3) mg/dL
--- NOTE | 2024-09-27 13:25 | P.PN ---
Subjective Progress Note Date: 09/27/24 Principal diagnosis: Respiratory failure, subcutaneous emphysema. Pulmonary consult dated September 26, 2024. 74-year-old male transferred from an outside hospital, with a right-sided pneumothorax. The patient apparently had a bronchoscopy yesterday, and, developed a moderate size right-sided pneumothorax, and had a Thora vent placed by my partner. The patient developed respiratory distress, over the night, and went into the outside hospital, where he was found to have significant facial edema and swelling. Initially, he was treated for anaphylaxis, but apparently they soon realized that he developed subcutaneous emphysema. For worsening respiratory status, and impending respiratory failure, the patient was intubated with #6-1/2 endotracheal tube, for airway protection. In addition, a very small 20 Armenian chest tube was placed in the right chest area. The right sided Thora vent was still in place. The patient was flown over to our hospital, and we greeted the patient, in the emergency department. The patient was connected to the ventilator, with settings of volume assist-control, rate 16, tidal volume 450, FiO2 100% PEEP of 5. There was significant variations in exhaled tidal volumes. Initially, we went ahead and replaced the right sided chest tube, whi ch was nonfunctional, and not even in the pleural space. We placed a 28 Armenian chest tube, in its place, and eventually removed the 20 Armenian chest tube that was placed at the outside hospital. The Thora vent device also was nonfunctional, that was removed. Next, we placed a left subclavian triple-lumen catheter, and a right radial art line. Finally, the patient was intubated with a 6-1/2 endotracheal tube, and we used the endotracheal tube changer, the place at 8 tube. The patient was placed on propofol, and also received some paralytic, and some Dilaudid. The patient is currently stable. Chest x-ray has been done. Blood work has been done. Blood gases have been done. The patient will eventually be transferred up to the intensive care unit. Blood gas showed a pO2 of 164, pCO2 of 53, pH is 7.24. AC 16, tidal volume 400, FiO2 100%, PEEP of 5. The rate was increased to 20, the FiO2 was dropped down to 60%. White count 16.2, hemoglobin 15.2, hematocrit 47.2, and platelet count 258,000. Coagulation studies were normal. Sodium 135, potassium 4.5, chlorides 104, CO2 22, BUN 12, creatinine 0.74. Glucose 152. Lactic acid 2.2. Magnesium 2.5. Chest x-ray showed extensive subcutaneous emphysema, no obvious pneumothorax, a properly placed endotracheal tube, and a properly placed left subclavian triple- lumen catheter. Progress note dated September 27, 2024. The patient was seen in consultation on September 26, 2024. Please see his note above. The patient recently underwent robotic bronchoscopy, for a lesion in the right upper lobe, and the patient sustained a pneumothorax on the right side, and a Thora vent was placed. The patient ended up developing respiratory distress, subcutaneous emphysema, ended up at an outside hospital, initially treated for anaphylaxis, and then for barotrauma. The patient was intubated and had a right sided chest tube placed, and was flown down to [facility]. In the emergency department, we placed a 28 Armenian right-sided chest tube, placed a right radial art line and a left central venous catheter, and changes a 6-1/2 endotracheal tube with an 8 endotracheal tube. The patient is seen in the intensive care unit today. He is on volume assist-control, rate 20, tidal volume 400, FiO2 60%, PEEP of 5. Blood gases show pO2 of 55, pCO2 36, pH of 7.34. The FiO2 was increased to 70% by the respiratory therapist. I increased the PEEP to 8, and told the respiratory therapist to start weaning the FiO2, as long as her saturations were 90% or higher. The patient is on fentanyl at 1.5 mcg/kg/h, saline at 20 cc an hour, and propofol at 40 mcg/kg/min. We will check a procalcitonin level. The patient was started on vital HP, at 30 with a goal of 61. White count 14, hemoglobin 13.3, hematocrit 40.9, platelet count finger 18,000. Sodium 135, potassium 4.3, chlorides 107, CO2 19, anion gap 9, BUN 18, creatinine 0.88. Glucose is 158. Magnesium is 2.4. Chest x-ray shows no change in the patient's left-sided central line or right sided chest tube. There is no pneumothorax. There is extensive subcutaneous emphysema. Objective - Vital Signs Vital signs: Vital Signs Temp 98.0 F 09/27/24 12:00 Pulse 102 H 09/27/24 12:30 Resp 21 09/27/24 12:30 BP 107/60 09/27/24 04:00 Pulse Ox 90 L 09/27/24 12:30 FiO2 70 09/27/24 12:00 Intake & Output 09/26/24 09/27/24 09/27/24 18:59 06:59 18:59 Intake Total 236.571 797.170 549.200 Output Total 700 335 130 Balance -463.429 462.170 419.200 Weight 93.894 kg 89.8 kg Intake: IV 80 273 138 0.9 KVO 80 240 120 0.9 saline pressure bag 33 18 Intake, IV Titration 96.571 244.170 211.200 Amount fentaNYL (PF). 1,000 mcg 68.308 80.826 In Sodium Chloride 0.9% 80 ml @ 0.5 MCG/KG/HR 4. 695 mls/hr IV .[id number] [facility] Rx#:[id number] propofoL 1,000 mg In 96.571 175.862 130.374 Empty Bag 1 bag @ 15 MCG/ KG/MIN 8.45 mls/hr IV . [id number] [facility] Rx#:[id number] Tube Feeding 30 190 170 Other 30 90 30 Output: Urine 700 335 130 Uretheral (Al) 400 Other: Voiding Method Indwelling Catheter Indwelling Catheter ABP, PAP, CO, CI - Last Documented Arterial Blood Pressure 129/49 - Exam No acute distress, sedated with an orally placed endotracheal tube. HEENT examination is grossly unremarkable. Mucous membranes are moist. No oral lesions. Neck supple. Full range of motion. No adenopathy thyromegaly or neck vein distention. Cardiovascular examination reveals regular rhythm rate. S1-S2 normal. No S3 or S4. No discernible murmur noted. Lungs reveal bilateral rhonchi and expiratory wheezes. Breath sounds are equal but diminished throughout. No crackles. Extensive subcutaneous emphysema in the neck, and chest area. Abdomen soft bowel sounds are heard. No masses or tenderness. Extremities are intact. No cyanosis clubbing or edema. Skin is without rash or lesion. Neurologic examination cannot be evaluated at this time. - Labs CBC & Chem 7: 09/27/24 04:52 09/27/24 04:52 Labs: Abnormal Lab Results - Last 24 Hours (Table) 09/26/24 09/26/24 09/27/24 Range/Units 14:11 17:28 04:52 WBC (3.8-10.6) k/uL RBC (4.30-5.90) m/uL Neutrophils # (1.3-7.7) k/uL Lymphocytes # (1.0-4.8) k/uL ABG pH (7.35-7.45) ABG pO2 (83-108) mmHg ABG HCO3 (21-25) mmol/L ABG O2 Saturation (94-97) % Sodium (137-145) mmol/L Carbon Dioxide (22-30) mmol/L Glucose (74-99) mg/dL POC Glucose (mg/dL) 150 H 157 H (70-110) mg/dL Calcium (8.4-10.2) mg/dL Magnesium 2.4 H (1.6-2.3) mg/dL 09/27/24 09/27/24 09/27/24 Range/Units 04:52 04:52 04:54 WBC 14.0 H (3.8-10.6) k/uL RBC 4.19 L (4.30-5.90) m/uL Neutrophils # 13.2 H (1.3-7.7) k/uL Lymphocytes # 0.4 L (1.0-4.8) k/uL ABG pH (7.35-7.45) ABG pO2 (83-108) mmHg ABG HCO3 (21-25) mmol/L ABG O2 Saturation (94-97) % Sodium 135 L (137-145) mmol/L Carbon Dioxide 19 L (22-30) mmol/L Glucose 167 H (74-99) mg/dL POC Glucose (mg/dL) 170 H (70-110) mg/dL Calcium 7.9 L (8.4-10.2) mg/dL Magnesium (1.6-2.3) mg/dL 09/27/24 09/27/24 Range/Units 06:15 11:42 WBC (3.8-10.6) k/uL RBC (4.30-5.90) m/uL Neutrophils # (1.3-7.7) k/uL Lymphocytes # (1.0-4.8) k/uL ABG pH 7.34 L (7.35-7.45) ABG pO2 55 L* (83-108) mmHg ABG HCO3 20 L (21-25) mmol/L ABG O2 Saturation 88.4 L (94-97) % Sodium (137-145) mmol/L Carbon Dioxide (22-30) mmol/L Glucose (74-99) mg/dL POC Glucose (mg/dL) 158 H (70-110) mg/dL Calcium (8.4-10.2) mg/dL Magnesium (1.6-2.3) mg/dL Assessment and Plan Assessment: Acute hypoxemic respiratory failure, secondary to right-sided pneumothorax, with extensive subcutaneous emphysema, requiring intubation, mechanical ventilation, September 26, 2024. S/P flexible bronchoscopy, robotically assisted bronchoscopy with radial ultrasound evaluation of the right upper lobe pulmonary nodule, robotically assisted transbronchial needle aspiration, transbronchial biopsy, and BAL, September 25, 2024. Right upper lobe pulmonary nodule. History of chronic obstructive pulmonary disease. History of hypertension. History of hyperlipidemia. History of gastroesophageal reflux disease. History of coronary artery disease, with previous CABG, 2018. Peripheral vascular occlusive disease. History of tobacco use. History of glaucoma. Plan: Plan dated September 26, 2024. The patient presented to an outside hospital, with shortness of breath and facial swelling. He was initially treated for anaphylaxis. He did not respond to that treatment, and they realized the patient had developed subcutaneous emphysema. For worsening respiratory failure, the patient was intubated with #6-1/2 endotracheal tube, and a right sided chest tube was placed. It was a #20 Armenian chest tube. [facility] was called, and the patient was flown from [facility], down to [facility], and we greeted him in the emergency department, and did a number of things including replacing the nonfunctional #20 Armenian right-sided chest tube with a 28 Armenian chest tube. We removed the Thora vent. We placed a right radial art line and a left subclavian triple-lumen catheter. We also reintubated the patient as the patient had a 6-1/[address]. The patient was placed on a number of medications occluding Dilaudid, propofol, and received paralytic in the emergency department. The patient will be transferred up into the intensive care unit. I did let Dr. Goodman know about his patient. Additional recommendations and suggestions are forthcoming. Prognosis is guarded. Dictation was produced using [employer] software. Please excuse any grammatical, word or spelling errors. Plan dated September 27, 2024. I was able to speak to the patient's yesterday. The patient is currently in the intensive care unit, room 259. He is intubated and sedated. His gases were borderline today, and respiratory therapy increases FiO2 to 70% earlier this morning. On rounds today, we increased the PEEP from 5-8, and have asked respiratory to start weaning the FiO2, as long as her saturations are 90% or higher. The patient is receiving appropriate therapy, including fentanyl drip, propofol drip, and tube feedings. Will check a procalcitonin level. Labs, x- rays, and all medications are reviewed. We will continue to follow make recommendations along the way. Prognosis is guarded. Subcutaneous emphysema is much improved. Chest x-ray did not reveal any pneumothorax. Dictation was produced using [employer] software. Please excuse any grammatical, word or spelling errors. Time with Patient: Greater than 30
[2024-09-27] MEDS: LACTATED RINGERS 1,000 ML IV ONE (13:56)
[2024-09-27] MEDS: CISATRACURIUM 200 MG in SODIUM CHLORIDE 0.9% 180 ML IV SCH (14:31)
[2024-09-27] MEDS: CISATRACURIUM 2 MG/ML 5 ML VIAL IV ONE (14:32)
[2024-09-27] MEDS: ARTIFICIAL TEARS-HYPROMELLOSE DROPS 15 ML BTL BOTH EYES SCH (16:31)
--- NOTE | 2024-09-27 17:01 | XR ---
EXAMINATION TYPE: XR abdomen 1V DATE OF EXAM: 09/27/2024 4:53 PM COMPARISON: None. CLINICAL INDICATION: Male, 74 years old with history of SBO; PHH, pain TECHNIQUE: One radiographic view of the abdomen was obtained. FINDINGS: Nonobstructive bowel gas pattern. Moderate diffuse colonic stool burden. The visualized right-sided chest tube and patchy opacities in the bilateral lungs. Extensive subcutan eous emphysema on the right chest wall partially visualized. Al catheter in place. Moderate degene rative changes. Lumbosacral spine degenerative changes. IMPRESSION: Nonspecific bowel gas pattern without radiographic evidence for acute process. [facility], , 09/27/2024 4:58 PM
[2024-09-27 17:39] LABS: Glucose,Whole Blood 132 mg/dL (70-110)
[2024-09-27] MEDS: METOCLOPRAMIDE 5 MG/ML 2 ML VIAL IVP SCH (18:24)
[2024-09-27] MEDS: NOREPINEPHRINE 4 MG in SODIUM CHLORIDE 0.9% 250 ML IV SCH (18:36)
[2024-09-27 23:17] LABS: Glucose,Whole Blood 164 mg/dL (70-110)
[2024-09-28 05:23] LABS: Glucose,Whole Blood 175 mg/dL (70-110)
[2024-09-28 05:39] LABS: Glucose,Whole Blood 172 mg/dL (70-110)
[2024-09-28 05:49] LABS: HCT 45.6 % (39.0-53.0); HGB 14.2 gm/dL (13.0-17.5); Hypochromasia Moderate; MCH 31.5 pg (25.0-35.0); MCV 101.5 fL (80.0-100.0); Mean Platelet Volume 7.4; Platelet Count 210 k/uL (150-450); RDW 12.9 % (11.5-15.5); WBC 3.1 k/uL (3.8-10.6)
[2024-09-28 05:59] LABS: ABG Base Excess -8.1 mmol/L; ABG HCO3 23 mmol/L (21-25); ABG Oxygen Saturation 87.7 % (94-97); ABG TCO2 25 mmol/L (19-24); Allen Test Performed? Yes
[2024-09-28 06:01] LABS: ABG PCO2 73 mmHg (35-45); ABG PH 7.11 (7.35-7.45); ABG PO2 59 mmHg (83-108)
[2024-09-28 06:26] LABS: African American GFR (CKD) >90 (>60 ml/min/1.73 sqM); Anion Gap 7 mmol/L; Blood Urea Nitrogen 21 mg/dL (9-20); Calcium 7.7 mg/dL (8.4-10.2); Carbon Dioxide 23 mmol/L (22-30); Chloride 105 mmol/L (98-107); Glucose 189 mg/dL (74-99); Magnesium 2.5 mg/dL (1.6-2.3); Non-African American GFR(CKD) 86 (>60 ml/min/1.73 sqM); Sodium 135 mmol/L (137-145)
[2024-09-28 06:44] LABS: Band Neutrophils % 29 %; Basophils # (M) 0.03 k/uL (0-0.2); Lymphocytes # (M) 0.09 k/uL (1.0-4.8); Metamyelocytes # (M) 0.06 k/uL (0); Metamyelocytes % 2 %; Monocytes # (M) 0.06 k/uL (0-1.0); Myelocytes # (M) 0.03 k/uL (0); Myelocytes % 1 %; Neutrophils % (M) 62 %; Nucleated Red Blood Cells 0 /100 WBC (0-0); Total Cells Counted 200
--- NOTE | 2024-09-28 06:51 | XR ---
EXAMINATION TYPE: XR chest 1V portable DATE OF EXAM: 09/28/2024 COMPARISON: 09/27/2024 CLINICAL INDICATION: Male, 74 years old with history of Pneumothorax; TECHNIQUE: Single frontal view of the chest is obtained. FINDINGS: ET tube is 4.5 cm above the nicci. There is an NG tube within the stomach. There is no change in the right-sided chest tube. No change in the left central venous catheter tip in the SVC/RA junction. There is increasing airspace consolidation in the right lung base. Left retrocardiac consolidation is stable. There are probable small effusions. There is no pneumothorax. Stable pulmonary vascular radha estion. There is slight improvement in the diffuse subcutaneous emphysema. IMPRESSION: 1. ET tube 4.5 cm above the nicci. NG tube within the stomach. No change in the right chest tube. 2. Interval worsening in the acute cardiopulmonary process primarily in the right lung base as descri bed above. [facility], Workstation: ROSEMARY 09/28/2024 6:49 AM
[2024-09-28 09:31] LABS: ABG HCO3 22 mmol/L (21-25); ABG Oxygen Saturation 87.2 % (94-97); ABG PCO2 57 mmHg (35-45); ABG TCO2 24 mmol/L (19-24); Allen Test Performed? Yes
[2024-09-28 09:34] LABS: ABG PH 7.19 (7.35-7.45)
[2024-09-28 09:35] LABS: ABG PO2 53 mmHg (83-108)
[2024-09-28] MEDS ORDERED: VANCOMYCIN IV PER PHARMACY 1 EACH MISC MISCELLANE PRN (11:05)
[2024-09-28 11:35] LABS: Glucose,Whole Blood 153 mg/dL (70-110)
--- NOTE | 2024-09-28 12:18 | P.PN ---
Subjective Progress Note Date: 09/28/24 Principal diagnosis: Respiratory failure, subcutaneous emphysema. Pulmonary consult dated September 26, 2024. 74-year-old male transferred from an outside hospital, with a right-sided pneumothorax. The patient apparently had a bronchoscopy yesterday, and, developed a moderate size right-sided pneumothorax, and had a Thora vent placed by my partner. The patient developed respiratory distress, over the night, and went into the outside hospital, where he was found to have significant facial edema and swelling. Initially, he was treated for anaphylaxis, but apparently they soon realized that he developed subcutaneous emphysema. For worsening respiratory status, and impending respiratory failure, the patient was intubated with #6-1/2 endotracheal tube, for airway protection. In addition, a very small 20 Stateless chest tube was placed in the right chest area. The right sided Thora vent was still in place. The patient was flown over to our hospital, and we greeted the patient, in the emergency department. The patient was connected to the ventilator, with settings of volume assist-control, rate 16, tidal volume 450, FiO2 100% PEEP of 5. There was significant variations in exhaled tidal volumes. Initially, we went ahead and replaced the right sided chest tube, whi ch was nonfunctional, and not even in the pleural space. We placed a 28 Stateless chest tube, in its place, and eventually removed the 20 Stateless chest tube that was placed at the outside hospital. The Thora vent device also was nonfunctional, that was removed. Next, we placed a left subclavian triple-lumen catheter, and a right radial art line. Finally, the patient was intubated with a 6-1/2 endotracheal tube, and we used the endotracheal tube changer, the place at 8 tube. The patient was placed on propofol, and also received some paralytic, and some Dilaudid. The patient is currently stable. Chest x-ray has been done. Blood work has been done. Blood gases have been done. The patient will eventually be transferred up to the intensive care unit. Blood gas showed a pO2 of 164, pCO2 of 53, pH is 7.24. AC 16, tidal volume 400, FiO2 100%, PEEP of 5. The rate was increased to 20, the FiO2 was dropped down to 60%. White count 16.2, hemoglobin 15.2, hematocrit 47.2, and platelet count 258,000. Coagulation studies were normal. Sodium 135, potassium 4.5, chlorides 104, CO2 22, BUN 12, creatinine 0.74. Glucose 152. Lactic acid 2.2. Magnesium 2.5. Chest x-ray showed extensive subcutaneous emphysema, no obvious pneumothorax, a properly placed endotracheal tube, and a properly placed left subclavian triple- lumen catheter. Progress note dated September 27, 2024. The patient was seen in consultation on September 26, 2024. Please see his note above. The patient recently underwent robotic bronchoscopy, for a lesion in the right upper lobe, and the patient sustained a pneumothorax on the right side, and a Thora vent was placed. The patient ended up developing respiratory distress, subcutaneous emphysema, ended up at an outside hospital, initially treated for anaphylaxis, and then for barotrauma. The patient was intubated and had a right sided chest tube placed, and was flown down to [facility]. In the emergency department, we placed a 28 Stateless right-sided chest tube, placed a right radial art line and a left central venous catheter, and changes a 6-1/2 endotracheal tube with an 8 endotracheal tube. The patient is seen in the intensive care unit today. He is on volume assist-control, rate 20, tidal volume 400, FiO2 60%, PEEP of 5. Blood gases show pO2 of 55, pCO2 36, pH of 7.34. The FiO2 was increased to 70% by the respiratory therapist. I increased the PEEP to 8, and told the respiratory therapist to start weaning the FiO2, as long as her saturations were 90% or higher. The patient is on fentanyl at 1.5 mcg/kg/h, saline at 20 cc an hour, and propofol at 40 mcg/kg/min. We will check a procalcitonin level. The patient was started on vital HP, at 30 with a goal of 61. White count 14, hemoglobin 13.3, hematocrit 40.9, platelet count finger 18,000. Sodium 135, potassium 4.3, chlorides 107, CO2 19, anion gap 9, BUN 18, creatinine 0.88. Glucose is 158. Magnesium is 2.4. Chest x-ray shows no change in the patient's left-sided central line or right sided chest tube. There is no pneumothorax. There is extensive subcutaneous emphysema. Progress note dated September 28, 2024. 74-year-old male seen today in room 259. The patient remains on mechanical ventilation. He is on volume assist-control, rate 28, tidal volume 400, FiO2 100%, and PEEP of 10. Blood gases, show pO2 of 59, pCO2 73, and pH is 7.11. Both blood gases were done on a PEEP of 8, and a volume assist-control of 20. The patient is getting fentanyl at 2 mcg/kg/h, propofol at 50 mcg/kg/min, Nimbex at 0.5 mcg/kg/min, and norepinephrine at 4.5 mcg/min. The patient is also getting saline at 30 cc an hour, and vital high-protein at 10 cc an hour. The right chest tube remains in place. There is an intermittent leak. Repeat blood gases show pO2 of 53, pCO2 of 57, pH is 7.19. The PEEP was increased to 13, and the rate up to 30. We will recheck blood gases later today. White count is 4.1, hemoglobin 14.2, hematocrit 45.6, platelet count 310,000. Sodium 135, pota ssium 5, chlorides 105, CO2 23, BUN 21, and creatinine 0.83. Glucose is 153. Calcium is 7.7. Magnesium 2.5, and procalcitonin level is 17.90. Chest x-ray shows that the endotracheal tube is 4-1/2 cm above the tracheal nicci. The NG tube is in the stomach. The right sided chest tube remains in place. There appears to be infiltrate, at the right lung base. Objective - Vital Signs Vital signs: Vital Signs Temp 94.4 F L 09/28/24 08:00 Pulse 100 09/28/24 11:52 Resp 30 H 09/28/24 10:00 BP 108/56 09/28/24 08:30 Pulse Ox 96 09/28/24 10:00 FiO2 100 09/28/24 11:33 Intake & Output 09/27/24 09/28/24 09/28/24 17:59 06:59 18:59 Intake Total 531.064 Output Total 155 Balance 376.064 Weight Intake: IV 132 0.9 KVO 120 0.9 saline pressure bag 12 Lactated Ringers 1,000 ml @ 999 mls/hr IV .Q1H1M ONE Rx#:[id number] Intake, IV Titration 379.064 Amount Cisatracurium 200 mg In Sodium Chloride 0.9% 180 ml @ 1 MCG/KG/MIN 5.388 mls/hr IV .Q24H [facility] Rx#: [id number] Norepinephrine 4 mg In 202.543 Sodium Chloride 0.9% 250 ml @ 0.03 MCG/KG/MIN 10. 264 mls/hr IV .Q24H [facility] Rx#:[id number] fentaNYL (PF). 1,000 mcg 73.238 In Sodium Chloride 0.9% 80 ml @ 0.5 MCG/KG/HR 4. 695 mls/hr IV .[id number] [facility] Rx#:[id number] propofoL 1,000 mg In 103.283 Empty Bag 1 bag @ 15 MCG/ KG/MIN 8.45 mls/hr IV . [id number] [facility] Rx#:[id number] Tube Feeding 20 Other Output: Chest Tube Drainage 10 Right 10 Urine 145 Emesis Other: Voiding Method Indwelling Catheter ABP, PAP, CO, CI - Last Documented Arterial Blood Pressure 111/46 - Exam No acute distress, sedated and paralyzed with an orally placed endotracheal tube. HEENT examination is grossly unremarkable. Mucous membranes are moist. No oral lesions. Neck supple. Full range of motion. No adenopathy thyromegaly or neck vein distention. Cardiovascular examination reveals regular rhythm rate. S1-S2 normal. No S3 or S4. No discernible murmur noted. Lungs reveal bilateral rhonchi and expiratory wheezes. Breath sounds are equal but diminished throughout. No crackles. Extensive subcutaneous emphysema in the neck, and chest area, have improved. Abdomen soft bowel sounds are heard. No masses or tenderness. Extremities are intact. No cyanosis clubbing or edema. Skin is without rash or lesion. Neurologic examination cannot be evaluated at this time. - Labs CBC & Chem 7: 09/28/24 05:15 09/28/24 05:15 Labs: Abnormal Lab Results - Last 24 Hours (Table) 09/27/24 09/27/24 09/27/24 Range/Units 11:42 17:37 23:16 WBC (3.8-10.6) k/uL MCV (80.0-100.0) fL Lymphocytes # (Manual) (1.0-4.8) k/uL Metamyelocytes # (Man) (0) k/uL Myelocytes # (Manual) (0) k/uL ABG pH (7.35-7.45) ABG pCO2 (35-45) mmHg ABG pO2 (83-108) mmHg ABG Total CO2 (19-24) mmol/L ABG O2 Saturation (94-97) % Sodium (137-145) mmol/L BUN (9-20) mg/dL Glucose (74-99) mg/dL POC Glucose (mg/dL) 158 H 132 H 164 H (70-110) mg/dL Calcium (8.4-10.2) mg/dL Magnesium (1.6-2.3) mg/dL Procalcitonin (0.02-0.50) ng/mL 09/28/24 09/28/24 09/28/24 Range/Units 05:15 05:15 05:20 WBC 3.1 L (3.8-10.6) k/uL MCV 101.5 H (80.0-100.0) fL Lymphocytes # (Manual) 0.09 L (1.0-4.8) k/uL Metamyelocytes # (Man) 0.06 H (0) k/uL Myelocytes # (Manual) 0.03 H (0) k/uL ABG pH (7.35-7.45) ABG pCO2 (35-45) mmHg ABG pO2 (83-108) mmHg ABG Total CO2 (19-24) mmol/L ABG O2 Saturation (94-97) % Sodium 135 L (137-145) mmol/L BUN 21 H (9-20) mg/dL Glucose 189 H (74-99) mg/dL POC Glucose (mg/dL) (70-110) mg/dL Calcium 7.7 L (8.4-10.2) mg/dL Magnesium 2.5 H (1.6-2.3) mg/dL Procalcitonin 17.90 H (0.02-0.50) ng/mL 09/28/24 09/28/24 09/28/24 Range/Units 05:22 05:38 05:56 WBC (3.8-10.6) k/uL MCV (80.0-100.0) fL Lymphocytes # (Manual) (1.0-4.8) k/uL Metamyelocytes # (Man) (0) k/uL Myelocytes # (Manual) (0) k/uL ABG pH 7.11 L* (7.35-7.45) ABG pCO2 73 H* (35-45) mmHg ABG pO2 59 L* (83-108) mmHg ABG Total CO2 25 H (19-24) mmol/L ABG O2 Saturation 87.7 L (94-97) % Sodium (137-145) mmol/L BUN (9-20) mg/dL Glucose (74-99) mg/dL POC Glucose (mg/dL) 175 H 172 H (70-110) mg/dL Calcium (8.4-10.2) mg/dL Magnesium (1.6-2.3) mg/dL Procalcitonin (0.02-0.50) ng/mL 09/28/24 09/28/24 Range/Units 09:26 11:33 WBC (3.8-10.6) k/uL MCV (80.0-100.0) fL Lymphocytes # (Manual) (1.0-4.8) k/uL Metamyelocytes # (Man) (0) k/uL Myelocytes # (Manual) (0) k/uL ABG pH 7.19 L* (7.35-7.45) ABG pCO2 57 H (35-45) mmHg ABG pO2 53 L* (83-108) mmHg ABG Total CO2 (19-24) mmol/L ABG O2 Saturation 87.2 L (94-97) % Sodium (137-145) mmol/L BUN (9-20) mg/dL Glucose (74-99) mg/dL POC Glucose (mg/dL) 153 H (70-110) mg/dL Calcium (8.4-10.2) mg/dL Magnesium (1.6-2.3) mg/dL Procalcitonin (0.02-0.50) ng/mL Microbiology - Last 24 Hours (Table) 09/27/24 08:05 Gram Stain - Preliminary Sputum Assessment and Plan Assessment: Acute hypoxemic respiratory failure, secondary to right-sided pneumothorax, with extensive subcutaneous emphysema, requiring intubation, mechanical ventilation, September 26, 2024. S/P flexible bronchoscopy, robotically assisted bronchoscopy with radial ultrasound evaluation of the right upper lobe pulmonary nodule, robotically assisted transbronchial needle aspiration, transbronchial biopsy, and BAL, September 25, 2024. Rule out right lower lobe pneumonia, secondary to aspiration. Right upper lobe pulmonary nodule. History of chronic obstructive pulmonary disease. History of hypertension. History of hyperlipidemia. History of gastroesophageal reflux disease. History of coronary artery disease, with previous CABG, 2018. Peripheral vascular occlusive disease. History of tobacco use. History of glaucoma. Plan: Plan dated September 26, 2024. The patient presented to an outside hospital, with shortness of breath and facial swelling. He was initially treated for anaphylaxis. He did not respond to that treatment, and they realized the patient had developed subcutaneous emphysema. For worsening respiratory failure, the patient was intubated with #6-1/2 endotracheal tube, and a right sided chest tube was placed. It was a #20 Stateless chest tube. [place] transport was called, and the patient was flown from [facility], down to [facility], and we greeted him in the emergency department, and did a number of things including replacing the nonfunctional #20 Stateless right-sided chest tube with a 28 Stateless chest tube. We removed the Thora vent. We placed a right radial art line and a left subclavian triple-lumen catheter. We also reintubated the patient as the patient had a 6-1/[address]. The patient was placed on a number of medications occluding Dilaudid, propofol, and received paralytic in the emergency department. The patient will be transferred up into the intensive care unit. I did let Dr. Goodman know about his patient. Additional recommendations and suggestions are forthcoming. Prognosis is guarded. Dictation was produced using [employer] dictation software. Please excuse any grammatical, word or spelling errors. Plan dated September 27, 2024. I was able to speak to the patient's yesterday. The patient is currently in the intensive care unit, room 259. He is intubated and sedated. His gases were borderline today, and respiratory therapy increases FiO2 to 70% earlier this morning. On rounds today, we increased the PEEP from 5-8, and have asked respiratory to start weaning the FiO2, as long as her saturations are 90% or higher. The patient is receiving appropriate therapy, including fentanyl drip, propofol drip, and tube feedings. Will check a procalcitonin level. Labs, x- rays, and all medications are reviewed. We will continue to follow make recommendations along the way. Prognosis is guarded. Subcutaneous emphysema is much improved. Chest x-ray did not reveal any pneumothorax. Dictation was produced using [employer] software. Please excuse any grammatical, word or spelling errors. Plan dated September 28, 2024. The patient is seen today in room 259. Blood gases this morning showed hypoxemia and hypercapnia, and there were ventilator changes made. In addition, the chest x-ray showed a right lower lobe infiltrate, possibly from aspiration. The patient remains on fentanyl, propofol, Nimbex, and norepinephrine. The patient is getting vital high-protein at 10 cc an hour. The right chest tube does have output, and there is an intermittent leak. Most recently the PEEP was increased to 13, and the respiratory rate on the ventilator up to 30. Labs, x- rays, and all medications are reviewed. Subcutaneous emphysema is improved. The patient is currently on ceftriaxone, and vancomycin. The patient's procalcitonin level was quite elevated. We will continue to follow make recommendations along the way. Prognosis is certainly very guarded. I did speak to the patient's a few days ago. Dictation was produced using [employer] software. Please excuse any grammatical, word or spelling errors. Time with Patient: Greater than 30
--- NOTE | 2024-09-28 12:34 | P.PN ---
Subjective Progress Note Date: 09/28/24 Patient is seen today in the ICU - borderline oxygen saturation despite increasing PEEP and FiO2. Code status being discussed with family. CXR today reviewed and independently interpreted, ongoing pneumothorax, new infiltrate of the right lower lobe. General: intubated, sedated HEENT: normocephalic, atraumatic, no tracheal deviation Respiratory: symmetric chest rise, no cyanosis, ventilator dependent CVS: perfusing all extremities, no distal gangrene, no pitting edema GI: soft, ND : no SPT, no CVAT, gardiner is present Neuro: sedated Hospital course: Patient is a 74-year-old male with COPD, GERD, hyperlipidemia, hypertension, CAD (CABG and heart cath), current everyday smoker here for evaluation of difficulty of breathing and subcutaneous air within the chest and neck. Per family at bed side, Patient had bronchoscopy and right-sided pneumothorax yesterday 09/25 at our institution for lung biopsy of the right upper lobe lung nodule with 1.2 cm in size. He developed a pneumothorax post-op and was placed on a thora vent on discharge. 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 He was noted to be awake and alert during this time and did not have any other associated symptoms. He was transferred from [place] and was reported to have right-sided pneumothorax, subcutaneous air and ventilator dependent acute respiratory failure. He was intubated prior to transfer and right-sided chest tube was placed. He was transferred for evaluation by pulmonology. Patient was life flighted here and had stable vitals during transport. Vitals on admission showed pulse rate 66, respiratory rate 18, blood pressure 139/71, O2 saturation 95% on mechanical ventilation FiO2 100%. On admission, chest x-ray showed notable sternotomy and chest tube placement, with subcutaneous emphysema. On admission labs showed WBC 16.2, hemoglobin 15.2, platelet count 258,000. Sodium 135, potassium 4.5, chloride 104, bicarb 22, BUN 12, creatinine 0.74, glucose 152, plasmic lactic acid 2.2, calcium 8.9, magnesium 2.5, albumin 3.9. Patient was admitted to the intensive care unit with hospital course complicated by worsening oxygenation status, right lower lobe infiltrate. Patient's PEEP and FiO2 were titrated accordingly, patient was started on antibiotics. Assessment/Plan: 74-year-old male with COPD, solitary lung nodule here for evaluation acute respiratory failure due to pneumothorax now intubated and mechanically ventilated on admission #. Acute hypoxic respiratory failure secondary to right-sided pneumothorax #. Right lower lobe pneumonia, aspiration versus healthcare acquired #. Right upper lobe pulmonary nodule, status post transbronchial biopsy -Continue supplemental oxygenation as needed. Currently on mechanical ventilation and on sedation -Placed on Propofol IV and fentanyl IV drip, Nimbex drip started -Solu-Medrol 60 mg IV every 6 hours per pulmonology -Cardiac telemetry -Consult pulmonary for ICU care -Start antibiotics today: Vancomycin, ceftriaxone 2 g every 24 hours -Follow-up pathology of nodule #. Hypermagnesemia -Magnesium 2.5 -> 2.4 -Monitor magnesium levels #. Hyperglycemia -Due to steroid use -Glucose 172 -A1c 5.8 -Monitor BMP Chronic Conditions: #. COPD #. GERD #. Hyperlipidemia #. Hypertension #. CAD -Currently on Plavix. Will hold for now given recent biopsy -Not on aspirin. Initiate ASA 81mg PO daily F: None for now E: Monitor electrolytes particularly magnesium N: Tube feeding DVT ppx: Lovenox 40 mg subcu daily GI ppx: Protonix 40 mg IV daily Dispo: The patient is admitted with an anticipated greater than 2 midnight stay for evaluation of ARF due to pneumothorax CODE STATUS: Full Anticipated discharge place: D Dictation was produced using [employer] dictation software. please excuse any grammatical, word or spelling errors. Objective - Vital Signs Vital signs: Vital Signs Temp 94.4 F L 09/28/24 08:00 Pulse 100 09/28/24 11:52 Resp 30 H 09/28/24 10:00 BP 108/56 09/28/24 08:30 Pulse Ox 96 09/28/24 10:00 FiO2 100 09/28/24 11:33 Intake & Output 09/27/24 09/28/24 09/28/24 17:59 06:59 18:59 Intake Total 727.812 Output Total 220 Balance 507.812 Weight Intake: IV 198 0.9 KVO 180 0.9 saline pressure bag 18 Lactated Ringers 1,000 ml @ 999 mls/hr IV .Q1H1M ONE Rx#:[id number] Intake, IV Titration 459.812 Amount Cisatracurium 200 mg In Sodium Chloride 0.9% 180 ml @ 1 MCG/KG/MIN 5.388 mls/hr IV .Q24H [facility] Rx#: [id number] Norepinephrine 4 mg In 202.543 Sodium Chloride 0.9% 250 ml @ 0.03 MCG/KG/MIN 10. 264 mls/hr IV .Q24H [facility] Rx#:[id number] fentaNYL (PF). 1,000 mcg 73.238 In Sodium Chloride 0.9% 80 ml @ 0.5 MCG/KG/HR 4. 695 mls/hr IV .[id number] [facility] Rx#:[id number] propofoL 1,000 mg In 184.031 Empty Bag 1 bag @ 15 MCG/ KG/MIN 8.45 mls/hr IV . [id number] [facility] Rx#:[id number] Tube Feeding 40 Other 30 Output: Chest Tube Drainage 10 Right 10 Urine 210 Emesis Other: Voiding Method Indwelling Catheter ABP, PAP, CO, CI - Last Documented Arterial Blood Pressure 111/46 - Labs CBC & Chem 7: 09/28/24 05:15 09/28/24 05:15 Labs: Abnormal Lab Results - Last 24 Hours (Table) 09/27/24 09/27/24 09/27/24 Range/Units 11:42 17:37 23:16 WBC (3.8-10.6) k/uL MCV (80.0-100.0) fL Lymphocytes # (Manual) (1.0-4.8) k/uL Metamyelocytes # (Man) (0) k/uL Myelocytes # (Manual) (0) k/uL ABG pH (7.35-7.45) ABG pCO2 (35-45) mmHg ABG pO2 (83-108) mmHg ABG Total CO2 (19-24) mmol/L ABG O2 Saturation (94-97) % Sodium (137-145) mmol/L BUN (9-20) mg/dL Glucose (74-99) mg/dL POC Glucose (mg/dL) 158 H 132 H 164 H (70-110) mg/dL Calcium (8.4-10.2) mg/dL Magnesium (1.6-2.3) mg/dL Procalcitonin (0.02-0.50) ng/mL 09/28/24 09/28/2425 Range/Units 05:15 05:15 05:20 WBC 3.1 L (3.8-10.6) k/uL MCV 101.5 H (80.0-100.0) fL Lymphocytes # (Manual) 0.09 L (1.0-4.8) k/uL Metamyelocytes # (Man) 0.06 H (0) k/uL Myelocytes # (Manual) 0.03 H (0) k/uL ABG pH (7.35-7.45) ABG pCO2 (35-45) mmHg ABG pO2 (83-108) mmHg ABG Total CO2 (19-24) mmol/L ABG O2 Saturation (94-97) % Sodium 135 L (137-145) mmol/L BUN 21 H (9-20) mg/dL Glucose 189 H (74-99) mg/dL POC Glucose (mg/dL) (70-110) mg/dL Calcium 7.7 L (8.4-10.2) mg/dL Magnesium 2.5 H (1.6-2.3) mg/dL Procalcitonin 17.90 H (0.02-0.50) ng/mL 09/28/24 09/28/24 09/28/24 Range/Units 05:22 05:38 05:56 WBC (3.8-10.6) k/uL MCV (80.0-100.0) fL Lymphocytes # (Manual) (1.0-4.8) k/uL Metamyelocytes # (Man) (0) k/uL Myelocytes # (Manual) (0) k/uL ABG pH 7.11 L* (7.35-7.45) ABG pCO2 73 H* (35-45) mmHg ABG pO2 59 L* (83-108) mmHg ABG Total CO2 25 H (19-24) mmol/L ABG O2 Saturation 87.7 L (94-97) % Sodium (137-145) mmol/L BUN (9-20) mg/dL Glucose (74-99) mg/dL POC Glucose (mg/dL) 175 H 172 H (70-110) mg/dL Calcium (8.4-10.2) mg/dL Magnesium (1.6-2.3) mg/dL Procalcitonin (0.02-0.50) ng/mL 09/28/24 09/28/24 Range/Units 09:26 11:33 WBC (3.8-10.6) k/uL MCV (80.0-100.0) fL Lymphocytes # (Manual) (1.0-4.8) k/uL Metamyelocytes # (Man) (0) k/uL Myelocytes # (Manual) (0) k/uL ABG pH 7.19 L* (7.35-7.45) ABG pCO2 57 H (35-45) mmHg ABG pO2 53 L* (83-108) mmHg ABG Total CO2 (19-24) mmol/L ABG O2 Saturation 87.2 L (94-97) % Sodium (137-145) mmol/L BUN (9-20) mg/dL Glucose (74-99) mg/dL POC Glucose (mg/dL) 153 H (70-110) mg/dL Calcium (8.4-10.2) mg/dL Magnesium (1.6-2.3) mg/dL Procalcitonin (0.02-0.50) ng/mL Microbiology - Last 24 Hours (Table) 09/27/24 08:05 Gram Stain - Preliminary Sputum
[2024-09-28] MEDS: VANCOMYCIN 1,500 MG in SODIUM CHLORIDE 0.9% 500 ML 500 ML IVPB SCH (13:28)
[2024-09-28 17:42] LABS: Glucose,Whole Blood 149 mg/dL (70-110)
[2024-09-29] MEDS: SODIUM CHLORIDE 0.9% 500 ML 500 ML IV ONE (02:31)
[2024-09-29] MEDS ORDERED: Magnesium Replacement Protocol 1 EACH MISC MISCELLANE PRN (04:33)
[2024-09-29 04:40] LABS: Glucose,Whole Blood 188 mg/dL (70-110)
[2024-09-29 05:20] LABS: HCT 39.3 % (39.0-53.0); HGB 12.3 gm/dL (13.0-17.5); Hypochromasia Slight; MCH 31.5 pg (25.0-35.0); MCHC 31.3 g/dL (31.0-37.0); MCV 100.9 fL (80.0-100.0); Mean Platelet Volume 7.8; Platelet Count 160 k/uL (150-450); WBC 7.4 k/uL (3.8-10.6)
[2024-09-29 05:21] LABS: ABG Base Excess -6.9 mmol/L; ABG HCO3 22 mmol/L (21-25); ABG Oxygen Saturation 96.1 % (94-97); ABG PCO2 56 mmHg (35-45); ABG PO2 83 mmHg (83-108); ABG TCO2 23 mmol/L (19-24); Allen Test Performed? Yes
[2024-09-29] MEDS: DEXTROSE 5% IN WATER 100 ML with AMIODARONE 150 MG IV ONE ×2 (05:29→20:09)
[2024-09-29] MEDS: AMIODARONE 360 MG in DEXTROSE 5% IN WATER 200 ML IV ONE (05:30)
[2024-09-29 05:45] LABS: African American GFR (CKD) 71 (>60 ml/min/1.73 sqM); Anion Gap 5 mmol/L; Blood Urea Nitrogen 31 mg/dL (9-20); Carbon Dioxide 22 mmol/L (22-30); Chloride 108 mmol/L (98-107); Glucose 191 mg/dL (74-99); Magnesium 2.7 mg/dL (1.6-2.3); Non-African American GFR(CKD) 61 (>60 ml/min/1.73 sqM); Potassium 4.8 mmol/L (3.5-5.1); Sodium 135 mmol/L (137-145)
--- NOTE | 2024-09-29 05:58 | XR ---
EXAMINATION TYPE: XR chest 1V portable DATE OF EXAM: 09/29/2024 CLINICAL INDICATION: Male, 74 years old with history of Pneumothorax, progress study. TECHNIQUE: Single AP portable semiupright view of the chest is obtained. COMPARISON: Chest x-ray from one day earlier and older studies. FINDINGS: Stable endotracheal and orogastric tubes. Stable left-sided subclavian central venous cath eter. Overlying sternal wires are redemonstrated. Stable right-sided chest tube. Continued improving overlying subcutaneous emphysema is noted. Stable small right apical pneumothora x despite chest tube. Persistent bibasilar increased opacities. Persistent mild cardiomegaly. IMPRESSION: Stable small right apical pneumothorax despite right-sided chest tube. Persistent bibasil ar acute infiltrates and/or atelectasis. Continued improving subcutaneous emphysema is noted. [facility], , 09/29/2024 5:55 AM
[2024-09-29 07:10] LABS: Glucose,Whole Blood 195 mg/dL (70-110)
[2024-09-29] MEDS: AMIODARONE 200 MG TAB PO SCH (09:24)
[2024-09-29] MEDS: APIXABAN 5 MG TAB PO SCH (09:24)
[2024-09-29] MEDS: PIPERACILLIN-TAZOBACTAM 3.375 GM in SODIUM CHLORIDE 0.9% 100 ML IVPB SCH (09:27)
[2024-09-29 10:19] LABS: Band Neutrophils % 9 %; Lymphocytes # (M) 0.37 k/uL (1.0-4.8); Metamyelocytes # (M) 0.37 k/uL (0); Metamyelocytes % 5 %; Monocytes # (M) 0.59 k/uL (0-1.0); Myelocytes # (M) 0.22 k/uL (0); Myelocytes % 3 %; Neutrophils % (M) 72 %; Nucleated Red Blood Cells 0 /100 WBC (0-0); Total Cells Counted 200
[2024-09-29 10:21] LABS: Toxic Vacuolation Present
--- NOTE | 2024-09-29 10:28 | P.PN ---
Subjective Progress Note Date: 09/29/24 On 09/29/2024, the patient is being seen for a follow-up. This morning, the patient remains intubated on the mechanical ventilator. The patient remains on propofol at around 50 mcg/kg/min and the patient is also on fentanyl 2 mcg/kg/h and the max at 1 mcg/kg/min. The patient is adequately sedated and paralyzed. The patient remains on assist-control mode of mechanical ventilation. Tidal volume is 400 with a rate of 30 with an FiO2 of 100% with a PEEP of 13. Blood gases from today showed a pH of 7.3 with a pCO2 of 49 and pO2 of 117. Chest x- ray shows extensive consolidation of the right lower lobe and this is attributed to an aspiration that occurred here in the intensive care unit. The sputum sample is showing Enterobacter and the patient is on IV Rocephin. The patient remains on bronchodilators. The patient remains on steroids. Right-sided chest tube is in place and there is ongoing air leak. The extent of subcutaneous emphysema has improved clinically and based on the chest x-ray findings. There is a small left-sided pleural effusion in addition on today's chest x-ray. Meanwhile, the patient went into atrial fibrillation with rapid ventricular response overnight. The patient is currently on amiodarone at 1 mg/min. He is on normal saline running at 30 cc an hour. He is receiving enteral feeding for nutritional support and the patient is on vital HP running at 10 cc an hour. Abdomen is nondistended. WBC count is at 7.4 with a heme of 12.3 and a platelet count of 160. Sodium is at 135, potassium is at 4.8, BUN 31 with a creatinine of 1.1. Glucose at 195 from this morning. Objective - Vital Signs Vital signs: Vital Signs Temp 97.1 F L 09/29/24 04:00 Pulse 105 H 09/29/24 08:14 Resp 29 H 09/29/24 07:00 BP 113/62 09/29/24 07:00 Pulse Ox 99 09/29/24 07:00 FiO2 100 09/29/24 07:51 Intake & Output 09/28/24 09/29/24 09/29/24 18:59 06:59 18:59 Intake Total 0855.411 5158.103 210.288 Output Total 390 305 49 Balance 2535.689 0635.103 161.288 Weight 94.2 kg Intake: IV 996 731 33 0.9 KVO 360 210 30 0.9 saline pressure bag 36 21 3 Vancomycin 1,500 mg In 500 500 Sodium Chloride 0.9% 500 ml 500 ml @ 167 mls/hr IVPB Q12H [facility] Rx#: [id number] cefTRIAXone 2 gm In 100 Sodium Chloride 0.9% 50 ml @ 100 mls/hr IVPB Q24HR [facility] Rx#:[id number] Intake, IV Titration 854.006 827.103 167.288 Amount Cisatracurium 200 mg In 37.536 Sodium Chloride 0.9% 180 ml @ 1 MCG/KG/MIN 5.388 mls/hr IV .Q24H [facility] Rx#: [id number] Norepinephrine 4 mg In 360.611 349.800 Sodium Chloride 0.9% 250 ml @ 0.03 MCG/KG/MIN 10. 264 mls/hr IV .Q24H [facility] Rx#:[id number] fentaNYL (PF). 1,000 mcg 171.828 192.33 96.399 In Sodium Chloride 0.9% 80 ml @ 0.5 MCG/KG/HR 4. 695 mls/hr IV .[id number] [facility] Rx#:[id number] propofoL 1,000 mg In 284.031 284.973 70.889 Empty Bag 1 bag @ 15 MCG/ KG/MIN 8.45 mls/hr IV . [id number] [facility] Rx#:[id number] Tube Feeding 100 110 10 Other 30 90 Output: Chest Tube Drainage 20 34 Right 20 34 Urine 370 305 15 Other: Voiding Method Indwelling Catheter Indwelling Catheter ABP, PAP, CO, CI - Last Documented Arterial Blood Pressure 106/48 - Exam No acute distress, sedated and paralyzed with an orally placed endotracheal tube. The patient remains sedated and paralyzed. HEENT examination is grossly unremarkable. Mucous membranes are moist. No oral lesions. Neck supple. Full range of motion. No adenopathy thyromegaly or neck vein distention. Cardiovascular examination reveals r irregular rhythm consistent with atrial fibrillation, rate is controlled. S1-S2 normal. No S3 or S4. No discernible murmur noted. Lungs reveal bilateral rhonchi and expiratory wheezes. Breath sounds are equal but diminished throughout. No crackles. Extensive subcutaneous emphysema in the neck, and chest area, have improved. Right-sided chest tube in place and there is a positive air leak. Abdomen soft bowel sounds are heard. No masses or tenderness. Extremities are intact. No cyanosis clubbing or edema. Skin is without rash or lesion. Neurologic examination cannot be evaluated at this time. - Labs CBC & Chem 7: 09/29/24 04:40 09/29/24 04:40 Labs: Abnormal Lab Results - Last 24 Hours (Table) 09/28/24 09/28/24 09/28/24 Range/Units 05:20 09:26 11:33 RBC (4.30-5.90) m/uL Hgb (13.0-17.5) gm/dL MCV (80.0-100.0) fL ABG pH 7.19 L* (7.35-7.45) ABG pCO2 57 H (35-45) mmHg ABG pO2 53 L* (83-108) mmHg ABG O2 Saturation 87.2 L (94-97) % Hemoglobin (13.0-17.5) gm/dL Sodium (137-145) mmol/L Chloride (98-107) mmol/L BUN (9-20) mg/dL Glucose (74-99) mg/dL POC Glucose (mg/dL) 153 H (70-110) mg/dL Calcium (8.4-10.2) mg/dL Magnesium (1.6-2.3) mg/dL Procalcitonin 17.90 H (0.02-0.50) ng/mL 09/28/24 09/29/24 09/29/24 Range/Units 17:39 04:39 04:40 RBC (4.30-5.90) m/uL Hgb (13.0-17.5) gm/dL MCV (80.0-100.0) fL ABG pH (7.35-7.45) ABG pCO2 (35-45) mmHg ABG pO2 (83-108) mmHg ABG O2 Saturation (94-97) % Hemoglobin (13.0-17.5) gm/dL Sodium 135 L (137-145) mmol/L Chloride 108 H (98-107) mmol/L BUN 31 H (9-20) mg/dL Glucose 191 H (74-99) mg/dL POC Glucose (mg/dL) 149 H 188 H (70-110) mg/dL Calcium 7.0 L (8.4-10.2) mg/dL Magnesium 2.7 H (1.6-2.3) mg/dL Procalcitonin (0.02-0.50) ng/mL 09/29/24 09/29/24 09/29/24 Range/Units 04:40 05:17 07:08 RBC 3.90 L (4.30-5.90) m/uL Hgb 12.3 L (13.0-17.5) gm/dL MCV 100.9 H (80.0-100.0) fL ABG pH 7.20 L (7.35-7.45) ABG pCO2 56 H (35-45) mmHg ABG pO2 (83-108) mmHg ABG O2 Saturation (94-97) % Hemoglobin 12.6 L (13.0-17.5) gm/dL Sodium (137-145) mmol/L Chloride (98-107) mmol/L BUN (9-20) mg/dL Glucose (74-99) mg/dL POC Glucose (mg/dL) 195 H (70-110) mg/dL Calcium (8.4-10.2) mg/dL Magnesium (1.6-2.3) mg/dL Procalcitonin (0.02-0.50) ng/mL Microbiology - Last 24 Hours (Table) 09/27/24 08:05 Gram Stain - Final Sputum Sputum Culture - Final Enterobacter cloacae Assessment and Plan Plan: Acute hypoxemic respiratory failure, secondary to right-sided pneumothorax, with extensive subcutaneous emphysema, requiring intubation, mechanical ventilation, September 26, 2024. The patient remains intubated on mechanical ventilator. The patient has been open extensive consolidation of the right lower lobe probably due to an aspiration episode/aspiration pneumonia and the patient is growing Enterobacter and is purulent. Blood gases continue to show a component of respiratory acidosis. Positive air leak from the right-sided chest tube Right-sided pneumothorax with persistent air leak Subcutaneous emphysema, improved S/P flexible bronchoscopy, robotically assisted bronchoscopy with radial ultrasound evaluation of the right upper lobe pulmonary nodule, robotically assisted transbronchial needle aspiration, transbronchial biopsy, and BAL, September 25, 2024. Right upper lobe pulmonary nodule. History of chronic obstructive pulmonary disease the patient has extensive emphysematous changes upper lobes bilaterally New onset atrial fibrillation with rapid ventricular response, currently on amiodarone drip at 1 mg/min. Rate is under better control Hypotension, multifactorial, could be related to sepsis/aspiration. The patient is currently on norepinephrine. History of hypertension. History of hyperlipidemia. History of gastroesophageal reflux disease. History of coronary artery disease, with previous CABG, 2018. Peripheral vascular occlusive disease. History of tobacco use. History of glaucoma. Plan: Keep the patient on propofol Attempt to wean off the fentanyl and give the patient a paralytic holiday today. Dropped FiO2 down to 80% Rest of the vent settings will be kept unchanged and another blood gases were obtained around noon time. Discontinued IV Rocephin and switch this patient to IV Zosyn covering for aspiration pneumonia. Obtain echocardiogram discontinue the amiodarone drip and put the patient on oral amiodarone 400 mg p.o. twice a day Start anticoagulation with Eliquis 5 mg p.o. twice a day Continue enteral feeding for nutritional support Monitor output from the chest tube Monitor airleak Wean off pressors as tolerated to maintain mean artery pressure above 60 Condition remains critical. Will continue to follow make further recommendations based on his progress. Evaluation was done and 35 minutes. Time with Patient: Greater than 30
--- NOTE | 2024-09-29 10:34 | P.PN ---
Subjective Progress Note Date: 09/29/24 Hospital course: Patient is a 74-year-old male with COPD, GERD, hyperlipidemia, hypertension, CAD (CABG and heart cath), current everyday smoker here for evaluation of difficulty of breathing and subcutaneous air within the chest and neck. Per family at bedside, Patient had bronchoscopy and right-sided pneumothorax yesterday 09/25 at our institution for lung biopsy of the right upper lobe lung nodule with 1.2 cm in size. He developed a pneumothorax post-op and was placed on a thora vent on discharge. press cutter on day of arrival 09/26, he developed difficulty breathing and subcutaneous air and swelling within the chest and neck. He was noted to be awake and alert during this time and did not have any other associated symptoms. He was transferred from [place] and was reported to have right-sided pneumothorax, subcutaneous air and ventilator dependent acute respiratory failure. He was intubated prior to transfer and right-sided chest tube was placed. He was transferred for evaluation by pulmonology. Patient was life flighted here and had stable vitals during transport. Vitals on admission showed pulse rate 66, respiratory rate 18, blood pressure 139/71, O2 saturation 95% on mechanical ventilation FiO2 100%. On admission, chest x-ray showed notable sternotomy and chest tube placement, with subcutaneous emphysema. On admission labs showed WBC 16.2, hemoglobin 15.2, platelet count 258,000. Sodium 135, potassium 4.5, chloride 104, bicarb 22, BUN 12, creatinine 0.74, glucose 152, plasmic lactic acid 2.2, calcium 8.9, magnesium 2.5, albumin 3.9. Patient was admitted to the intensive care unit with hospital course complicated by worsening oxygenation status, right lower lobe infiltrate. Patient's PEEP and FiO2 were titrated accordingly, patient was started on antibiotics. 09/27/2024 patient seen and examined at bedside. Agitated while sedated per RN overnight. Patient still sedated and mechanically ventilated. Labs today showed WBC 14, hemoglobin 13.3, platelet count 218,000, sodium 135, potassium 4.3, bicarb 19, BUN 18, creatinine 0.88, glucose 167, calcium 7.9, magnesium 2.4. Chest x-ray today showed stable mild to moderate acute cardiopulmonary disease which are extensive stable subcutaneous emphysema with no definite pneumothorax, no change in a small retrocardiac infiltrate consistent with pneumonia/atelectasis. ET tube, left-sided PICC line. ABG showed pH 7.34, pCO2 36, pO2 55. 09/28/2024 Patient seen in the ICU - borderline oxygen saturation despite in creasing PEEP and FiO2. Code status being discussed with family. CXR today reviewed and independently interpreted, ongoing pneumothorax, new infiltrate of the right lower lobe. 09/29/2024 patient seen and examined at bedside. Patient still in the ICU sedated and mechanically ventilated. A-fib RVR this morning at 4 AM. Labs today showed WBC 7.4, hemoglobin 12.3, MCV 100.9, platelet count 1 60,000, sodium 131, potassium 4.8, chloride 108, bicarb 22, BUN 31, creatinine 1.16, calcium 7, magnesium 2.7. Chest x-ray today showed stable small right apical pneumothorax, persistent bibasilar acute infiltrates and/or atelectasis, continued improving subcutaneous emphysema. ABG pH 7.2, pCO2 56, pO2 83, FiO2 at 100%. Review of systems: Cannot be obtained Physical examination: Vital signs reviewed General: non toxic, no distress, appears at stated age, sedated and mechanically intubated Derm: no unusual rashes/lesions, warm Head: atraumatic, normocephalic, symmetric Eyes: EOMI, anicteric sclera, pupils equal round reactive to light ENT: Nose and ears atraumatic Neck: No cervical lymphadenopathy, trachea midline, supple, subcutaneous crepitus improved Mouth: no lip lesion, mucus membranes moist Cardiovascular: S1S2 irregularly irregular no murmur Lungs: subcutaneous crackles improved, bibasilar Rales, no accessory muscle use, sternotomy scar midline, chest tube noted on right mid chest area, central line on left upper chest noted Abdominal: soft, nondistended, nontender to palpation, no guarding Ext: muscle strength 5 out of 5 in all 4 extremities grossly, no gross muscle atrophy, no contractures, positive dorsalis pedis pulse bilateral, no edema Neuro: Cannot assess Psych: Cannot assess Assessment/Plan: 74-year-old male with COPD, solitary lung nodule here for evaluation acute respiratory failure due to pneumothorax now intubated and mechanically ventilated on admission #. Acute hypoxic respiratory failure secondary to right-sided pneumothorax #. Septic Shock #. Right lower lobe pneumonia, aspiration versus healthcare acquired #. Right upper lobe pulmonary nodule, status post transbronchial biopsy -Continue supplemental oxygenation as needed. Currently on mechanical ventilation and on sedation -Placed on Propofol IV and fentanyl IV drip, Nimbex drip started -fentanyl gtt and nimbex gtt have been weaned off -Pressor requirement: levophed 0.12 -Solu-Medrol 60 mg IV every 6 hours per pulmonology -Cardiac telemetry -Consult pulmonary for ICU care -discontinue Vancomycin and ceftriaxone -Switch IV Abx to Zosyn IVPB -Sputum cultures positive for Enterobacter cloacae -Follow-up pathology of nodule #. SOCORRO -Creatinine increased two 1.16 -Urinalysis, Urine sodium and urine creatinine ordered -on gardiner catheter #. New onset Atrial fibrillation with RVR -Currently on amiodarone drip --> transitioned to PO amiodarone -[id number] 2, HAS BLED 2. Intiate Eliquis 5mg PO twice daily -Maintain HR 100-120 -monitor Eliquis. consider heparin if kidney function worsens #. Hypermagnesemia -Magnesium 2.5 -> 2.4 -> 2.7 -Monitor magnesium levels #. Hyperglycemia -Due to steroid use -A1c 5.8 -Monitor BMP Chronic Conditions: #. COPD #. GERD #. Hyperlipidemia #. Hypertension #. CAD -Currently on Plavix. Will hold for now given recent biopsy -Not on aspirin. Initiate ASA 81mg PO daily F: None for now E: Monitor electrolytes particularly magnesium N: Tube feeding DVT ppx: patient is on eliquis GI ppx: Protonix 40 mg IV daily I saw and evaluated the patient during the sloan and critical portions of this encounter, and discussed the case in detail with the resident author of this note, I agree with the Assessment and Plan, and my changes, if any, are highlighted in blue. Objective - Vital Signs Vital signs: Vital Signs Temp 97.1 F L 09/29/24 04:00 Pulse 121 H 09/29/24 05:15 Resp 31 H 09/29/24 05:15 BP 112/63 09/29/24 05:15 Pulse Ox 99 09/29/24 05:15 FiO2 100 09/29/24 04:00 Intake & Output 09/28/24 09/28/24 09/29/24 06:59 18:59 06:59 Intake Total 4145.451 5775.103 Output Total 390 230 Balance 0778.516 5951.103 Weight 94.2 kg Intake: IV 996 665 0.9 KVO 360 150 0.9 saline pressure bag 36 15 Vancomycin 1,500 mg In 500 500 Sodium Chloride 0.9% 500 ml 500 ml @ 167 mls/hr IVPB Q12H [facility] Rx#: [id number] cefTRIAXone 2 gm In 100 Sodium Chloride 0.9% 50 ml @ 100 mls/hr IVPB Q24HR [facility] Rx#:[id number] Intake, IV Titration 854.006 573.103 Amount Cisatracurium 200 mg In 37.536 Sodium Chloride 0.9% 180 ml @ 1 MCG/KG/MIN 5.388 mls/hr IV .Q24H [facility] Rx#: [id number] Norepinephrine 4 mg In 360.611 95.8 Sodium Chloride 0.9% 250 ml @ 0.03 MCG/KG/MIN 10. 264 mls/hr IV .Q24H [facility] Rx#:[id number] fentaNYL (PF). 1,000 mcg 171.828 192.33 In Sodium Chloride 0.9% 80 ml @ 0.5 MCG/KG/HR 4. 695 mls/hr IV .[id number] [facility] Rx#:[id number] propofoL 1,000 mg In 284.031 284.973 Empty Bag 1 bag @ 15 MCG/ KG/MIN 8.45 mls/hr IV . [id number] [facility] Rx#:[id number] Tube Feeding 100 50 Other 30 30 Output: Chest Tube Drainage 20 Right 20 Urine 370 230 Emesis Other: Voiding Method Indwelling Catheter Indwelling Catheter ABP, PAP, CO, CI - Last Documented Arterial Blood Pressure 94/41 - Labs CBC & Chem 7: 09/29/24 04:40 09/29/24 04:40 Labs: Abnormal Lab Results - Last 24 Hours (Table) 09/28/24 09/28/24 09/28/24 Range/Units 05:15 05:20 09:26 RBC (4.30-5.90) m/uL Hgb (13.0-17.5) gm/dL MCV (80.0-100.0) fL Lymphocytes # (Manual) 0.09 L (1.0-4.8) k/uL Metamyelocytes # (Man) 0.06 H (0) k/uL Myelocytes # (Manual) 0.03 H (0) k/uL ABG pH 7.19 L* (7.35-7.45) ABG pCO2 57 H (35-45) mmHg ABG pO2 53 L* (83-108) mmHg ABG O2 Saturation 87.2 L (94-97) % Hemoglobin (13.0-17.5) gm/dL Sodium (137-145) mmol/L Chloride (98-107) mmol/L BUN (9-20) mg/dL Glucose (74-99) mg/dL POC Glucose (mg/dL) (70-110) mg/dL Calcium (8.4-10.2) mg/dL Magnesium (1.6-2.3) mg/dL Procalcitonin 17.90 H (0.02-0.50) ng/mL 09/28/24 09/28/24 09/29/24 Range/Units 11:33 17:39 04:39 RBC (4.30-5.90) m/uL Hgb (13.0-17.5) gm/dL MCV (80.0-100.0) fL Lymphocytes # (Manual) (1.0-4.8) k/uL Metamyelocytes # (Man) (0) k/uL Myelocytes # (Manual) (0) k/uL ABG pH (7.35-7.45) ABG pCO2 (35-45) mmHg ABG pO2 (83-108) mmHg ABG O2 Saturation (94-97) % Hemoglobin (13.0-17.5) gm/dL Sodium (137-145) mmol/L Chloride (98-107) mmol/L BUN (9-20) mg/dL Glucose (74-99) mg/dL POC Glucose (mg/dL) 153 H 149 H 188 H (70-110) mg/dL Calcium (8.4-10.2) mg/dL Magnesium (1.6-2.3) mg/dL Procalcitonin (0.02-0.50) ng/mL 09/29/24 09/29/24 09/29/24 Range/Units 04:40 04:40 05:17 RBC 3.90 L (4.30-5.90) m/uL Hgb 12.3 L (13.0-17.5) gm/dL MCV 100.9 H (80.0-100.0) fL Lymphocytes # (Manual) (1.0-4.8) k/uL Metamyelocytes # (Man) (0) k/uL Myelocytes # (Manual) (0) k/uL ABG pH 7.20 L (7.35-7.45) ABG pCO2 56 H (35-45) mmHg ABG pO2 (83-108) mmHg ABG O2 Saturation (94-97) % Hemoglobin 12.6 L (13.0-17.5) gm/dL Sodium 135 L (137-145) mmol/L Chloride 108 H (98-107) mmol/L BUN 31 H (9-20) mg/dL Glucose 191 H (74-99) mg/dL POC Glucose (mg/dL) (70-110) mg/dL Calcium 7.0 L (8.4-10.2) mg/dL Magnesium 2.7 H (1.6-2.3) mg/dL Procalcitonin (0.02-0.50) ng/mL Microbiology - Last 24 Hours (Table) 09/27/24 08:05 Gram Stain - Preliminary Sputum Sputum Culture - Preliminary Gram Neg Bacilli
[2024-09-29 11:15] LABS: Amorphous Sediment,Urine Rare /hpf; Appearance,Urine Cloudy (Clear); Bacteria,Urine Rare /hpf; Bilirubin,Urine Negative (Negative); Blood,Urine Small (Negative); Color,Urine Yellow; Glucose,Urine (UA) 2+ (Negative); Ketones,Urine Negative (Negative); Leukocyte Esterase,Urine Negative (Negative); Mucus,Urine Rare /hpf; Nitrite,Urine Negative (Negative); PH, Urine 5.5 (5.0-8.0); Protein,Urine 1+ (Negative); RBC,Urine 6 /hpf (0-5); Specific Gravity,Urine 1.026 (1.001-1.035); Urobilinogen,Urine <2.0 mg/dL (<2.0); WBC,Urine 2 /hpf (0-5)
[2024-09-29] MEDS ORDERED: AMIODARONE 450 MG in DEXTROSE 5% IN WATER 250 ML IV SCH (11:15)
[2024-09-29 12:32] LABS: Glucose,Whole Blood 188 mg/dL (70-110)
[2024-09-29 14:41] LABS: ABG Base Excess -7.2 mmol/L; ABG HCO3 22 mmol/L (21-25); ABG Oxygen Saturation 89.1 % (94-97); ABG PCO2 59 mmHg (35-45); ABG TCO2 24 mmol/L (19-24)
[2024-09-29 14:53] LABS: ABG PH 7.18 (7.35-7.45); ABG PO2 58 mmHg (83-108); Allen Test Performed? no
--- NOTE | 2024-09-29 16:43 | CA ---
Transthoracic Echo Report Name: Jaydon Ramires Age: 74 Gender: M : 1950 Exam Date: 09/29/2024 11:50 Exam Location: [place] [facility] Ht (in): 71 Wt (lb): 207 Ordering Physician: Kaylah Goodman MD Attending/Referring Phys: Splitter Machine Keyana Lozada RDCS Procedure CPT: Indications: EF Cardiac Hx: Technical Quality: Poor, Technically difficult study, pt supine and on vent Contrast 1: Definity Total Dose (mL): 2 Contrast 2: Total Dose (mL): MEASUREMENTS (Male / Female) Normal Values 2D ECHO LV Diastolic Diameter PLAX 4.4 cm 4.2 - 5.9 / 3.9 - 5.3 cm LV Systolic Diameter PLAX 3.5 cm IVS Diastolic Thickness 1.2 cm 0.6 - 1.0 / 0.6 - 0.9 cm LVPW Diastolic Thickness 1.5 cm 0.6 - 1.0 / 0.6 - 0.9 cm LV Relative Wall Thickness 0.6 RV Internal Dim ED PLAX 3.4 cm LA Systolic Diameter LX 4.5 cm 3.0 - 4.0 / 2.7 - 3.8 cm M-MODE Aortic Root Diameter MM 3.3 cm LA Systolic Diameter MM 5.1 cm LA Ao Ratio MM 1.5 AV Cusp Separation MM 1.6 cm DOPPLER AV Peak Velocity 140.6 cm/s AV Peak Gradient 7.9 mmHg Mitral E Point Velocity 103.6 cm/s Mitral A Point Velocity 52.1 cm/s Mitral E to A Ratio 2.0 MV Deceleration Time 218.0 ms MV E' Velocity 11.5 cm/s Mitral E to MV E' Ratio 9.0 TR Peak Velocity 273.3 cm/s TR Peak Gradient 29.9 mmHg Right Ventricular Systolic Press 49.9 mmHg FINDINGS Left Ventricle Left ventricular ejection fraction is estimated at 55-60 %. Mildly increased septal wall thickness. Normal left ventricular systolic function with no obvious regional wall motion abnormalities. Left ventricular cavity size normal. Right Ventricle Mild right ventricular dilatation. Moderate pulmonary hypertension. Right ventricular systolic pressure estimated at 50 mmHg. Right Atrium Moderate right atrial dilatation. Left Atrium Moderate left atrial dilatation. Mitral Valve Structurally normal mitral valve. Trace to mild mitral regurgitation. No mitral stenosis. Aortic Valve Trileaflet aortic valve. Diffuse thickening (sclerosis) of the aortic valve cusps without reduced excursion. Trace aortic regurgitation. Tricuspid Valve Structurally normal tricuspid valve. Moderate tricuspid regurgitation. No tricuspid stenosis. Pulmonic Valve Structurally normal pulmonic valve. Trace pulmonic regurgitation. No pulmonic stenosis. Pericardium Minimal pericardial effusion (normal variant). No pleural effusion. Aorta Normal size aortic root and proximal ascending aorta. CONCLUSIONS Left ventricular ejection fraction 55-60% Mildly increased left ventricular wall thickness RVSP 50 Trace to mild mitral regurgitation Previewed by: Dr. Ayden Hernandez DO (Electronically Signed) Final Date: 29 September 2024 16:42
[2024-09-29 18:00] LABS: ABG Base Excess -6.9 mmol/L; ABG HCO3 21 mmol/L (21-25); ABG PCO2 54 mmHg (35-45); ABG PH 7.21 (7.35-7.45); ABG PO2 64 mmHg (83-108); ABG TCO2 23 mmol/L (19-24)
[2024-09-29 18:00] LABS: Glucose,Whole Blood 166 mg/dL (70-110)
[2024-09-29 18:02] LABS: Allen Test Performed? no
[2024-09-29] MEDS: SODIUM CHLORIDE 0.9% 1,000 ML IV ONE (19:56)
[2024-09-29] MEDS: MAGNESIUM SULFATE-D5W PMX 1 GM in DEXTROSE/WATER 1 100ML.BAG IVPB ONE (22:13)
[2024-09-30 00:17] LABS: Glucose,Whole Blood 164 mg/dL (70-110)
[2024-09-30] MEDS: AMIODARONE 360 MG in DEXTROSE 5% IN WATER 200 ML IV ONE (00:33)
[2024-09-30] MEDS: VASOPRESSIN 60 UNIT in SODIUM CHLORIDE 0.9% 150 ML IV SCH (02:35)
[2024-09-30 04:31] LABS: HCT 38.5 % (39.0-53.0); Hypochromasia Slight; MCH 31.3 pg (25.0-35.0); MCV 100.7 fL (80.0-100.0); Mean Platelet Volume 8.6; Platelet Count 175 k/uL (150-450); RBC 3.83 m/uL (4.30-5.90); RDW 13.1 % (11.5-15.5); WBC 11.9 k/uL (3.8-10.6)
[2024-09-30 04:45] LABS: Carbon Dioxide 17 mmol/L (22-30); Chloride 107 mmol/L (98-107); Glucose 192 mg/dL (74-99); Sodium 134 mmol/L (137-145)
[2024-09-30 04:46] LABS: African American GFR (CKD) 48 (>60 ml/min/1.73 sqM); Anion Gap 10 mmol/L; Blood Urea Nitrogen 46 mg/dL (9-20); Non-African American GFR(CKD) 41 (>60 ml/min/1.73 sqM)
[2024-09-30 04:48] LABS: Magnesium 2.8 mg/dL (1.6-2.3); Potassium 5.2 mmol/L (3.5-5.1)
[2024-09-30 04:53] LABS: ABG Base Excess -9.3 mmol/L; ABG HCO3 18 mmol/L (21-25); ABG Oxygen Saturation 99.3 % (94-97); ABG PCO2 45 mmHg (35-45); ABG PH 7.22 (7.35-7.45); ABG PO2 142 mmHg (83-108); ABG TCO2 20 mmol/L (19-24)
[2024-09-30] MEDS: AMIODARONE 450 MG in DEXTROSE 5% IN WATER 250 ML IV SCH (05:33)
[2024-09-30 05:34] LABS: Allen Test Performed? no
--- NOTE | 2024-09-30 06:08 | XR ---
EXAMINATION TYPE: XR chest 1V portable DATE OF EXAM: 09/30/2024 CLINICAL INDICATION: Male, 74 years old with history of mechanical ventilation, progress study. TECHNIQUE: Single AP portable semiupright view of the chest is obtained. COMPARISON: Chest x-ray from one day earlier and older studies. FINDINGS: Stable endotracheal and orogastric tubes. Stable left-sided subclavian central venous cath eter. Overlying sternal wires are redemonstrated. Stable right-sided chest tube. Stable or slight worsening right-sided overlying subcutaneous emphysema is noted. Stable small right apical pneumothorax despite chest tube. Persistent bibasilar increased opacities. Interval improved aeration is noted. Persistent mild cardiomegaly. IMPRESSION: Stable small right apical pneumothorax despite right-sided chest tube. Improving bibasila r acute infiltrates and/or atelectasis. Stable or worsening right-sided subcutaneous emphysema is not ed. [facility], , 09/30/2024 6:05 AM
[2024-09-30 06:16] LABS: Anisocytosis (M) Present; Band Neutrophils % 38 %; Lymphocytes # (M) 0.12 k/uL (1.0-4.8); Metamyelocytes # (M) 0.36 k/uL (0); Metamyelocytes % 3 %; Monocytes # (M) 0.36 k/uL (0-1.0); Myelocytes # (M) 0.12 k/uL (0); Myelocytes % 1 %; Neutrophils % (M) 55 %; Nucleated Red Blood Cells 0 /100 WBC (0-0); Polychromasia Present; Total Cells Counted 200
[2024-09-30 06:29] LABS: Glucose,Whole Blood 217 mg/dL (70-110)
[2024-09-30] MEDS ORDERED: AMIODARONE 450 MG in DEXTROSE 5% IN WATER 250 ML IV SCH (06:30)
[2024-09-30] MEDS ORDERED: DEXTROSE 50% SYRINGE 50 ML IVP PRN ×2 (07:23)
[2024-09-30] MEDS: INSULIN LISPRO (HumaLOG) 100 UNIT/ML 10 mL VL SQ SCH (08:06)
[2024-09-30] MEDS: SODIUM CHLORIDE 0.9% 1,000 ML IV ONE (08:06)
[2024-09-30] MEDS: SODIUM BICARB 8.4% 50 ML SYR (1 MEQ/ML) IV STA (09:56)
[2024-09-30] MEDS: FUROSEMIDE 10 MG/ML 10 ML VIAL IV STA ×2 (09:57→17:11)
[2024-09-30] MEDS: DEXTROSE 5% IN WATER 1,000 ML with SODIUM BICARB (1 MEQ/ML) 100 ML IV SCH (10:06)
[2024-09-30] MEDS ORDERED: VANCOMYCIN TROUGH DUE 1 EACH MISC MISCELLANE ONE (11:00)
[2024-09-30 11:32] LABS: Glucose,Whole Blood 229 mg/dL (70-110)
[2024-09-30 11:32] LABS: ABG Base Excess -6.5 mmol/L; ABG HCO3 20 mmol/L (21-25); ABG Oxygen Saturation 93.2 % (94-97); ABG PCO2 42 mmHg (35-45); ABG PH 7.28 (7.35-7.45); ABG PO2 64 mmHg (83-108); ABG TCO2 21 mmol/L (19-24)
[2024-09-30 11:35] LABS: Allen Test Performed? no
--- NOTE | 2024-09-30 11:35 | CONS ---
CONSULTATION HISTORY OF PRESENT ILLNESS: This is a 74-year-old gentleman with history of coronary artery disease status post prior bypass surgery, hypertension, hyperlipidemia, COPD, GERD, who is admitted to the hospital with acute respiratory failure secondary to pneumothorax and subcutaneous emphysema related to recent lung biopsy. The patient had right-sided pneumothorax that was being treated with a pleural vent. On 09/25, following a biopsy, he presented to the [facility] with symptoms of difficulty in breathing and air and swelling within the neck and chest area. He was intubated and was transferred over to [facility], where he is currently in the ICU, intubated on vent. We have been consulted because of atrial fibrillation. The patient was in atrial fibrillation with rapid ventricular rate, was initially treated with intravenous amiodarone, subsequently switched to oral amiodarone. Last night, he developed atrial fibrillation with rapid ventricular rate and he was cardioverted. He converted to sinus rhythm following a single shock and remains in sinus rhythm. He is currently on the maintenance dose of intravenous amiodarone. At the time of my evaluation, he is intubated, sedated on the vent and stable hemodynamically. An echocardiogram on this admission revealed normal LV systolic function with moderate pulmonary hypertension. He is currently on Eliquis for anticoagulation. PAST MEDICAL HISTORY: Significant for coronary artery disease status post bypass surgery, hypertension, dyslipidemia, lung nodule, status post biopsy. The patient also has peripheral arterial disease and underwent revascularization for the same. MEDICATIONS: At home included: 1. Norvasc 2.5 mg daily. 2. Lopressor. 3. Plavix. 4. Lipitor. ALLERGIES: There are no known drug allergies. FAMILY HISTORY: I am unable to obtain from the patient who is intubated and on vent. SOCIAL HISTORY: I am unable to obtain from the patient who is intubated and on vent. REVIEW OF SYSTEMS: I am unable to obtain from the patient who is intubated and on vent. PHYSICAL EXAMINATION: VITAL SIGNS: Heart rate is 80 beats per minute, blood pressure is 133/62, respiratory rate is 30, O2 saturation is 99%. CHEST EXAM: Reveals diminished air entry on the right side. HEART EXAM: Reveals first and second heart sounds. No gallop. No murmur. ABDOMEN: Soft. EXTREMITIES: Examination of the extremities reveals bilateral 1+ pitting edema. LABORATORY DATA: Show hemoglobin of 12, platelet count is 175. Potassium is 5.2, BUN is 56, creatinine is 1.6. Blood gases show a pH of 7.2, pCO2 of 45, and a PO2 of 142. ASSESSMENT: 1. Persistent atrial fibrillation with rapid ventricular rate. 2. Vent requiring respiratory failure secondary to pneumothorax. 3. Coronary artery disease, status post coronary artery bypass graft surgery. PLAN: I will continue the patient on IV amiodarone and the Eliquis that he is on. Pressors as needed. Continue the aspirin and Lipitor that he is on. MMODL / IJN: [id number] /
--- NOTE | 2024-09-30 12:31 | P.PN ---
Subjective Progress Note Date: 09/30/24 Hospital course: Patient is a 74-year-old male with COPD, GERD, hyperlipidemia, hypertension, CAD (CABG and heart cath), current everyday smoker here for evaluation of difficulty of breathing and subcutaneous air within the chest and neck. Per family at bedside, Patient had bronchoscopy and right-sided pneumothorax yesterday 09/25 at our institution for lung biopsy of the right upper lobe lung nodule with 1.2 cm in size. He developed a pneumothorax post-op and was placed on a thora vent on discharge. [employer] [employer] [facility] on day of arrival 09/26, he developed difficulty breathing and subcutaneous air and swelling within the chest and neck. He was noted to be awake and alert during this time and did not have any other associated symptoms. He was transferred from [place] and was reported to have right-sided pneumothorax, subcutaneous air and ventilator dependent acute respiratory failure. He was intubated prior to transfer and right-sided chest tube was placed. He was transferred for evaluation by pulmonology. Patient was life flighted here and had stable vitals during transport. Vitals on admission showed pulse rate 66, respiratory rate 18, blood pressure 139/71, O2 saturation 95% on mechanical ventilation FiO2 100%. On admission, chest x-ray showed notable sternotomy and chest tube placement, with subcutaneous emphysema. On admission labs showed WBC 16.2, hemoglobin 15.2, platelet count 258,000. Sodium 135, potassium 4.5, chloride 104, bicarb 22, BUN 12, creatinine 0.74, glucose 152, plasmic lactic acid 2.2, calcium 8.9, magnesium 2.5, albumin 3.9. Patient was admitted to the intensive care unit with hospital course complicated by worsening oxygenation status, right lower lobe infiltrate. Patient's PEEP and FiO2 were titrated accordingly, patient was started on antibiotics. 09/27/2024 patient seen and examined at bedside. Agitated while sedated per RN overnight. Patient still sedated and mechanically ventilated. Labs today showed WBC 14, hemoglobin 13.3, platelet count 218,000, sodium 135, potassium 4.3, bicarb 19, BUN 18, creatinine 0.88, glucose 167, calcium 7.9, magnesium 2.4. Chest x-ray today showed stable mild to moderate acute cardiopulmonary disease which are extensive stable subcutaneous emphysema with no definite pneumothorax, no change in a small retrocardiac infiltrate consistent with pneumonia/atelectasis. ET tube, left-sided PICC line. ABG showed pH 7.34, pCO2 36, pO2 55. 09/28/2024 Patient seen in the ICU - borderline oxygen saturation despite in creasing PEEP and FiO2. Code status being discussed with family. CXR today reviewed and independently interpreted, ongoing pneumothorax, new infiltrate of the right lower lobe. 09/29/2024 patient seen and examined at bedside. Patient still in the ICU sedated and mechanically ventilated. A-fib RVR this morning at 4 AM. Labs today showed WBC 7.4, hemoglobin 12.3, MCV 100.9, platelet count 1 60,000, sodium 131, potassium 4.8, chloride 108, bicarb 22, BUN 31, creatinine 1.16, calcium 7, magnesium 2.7. Chest x-ray today showed stable small right apical pneumothorax, persistent bibasilar acute infiltrates and/or atelectasis, continued improving subcutaneous emphysema. ABG pH 7.2, pCO2 56, pO2 83, FiO2 at 100%. 09/30/2024 patient seen and examined at bedside. Patient still in the ICU sed ated and mechanically ventilated. Converted back to A-fib with RVR this morning around 2 AM. Labs today showed WBC 11.9, hemoglobin 12, MCV 100.7, platelet count 1 75,000, sodium 134, potassium 5.2, bicarb 17, creatinine 1.6, BUN 46, glucose 192, calcium 7, magnesium 2.8. Urinalysis showed +1 protein +2 glucose less than 20 sodium, 105.9 creatinine negative nitrites negative leukocyte Estrace. ABG showed pH 7.22, pCO2 45, pO2 142 at FiO2 80%. Chest x-ray today showed stable small right apical pneumothorax, improving bibasilar acute infiltrates and/or atelectasis worsening right-sided subcutaneous emphysema. Review of systems: Cannot be obtained Physical examination: Vital signs reviewed General: non toxic, no distress, appears at stated age, sedated and mechanically intubated Derm: no unusual rashes/lesions, warm Head: atraumatic, normocephalic, symmetric Eyes: EOMI, anicteric sclera, pupils equal round reactive to light ENT: Nose and ears atraumatic Neck: No cervical lymphadenopathy, trachea midline, supple, subcutaneous crepitus improved Mouth: no lip lesion, mucus membranes moist Cardiovascular: S1S2 irregularly irregular no murmur Lungs: subcutaneous crackles improved, bibasilar Rales, no accessory muscle use, sternotomy scar midline, chest tube noted on right mid chest area, central line on left upper chest noted Abdominal: soft, nondistended, nontender to palpation, no guarding Ext: muscle strength 5 out of 5 in all 4 extremities grossly, no gross muscle atrophy, no contractures, positive dorsalis pedis pulse bilateral, no edema Neuro: Cannot assess Psych: Cannot assess Workup done during hospitalization: -Echocardiogram showed left ventricular ejection fraction 55 to 60% with mildly increased left ventricular wall thickness, RVSP 50 Assessment/Plan: 74-year-old male with COPD, solitary lung nodule here for evaluation acute re spiratory failure due to pneumothorax now intubated and mechanically ventilated on admission #. Acute hypoxic respiratory failure secondary to right-sided pneumothorax #. Septic Shock #. Right lower lobe pneumonia, aspiration versus healthcare acquired #. Right upper lobe pulmonary nodule, status post transbronchial biopsy -Continue supplemental oxygenation as needed. Currently on mechanical ventilation and on sedation -Placed on Propofol IV and fentanyl IV drip, Nimbex drip started -fentanyl gtt and nimbex gtt have been weaned off -Pressor requirement: levophed 0.1, vasopressin 0.03 -Solu-Medrol 60 mg IV every 6 hours per pulmonology -Cardiac telemetry -Consult pulmonary for ICU care -discontinued Vancomycin and ceftriaxone 09/29 -IV Abx to Zosyn IVPB day 2 -IVF 0.9 NS 125cc/hr -Sputum cultures positive for Enterobacter cloacae -Follow-up pathology of nodule #. Prerenal SOCORRO with anuria #. Acute Tubular Necrosis -Creatinine increased 1.6 -Urinalysis showed +1 protein +2 glucose, less than 20 sodium, 105.9 creatinine -on gardiner catheter -Continue IV Fluids -Nephrology consulted, appreciate recs #. New onset Atrial fibrillation with RVR -Restarted on amiodarone drip -[id number] 2, HAS BLED 2. Intiate Eliquis 5mg PO twice daily -Maintain HR 100-120 -Per cardiology, continue Eliquis despite renal function. Consider heparin if kidney function worsens. #. Hyperkalemia -Potassium 5.2 today. With slight hemolysis -Repeat BMP to reevaluate. #. Hypermagnesemia, stable -Magnesium 2.8 #. Hyperglycemia -Due to steroid use -Currently on enteral feeding -A1c 5.8 -Monitor BMP -Insulin sliding scale every 6 hours -Glucose Accu-Cheks every 6 hours Chronic Conditions: #. COPD #. GERD #. Hyperlipidemia #. Hypertension #. CAD -Currently on Plavix. Will hold for now given recent biopsy -Not on aspirin. Initiate ASA 81mg PO daily F: 0.9 NS 125cc/hr E: Monitor electrolytes N: Tube feeding DVT ppx: Eliquis 5mg PO BID GI ppx: Protonix 40 mg IV daily I saw and evaluated the patient during the sloan and critical portions of this encounter, and discussed the case in detail with the resident author of this note, I agree with the Assessment and Plan, and my changes, if any, are highlighted in blue. Objective - Vital Signs Vital signs: Vital Signs Temp 99.3 F 09/30/24 04:00 Pulse 81 09/30/24 07:00 Resp 30 H 09/30/24 07:00 BP 134/71 09/30/24 07:00 Pulse Ox 100 09/30/24 07:00 FiO2 80 09/30/24 04:00 Intake & Output 09/29/24 09/30/24 09/30/24 18:59 06:59 18:59 Intake Total 0437.348 7047.202 Output Total 454 370 Balance 5949.598 6767.202 Weight 94.2 kg 98.2 kg Intake: IV 646 429 0.9 KVO 360 390 0.9 saline pressure bag 36 39 Piperacillin-Tazobactam 3 200 .375 gm In Sodium Chloride 0.9% 100 ml @ 25 mls/hr IVPB Q8HR [facility] Rx# :[id number] cefTRIAXone 2 gm In 50 Sodium Chloride 0.9% 50 ml @ 100 mls/hr IVPB Q24HR [facility] Rx#:[id number] Intake, IV Titration 525.539 1419.202 Amount Cisatracurium 200 mg In 109.332 Sodium Chloride 0.9% 180 ml @ 1 MCG/KG/MIN 5.388 mls/hr IV .Q24H [facility] Rx#: [id number] Norepinephrine 4 mg In 254.000 486.350 Sodium Chloride 0.9% 250 ml @ 0.03 MCG/KG/MIN 10. 264 mls/hr IV .Q24H [facility] Rx#:[id number] Sodium Chloride 0.9% 1, 999 000 ml @ 999 mls/hr IV . Q1H1M [facility] Rx#:[id number] fentaNYL (PF). 1,000 mcg 135.522 In Sodium Chloride 0.9% 80 ml @ 0.5 MCG/KG/HR 4. 695 mls/hr IV .[id number] [facility] Rx#:[id number] propofoL 1,000 mg In 267.599 332.852 Empty Bag 1 bag @ 15 MCG/ KG/MIN 8.45 mls/hr IV . [id number] [facility] Rx#:[id number] Oral 100 Tube Feeding 150 260 Other 90 Output: Chest Tube Drainage 34 Right 34 Urine 420 370 Other: Voiding Method Indwelling Catheter Indwelling Catheter ABP, PAP, CO, CI - Last Documented Arterial Blood Pressure 114/45 - Labs CBC & Chem 7: 09/30/24 04:08 09/30/24 04:08 Labs: Abnormal Lab Results - Last 24 Hours (Table) 09/29/24 09/29/24 09/29/24 Range/Units 04:40 10:45 10:45 WBC (3.8-10.6) k/uL RBC (4.30-5.90) m/uL Hgb (13.0-17.5) gm/dL Hct (39.0-53.0) % MCV (80.0-100.0) fL Neutrophils # (Manual) (1.3-7.7) k/uL Lymphocytes # (Manual) 0.37 L (1.0-4.8) k/uL Metamyelocytes # (Man) 0.37 H (0) k/uL Myelocytes # (Manual) 0.22 H (0) k/uL ABG pH (7.35-7.45) ABG pCO2 (35-45) mmHg ABG pO2 (83-108) mmHg ABG HCO3 (21-25) mmol/L ABG O2 Saturation (94-97) % Hemoglobin (13.0-17.5) gm/dL Sodium (137-145) mmol/L Potassium (3.5-5.1) mmol/L Carbon Dioxide (22-30) mmol/L BUN (9-20) mg/dL Creatinine (0.66-1.25) mg/dL Glucose (74-99) mg/dL POC Glucose (mg/dL) (70-110) mg/dL Calcium (8.4-10.2) mg/dL Magnesium (1.6-2.3) mg/dL Urine Protein 1+ H (Negative) Urine Glucose (UA) 2+ H (Negative) Urine Blood Small H (Negative) Urine RBC 6 H (0-5) /hpf Amorphous Sediment Rare H (None) /hpf Urine Bacteria Rare H (None) /hpf Urine Mucus Rare H (None) /hpf Ur Random Sodium <20 L (40-220) mmol/L 09/29/24 09/29/24 09/29/24 Range/Units 12:31 14:39 17:55 WBC (3.8-10.6) k/uL RBC (4.30-5.90) m/uL Hgb (13.0-17.5) gm/dL Hct (39.0-53.0) % MCV (80.0-100.0) fL Neutrophils # (Manual) (1.3-7.7) k/uL Lymphocytes # (Manual) (1.0-4.8) k/uL Metamyelocytes # (Man) (0) k/uL Myelocytes # (Manual) (0) k/uL ABG pH 7.18 L* 7.21 L (7.35-7.45) ABG pCO2 59 H 54 H (35-45) mmHg ABG pO2 58 L* 64 L (83-108) mmHg ABG HCO3 (21-25) mmol/L ABG O2 Saturation 89.1 L 92.0 L (94-97) % Hemoglobin 12.7 L 12.6 L (13.0-17.5) gm/dL Sodium (137-145) mmol/L Potassium (3.5-5.1) mmol/L Carbon Dioxide (22-30) mmol/L BUN (9-20) mg/dL Creatinine (0.66-1.25) mg/dL Glucose (74-99) mg/dL POC Glucose (mg/dL) 188 H (70-110) mg/dL Calcium (8.4-10.2) mg/dL Magnesium (1.6-2.3) mg/dL Urine Protein (Negative) Urine Glucose (UA) (Negative) Urine Blood (Negative) Urine RBC (0-5) /hpf Amorphous Sediment (None) /hpf Urine Bacteria (None) /hpf Urine Mucus (None) /hpf Ur Random Sodium (40-220) mmol/L 09/29/24 09/30/24 09/30/24 Range/Units 17:59 00:16 04:08 WBC 11.9 H (3.8-10.6) k/uL RBC 3.83 L (4.30-5.90) m/uL Hgb 12.0 L (13.0-17.5) gm/dL Hct 38.5 L (39.0-53.0) % MCV 100.7 H (80.0-100.0) fL Neutrophils # (Manual) 11.00 H (1.3-7.7) k/uL Lymphocytes # (Manual) 0.12 L (1.0-4.8) k/uL Metamyelocytes # (Man) 0.36 H (0) k/uL Myelocytes # (Manual) 0.12 H (0) k/uL ABG pH (7.35-7.45) ABG pCO2 (35-45) mmHg ABG pO2 (83-108) mmHg ABG HCO3 (21-25) mmol/L ABG O2 Saturation (94-97) % Hemoglobin (13.0-17.5) gm/dL Sodium (137-145) mmol/L Potassium (3.5-5.1) mmol/L Carbon Dioxide (22-30) mmol/L BUN (9-20) mg/dL Creatinine (0.66-1.25) mg/dL Glucose (74-99) mg/dL POC Glucose (mg/dL) 166 H 164 H (70-110) mg/dL Calcium (8.4-10.2) mg/dL Magnesium (1.6-2.3) mg/dL Urine Protein (Negative) Urine Glucose (UA) (Negative) Urine Blood (Negative) Urine RBC (0-5) /hpf Amorphous Sediment (None) /hpf Urine Bacteria (None) /hpf Urine Mucus (None) /hpf Ur Random Sodium (40-220) mmol/L 09/30/24 09/30/24 09/30/24 Range/Units 04:08 04:51 06:28 WBC (3.8-10.6) k/uL RBC (4.30-5.90) m/uL Hgb (13.0-17.5) gm/dL Hct (39.0-53.0) % MCV (80.0-100.0) fL Neutrophils # (Manual) (1.3-7.7) k/uL Lymphocytes # (Manual) (1.0-4.8) k/uL Metamyelocytes # (Man) (0) k/uL Myelocytes # (Manual) (0) k/uL ABG pH 7.22 L (7.35-7.45) ABG pCO2 (35-45) mmHg ABG pO2 142 H (83-108) mmHg ABG HCO3 18 L (21-25) mmol/L ABG O2 Saturation 99.3 H (94-97) % Hemoglobin 11.8 L (13.0-17.5) gm/dL Sodium 134 L (137-145) mmol/L Potassium 5.2 H (3.5-5.1) mmol/L Carbon Dioxide 17 L (22-30) mmol/L BUN 46 H (9-20) mg/dL Creatinine 1.60 H (0.66-1.25) mg/dL Glucose 192 H (74-99) mg/dL POC Glucose (mg/dL) 217 H (70-110) mg/dL Calcium 7.0 L (8.4-10.2) mg/dL Magnesium 2.8 H (1.6-2.3) mg/dL Urine Protein (Negative) Urine Glucose (UA) (Negative) Urine Blood (Negative) Urine RBC (0-5) /hpf Amorphous Sediment (None) /hpf Urine Bacteria (None) /hpf Urine Mucus (None) /hpf Ur Random Sodium (40-220) mmol/L Microbiology - Last 24 Hours (Table) 09/28/24 17:34 Nasal Screen MRSA/MSSA - Final Nasal Swab 09/27/24 08:05 Gram Stain - Final Sputum Sputum Culture - Final Enterobacter cloacae
--- NOTE | 2024-09-30 13:04 | P.NPCON ---
History of Present Illness - Reason for Consult acute renal failure - History of Present Illness Reason for consultation: Acute kidney injury History of present illness: Patient is a 74-year-old male seen in renal consultation for acute kidney injury. Patient came to the hospital on September 26, 2024. It is noted the patient had bronchoscopy done a day prior to admission has subsequently developed right-sided pneumothorax. He was noted to have subcutaneous air and was subsequently transferred to this facility. Patient is currently intubated. He has been quite hypotensive and is currently on Levophed and vasopressin. Additionally he went to [facility] with RVR this admission and is maintained on amiod arone drip. Patient is currently oliguric. He did receive 80 of IV Lasix this morning and urine output has been about 40 to 50 cc total. He is receiving tube feeds. He is currently on hypotonic bicarb drip. Baseline creatinine is near 1 and up to 1.6 this morning. No history of diabetes. Vital signs -on vasopressor support. In [facility]. General: Resting in bed. HEENT: Intubated. LUNGS: Scattered rhonchi. HEART: Irregular rate and Rhythm. ABDOMEN: No distention. EXTREMITITES: 1+ edema. Past Medical History Past Medical History: COPD, Eye Disorder, GERD/Reflux, Hyperlipidemia, Hypertension, Prostate Disorder, Vascular Disorder Additional Past Medical History / Comment(s): GLAUCOMA, SEE CARDIOLOGY H & P. On ventilator for subcutaneous air due to pneumothoraz History of Any Multi-Drug Resistant Organisms: None Reported Past Surgical History: Coronary Bypass/CABG, Heart Catheterization Additional Past Surgical History / Comment(s): ARTERIOGRAM @ [facility] CABG 06/12/18. 06-11-18 heart cath. glaucoma & cataracts, colonoscopy, vasectomy , ARTHRECTOMY WITH BALLOON ANGIOPLASTY AND RIGHT SFA STENT (05/21/19), left SFA arthrectomy 06/18/19 Past Anesthesia/Blood Transfusion Reactions: No Reported Reaction Past Psychological History: No Psychological Hx Reported Additional Psychological History / Comment(s): . Smoking Status: Current every day smoker Past Alcohol Use History: Occasional Additional Past Alcohol Use History / Comment(s): started smoking at age 13. , SMOKES 1/2 PPD. (HX OF 1PPD) Past Drug Use History: None Reported - Past Family History Father Family Medical History: Cancer Mother Family Medical History: Cancer Medications and Allergies Home Medications Medication Instructions Recorded Confirmed Type Clopidogrel [Plavix] 75 mg PO DAILY 05/16/19 09/26/24 History Atorvastatin [Lipitor] 40 mg PO DAILY 03/06/23 09/26/24 History Dorzolamide-Timol 2.23%/0.68% 1 drop BOTH EYES BID 03/06/23 09/26/24 History [Cosopt] Metoprolol Tartrate [Lopressor] 50 mg PO DAILY 03/06/23 09/26/24 History Latanoprost [Latanoprost 0.005%] 1 drop BOTH EYES HS 09/24/24 09/26/24 History amLODIPine [Norvasc] 2.5 mg PO DAILY 09/26/24 09/26/24 History Allergies Allergy/AdvReac Type Severity Reaction Status Date / Time No Known Allergies Allergy Verified 09/25/24 13:55 Physical Exam Vitals: Vital Signs Temp Pulse Resp BP Pulse Ox FiO2 09/30/24 12:00 99.4 F 106 H 30 H 136/75 95 50 09/30/24 11:45 107 H 32 H 95 09/30/24 11:33 104 H 09/30/24 11:30 98 32 H 135/71 96 09/30/24 11:24 106 H 09/30/24 11:23 50 09/30/24 11:15 96 32 H 96 09/30/24 11:00 100 24 137/64 95 09/30/24 10:45 101 H 26 H 95 09/30/24 10:30 82 30 H 136/59 96 09/30/24 10:15 87 30 H 96 09/30/24 10:00 80 30 H 134/66 95 09/30/24 09:45 81 30 H 96 09/30/24 09:38 50 09/30/24 09:30 81 30 H 133/62 99 50 09/30/24 09:15 82 30 H 133/62 99 09/30/24 09:00 81 30 H 136/60 99 09/30/24 08:45 81 30 H 99 09/30/24 08:30 82 30 H 100 09/30/24 08:15 82 30 H 142/65 99 09/30/24 08:12 86 09/30/24 08:05 80 09/30/24 08:00 100.2 F H 80 30 H 137/65 99 70 03/11/25 07:56 82 09/30/24 07:53 70 09/30/24 07:50 80 09/30/24 07:45 81 30 H 100 09/30/24 07:30 80 31 H 131/71 100 09/30/24 07:15 80 30 H 100 09/30/24 07:00 81 30 H 134/71 100 09/30/24 06:45 80 30 H 134/71 100 09/30/24 06:30 80 30 H 128/68 99 09/30/24 06:15 80 30 H 128/68 99 09/30/24 06:00 81 30 H 134/68 100 09/30/24 05:45 82 30 H 134/68 100 09/30/24 05:30 82 30 H 132/67 99 09/30/24 05:15 81 30 H 132/67 100 09/30/24 05:00 82 30 H 130/67 100 09/30/24 04:45 81 30 H 130/67 100 09/30/24 04:30 82 30 H 125/64 100 09/30/24 04:15 82 30 H 125/64 100 09/30/24 04:00 99.3 F 83 30 H 127/65 100 80 09/30/24 03:45 83 30 H 127/65 100 09/30/24 03:30 84 30 H 123/67 100 09/30/24 03:19 88 09/30/24 03:15 84 30 H 123/67 100 09/30/24 03:06 84 80 09/30/24 03:00 85 30 H 123/67 100 09/30/24 02:45 90 30 H 117/62 100 09/30/24 02:30 92 30 H 117/60 99 09/30/24 02:15 93 30 H 117/60 99 09/30/24 02:00 137 H 30 H 99 09/30/24 01:45 138 H 30 H 99 09/30/24 01:30 138 H 30 H 99 09/30/24 01:15 138 H 30 H 99 09/30/24 01:00 141 H 30 H 99 09/30/24 00:45 138 H 30 H 99 09/30/24 00:30 138 H 30 H 99 09/30/24 00:15 140 H 30 H 99 09/30/24 00:13 80 09/30/24 00:09 138 H 30 H 99 09/30/24 00:00 99.8 F H 140 H 0 L 108/62 99 80 09/29/24 23:45 140 H 0 L 108/62 99 09/29/24 23:30 140 H 0 L 108/62 99 09/29/24 23:15 140 H 0 L 108/62 99 09/29/24 23:00 138 H 30 H 99 09/29/24 22:45 138 H 30 H 99 09/29/24 22:30 138 H 30 H 99 09/29/24 22:15 137 H 30 H 99 09/29/24 22:00 137 H 30 H 99 09/29/24 21:45 137 H 30 H 98 09/29/24 21:30 135 H 30 H 98 09/29/24 21:15 134 H 20 105/59 97 09/29/24 21:00 133 H 30 H 96 09/29/24 20:45 130 H 30 H 97 09/29/24 20:30 131 H 30 H 97 09/29/24 20:15 131 H 30 H 97 09/29/24 20:14 131 H 09/29/24 20:00 99.4 F 138 H 30 H 97 80 09/29/24 19:52 139 H 09/29/24 19:51 138 H 09/29/24 19:45 140 H 30 H 95 09/29/24 19:40 80 09/29/24 19:39 138 H 09/29/24 19:30 138 H 3 L 98/59 94 L 09/29/24 19:15 138 H 0 L 98/59 94 L 09/29/24 19:00 140 H 3 L 103/61 95 09/29/24 18:45 141 H 5 L 103/61 95 09/29/24 18:30 140 H 30 H 103/61 95 09/29/24 18:15 141 H 30 H 103/61 95 09/29/24 18:00 141 H 30 H 102/64 95 09/29/24 17:45 138 H 30 H 102/64 96 09/29/24 17:30 131 H 30 H 102/64 95 09/29/24 17:15 142 H 30 H 102/64 95 09/29/24 17:00 128 H 30 H 99/62 98 09/29/24 16:45 133 H 30 H 99/62 94 L 09/29/24 16:30 118 H 30 H 99/62 93 L 09/29/24 16:15 130 H 30 H 99/62 93 L 09/29/24 16:11 138 H 09/29/24 16:03 129 H 09/29/24 16:00 95.7 F L 131 H 30 H 103/55 93 L 80 09/29/24 15:45 124 H 30 H 103/55 93 L 09/29/24 15:30 113 H 30 H 103/55 93 L 09/29/24 15:15 103 H 20 103/55 92 L 09/29/24 15:00 108 H 30 H 121/66 93 L 09/29/24 14:45 100 30 H 121/66 92 L 09/29/24 14:30 104 H 30 H 121/66 94 L 09/29/24 14:15 106 H 30 H 121/66 95 09/29/24 14:00 128 H 30 H 108/63 95 09/29/24 13:45 120 H 30 H 108/63 94 L 09/29/24 13:30 97 30 H 108/63 95 09/29/24 13:15 102 H 30 H 108/63 95 09/29/24 13:00 104 H 30 H 117/61 94 L Intake and Output 09/29/24 09/30/24 09/30/24 22:59 06:59 14:59 Intake Total 4331.187 3137.486 2116.118 Output Total 300 205 105 Balance 1425.716 956.857 6920.118 Intake: IV 838 199 8824 0.9 KVO 240 270 100 0.9 saline pressure bag 24 27 15 Dextrose 5% in Water 1, 225 000 ml @ 75 mls/hr IV . [id number] [facility] with Sodium Bicarb (1 Meq/ml) 100 ml Rx#:[id number] Piperacillin-Tazobactam 3 100 100 .375 gm In Sodium Chloride 0.9% 100 ml @ 25 mls/hr IVPB Q8HR [facility] Rx# :[id number] Sodium Chloride 0.9% 1, 1000 000 ml @ 999 mls/hr IV . Q1H1M [facility] Rx#:[id number] Intake, IV Titration 1171.716 646.486 426.118 Amount Norepinephrine 4 mg In 80.231 406.119 350.064 Sodium Chloride 0.9% 250 ml @ 0.03 MCG/KG/MIN 10. 264 mls/hr IV .Q24H [facility] Rx#:[id number] Sodium Chloride 0.9% 1, 999 000 ml @ 999 mls/hr IV . Q1H1M [facility] Rx#:[id number] propofoL 1,000 mg In 92.485 240.367 76.054 Empty Bag 1 bag @ 15 MCG/ KG/MIN 8.45 mls/hr IV . [id number] [facility] Rx#:[id number] Tube Feeding 160 180 190 Other 30 60 60 Output: Urine 300 205 105 Other: Voiding Method Indwelling Catheter Indwelling Catheter Indwelling Catheter Weight 98.2 kg ABP, PAP, CO, CI - Last 8 Hours Arterial Blood Pressure 130/48 Arterial Blood Pressure 139/51 Arterial Blood Pressure 130/51 Arterial Blood Pressure 125/47 Arterial Blood Pressure 119/49 Arterial Blood Pressure 127/50 Arterial Blood Pressure 123/45 Arterial Blood Pressure 126/47 Arterial Blood Pressure 114/44 Arterial Blood Pressure 115/44 Arterial Blood Pressure 116/43 Arterial Blood Pressure 114/44 Arterial Blood Pressure 115/46 Arterial Blood Pressure 113/42 Arterial Blood Pressure 113/44 Arterial Blood Pressure 116/43 Arterial Blood Pressure 117/46 Arterial Blood Pressure 116/46 Arterial Blood Pressure 115/45 Arterial Blood Pressure 113/45 Arterial Blood Pressure 114/45 Arterial Blood Pressure 113/45 Arterial Blood Pressure 120/46 Arterial Blood Pressure 118/45 Arterial Blood Pressure 118/46 Arterial Blood Pressure 117/45 Arterial Blood Pressure 116/46 Arterial Blood Pressure 112/45 Arterial Blood Pressure 110/45 Results - Lab Results Most recent lab results ABG pH 7.28 (7.35-7.45) L 09/30/24 11:26 ABG pCO2 42 mmHg (35-45) 09/30/24 11:26 ABG pO2 64 mmHg (83-108) L 09/30/24 11:26 ABG HCO3 20 mmol/L (21-25) L 09/30/24 11:26 ABG O2 Saturation 93.2 % (94-97) L 09/30/24 11:26 Calcium 7.0 mg/dL (8.4-10.2) L 09/30/24 04:08 Magnesium 2.8 mg/dL (1.6-2.3) H 09/30/24 04:08 09/30/24 04:08 09/30/24 04:08 Assessment and Plan Plan: Assessment: 1. Acute kidney injury secondary to ATN secondary to shock. Creatinine 0.7 on admission and up to 1.6 today. Oliguric. 2. Acute hypoxic respiratory failure secondary to right-sided pneumothorax with extensive subcutaneous emphysema. 3. Septic shock secondary to aspiration pneumonia on antibiotics. 4. Right upper lobe pulmonary nodule status post bronchoscopy and biopsy September 25, 2024. 5. New onset A-fib with RVR maintained on amiodarone drip. 6. Metabolic acidosis secondary to acute kidney injury. 7. History of coronary disease status post CABG in 2018. Plan: Change IV fluids to isotonic bicarb drip to be run at 75 cc an hour. Repeat BMP this evening. Potassium level this morning was hemolyzed. Check renal ultrasound and bladder scan. If no improvement in renal function and urine output in the next 24 hours, will initiate renal replacement therapy. This was discussed at length with patient's present at bedside. Thank you for the consultation. I will continue to follow the patient with you during his hospital stay.
--- NOTE | 2024-09-30 14:08 | US ---
EXAMINATION TYPE: US kidneys/renal and bladder DATE OF EXAM: 09/30/2024 COMPARISON: NONE CLINICAL INDICATION: Male, 74 years old with history of oliguria; oliguria limited due to bowel gas a nd positioning. TECHNIQUE: Grayscale imaging of the bilateral kidneys and urinary bladder: FINDINGS: EXAM MEASUREMENTS: Right Kidney: 10.9 x 5.4 x 5.0 cm Left Kidney: 12 x 6.3 x 4.5 cm Right Kidney: Limited due to bowel gas. Left Kidney: multiple anechoic areas seen largest 2.1 x 2.0 x 1.9 cm. Bladder: not visualized patient has cathter in. There is no evidence for hydronephrosis at this point in time. No nephrolithiasis is seen. No tiffanie s are identified. The urinary bladder is anechoic. IMPRESSION: No evidence for obstructive uropathy or renal calculus. [facility], , 09/30/2024 2:05 PM
[2024-09-30] MEDS: DEXTROSE 5% IN WATER 1,000 ML with SODIUM BICARB (1 MEQ/ML) 150 ML IV SCH (14:47)
--- NOTE | 2024-09-30 15:56 | P.PN ---
Subjective Progress Note Date: 09/30/24 On 09/29/2024, the patient is being seen for a follow-up. This morning, the patient remains intubated on the mechanical ventilator. The patient remains on propofol at around 50 mcg/kg/min and the patient is also on fentanyl 2 mcg/kg/h and the max at 1 mcg/kg/min. The patient is adequately sedated and paralyzed. The patient remains on assist-control mode of mechanical ventilation. Tidal volume is 400 with a rate of 30 with an FiO2 of 100% with a PEEP of 13. Blood gases from today showed a pH of 7.3 with a pCO2 of 49 and pO2 of 117. Chest x- ray shows extensive consolidation of the right lower lobe and this is attributed to an aspiration that occurred here in the intensive care unit. The sputum sample is showing Enterobacter and the patient is on IV Rocephin. The patient remains on bronchodilators. The patient remains on steroids. Right-sided chest tube is in place and there is ongoing air leak. The extent of subcutaneous emphysema has improved clinically and based on the chest x-ray findings. There is a small left-sided pleural effusion in addition on today's chest x-ray. Meanwhile, the patient went into atrial fibrillation with rapid ventricular response overnight. The patient is currently on amiodarone at 1 mg/min. He is on normal saline running at 30 cc an hour. He is receiving enteral feeding for nutritional support and the patient is on vital HP running at 10 cc an hour. Abdomen is nondistended. WBC count is at 7.4 with a heme of 12.3 and a platelet count of 160. Sodium is at 135, potassium is at 4.8, BUN 31 with a creatinine of 1.1. Glucose at 195 from this morning. On 09/30/2024, the patient is being seen for a follow-up. This morning, the patient is on propofol which is running at 50 mcg/kg/min. The patient is off fentanyl and the patient is off Nimbex. The patient remains intubated on the mechanical ventilator assist-control mode at a rate of 30, tidal volume of 450, FiO2 of 80% with a PEEP of 11. Morning blood gas showed a pH of 7.22 with a pCO2 of 45 and a pO2 of 142. The chest x-ray shows improvement in the right lower lobe consolidation. There is a stable right apical pneumothorax and right-sided chest tube remains in good location. There is some limited subcutaneous emphysema along the right chest and the patient is having positive air leak. The patient was having atrial fibrillation with rapid ventricular response. The patient was becoming hemodynamically unstable and hypotensive requiring more pressors despite being on amiodarone. Based on that, the patient underwent a cardioversion yesterday and this was successful and this morning the patient's cardiac rhythm is back into normal sinus rhythm. The patient remains on amiodarone which is running at 0.5 mg/min. The patient's urine output has dropped considerably and currently is producing only 5 cc an hour. Norepinephrine is running at 0.16 mcg/kg/min and the patient is on a vasopressin physiologic dose. The patient is also receiving vital HP for enteral feeding and nutritional support with rate of 40 cc an hour. Blood work from today shows a WBC count of 11.9, hemoglobin is at 12 and a platelet count is 175. The sodium level is at 134, potassium level is 5.2, bicarb 17, BUN 46 with a creatinine of 1.6. Remains on IV Zosyn. Remains on anticoagulation with Eliquis. Remains on pressors. Remains on bronchodilators. Remains on steroids. Obviously less bronchospastic and wheezy on today's examination. There is also considerable drop in the peak airway pressure which is currently down to 25. Objective - Vital Signs Vital signs: Vital Signs Temp 99.4 F 09/30/24 12:00 Pulse 102 H 09/30/24 15:30 Resp 30 H 09/30/24 15:15 BP 121/64 09/30/24 15:00 Pulse Ox 94 L 09/30/24 15:15 FiO2 50 09/30/24 15:11 Intake & Output 09/29/24 09/30/24 09/30/24 18:59 06:59 18:59 Intake Total 2399.828 3501.202 2530.118 Output Total 454 370 175 Balance 8544.057 9499.202 2355.118 Weight 94.2 kg 98.2 kg Intake: IV 038 852 9215 0.9 KVO 360 390 160 0.9 saline pressure bag 36 39 24 Dextrose 5% in Water 1, 375 000 ml @ 75 mls/hr IV . [id number] [facility] with Sodium Bicarb (1 Meq/ml) 100 ml Rx#:[id number] Dextrose 5% in Water 1, 75 000 ml @ 75 mls/hr IV . [id number] [facility] with Sodium Bicarb (1 Meq/ml) 150 ml Rx#:[id number] Piperacillin-Tazobactam 3 200 100 .375 gm In Sodium Chloride 0.9% 100 ml @ 25 mls/hr IVPB Q8HR [facility] Rx# :[id number] Sodium Chloride 0.9% 1, 1000 000 ml @ 999 mls/hr IV . Q1H1M [facility] Rx#:[id number] cefTRIAXone 2 gm In 50 Sodium Chloride 0.9% 50 ml @ 100 mls/hr IVPB Q24HR [facility] Rx#:[id number] Intake, IV Titration 165.802 7569.202 426.118 Amount Cisatracurium 200 mg In 109.332 Sodium Chloride 0.9% 180 ml @ 1 MCG/KG/MIN 5.388 mls/hr IV .Q24H [facility] Rx#: [id number] Norepinephrine 4 mg In 254.000 486.350 350.064 Sodium Chloride 0.9% 250 ml @ 0.03 MCG/KG/MIN 10. 264 mls/hr IV .Q24H [facility] Rx#:[id number] Sodium Chloride 0.9% 1, 999 000 ml @ 999 mls/hr IV . Q1H1M [facility] Rx#:[id number] fentaNYL (PF). 1,000 mcg 135.522 In Sodium Chloride 0.9% 80 ml @ 0.5 MCG/KG/HR 4. 695 mls/hr IV .[id number] [facility] Rx#:[id number] propofoL 1,000 mg In 267.599 332.852 76.054 Empty Bag 1 bag @ 15 MCG/ KG/MIN 8.45 mls/hr IV . [id number] [facility] Rx#:[id number] Oral 100 Tube Feeding 150 260 310 Other 90 60 Output: Chest Tube Drainage 34 Right 34 Urine 420 370 175 Other: Voiding Method Indwelling Catheter Indwelling Catheter Indwelling Catheter ABP, PAP, CO, CI - Last Documented Arterial Blood Pressure 127/49 - Exam No acute distress, sedated and the patient is currently off paralytics., Comfortable on sections of the mechanical ventilator. HEENT examination is grossly unremarkable. Mucous membranes are moist. No oral lesions. Neck supple. Full range of motion. No adenopathy thyromegaly or neck vein distention. Cardiovascular examination reveals r irregular rhythm consistent with atrial fibrillation, rate is controlled. S1-S2 normal. No S3 or S4. No discernible murmur noted. Lungs reveal bilateral rhonchi and expiratory wheezes. Breath sounds are equal but diminished throughout. No crackles. Subcutaneous emphysema is improved and the patient has a right-sided chest tube with a positive air leak. Output from the chest tube is minimal at this point in time. Less bronchospastic and wheezy on today's examination. Abdomen soft bowel sounds are heard. No masses or tenderness. Extremities are intact. No cyanosis clubbing or edema. Skin is without rash or lesion. Neurologic examination cannot be evaluated at this time. - Labs CBC & Chem 7: 09/30/24 04:08 09/30/24 04:08 Labs: Abnormal Lab Results - Last 24 Hours (Table) 09/29/24 09/29/24 09/29/24 Range/Units 10:45 17:55 17:59 WBC (3.8-10.6) k/uL RBC (4.30-5.90) m/uL Hgb (13.0-17.5) gm/dL Hct (39.0-53.0) % MCV (80.0-100.0) fL Neutrophils # (Manual) (1.3-7.7) k/uL Lymphocytes # (Manual) (1.0-4.8) k/uL Metamyelocytes # (Man) (0) k/uL Myelocytes # (Manual) (0) k/uL ABG pH 7.21 L (7.35-7.45) ABG pCO2 54 H (35-45) mmHg ABG pO2 64 L (83-108) mmHg ABG HCO3 (21-25) mmol/L ABG O2 Saturation 92.0 L (94-97) % Hemoglobin 12.6 L (13.0-17.5) gm/dL Sodium (137-145) mmol/L Potassium (3.5-5.1) mmol/L Carbon Dioxide (22-30) mmol/L BUN (9-20) mg/dL Creatinine (0.66-1.25) mg/dL Glucose (74-99) mg/dL POC Glucose (mg/dL) 166 H (70-110) mg/dL Calcium (8.4-10.2) mg/dL Magnesium (1.6-2.3) mg/dL Ur Random Sodium <20 L (40-220) mmol/L 09/30/24 09/30/24 09/30/24 Range/Units 00:16 04:08 04:08 WBC 11.9 H (3.8-10.6) k/uL RBC 3.83 L (4.30-5.90) m/uL Hgb 12.0 L (13.0-17.5) gm/dL Hct 38.5 L (39.0-53.0) % MCV 100.7 H (80.0-100.0) fL Neutrophils # (Manual) 11.00 H (1.3-7.7) k/uL Lymphocytes # (Manual) 0.12 L (1.0-4.8) k/uL Metamyelocytes # (Man) 0.36 H (0) k/uL Myelocytes # (Manual) 0.12 H (0) k/uL ABG pH (7.35-7.45) ABG pCO2 (35-45) mmHg ABG pO2 (83-108) mmHg ABG HCO3 (21-25) mmol/L ABG O2 Saturation (94-97) % Hemoglobin (13.0-17.5) gm/dL Sodium 134 L (137-145) mmol/L Potassium 5.2 H (3.5-5.1) mmol/L Carbon Dioxide 17 L (22-30) mmol/L BUN 46 H (9-20) mg/dL Creatinine 1.60 H (0.66-1.25) mg/dL Glucose 192 H (74-99) mg/dL POC Glucose (mg/dL) 164 H (70-110) mg/dL Calcium 7.0 L (8.4-10.2) mg/dL Magnesium 2.8 H (1.6-2.3) mg/dL Ur Random Sodium (40-220) mmol/L 09/30/24 09/30/24 09/30/24 Range/Units 04:51 06:28 11:26 WBC (3.8-10.6) k/uL RBC (4.30-5.90) m/uL Hgb (13.0-17.5) gm/dL Hct (39.0-53.0) % MCV (80.0-100.0) fL Neutrophils # (Manual) (1.3-7.7) k/uL Lymphocytes # (Manual) (1.0-4.8) k/uL Metamyelocytes # (Man) (0) k/uL Myelocytes # (Manual) (0) k/uL ABG pH 7.22 L 7.28 L (7.35-7.45) ABG pCO2 (35-45) mmHg ABG pO2 142 H 64 L (83-108) mmHg ABG HCO3 18 L 20 L (21-25) mmol/L ABG O2 Saturation 99.3 H 93.2 L (94-97) % Hemoglobin 11.8 L 11.2 L (13.0-17.5) gm/dL Sodium (137-145) mmol/L Potassium (3.5-5.1) mmol/L Carbon Dioxide (22-30) mmol/L BUN (9-20) mg/dL Creatinine (0.66-1.25) mg/dL Glucose (74-99) mg/dL POC Glucose (mg/dL) 217 H (70-110) mg/dL Calcium (8.4-10.2) mg/dL Magnesium (1.6-2.3) mg/dL Ur Random Sodium (40-220) mmol/L 09/30/24 Range/Units 11:31 WBC (3.8-10.6) k/uL RBC (4.30-5.90) m/uL Hgb (13.0-17.5) gm/dL Hct (39.0-53.0) % MCV (80.0-100.0) fL Neutrophils # (Manual) (1.3-7.7) k/uL Lymphocytes # (Manual) (1.0-4.8) k/uL Metamyelocytes # (Man) (0) k/uL Myelocytes # (Manual) (0) k/uL ABG pH (7.35-7.45) ABG pCO2 (35-45) mmHg ABG pO2 (83-108) mmHg ABG HCO3 (21-25) mmol/L ABG O2 Saturation (94-97) % Hemoglobin (13.0-17.5) gm/dL Sodium (137-145) mmol/L Potassium (3.5-5.1) mmol/L Carbon Dioxide (22-30) mmol/L BUN (9-20) mg/dL Creatinine (0.66-1.25) mg/dL Glucose (74-99) mg/dL POC Glucose (mg/dL) 229 H (70-110) mg/dL Calcium (8.4-10.2) mg/dL Magnesium (1.6-2.3) mg/dL Ur Random Sodium (40-220) mmol/L Microbiology - Last 24 Hours (Table) 09/28/24 17:34 Nasal Screen MRSA/MSSA - Final Nasal Swab Assessment and Plan Plan: Acute hypoxemic respiratory failure, secondary to right-sided pneumothorax, with extensive subcutaneous emphysema, requiring intubation, mechanical ventilation, September 26, 2024. The patient remains intubated on mechanical ventilator. The patient has been open extensive consolidation of the right lower lobe probably due to an aspiration episode/aspiration pneumonia and the patient is growing Enterobacter and is purulent. Chest x-ray shows a stable right apical pneumothorax and the patient continues to have a persistent air leak. Improvement in oxygenation and some improvement in ventilation and respiratory acidosis on today's blood gas. Right-sided pneumothorax with persistent air leak, small right apical pneumothorax Subcutaneous emphysema, improved S/P flexible bronchoscopy, robotically assisted bronchoscopy with radial ultrasound evaluation of the right upper lobe pulmonary nodule, robotically assisted transbronchial needle aspiration, transbronchial biopsy, and BAL, September 25, 2024. Right upper lobe pulmonary nodule, awaiting final pathology from the right upper lobe biopsy History of chronic obstructive pulmonary disease the patient has extensive emphysematous changes upper lobes bilaterally Atrial fibrillation with rapid ventricular response, status post cardioversion, currently on amiodarone drip at 0.5 mg/min and the patient is into normal sinus rhythm. The patient is also on anticoagulation with Eliquis. Hypotension, multifactorial, could be related to sepsis/aspiration. The patient is currently on norepinephrine. Patient is also on vasopressin physiologic dose Acute kidney injury with oliguria. Creatinine is up to 1.6. Patient also has developed anion gap metabolic acidosis and hyperkalemia History of hypertension. History of hyperlipidemia. History of gastroesophageal reflux disease. History of coronary artery disease, with previous CABG, 2018. Peripheral vascular occlusive disease. History of tobacco use. History of glaucoma. Plan: Keep the patient on propofol Dropped FiO2 down to 50% and PEEP is currently at 10 Obtain a follow-up blood gas Continue IV Zosyn covering for aspiration pneumonia. Echocardiogram showed a preserved LV function and the patient is currently on amiodarone 0.5 mg/min Continue anticoagulation with Eliquis 5 mg p.o. twice a day Continue enteral feeding for nutritional support Start the patient on bicarb infusion at rate of 75 cc an hour. Give 2 additional doses of sodium bicarb 50 mEq each. Nephrology consultation Ultrasound the kidneys to rule out hydronephrosis Give Lasix 80 mg IV push x 1 Monitor output from the chest tube Monitor airleak Wean off pressors as tolerated to maintain mean artery pressure above 60 Condition remains critical. Will continue to follow make further isaac mmendations based on his progress. Evaluation was done and 35 minutes. Time with Patient: Greater than 30
[2024-09-30 17:02] LABS: Glucose,Whole Blood 252 mg/dL (70-110)
[2024-09-30 17:40] LABS: African American GFR (CKD) 28 (>60 ml/min/1.73 sqM); Anion Gap 9 mmol/L; Blood Urea Nitrogen 60 mg/dL (9-20); Carbon Dioxide 20 mmol/L (22-30); Chloride 106 mmol/L (98-107); Glucose 251 mg/dL (74-99); Non-African American GFR(CKD) 24 (>60 ml/min/1.73 sqM); Potassium 4.1 mmol/L (3.5-5.1); Sodium 135 mmol/L (137-145)
[2024-09-30 17:46] LABS: Calcium 6.3 mg/dL (8.4-10.2)
[2024-09-30] MEDS: CALCIUM GLUCONATE IN NACL 2 GM in SALINE 1 100ML.BAG IVPB ONE (18:51)
[2024-09-30 23:27] LABS: Glucose,Whole Blood 226 mg/dL (70-110)
--- NOTE | 2024-10-01 01:35 | XR ---
EXAM: XR Chest, 1 View CLINICAL HISTORY: ITS.REASON XR Reason: distress TECHNIQUE: Frontal view of the chest. COMPARISON: 09/30/2024 IMPRESSION: Right apical pneumothorax again seen, slightly smaller.
[2024-10-01 02:40] LABS: ABG Base Excess -5.7 mmol/L; ABG HCO3 21 mmol/L (21-25); ABG Oxygen Saturation 86.8 % (94-97); ABG PCO2 45 mmHg (35-45); ABG PH 7.28 (7.35-7.45); ABG TCO2 22 mmol/L (19-24)
[2024-10-01 04:26] LABS: HCT 31.7 % (39.0-53.0); HGB 10.1 gm/dL (13.0-17.5); Hypochromasia Slight; MCH 31.7 pg (25.0-35.0); MCHC 31.9 g/dL (31.0-37.0); MCV 99.4 fL (80.0-100.0); Mean Platelet Volume 8.1; Platelet Count 125 k/uL (150-450); RBC 3.19 m/uL (4.30-5.90); RDW 13.3 % (11.5-15.5); WBC 10.3 k/uL (3.8-10.6)
[2024-10-01 04:38] LABS: African American GFR (CKD) 23 (>60 ml/min/1.73 sqM); Anion Gap 12 mmol/L; Blood Urea Nitrogen 67 mg/dL (9-20); Calcium 6.7 mg/dL (8.4-10.2); Carbon Dioxide 19 mmol/L (22-30); Chloride 104 mmol/L (98-107); Glucose 173 mg/dL (74-99); Magnesium 2.8 mg/dL (1.6-2.3); Non-African American GFR(CKD) 20 (>60 ml/min/1.73 sqM); Potassium 3.7 mmol/L (3.5-5.1); Sodium 135 mmol/L (137-145)
[2024-10-01] MEDS: AMIODARONE 450 MG in DEXTROSE 5% IN WATER 250 ML IV SCH (04:46)
[2024-10-01 05:20] LABS: ABG PO2 54 mmHg (83-108); Allen Test Performed? no
--- NOTE | 2024-10-01 06:01 | XR ---
EXAMINATION TYPE: XR chest 1V portable DATE OF EXAM: 10/01/2024 CLINICAL INDICATION: Male, 74 years old with history of mechanical ventilation, progress study. SOB. TECHNIQUE: Single AP portable semiupright view of the chest is obtained. COMPARISON: Chest x-ray from one day earlier and older studies. FINDINGS: Stable endotracheal and orogastric tubes. Stable left-sided subclavian central venous cath eter. Overlying sternal wires are redemonstrated. Stable right-sided chest tube. Likely stable overlying right-sided overlying subcutaneous emphysema is noted. Stable small right api fausto pneumothorax despite chest tube. Persistent multifocal bilateral increased opacities. Persistent mild cardiomegaly. IMPRESSION: Stable small right apical pneumothorax despite right-sided chest tube. Persistent bilater al multifocal acute infiltrates and/or edema. No significant change from one day earlier. [facility], , 10/01/2024 5:59 AM
[2024-10-01 08:14] LABS: ABG Base Excess -4.9 mmol/L; ABG HCO3 22 mmol/L (21-25); ABG Oxygen Saturation 95.2 % (94-97); ABG PCO2 47 mmHg (35-45); ABG PH 7.28 (7.35-7.45); ABG PO2 78 mmHg (83-108); ABG TCO2 23 mmol/L (19-24)
[2024-10-01] MEDS: FUROSEMIDE 10 MG/ML 10 ML VIAL IV STA ×2 (09:14→21:59)
[2024-10-01 09:18] LABS: Band Neutrophils % 11 %; Lymphocytes # (M) 0.21 k/uL (1.0-4.8); Neutrophils % (M) 87 %; Nucleated Red Blood Cells 0 /100 WBC (0-0); Total Cells Counted 100
[2024-10-01 09:20] LABS: Toxic Vacuolation Present
--- NOTE | 2024-10-01 10:03 | P.PN ---
Subjective Patient is seen in follow-up for acute kidney injury. Creatinine 2.94 today. Urine output 10 to 20 cc an hour. On bicarb drip. On amiodarone drip. Vital signs are stable. General: Resting in bed. HEENT: Intubated. LUNGS: Scattered rhonchi. HEART: Rate and Rhythm are regular. ABDOMEN: No distention. EXTREMITITES: 1+ edema. Objective - Vital Signs Vital signs: Vital Signs Temp 97.9 F 10/01/24 08:00 Pulse 82 10/01/24 08:26 Resp 22 10/01/24 08:00 BP 127/63 10/01/24 08:00 Pulse Ox 97 10/01/24 08:00 FiO2 80 10/01/24 09:37 Intake & Output 09/30/24 10/01/24 10/01/24 18:59 06:59 18:59 Intake Total 3497.304 2025.179 506 Output Total 290 260 35 Balance 3207.304 1765.179 471 Weight 103 kg Intake: IV 2296 843 176 0.9 KVO 210 110 20 0.9 saline pressure bag 36 33 6 Calcium Gluconate in NaCl 100 2 gm In Saline 1 100ml. bag @ 100 mls/hr IVPB ONCE ONE Rx#:[id number] Dextrose 5% in Water 1, 375 000 ml @ 75 mls/hr IV . [id number] [facility] with Sodium Bicarb (1 Meq/ml) 100 ml Rx#:[id number] Dextrose 5% in Water 1, 375 600 150 000 ml @ 75 mls/hr IV . [id number] [facility] with Sodium Bicarb (1 Meq/ml) 150 ml Rx#:[id number] Piperacillin-Tazobactam 3 200 100 .375 gm In Sodium Chloride 0.9% 100 ml @ 25 mls/hr IVPB Q8HR [facility] Rx# :[id number] Sodium Chloride 0.9% 1, 1000 000 ml @ 999 mls/hr IV . Q1H1M ONE Rx#:[id number] Intake, IV Titration 641.304 552.179 200 Amount Amiodarone 450 mg In 233.338 Dextrose 5% in Water 250 ml @ 0.5 MG/MIN 16.667 mls/hr IV .Q15H [facility] Rx#: [id number] Norepinephrine 4 mg In 465.250 36.287 Sodium Chloride 0.9% 250 ml @ 0.03 MCG/KG/MIN 10. 264 mls/hr IV .Q24H [facility] Rx#:[id number] Piperacillin-Tazobactam 3 100 .375 gm In Sodium Chloride 0.9% 100 ml @ 25 mls/hr IVPB Q8HR [facility] Rx# :[id number] Vasopressin 60 unit In 85.374 Sodium Chloride 0.9% 150 ml @ 0.03 UNITS/MIN 4.59 mls/hr IV .Q24H [facility] Rx#: [id number] propofoL 1,000 mg In 176.054 197.18 100 Empty Bag 1 bag @ 15 MCG/ KG/MIN 8.45 mls/hr IV . [id number] [facility] Rx#:[id number] Tube Feeding 470 540 100 Other 90 90 30 Output: Chest Tube Drainage 50 Right 50 Urine 290 210 35 Other: Voiding Method Indwelling Catheter Indwelling Catheter ABP, PAP, CO, CI - Last Documented Arterial Blood Pressure 142/50 - Labs CBC & Chem 7: 10/01/24 04:05 10/01/24 04:05 Labs: Abnormal Lab Results - Last 24 Hours (Table) 09/30/24 09/30/24 09/30/24 Range/Units 11:26 11:31 17:01 RBC (4.30-5.90) m/uL Hgb (13.0-17.5) gm/dL Hct (39.0-53.0) % Plt Count (150-450) k/uL Neutrophils # (Manual) (1.3-7.7) k/uL Lymphocytes # (Manual) (1.0-4.8) k/uL ABG pH 7.28 L (7.35-7.45) ABG pCO2 (35-45) mmHg ABG pO2 64 L (83-108) mmHg ABG HCO3 20 L (21-25) mmol/L ABG O2 Saturation 93.2 L (94-97) % Hemoglobin 11.2 L (13.0-17.5) gm/dL Sodium (137-145) mmol/L Carbon Dioxide (22-30) mmol/L BUN (9-20) mg/dL Creatinine (0.66-1.25) mg/dL Glucose (74-99) mg/dL POC Glucose (mg/dL) 229 H 252 H (70-110) mg/dL Calcium (8.4-10.2) mg/dL Magnesium (1.6-2.3) mg/dL 09/30/24 09/30/24 10/01/24 Range/Units 17:02 23:25 02:35 RBC (4.30-5.90) m/uL Hgb (13.0-17.5) gm/dL Hct (39.0-53.0) % Plt Count (150-450) k/uL Neutrophils # (Manual) (1.3-7.7) k/uL Lymphocytes # (Manual) (1.0-4.8) k/uL ABG pH 7.28 L (7.35-7.45) ABG pCO2 (35-45) mmHg ABG pO2 54 L* (83-108) mmHg ABG HCO3 (21-25) mmol/L ABG O2 Saturation 86.8 L (94-97) % Hemoglobin 10.4 L (13.0-17.5) gm/dL Sodium 135 L (137-145) mmol/L Carbon Dioxide 20 L (22-30) mmol/L BUN 60 H (9-20) mg/dL Creatinine 2.48 H (0.66-1.25) mg/dL Glucose 251 H (74-99) mg/dL POC Glucose (mg/dL) 226 H (70-110) mg/dL Calcium 6.3 L* (8.4-10.2) mg/dL Magnesium (1.6-2.3) mg/dL 10/01/24 10/01/24 10/01/24 Range/Units 04:05 04:05 08:11 RBC 3.19 L (4.30-5.90) m/uL Hgb 10.1 L (13.0-17.5) gm/dL Hct 31.7 L (39.0-53.0) % Plt Count 125 L (150-450) k/uL Neutrophils # (Manual) 10.00 H (1.3-7.7) k/uL Lymphocytes # (Manual) 0.21 L (1.0-4.8) k/uL ABG pH 7.28 L (7.35-7.45) ABG pCO2 47 H (35-45) mmHg ABG pO2 78 L (83-108) mmHg ABG HCO3 (21-25) mmol/L ABG O2 Saturation (94-97) % Hemoglobin 10.3 L (13.0-17.5) gm/dL Sodium 135 L (137-145) mmol/L Carbon Dioxide 19 L (22-30) mmol/L BUN 67 H (9-20) mg/dL Creatinine 2.94 H (0.66-1.25) mg/dL Glucose 173 H (74-99) mg/dL POC Glucose (mg/dL) (70-110) mg/dL Calcium 6.7 L (8.4-10.2) mg/dL Magnesium 2.8 H (1.6-2.3) mg/dL Microbiology - Last 24 Hours (Table) 09/29/24 10:42 Blood Culture - Preliminary Blood Assessment and Plan Plan: Assessment: 1. Acute kidney injury secondary to ATN secondary to shock. Creatinine 0.7 on admission and up to 2.94 today. Oliguric. No hydronephrosis noted on kidney ultrasound. 2. Acute hypoxic respiratory failure secondary to right-sided pneumothorax with extensive subcutaneous emphysema. 3. Septic shock secondary to aspiration pneumonia on antibiotics. 4. Right upper lobe pulmonary nodule status post bronchoscopy and biopsy September 25, 2024. 5. New onset A-fib with RVR maintained on amiodarone drip. 6. Metabolic acidosis secondary to acute kidney injury. On bicarb drip. 7. History of coronary disease status post CABG in 2018. Plan: Maintain tube feeds. Maintain bicarb drip. Repeat IV Lasix 80 mg once daily. Continue to assess for need for renal replacement therapy on daily basis. No urgency at this time.
[2024-10-01 10:55] LABS: ABG HCO3 22 mmol/L (21-25); ABG Oxygen Saturation 90.6 % (94-97); ABG PCO2 48 mmHg (35-45); ABG PH 7.27 (7.35-7.45); ABG PO2 62 mmHg (83-108); ABG TCO2 23 mmol/L (19-24)
[2024-10-01 11:40] LABS: Glucose,Whole Blood 203 mg/dL (70-110)
--- NOTE | 2024-10-01 12:00 | P.PN ---
Subjective Progress Note Date: 10/01/24 Hospital course: Patient is a 74-year-old male with COPD, GERD, hyperlipidemia, hypertension, CAD (CABG and heart cath), current everyday smoker here for evaluation of difficulty of breathing and subcutaneous air within the chest and neck. Per family at bedside, Patient had bronchoscopy and right-sided pneumothorax yesterday 09/25 at our institution for lung biopsy of the right upper lobe lung nodule with 1.2 cm in size. He developed a pneumothorax post-op and was placed on a thora vent on discharge. change agent on day of arrival 09/26, he developed difficulty breathing and subcutaneous air and swelling within the chest and neck. He was noted to be awake and alert during this time and did not have any other associated symptoms. He was transferred from [place] and was reported to have right-sided pneumothorax, subcutaneous air and ventilator dependent acute respiratory failure. He was intubated prior to transfer and right-sided chest tube was placed. He was transferred for evaluation by pulmonology. Patient was life flighted here and had stable vitals during transport. Vitals on admission showed pulse rate 66, respiratory rate 18, blood pressure 139/71, O2 saturation 95% on mechanical ventilation FiO2 100%. On admission, chest x-ray showed notable sternotomy and chest tube placement, with subcutaneous emphysema. On admission labs showed WBC 16.2, hemoglobin 15.2, platelet count 258,000. Sodium 135, potassium 4.5, chloride 104, bicarb 22, BUN 12, creatinine 0.74, glucose 152, plasmic lactic acid 2.2, calcium 8.9, magnesium 2.5, albumin 3.9. Patient was admitted to the intensive care unit with hospital course complicated by worsening oxygenation status, right lower lobe infiltrate. Patient's PEEP and FiO2 were titrated accordingly, patient was started on antibiotics. 09/27/2024 patient seen and examined at bedside. Agitated while sedated per RN overnight. Patient still sedated and mechanically ventilated. Labs today showed WBC 14, hemoglobin 13.3, platelet count 218,000, sodium 135, potassium 4.3, bicarb 19, BUN 18, creatinine 0.88, glucose 167, calcium 7.9, magnesium 2.4. Chest x-ray today showed stable mild to moderate acute cardiopulmonary disease which are extensive stable subcutaneous emphysema with no definite pneumothorax, no change in a small retrocardiac infiltrate consistent with pneumonia/atelectasis. ET tube, left-sided PICC line. ABG showed pH 7.34, pCO2 36, pO2 55. 09/28/2024 Patient seen in the ICU - borderline oxygen saturation despite in creasing PEEP and FiO2. Code status being discussed with family. CXR today reviewed and independently interpreted, ongoing pneumothorax, new infiltrate of the right lower lobe. 09/29/2024 patient seen and examined at bedside. Patient still in the ICU sedated and mechanically ventilated. A-fib RVR this morning at 4 AM. Labs today showed WBC 7.4, hemoglobin 12.3, MCV 100.9, platelet count 1 60,000, sodium 131, potassium 4.8, chloride 108, bicarb 22, BUN 31, creatinine 1.16, calcium 7, magnesium 2.7. Chest x-ray today showed stable small right apical pneumothorax, persistent bibasilar acute infiltrates and/or atelectasis, continued improving subcutaneous emphysema. ABG pH 7.2, pCO2 56, pO2 83, FiO2 at 100%. 09/30/2024 patient seen and examined at bedside. Patient still in the ICU sed ated and mechanically ventilated. Converted back to A-fib with RVR this morning around 2 AM. Labs today showed WBC 11.9, hemoglobin 12, MCV 100.7, platelet count 1 75,000, sodium 134, potassium 5.2, bicarb 17, creatinine 1.6, BUN 46, glucose 192, calcium 7, magnesium 2.8. Urinalysis showed +1 protein +2 glucose less than 20 sodium, 105.9 creatinine negative nitrites negative leukocyte Estrace. ABG showed pH 7.22, pCO2 45, pO2 142 at FiO2 80%. Chest x-ray today showed stable small right apical pneumothorax, improving bibasilar acute infiltrates and/or atelectasis worsening right-sided subcutaneous emphysema. 10/01/2024 patient seen and examined at bedside. Patient still in the ICU sedated and mechanically ventilated. Labs today showed WBC 10.3, hemoglobin 10.1, MCV 99.4, platelet count 1 25,000, sodium 135, potassium 3.7, bicarb 19, BUN 67, creatinine 2.94, glucose 173, magnesium 2.8, calcium 6.7. Urine output 500 cc in 24 hours. Currently on indwelling catheter. Chest x-ray today independently interpreted showed stable small right apical pneumothorax and, persistent bilateral multifocal acute infiltrates. Review of systems: Cannot be obtained Physical examination: Vital signs reviewed General: non toxic, no distress, appears at stated age, sedated and mechanically intubated Derm: no unusual rashes/lesions, warm Head: atraumatic, normocephalic, symmetric Eyes: EOMI, anicteric sclera, pupils equal round reactive to light ENT: Nose and ears atraumatic Neck: No cervical lymphadenopathy, trachea midline, supple, subcutaneous crepit us improved Mouth: no lip lesion, mucus membranes moist Cardiovascular: S1S2 irregularly irregular no murmur Lungs: subcutaneous crackles improved, bibasilar Rales, no accessory muscle use, sternotomy scar midline, chest tube noted on right mid chest area, central line on left upper chest noted Abdominal: soft, nondistended, nontender to palpation, no guarding Ext: muscle strength 5 out of 5 in all 4 extremities grossly, no gross muscle atrophy, no contractures, positive dorsalis pedis pulse bilateral, no edema Neuro: Cannot assess Psych: Cannot assess Workup done during hospitalization: -Echocardiogram showed left ventricular ejection fraction 55 to 60% with mildly increased left ventricular wall thickness, RVSP 50 -Abdominal ultrasound showed no evidence of obstructive uropathy and/or renal calculus Assessment/Plan: 74-year-old male with COPD, solitary lung nodule here for evaluation acute res piratory failure due to pneumothorax now intubated and mechanically ventilated on admission #. Acute hypoxic respiratory failure secondary to right-sided pneumothorax #. Septic Shock #. Right lower lobe pneumonia, aspiration versus healthcare acquired #. Right upper lobe pulmonary nodule, status post transbronchial biopsy -Continue supplemental oxygenation as needed. Currently on mechanical ventilation and on sedation -Placed on Propofol IV and fentanyl IV drip, Nimbex drip started -fentanyl gtt and nimbex gtt have been weaned off -Weaned off pressors -Solu-Medrol 60 mg IV every 6 hours per pulmonology -discontinued Vancomycin and ceftriaxone 09/29 -IV Abx to Zosyn IVPB day 2 -Discontinue IV fluids -Sputum cultures positive for Enterobacter cloacae -MRSA nasal swab and blood cultures negative -Cardiac telemetry -Consult pulmonary for ICU care -Follow-up pathology of nodule #. Prerenal SOCORRO with oliguria #. Acute Tubular Necrosis -Creatinine increased 2.94 -on gardiner catheter -Nephrology consulted, appreciate recs. Placed bicarb drip and Lasix 80 mg IV daily -Monitor BMP #. New onset Atrial fibrillation with RVR -Transitioned to PO amiodarone -[id number] 2, HAS BLED 2. Intiate Eliquis 5mg PO twice daily -Maintain HR 100-120 -Per cardiology, continue Eliquis #. Hyperkalemia, resolved #. Hypermagnesemia, stable -Magnesium 2.8 #. Hyperglycemia, controlled -Due to steroid use -Currently on enteral feeding -A1c 5.8 -Monitor BMP -Insulin sliding scale every 6 hours -Glucose Accu-Cheks every 6 hours, monitor for hypoglycemia Chronic Conditions: #. COPD #. GERD #. Hyperlipidemia #. Hypertension #. CAD -Currently on Plavix. Will hold for now given recent biopsy -Not on aspirin. Initiate ASA 81mg PO daily E: Monitor electrolytes N: Tube feeding DVT ppx: Eliquis 5mg PO BID GI ppx: Protonix 40 mg IV daily I have seen and evaluated the patient today. Discussed with the resident and agree with the residents finding and plan as documented in the resident's note. Changes highlighted in blue font. Objective - Vital Signs Vital signs: Vital Signs Temp 98.5 F 10/01/24 04:00 Pulse 89 10/01/24 06:00 Resp 30 H 10/01/24 06:00 BP 119/71 10/01/24 06:00 Pulse Ox 95 10/01/24 06:00 FiO2 100 10/01/24 06:00 Intake & Output 09/30/24 09/30/24 10/01/24 06:59 18:59 06:59 Intake Total 2597.202 3497.304 2025.179 Output Total 370 290 260 Balance 2227.202 3207.304 1765.179 Weight 98.2 kg 103 kg Intake: IV 429 2296 843 0.9 KVO 390 210 110 0.9 saline pressure bag 39 36 33 Calcium Gluconate in NaCl 100 2 gm In Saline 1 100ml. bag @ 100 mls/hr IVPB ONCE ONE Rx#:[id number] Dextrose 5% in Water 1, 375 000 ml @ 75 mls/hr IV . [id number] [facility] with Sodium Bicarb (1 Meq/ml) 100 ml Rx#:[id number] Dextrose 5% in Water 1, 375 600 000 ml @ 75 mls/hr IV . [id number] [facility] with Sodium Bicarb (1 Meq/ml) 150 ml Rx#:[id number] Piperacillin-Tazobactam 3 200 100 .375 gm In Sodium Chloride 0.9% 100 ml @ 25 mls/hr IVPB Q8HR [facility] Rx# :[id number] Sodium Chloride 0.9% 1, 1000 000 ml @ 999 mls/hr IV . Q1H1M ONE Rx#:[id number] Intake, IV Titration 1818.202 641.304 552.179 Amount Amiodarone 450 mg In 233.338 Dextrose 5% in Water 250 ml @ 0.5 MG/MIN 16.667 mls/hr IV .Q15H [facility] Rx#: [id number] Norepinephrine 4 mg In 486.350 465.250 36.287 Sodium Chloride 0.9% 250 ml @ 0.03 MCG/KG/MIN 10. 264 mls/hr IV .Q24H [facility] Rx#:[id number] Sodium Chloride 0.9% 1, 999 000 ml @ 999 mls/hr IV . Q1H1M ONE Rx#:[id number] Vasopressin 60 unit In 85.374 Sodium Chloride 0.9% 150 ml @ 0.03 UNITS/MIN 4.59 mls/hr IV .Q24H [facility] Rx#: [id number] propofoL 1,000 mg In 332.852 176.054 197.18 Empty Bag 1 bag @ 15 MCG/ KG/MIN 8.45 mls/hr IV . [id number] [facility] Rx#:[id number] Tube Feeding 260 470 540 Other 90 90 90 Output: Chest Tube Drainage 50 Right 50 Urine 370 290 210 Other: Voiding Method Indwelling Catheter Indwelling Catheter Indwelling Catheter ABP, PAP, CO, CI - Last Documented Arterial Blood Pressure 140/49 - Labs CBC & Chem 7: 10/01/24 04:05 10/01/24 04:05 Labs: Abnormal Lab Results - Last 24 Hours (Table) 09/30/24 09/30/24 09/30/24 Range/Units 11:26 11:31 17:01 RBC (4.30-5.90) m/uL Hgb (13.0-17.5) gm/dL Hct (39.0-53.0) % Plt Count (150-450) k/uL ABG pH 7.28 L (7.35-7.45) ABG pO2 64 L (83-108) mmHg ABG HCO3 20 L (21-25) mmol/L ABG O2 Saturation 93.2 L (94-97) % Hemoglobin 11.2 L (13.0-17.5) gm/dL Sodium (137-145) mmol/L Carbon Dioxide (22-30) mmol/L BUN (9-20) mg/dL Creatinine (0.66-1.25) mg/dL Glucose (74-99) mg/dL POC Glucose (mg/dL) 229 H 252 H (70-110) mg/dL Calcium (8.4-10.2) mg/dL Magnesium (1.6-2.3) mg/dL 09/30/24 09/30/24 10/01/24 Range/Units 17:02 23:25 02:35 RBC (4.30-5.90) m/uL Hgb (13.0-17.5) gm/dL Hct (39.0-53.0) % Plt Count (150-450) k/uL ABG pH 7.28 L (7.35-7.45) ABG pO2 54 L* (83-108) mmHg ABG HCO3 (21-25) mmol/L ABG O2 Saturation 86.8 L (94-97) % Hemoglobin 10.4 L (13.0-17.5) gm/dL Sodium 135 L (137-145) mmol/L Carbon Dioxide 20 L (22-30) mmol/L BUN 60 H (9-20) mg/dL Creatinine 2.48 H (0.66-1.25) mg/dL Glucose 251 H (74-99) mg/dL POC Glucose (mg/dL) 226 H (70-110) mg/dL Calcium 6.3 L* (8.4-10.2) mg/dL Magnesium (1.6-2.3) mg/dL 10/01/24 10/01/24 Range/Units 04:05 04:05 RBC 3.19 L (4.30-5.90) m/uL Hgb 10.1 L (13.0-17.5) gm/dL Hct 31.7 L (39.0-53.0) % Plt Count 125 L (150-450) k/uL ABG pH (7.35-7.45) ABG pO2 (83-108) mmHg ABG HCO3 (21-25) mmol/L ABG O2 Saturation (94-97) % Hemoglobin (13.0-17.5) gm/dL Sodium 135 L (137-145) mmol/L Carbon Dioxide 19 L (22-30) mmol/L BUN 67 H (9-20) mg/dL Creatinine 2.94 H (0.66-1.25) mg/dL Glucose 173 H (74-99) mg/dL POC Glucose (mg/dL) (70-110) mg/dL Calcium 6.7 L (8.4-10.2) mg/dL Magnesium 2.8 H (1.6-2.3) mg/dL Microbiology - Last 24 Hours (Table) 09/29/24 10:42 Blood Culture - Preliminary Blood
[2024-10-01] MEDS: AMIODARONE 200 MG TAB PO SCH (12:08)
--- NOTE | 2024-10-01 16:26 | P.PN ---
Subjective Progress Note Date: 10/01/24 On 09/29/2024, the patient is being seen for a follow-up. This morning, the patient remains intubated on the mechanical ventilator. The patient remains on propofol at around 50 mcg/kg/min and the patient is also on fentanyl 2 mcg/kg/h and the max at 1 mcg/kg/min. The patient is adequately sedated and paralyzed. The patient remains on assist-control mode of mechanical ventilation. Tidal volume is 400 with a rate of 30 with an FiO2 of 100% with a PEEP of 13. Blood gases from today showed a pH of 7.3 with a pCO2 of 49 and pO2 of 117. Chest x- ray shows extensive consolidation of the right lower lobe and this is attributed to an aspiration that occurred here in the intensive care unit. The sputum sample is showing Enterobacter and the patient is on IV Rocephin. The patient remains on bronchodilators. The patient remains on steroids. Right-sided chest tube is in place and there is ongoing air leak. The extent of subcutaneous emphysema has improved clinically and based on the chest x-ray findings. There is a small left-sided pleural effusion in addition on today's chest x-ray. Meanwhile, the patient went into atrial fibrillation with rapid ventricular response overnight. The patient is currently on amiodarone at 1 mg/min. He is on normal saline running at 30 cc an hour. He is receiving enteral feeding for nutritional support and the patient is on vital HP running at 10 cc an hour. Abdomen is nondistended. WBC count is at 7.4 with a heme of 12.3 and a platelet count of 160. Sodium is at 135, potassium is at 4.8, BUN 31 with a creatinine of 1.1. Glucose at 195 from this morning. On 09/30/2024, the patient is being seen for a follow-up. This morning, the patient is on propofol which is running at 50 mcg/kg/min. The patient is off fentanyl and the patient is off Nimbex. The patient remains intubated on the mechanical ventilator assist-control mode at a rate of 30, tidal volume of 450, FiO2 of 80% with a PEEP of 11. Morning blood gas showed a pH of 7.22 with a pCO2 of 45 and a pO2 of 142. The chest x-ray shows improvement in the right lower lobe consolidation. There is a stable right apical pneumothorax and right-sided chest tube remains in good location. There is some limited subcutaneous emphysema along the right chest and the patient is having positive air leak. The patient was having atrial fibrillation with rapid ventricular response. The patient was becoming hemodynamically unstable and hypotensive requiring more pressors despite being on amiodarone. Based on that, the patient underwent a cardioversion yesterday and this was successful and this morning the patient's cardiac rhythm is back into normal sinus rhythm. The patient remains on amiodarone which is running at 0.5 mg/min. The patient's urine output has dropped considerably and currently is producing only 5 cc an hour. Norepinephrine is running at 0.16 mcg/kg/min and the patient is on a vasopressin physiologic dose. The patient is also receiving vital HP for enteral feeding and nutritional support with rate of 40 cc an hour. Blood work from today shows a WBC count of 11.9, hemoglobin is at 12 and a platelet count is 175. The sodium level is at 134, potassium level is 5.2, bicarb 17, BUN 46 with a creatinine of 1.6. Remains on IV Zosyn. Remains on anticoagulation with Eliquis. Remains on pressors. Remains on bronchodilators. Remains on steroids. Obviously less bronchospastic and wheezy on today's examination. There is also considerable drop in the peak airway pressure which is currently down to 25. On 10/01/2024, the patient is being seen for a follow-up. Remains intubated on the mechanical ventilator. This morning, the patient is on propofol running at 50 mcg/kg/min. Remains on mechanical ventilator assist-control mode with rate of 30, tidal volume of 450, FiO2 of 80% with a PEEP of 10. Earlier this morning, the patient had some oxygen saturation and based on the deficit was brought up to 80%. Subsequent blood gas showed a pH of 7.23 pCO2 47 and pO2 of 78. The patient was double stacking. The patient was also having positive air leak in the right-sided chest tube. Chest x-ray from today shows subcutaneous emphysema along the right chest, right lower lobe consolidation, small right apical pneumothorax, some infiltrates in the left lung base was also noted. The patient remains on IV Zosyn as the patient sputum sample was positive for Enterobacter. I switched this patient to a pressure control mode of mechanical ventilation and the patient is currently on pressure control at rate of 26, pressure of 15, inspiratory time of 1 second, the PEEP was brought up to 12 and FiO2 was kept at 80%. Subsequent blood gas showed a pH of 7.27 with a pCO2 of 48 and pO2 of 62. Seems to be more synchronous on mechanical ventilator and a pressure control mode of mechanical ventilation. The patient is currently off pressors. The patient is off norepinephrine and the patient is also off vasopressin. Remains atrial fibrillation with a controlled rate and remains on amiodarone 0.5 mg/min. Urine output is quite diminished in the order of 10 to 20 cc an hour. The patient has been in a positive fluid balance of 4.9 L over the past 24 hours. The creatinine is on the rise and the creatinine today is up to 2.9 with a BUN of 67. Remains on bicarb infusion and serum bicarb is at 19 and a sodium levels at 135 with a potassium level of 3.7. WBC count of 10.3, hemoglobin of 10.1 and platelet count of 125. The patient is on enteral feeding for nutritional support and she has not produced any bowel movement. He is on vital HP at rate of 50. Objective - Vital Signs Vital signs: Vital Signs Temp 97.9 F 10/01/24 08:00 Pulse 82 10/01/24 08:26 Resp 22 10/01/24 08:00 BP 127/63 10/01/24 08:00 Pulse Ox 97 10/01/24 08:00 FiO2 80 10/01/24 08:37 Intake & Output 09/30/24 10/01/24 10/01/24 18:59 06:59 18:59 Intake Total 3497.304 2025.179 506 Output Total 290 260 35 Balance 3207.304 1765.179 471 Weight 103 kg Intake: IV 2296 843 176 0.9 KVO 210 110 20 0.9 saline pressure bag 36 33 6 Calcium Gluconate in NaCl 100 2 gm In Saline 1 100ml. bag @ 100 mls/hr IVPB ONCE ONE Rx#:[id number] Dextrose 5% in Water 1, 375 000 ml @ 75 mls/hr IV . [id number] KWAME with Sodium Bicarb (1 Meq/ml) 100 ml Rx#:[id number] Dextrose 5% in Water 1, 375 600 150 000 ml @ 75 mls/hr IV . [id number] KWAME with Sodium Bicarb (1 Meq/ml) 150 ml Rx#:[id number] Piperacillin-Tazobactam 3 200 100 .375 gm In Sodium Chloride 0.9% 100 ml @ 25 mls/hr IVPB Q8HR [facility] Rx# :[id number] Sodium Chloride 0.9% 1, 1000 000 ml @ 999 mls/hr IV . Q1H1M [facility] Rx#:[id number] Intake, IV Titration 641.304 552.179 200 Amount Amiodarone 450 mg In 233.338 Dextrose 5% in Water 250 ml @ 0.5 MG/MIN 16.667 mls/hr IV .Q15H [facility] Rx#: [id number] Norepinephrine 4 mg In 465.250 36.287 Sodium Chloride 0.9% 250 ml @ 0.03 MCG/KG/MIN 10. 264 mls/hr IV .Q24H [facility] Rx#:[id number] Piperacillin-Tazobactam 3 100 .375 gm In Sodium Chloride 0.9% 100 ml @ 25 mls/hr IVPB Q8HR [facility] Rx# :[id number] Vasopressin 60 unit In 85.374 Sodium Chloride 0.9% 150 ml @ 0.03 UNITS/MIN 4.59 mls/hr IV .Q24H [facility] Rx#: [id number] propofoL 1,000 mg In 176.054 197.18 100 Empty Bag 1 bag @ 15 MCG/ KG/MIN 8.45 mls/hr IV . [id number] [facility] Rx#:[id number] Tube Feeding 470 540 100 Other 90 90 30 Output: Chest Tube Drainage 50 Right 50 Urine 290 210 35 Other: Voiding Method Indwelling Catheter Indwelling Catheter ABP, PAP, CO, CI - Last Documented Arterial Blood Pressure 142/50 - Exam No acute distress, sedated and the patient is currently off paralytics., Comfortable on sections of the mechanical ventilator. HEENT examination is grossly unremarkable. Mucous membranes are moist. No oral lesions. Neck supple. Full range of motion. No adenopathy thyromegaly or neck vein distention. Cardiovascular examination reveals r irregular rhythm consistent with atrial fibrillation, rate is controlled. S1-S2 normal. No S3 or S4. No discernible murmur noted. Lungs reveal bilateral rhonchi and expiratory wheezes. Breath sounds are equal but diminished throughout. No crackles. Subcutaneous emphysema is improved and the patient has a right-sided chest tube with a positive air leak. Output from the chest tube is minimal at this point in time. Less bronchospastic and wheezy on today's examination. Abdomen soft bowel sounds are heard. No masses or tenderness. Extremities are intact. No cyanosis clubbing or edema. Skin is without rash or lesion. Neurologic examination cannot be evaluated at this time. - Labs CBC & Chem 7: 10/01/24 04:05 10/01/24 04:05 Labs: Abnormal Lab Results - Last 24 Hours (Table) 09/30/24 09/30/24 09/30/24 Range/Units 11:26 11:31 17:01 RBC (4.30-5.90) m/uL Hgb (13.0-17.5) gm/dL Hct (39.0-53.0) % Plt Count (150-450) k/uL Neutrophils # (Manual) (1.3-7.7) k/uL Lymphocytes # (Manual) (1.0-4.8) k/uL ABG pH 7.28 L (7.35-7.45) ABG pCO2 (35-45) mmHg ABG pO2 64 L (83-108) mmHg ABG HCO3 20 L (21-25) mmol/L ABG O2 Saturation 93.2 L (94-97) % Hemoglobin 11.2 L (13.0-17.5) gm/dL Sodium (137-145) mmol/L Carbon Dioxide (22-30) mmol/L BUN (9-20) mg/dL Creatinine (0.66-1.25) mg/dL Glucose (74-99) mg/dL POC Glucose (mg/dL) 229 H 252 H (70-110) mg/dL Calcium (8.4-10.2) mg/dL Magnesium (1.6-2.3) mg/dL 09/30/24 09/30/24 10/01/24 Range/Units 17:02 23:25 02:35 RBC (4.30-5.90) m/uL Hgb (13.0-17.5) gm/dL Hct (39.0-53.0) % Plt Count (150-450) k/uL Neutrophils # (Manual) (1.3-7.7) k/uL Lymphocytes # (Manual) (1.0-4.8) k/uL ABG pH 7.28 L (7.35-7.45) ABG pCO2 (35-45) mmHg ABG pO2 54 L* (83-108) mmHg ABG HCO3 (21-25) mmol/L ABG O2 Saturation 86.8 L (94-97) % Hemoglobin 10.4 L (13.0-17.5) gm/dL Sodium 135 L (137-145) mmol/L Carbon Dioxide 20 L (22-30) mmol/L BUN 60 H (9-20) mg/dL Creatinine 2.48 H (0.66-1.25) mg/dL Glucose 251 H (74-99) mg/dL POC Glucose (mg/dL) 226 H (70-110) mg/dL Calcium 6.3 L* (8.4-10.2) mg/dL Magnesium (1.6-2.3) mg/dL 10/01/24 10/01/24 10/01/24 Range/Units 04:05 04:05 08:11 RBC 3.19 L (4.30-5.90) m/uL Hgb 10.1 L (13.0-17.5) gm/dL Hct 31.7 L (39.0-53.0) % Plt Count 125 L (150-450) k/uL Neutrophils # (Manual) 10.00 H (1.3-7.7) k/uL Lymphocytes # (Manual) 0.21 L (1.0-4.8) k/uL ABG pH 7.28 L (7.35-7.45) ABG pCO2 47 H (35-45) mmHg ABG pO2 78 L (83-108) mmHg ABG HCO3 (21-25) mmol/L ABG O2 Saturation (94-97) % Hemoglobin 10.3 L (13.0-17.5) gm/dL Sodium 135 L (137-145) mmol/L Carbon Dioxide 19 L (22-30) mmol/L BUN 67 H (9-20) mg/dL Creatinine 2.94 H (0.66-1.25) mg/dL Glucose 173 H (74-99) mg/dL POC Glucose (mg/dL) (70-110) mg/dL Calcium 6.7 L (8.4-10.2) mg/dL Magnesium 2.8 H (1.6-2.3) mg/dL Microbiology - Last 24 Hours (Table) 09/29/24 10:42 Blood Culture - Preliminary Blood Assessment and Plan Plan: Acute hypoxemic respiratory failure, secondary to right-sided pneumothorax, with extensive subcutaneous emphysema, requiring intubation, mechanical ventilation, September 26, 2024. The patient remains intubated on mechanical ventilator. The patient has been open extensive consolidation of the right lower lobe probably due to an aspiration episode/aspiration pneumonia and the patient is growing Enterobacter and is purulent. Chest x-ray shows a stable right apical pneumothorax and the patient continues to have a persistent air leak. Based on some asynchrony on mechanical ventilator, the patient was switched to a pressure control mode of mechanical ventilation. Still having increased oxygen requireme nts. Chest x-ray shows lower lobe consolidation in the lung bases more so on the right. Right-sided pneumothorax with persistent air leak, small right apical pneumothorax Subcutaneous emphysema, improved S/P flexible bronchoscopy, robotically assisted bronchoscopy with radial ultrasound evaluation of the right upper lobe pulmonary nodule, robotically assisted transbronchial needle aspiration, transbronchial biopsy, and BAL, September 25, 2024. Right upper lobe pulmonary nodule, consistent with non-small cell lung cancer, pulm adenocarcinoma History of chronic obstructive pulmonary disease the patient has extensive emphysematous changes upper lobes bilaterally Atrial fibrillation with rapid ventricular response, status post cardioversion, currently on amiodarone drip at 0.5 mg/min and the patient is currently on a controlled atrial fibrillation and the patient is on anticoagulation with Eliquis. Hypotension, multifactorial, could be related to sepsis/aspiration. The patient is off pressors for now Acute kidney injury with oliguria. Creatinine is up to 2.9. No significant acidosis or hyperkalemia and nephrology on the case. History of hypertension. History of hyperlipidemia. History of gastroesophageal reflux disease. History of coronary artery disease, with previous CABG, 2018. Peripheral vascular occlusive disease. History of tobacco use. History of glaucoma. Plan: Keep the patient on propofol Switch this patient to a pressure control mode of mechanical ventilation Obtain a follow-up blood gas Continue IV Zosyn covering for aspiration pneumonia. Echocardiogram showed a preserved LV function Discontinue the amiodarone drip and put the patient on amiodarone 4 mg p.o. twice a day Continue anticoagulation with Eliquis 5 mg p.o. twice a day Continue enteral feeding for nutritional support Continue bicarb infusion Nephrology consultation Ultrasound the kidneys to rule out hydronephrosis Give Lasix 80 mg IV push x 1, monitor urine output Monitor output from the chest tube Monitor airleak Dulcolax suppositories On a separate note, the pulmonary nodule that was biopsied earlier turned out to be consistent with non-small cell lung cancer. Condition remains critical. Will continue to follow make further recommendations based on his progress. Evaluation was done and 35 minutes. Time with Patient: Greater than 30
[2024-10-01 17:30] LABS: Glucose,Whole Blood 188 mg/dL (70-110)
[2024-10-01] MEDS: bisacodyL 5 MG TABLET.DR PO PRN (17:36)
[2024-10-01 22:26] LABS: ABG Base Excess -4.3 mmol/L; ABG HCO3 23 mmol/L (21-25); ABG Oxygen Saturation 86.4 % (94-97); ABG PCO2 51 mmHg (35-45); ABG PH 7.26 (7.35-7.45); ABG TCO2 24 mmol/L (19-24)
[2024-10-01 22:33] LABS: ABG PO2 56 mmHg (83-108); Allen Test Performed? no
[2024-10-02 00:03] LABS: Glucose,Whole Blood 208 mg/dL (70-110)
--- NOTE | 2024-10-02 02:35 | XR ---
EXAM: XR Chest, 1 View CLINICAL HISTORY: chest tube air leak TECHNIQUE: Frontal view of the chest. COMPARISON: Yesterday IMPRESSION: Large amount of soft tissue gas of bilateral chest wall extending to abdomen and neck, markedly increased. No change otherwise. Persistent small right apical pneumothorax. Supporting tubes and line are unchanged.
[2024-10-02 04:39] LABS: Basophils % (A) 0 %; Eosinophils % (A) 0 %; HCT 28.4 % (39.0-53.0); HGB 9.1 gm/dL (13.0-17.5); Lymphocytes # (A) 0.1 k/uL (1.0-4.8); Lymphocytes % (A) 1 %; MCH 31.4 pg (25.0-35.0); MCHC 32.1 g/dL (31.0-37.0); MCV 97.8 fL (80.0-100.0); Monocytes # (A) 0.3 k/uL (0-1.0); Monocytes % (A) 2 %; Neutrophils # (A) 10.8 k/uL (1.3-7.7); Neutrophils % (A) 96 %; Platelet Count 101 k/uL (150-450); RBC 2.91 m/uL (4.30-5.90); WBC 11.2 k/uL (3.8-10.6)
[2024-10-02 04:45] LABS: ABG Base Excess -3.4 mmol/L; ABG HCO3 23 mmol/L (21-25); ABG Oxygen Saturation 85.4 % (94-97); ABG PCO2 47 mmHg (35-45); ABG TCO2 25 mmol/L (19-24)
[2024-10-02 04:49] LABS: ABG PO2 54 mmHg (83-108); Allen Test Performed? no
[2024-10-02 05:08] LABS: African American GFR (CKD) 17 (>60 ml/min/1.73 sqM); Anion Gap 11 mmol/L; Blood Urea Nitrogen 97 mg/dL (9-20); Carbon Dioxide 22 mmol/L (22-30); Chloride 98 mmol/L (98-107); Glucose 222 mg/dL (74-99); Non-African American GFR(CKD) 15 (>60 ml/min/1.73 sqM); Potassium 4.7 mmol/L (3.5-5.1); Sodium 131 mmol/L (137-145)
[2024-10-02 05:15] LABS: Calcium 6.1 mg/dL (8.4-10.2)
[2024-10-02 06:03] LABS: Glucose,Whole Blood 234 mg/dL (70-110)
[2024-10-02] MEDS: CALCIUM GLUCONATE IN NACL 2 GM in SALINE 1 100ML.BAG IVPB ONE (06:51)
--- NOTE | 2024-10-02 08:12 | PN ---
PROGRESS NOTE SUBJECTIVE: Jaydon is a 74-year-old gentleman, who is admitted to the hospital with respiratory failure, secondary to pneumothorax and subcutaneous emphysema. The patient had atrial fibrillation with rapid ventricular rate, for which he underwent cardioversion. Currently, on Eliquis for anticoagulation and on amiodarone for rhythm suppression. PHYSICAL EXAMINATION: VITAL SIGNS: Remains in sinus rhythm. Heart rate is 90 beats per minute. Blood pressure is 139/48, respiratory rate 24. CHEST: Reveals diminished air entry at the bases. HEART: Reveals first and second heart sounds. No gallop. EXTREMITIES: Reveal mild edema. Peripheral pulses are felt. LABORATORY DATA: Labs show a hemoglobin of 10.1. Potassium is 3.7, BUN is 67, creatinine is 2.9. ASSESSMENT: 1. Persistent atrial fibrillation, status post cardioversion. 2. Vent requiring respiratory failure. PLAN: I will continue him on Eliquis and the amiodarone that he is currently on. MMODL / IJN: [id number] /
--- NOTE | 2024-10-02 11:21 | P.PN ---
Subjective Patient is seen in follow-up for acute kidney injury. Creatinine 3.79 today. Remains oliguric. Bicarb drip discontinued. Remains off vasopressors. Intubated. Vital signs are stable. General: Resting in bed. HEENT: Intubated. LUNGS: Scattered rhonchi. HEART: Rate and Rhythm are regular. ABDOMEN: No distention. EXTREMITITES: 2+ edema. Objective - Vital Signs Vital signs: Vital Signs Temp 99.2 F 10/02/24 08:00 Pulse 101 H 10/02/24 10:00 Resp 15 10/02/24 10:00 BP 123/70 10/02/24 10:00 Pulse Ox 87 L 10/02/24 10:00 FiO2 100 10/02/24 08:06 Intake & Output 10/01/24 10/02/24 10/02/24 18:59 06:59 18:59 Intake Total 2229.565 2404.558 556.970 Output Total 315 335 55 Balance 0446.567 8268.558 501.970 Weight 106.7 kg Intake: IV 1056 1344 52 0.9 KVO 120 130 40 0.9 saline pressure bag 36 39 12 Calcium Gluconate in NaCl 100 2 gm In Saline 1 100ml. bag @ 100 mls/hr IVPB ONCE ONE Rx#:[id number] Dextrose 5% in Water 1, 900 975 000 ml @ 75 mls/hr IV . [id number] with Sodium Bicarb (1 Meq/ml) 150 ml Rx#:[id number] Piperacillin-Tazobactam 3 100 .375 gm In Sodium Chloride 0.9% 100 ml @ 25 mls/hr IVPB Q8HR REPLACED BY [facility] Rx# :[id number] Intake, IV Titration 483.565 260.558 284.970 Amount Piperacillin-Tazobactam 3 100 100 .375 gm In Sodium Chloride 0.9% 100 ml @ 25 mls/hr IVPB Q8HR REPLACED BY [facility] Rx# :[id number] propofoL 1,000 mg In 383.565 260.558 184.970 Empty Bag 1 bag @ 15 MCG/ KG/MIN 8.45 mls/hr IV . [id number] REPLACED BY [facility] Rx#:[id number] Tube Feeding 600 650 190 Other 90 150 30 Output: Chest Tube Drainage 110 130 Right 110 130 Urine 205 205 55 Other: Voiding Method Indwelling Catheter Indwelling Catheter Indwelling Catheter ABP, PAP, CO, CI - Last Documented Arterial Blood Pressure 124/46 - Labs CBC & Chem 7: 10/02/24 04:16 10/02/24 04:16 Labs: Abnormal Lab Results - Last 24 Hours (Table) 10/01/24 10/01/24 10/01/24 Range/Units 11:39 17:29 22:23 WBC (3.8-10.6) k/uL RBC (4.30-5.90) m/uL Hgb (13.0-17.5) gm/dL Hct (39.0-53.0) % Plt Count (150-450) k/uL Neutrophils # (1.3-7.7) k/uL Lymphocytes # (1.0-4.8) k/uL ABG pH 7.26 L (7.35-7.45) ABG pCO2 51 H (35-45) mmHg ABG pO2 56 L* (83-108) mmHg ABG Total CO2 (19-24) mmol/L ABG O2 Saturation 86.4 L (94-97) % Hemoglobin 9.9 L (13.0-17.5) gm/dL Sodium (137-145) mmol/L BUN (9-20) mg/dL Creatinine (0.66-1.25) mg/dL Glucose (74-99) mg/dL POC Glucose (mg/dL) 203 H 188 H (70-110) mg/dL Calcium (8.4-10.2) mg/dL 10/02/24 10/02/24 10/02/24 Range/Units 00:02 04:16 04:16 WBC 11.2 H (3.8-10.6) k/uL RBC 2.91 L (4.30-5.90) m/uL Hgb 9.1 L (13.0-17.5) gm/dL Hct 28.4 L (39.0-53.0) % Plt Count 101 L (150-450) k/uL Neutrophils # 10.8 H (1.3-7.7) k/uL Lymphocytes # 0.1 L (1.0-4.8) k/uL ABG pH (7.35-7.45) ABG pCO2 (35-45) mmHg ABG pO2 (83-108) mmHg ABG Total CO2 (19-24) mmol/L ABG O2 Saturation (94-97) % Hemoglobin (13.0-17.5) gm/dL Sodium 131 L (137-145) mmol/L BUN 97 H (9-20) mg/dL Creatinine 3.79 H (0.66-1.25) mg/dL Glucose 222 H (74-99) mg/dL POC Glucose (mg/dL) 208 H (70-110) mg/dL Calcium 6.1 L* (8.4-10.2) mg/dL 10/02/24 10/02/24 Range/Units 04:42 06:02 WBC (3.8-10.6) k/uL RBC (4.30-5.90) m/uL Hgb (13.0-17.5) gm/dL Hct (39.0-53.0) % Plt Count (150-450) k/uL Neutrophils # (1.3-7.7) k/uL Lymphocytes # (1.0-4.8) k/uL ABG pH 7.30 L (7.35-7.45) ABG pCO2 47 H (35-45) mmHg ABG pO2 54 L* (83-108) mmHg ABG Total CO2 25 H (19-24) mmol/L ABG O2 Saturation 85.4 L (94-97) % Hemoglobin 9.1 L (13.0-17.5) gm/dL Sodium (137-145) mmol/L BUN (9-20) mg/dL Creatinine (0.66-1.25) mg/dL Glucose (74-99) mg/dL POC Glucose (mg/dL) 234 H (70-110) mg/dL Calcium (8.4-10.2) mg/dL Microbiology - Last 24 Hours (Table) 10/01/24 16:08 Gram Stain - Preliminary Sputum 09/29/24 10:42 Blood Culture - Preliminary Blood Assessment and Plan Plan: Assessment: 1. Acute kidney injury secondary to ATN secondary to shock. Creatinine 0.7 on admission and up to 3.79 today. Oliguric. No hydronephrosis noted on kidney ultrasound. 2. Acute hypoxic respiratory failure secondary to right-sided pneumothorax with extensive subcutaneous emphysema. 3. Septic shock secondary to aspiration pneumonia on antibiotics. 4. Right upper lobe pulmonary nodule status post bronchoscopy and biopsy September 25, 2024. Biopsy confirms adenocarcinoma. 5. New onset A-fib with RVR now on oral meds. 6. Metabolic acidosis secondary to acute kidney injury. Improved with bicarb drip. 7. History of coronary disease status post CABG in 2018. 8. Hypocalcemia secondary to acute kidney injury and IV bicarb. Replaced. Plan: Maintain tube feeds. Currently held due to high residuals. Currently off IV fluids. Urine output remains low despite IV Lasix. With worsening renal function, oliguria and volume overload, initiate renal replacement therapy. Consult vascular surgery for dialysis catheter placement. Plan for first treatment of hemodialysis today and second treatment tomorrow. Check phosphorus level. Case discussed with plate gauger.
[2024-10-02 11:36] LABS: Glucose,Whole Blood 189 mg/dL (70-110)
--- NOTE | 2024-10-02 12:26 | PN ---
PROGRESS NOTE SUBJECTIVE: Jaydon is a 74-year-old gentleman, who was admitted to the hospital with respiratory failure, secondary to pneumothorax. He is currently intubated on vent and remains in atrial fibrillation with controlled ventricular rate. He is on Eliquis 2.5 b.i.d., amiodarone 400 b.i.d., and pressors. PHYSICAL EXAMINATION: GENERAL: Heart rate is around 100 beats per minute, blood pressure is 130/70, respiratory rate is 16. CHEST: Reveals occasional rhonchi with diminished air entry at the bases. HEART: Reveals first and second heart sounds are regular rhythm. EXTREMITIES: Examination of the extremities reveal mild edema. LABORATORY DATA: Labs show a hemoglobin of 9.1, platelet count is 101. Potassium is 4.7, BUN is 97, creatinine is 3.7. ASSESSMENT AND PLAN: 1. Vent requiring respiratory failure. 2. Pneumothorax, secondary to recent bronchoscopy. 3. Persistent atrial fibrillation. PLAN: He will continue his current medications. MMODL / IJN: [id number] /
[2024-10-02 12:28] LABS: ABG Base Excess -4.4 mmol/L; ABG HCO3 23 mmol/L (21-25); ABG Oxygen Saturation 85.3 % (94-97); ABG PCO2 54 mmHg (35-45); ABG PH 7.24 (7.35-7.45); ABG TCO2 25 mmol/L (19-24); Allen Test Performed? Yes
[2024-10-02 12:32] LABS: ABG PO2 57 mmHg (83-108)
--- NOTE | 2024-10-02 13:11 | P.PN ---
Subjective Progress Note Date: 10/02/24 Hospital course: Patient is a 74-year-old male with COPD, GERD, hyperlipidemia, hypertension, CAD (CABG and heart cath), current everyday smoker here for evaluation of difficulty of breathing and subcutaneous air within the chest and neck. Per family at bedside, Patient had bronchoscopy and right-sided pneumothorax yesterday 09/25 at our institution for lung biopsy of the right upper lobe lung nodule with 1.2 cm in size. He developed a pneumothorax post-op and was placed on a thora vent on discharge. 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 He was noted to be awake and alert during this time and did not have any other associated symptoms. He was transferred from [place] and was reported to have right-sided pneumothorax, subcutaneous air and ventilator dependent acute respiratory failure. He was intubated prior to transfer and right-sided chest tube was placed. He was transferred for evaluation by pulmonology. Patient was life flighted here and had stable vitals during transport. Vitals on admission showed pulse rate 66, respiratory rate 18, blood pressure 139/71, O2 saturation 95% on mechanical ventilation FiO2 100%. On admission, chest x-ray showed notable sternotomy and chest tube placement, with subcutaneous emphysema. On admission labs showed WBC 16.2, hemoglobin 15.2, platelet count 258,000. Sodium 135, potassium 4.5, chloride 104, bicarb 22, BUN 12, creatinine 0.74, glucose 152, plasmic lactic acid 2.2, calcium 8.9, magnesium 2.5, albumin 3.9. Patient was admitted to the intensive care unit with hospital course complicated by worsening oxygenation status, right lower lobe infiltrate. Patient's PEEP and FiO2 were titrated accordingly, patient was started on antibiotics. 09/27/2024 patient seen and examined at bedside. Agitated while sedated per RN overnight. Patient still sedated and mechanically ventilated. Labs today showed WBC 14, hemoglobin 13.3, platelet count 218,000, sodium 135, potassium 4.3, bicarb 19, BUN 18, creatinine 0.88, glucose 167, calcium 7.9, magnesium 2.4. Chest x-ray today showed stable mild to moderate acute cardiopulmonary disease which are extensive stable subcutaneous emphysema with no definite pneumothorax, no change in a small retrocardiac infiltrate consistent with pneumonia/atelectasis. ET tube, left-sided PICC line. ABG showed pH 7.34, pCO2 36, pO2 55. 09/28/2024 Patient seen in the ICU - borderline oxygen saturation despite in creasing PEEP and FiO2. Code status being discussed with family. CXR today reviewed and independently interpreted, ongoing pneumothorax, new infiltrate of the right lower lobe. 09/29/2024 patient seen and examined at bedside. Patient still in the ICU sedated and mechanically ventilated. A-fib RVR this morning at 4 AM. Labs today showed WBC 7.4, hemoglobin 12.3, MCV 100.9, platelet count 1 60,000, sodium 131, potassium 4.8, chloride 108, bicarb 22, BUN 31, creatinine 1.16, calcium 7, magnesium 2.7. Chest x-ray today showed stable small right apical pneumothorax, persistent bibasilar acute infiltrates and/or atelectasis, continued improving subcutaneous emphysema. ABG pH 7.2, pCO2 56, pO2 83, FiO2 at 100%. 09/30/2024 patient seen and examined at bedside. Patient still in the ICU sed ated and mechanically ventilated. Converted back to A-fib with RVR this morning around 2 AM. Labs today showed WBC 11.9, hemoglobin 12, MCV 100.7, platelet count 1 75,000, sodium 134, potassium 5.2, bicarb 17, creatinine 1.6, BUN 46, glucose 192, calcium 7, magnesium 2.8. Urinalysis showed +1 protein +2 glucose less than 20 sodium, 105.9 creatinine negative nitrites negative leukocyte Estrace. ABG showed pH 7.22, pCO2 45, pO2 142 at FiO2 80%. Chest x-ray today showed stable small right apical pneumothorax, improving bibasilar acute infiltrates and/or atelectasis worsening right-sided subcutaneous emphysema. 10/01/2024 patient seen and examined at bedside. Patient still in the ICU sedated and mechanically ventilated. Labs today showed WBC 10.3, hemoglobin 10.1, MCV 99.4, platelet count 1 25,000, sodium 135, potassium 3.7, bicarb 19, BUN 67, creatinine 2.94, glucose 173, magnesium 2.8, calcium 6.7. Urine output 500 cc in 24 hours. Currently on indwelling catheter. Chest x-ray today showed stable small right apical pneumothorax and, persistent bilateral multifocal acute infiltrates. 10/02/2024 patient seen and examined at bedside. No acute events overnight. Patient still in the ICU sedated and mechanically ventilated. Labs today showed WBC 11.2, hemoglobin 9.1, platelet count 101,000, sodium 131, potassium 4.7, bicarb 22, BUN 97, creatinine 3.79, glucose 222, calcium 6.1. Chest x-ray independently interpreted shows stable bibasilar opacities, stable pneumothorax and stable subcutaneous emphysema. Review of systems: Cannot be obtained Physical examination: Vital signs reviewed General: non toxic, no distress, appears at stated age, sedated and mechanically intubated Derm: no unusual rashes/lesions, warm Head: atraumatic, normocephalic, symmetric Eyes: EOMI, anicteric sclera, pupils equal round reactive to light ENT: Nose and ears atraumatic Neck: No cervical lymphadenopathy, trachea midline, supple, subcutaneous crepit us improved Mouth: no lip lesion, mucus membranes moist Cardiovascular: S1S2 regular no murmur Lungs: subcutaneous crackles improved, bibasilar Rales, no accessory muscle use, sternotomy scar midline, chest tube noted on right mid chest area, central line on left upper chest noted Abdominal: soft, nondistended, nontender to palpation, no guarding Ext: muscle strength 5 out of 5 in all 4 extremities grossly, no gross muscle atrophy, no contractures, positive dorsalis pedis pulse bilateral, no edema Neuro: Cannot assess Psych: Cannot assess Workup done during hospitalization: -Echocardiogram showed left ventricular ejection fraction 55 to 60% with mildly increased left ventricular wall thickness, RVSP 50 -Abdominal ultrasound showed no evidence of obstructive uropathy and/or renal calculus Assessment/Plan: 74-year-old male with COPD, solitary lung nodule here for evaluation acute respiratory failure due to pneumothorax now intubated and mechanically ventilated on admission #. Acute hypoxic respiratory failure secondary to right-sided pneumothorax #. Septic Shock, improved #. Right lower lobe pneumonia, aspiration versus healthcare acquired #. Right upper lobe pulmonary nodule, status post transbronchial biopsy #. Pulmonary adenocarcinoma -Continue supplemental oxygenation as needed. Currently on mechanical ventilation and on sedation -Placed on Propofol IV and fentanyl IV drip, Nimbex drip started -fentanyl gtt and nimbex gtt have been weaned off -Weaned off pressors -Solu-Medrol 40 mg IV every 6 hours per pulmonology -discontinued Vancomycin and ceftriaxone 09/29 -IV Abx to Zosyn IVPB day 3 -Discontinue IV fluids -Sputum cultures positive for Enterobacter cloacae -MRSA nasal swab and blood cultures negative -Cardiac telemetry -Chest CT ordered -Discussed with pulmonology, recommending hemodialysis -Follow-up pathology of nodule #. Prerenal SOCORRO with oliguria #. Acute Tubular Necrosis -Creatinine increased 2.94 -on gardiner catheter -Nephrology consulted, appreciate recs. Plan to start dialysis. Placed bicarb drip and discontinued Lasix IV and bicarb drip #. New onset Atrial fibrillation with RVR -Transitioned to PO amiodarone 400 mg twice daily -[id number] 2, HAS BLED 2. Intiate Eliquis PO twice daily -Maintain HR 100-120 -Per cardiology, continue Eliquis despite renal function. #. Hypocalcemia -Calcium 6.1 -Calcium gluconate IVPB given -Monitor calcium #. Hyperkalemia, resolved #. Hypermagnesemia, stable -Magnesium 2.8 #. Hyperglycemia, controlled -Due to steroid use -Currently on enteral feeding -Glargine 10u daily -A1c 5.8 -Monitor BMP -Insulin sliding scale every 6 hours -Glucose Accu-Cheks every 6 hours Chronic Conditions: #. COPD #. GERD #. Hyperlipidemia #. Hypertension #. CAD -Currently on Plavix. Will hold for now given recent biopsy -Not on aspirin. Initiate ASA 81mg PO daily E: Monitor electrolytes N: Tube feeding DVT ppx: Eliquis 2.5mg PO BID GI ppx: Protonix 40 mg IV daily I have seen and evaluated the patient today. Discussed with the resident and agree with the residents finding and plan as documented in the resident's note. Changes highlighted in blue font. Objective - Vital Signs Vital signs: Vital Signs Temp 98.7 F 10/02/24 04:00 Pulse 88 10/02/24 05:00 Resp 13 10/02/24 05:00 BP 127/67 10/02/24 05:00 Pulse Ox 88 L 10/02/24 05:00 FiO2 80 10/02/24 04:00 Intake & Output 10/01/24 10/01/24 10/02/24 06:59 18:59 06:59 Intake Total 2025.179 2229.565 1890.558 Output Total 260 255 245 Balance 6067.106 4898.565 1645.558 Weight 103 kg 106.7 kg Intake: IV 843 1056 980 0.9 KVO 110 120 100 0.9 saline pressure bag 33 36 30 Dextrose 5% in Water 1, 600 900 750 000 ml @ 75 mls/hr IV . [id number] with Sodium Bicarb (1 Meq/ml) 150 ml Rx#:[id number] Piperacillin-Tazobactam 3 100 100 .375 gm In Sodium Chloride 0.9% 100 ml @ 25 mls/hr IVPB Q8HR [facility] Rx# :[id number] Intake, IV Titration 552.179 483.565 260.558 Amount Amiodarone 450 mg In 233.338 Dextrose 5% in Water 250 ml @ 0.5 MG/MIN 16.667 mls/hr IV .Q15H [facility] Rx#: [id number] Norepinephrine 4 mg In 36.287 Sodium Chloride 0.9% 250 ml @ 0.03 MCG/KG/MIN 10. 264 mls/hr IV .Q24H [facility] Rx#:[id number] Piperacillin-Tazobactam 3 100 .375 gm In Sodium Chloride 0.9% 100 ml @ 25 mls/hr IVPB Q8HR [facility] Rx# :[id number] Vasopressin 60 unit In 85.374 Sodium Chloride 0.9% 150 ml @ 0.03 UNITS/MIN 4.59 mls/hr IV .Q24H [facility] Rx#: [id number] propofoL 1,000 mg In 197.18 383.565 260.558 Empty Bag 1 bag @ 15 MCG/ KG/MIN 8.45 mls/hr IV . [id number] [facility] Rx#:[id number] Tube Feeding 540 600 500 Other 90 90 150 Output: Chest Tube Drainage 50 50 90 Right 50 50 90 Urine 210 205 155 Other: Voiding Method Indwelling Catheter Indwelling Catheter Indwelling Catheter ABP, PAP, CO, CI - Last Documented Arterial Blood Pressure 159/45 - Labs CBC & Chem 7: 10/02/24 04:16 10/02/24 04:16 Labs: Abnormal Lab Results - Last 24 Hours (Table) 10/01/24 10/01/24 10/01/24 Range/Units 04:05 04:05 08:11 WBC (3.8-10.6) k/uL RBC (4.30-5.90) m/uL Hgb (13.0-17.5) gm/dL Hct (39.0-53.0) % Plt Count (150-450) k/uL Neutrophils # (1.3-7.7) k/uL Neutrophils # (Manual) 10.00 H (1.3-7.7) k/uL Lymphocytes # (1.0-4.8) k/uL Lymphocytes # (Manual) 0.21 L (1.0-4.8) k/uL ABG pH 7.28 L (7.35-7.45) ABG pCO2 47 H (35-45) mmHg ABG pO2 78 L (83-108) mmHg ABG Total CO2 (19-24) mmol/L ABG O2 Saturation (94-97) % Hemoglobin 10.3 L (13.0-17.5) gm/dL Sodium 135 L (137-145) mmol/L Carbon Dioxide 19 L (22-30) mmol/L BUN 67 H (9-20) mg/dL Creatinine 2.94 H (0.66-1.25) mg/dL Glucose 173 H (74-99) mg/dL POC Glucose (mg/dL) (70-110) mg/dL Calcium 6.7 L (8.4-10.2) mg/dL Magnesium 2.8 H (1.6-2.3) mg/dL 10/01/24 10/01/24 10/01/24 Range/Units 10:42 11:39 17:29 WBC (3.8-10.6) k/uL RBC (4.30-5.90) m/uL Hgb (13.0-17.5) gm/dL Hct (39.0-53.0) % Plt Count (150-450) k/uL Neutrophils # (1.3-7.7) k/uL Neutrophils # (Manual) (1.3-7.7) k/uL Lymphocytes # (1.0-4.8) k/uL Lymphocytes # (Manual) (1.0-4.8) k/uL ABG pH 7.27 L (7.35-7.45) ABG pCO2 48 H (35-45) mmHg ABG pO2 62 L (83-108) mmHg ABG Total CO2 (19-24) mmol/L ABG O2 Saturation 90.6 L (94-97) % Hemoglobin 10.2 L (13.0-17.5) gm/dL Sodium (137-145) mmol/L Carbon Dioxide (22-30) mmol/L BUN (9-20) mg/dL Creatinine (0.66-1.25) mg/dL Glucose (74-99) mg/dL POC Glucose (mg/dL) 203 H 188 H (70-110) mg/dL Calcium (8.4-10.2) mg/dL Magnesium (1.6-2.3) mg/dL 10/01/24 10/02/24 10/02/24 Range/Units 22:23 00:02 04:16 WBC 11.2 H (3.8-10.6) k/uL RBC 2.91 L (4.30-5.90) m/uL Hgb 9.1 L (13.0-17.5) gm/dL Hct 28.4 L (39.0-53.0) % Plt Count 101 L (150-450) k/uL Neutrophils # 10.8 H (1.3-7.7) k/uL Neutrophils # (Manual) (1.3-7.7) k/uL Lymphocytes # 0.1 L (1.0-4.8) k/uL Lymphocytes # (Manual) (1.0-4.8) k/uL ABG pH 7.26 L (7.35-7.45) ABG pCO2 51 H (35-45) mmHg ABG pO2 56 L* (83-108) mmHg ABG Total CO2 (19-24) mmol/L ABG O2 Saturation 86.4 L (94-97) % Hemoglobin 9.9 L (13.0-17.5) gm/dL Sodium (137-145) mmol/L Carbon Dioxide (22-30) mmol/L BUN (9-20) mg/dL Creatinine (0.66-1.25) mg/dL Glucose (74-99) mg/dL POC Glucose (mg/dL) 208 H (70-110) mg/dL Calcium (8.4-10.2) mg/dL Magnesium (1.6-2.3) mg/dL 10/02/24 10/02/24 10/02/24 Range/Units 04:16 04:42 06:02 WBC (3.8-10.6) k/uL RBC (4.30-5.90) m/uL Hgb (13.0-17.5) gm/dL Hct (39.0-53.0) % Plt Count (150-450) k/uL Neutrophils # (1.3-7.7) k/uL Neutrophils # (Manual) (1.3-7.7) k/uL Lymphocytes # (1.0-4.8) k/uL Lymphocytes # (Manual) (1.0-4.8) k/uL ABG pH 7.30 L (7.35-7.45) ABG pCO2 47 H (35-45) mmHg ABG pO2 54 L* (83-108) mmHg ABG Total CO2 25 H (19-24) mmol/L ABG O2 Saturation 85.4 L (94-97) % Hemoglobin 9.1 L (13.0-17.5) gm/dL Sodium 131 L (137-145) mmol/L Carbon Dioxide (22-30) mmol/L BUN 97 H (9-20) mg/dL Creatinine 3.79 H (0.66-1.25) mg/dL Glucose 222 H (74-99) mg/dL POC Glucose (mg/dL) 234 H (70-110) mg/dL Calcium 6.1 L* (8.4-10.2) mg/dL Magnesium (1.6-2.3) mg/dL Microbiology - Last 24 Hours (Table) 10/01/24 16:08 Gram Stain - Preliminary Sputum 09/29/24 10:42 Blood Culture - Preliminary Blood
--- NOTE | 2024-10-02 13:32 | XR ---
EXAMINATION TYPE: XR chest 1V portable DATE OF EXAM: 10/02/2024 CLINICAL INDICATION: Male, 74 years old with history of decreased O2, progress study. TECHNIQUE: Single AP portable semi-upright view of the chest is obtained. COMPARISON: Chest x-ray from earlier today and older studies. FINDINGS: Stable endotracheal and orogastric tubes. Stable left-sided subclavian central venous cath eter. Overlying sternal wires are redemonstrated. Stable right-sided chest tube. Marked improvement in overlying right-sided subcutaneous emphysema is noted. Stable small right apica l pneumothorax despite chest tube. Persistent multifocal bilateral increased opacities. Persistent m ild cardiomegaly. IMPRESSION: Stable small right apical pneumothorax despite right-sided chest tube. Persistent bilater al multifocal acute infiltrates and/or edema. Improved right sided subcutaneous emphysema is noted. [facility], , 10/02/2024 1:30 PM
[2024-10-02 13:39] VITALS: BMI 32.8
[2024-10-02] MEDS: HEPARIN SODIUM 1,000 UN/ML (10ML VL) MISCELLANE ONE (13:47)
--- NOTE | 2024-10-02 14:47 | XR ---
EXAMINATION TYPE: XR abdomen 1V DATE OF EXAM: 10/02/2024 2:43 PM CLINICAL INDICATION: Male, 74 years old with history of confirm right groin line placement, pain TECHNIQUE: 1 supine portable view of the abdomen. COMPARISON: Prior abdominal x-ray 5 days earlier. FINDINGS: Catheter overlying the right pelvis is partially imaged. Patient is rotated to the left. En tire abdomen and pelvis are not included in [id number]. IMPRESSION: As above. [facility], , 10/02/2024 2:45 PM
[2024-10-02 17:37] LABS: Glucose,Whole Blood 159 mg/dL (70-110)
--- NOTE | 2024-10-02 18:24 | P.PN ---
Subjective Progress Note Date: 10/02/24 On 09/29/2024, the patient is being seen for a follow-up. This morning, the patient remains intubated on the mechanical ventilator. The patient remains on propofol at around 50 mcg/kg/min and the patient is also on fentanyl 2 mcg/kg/h and the max at 1 mcg/kg/min. The patient is adequately sedated and paralyzed. The patient remains on assist-control mode of mechanical ventilation. Tidal volume is 400 with a rate of 30 with an FiO2 of 100% with a PEEP of 13. Blood gases from today showed a pH of 7.3 with a pCO2 of 49 and pO2 of 117. Chest x- ray shows extensive consolidation of the right lower lobe and this is attributed to an aspiration that occurred here in the intensive care unit. The sputum sample is showing Enterobacter and the patient is on IV Rocephin. The patient remains on bronchodilators. The patient remains on steroids. Right-sided chest tube is in place and there is ongoing air leak. The extent of subcutaneous emphysema has improved clinically and based on the chest x-ray findings. There is a small left-sided pleural effusion in addition on today's chest x-ray. Meanwhile, the patient went into atrial fibrillation with rapid ventricular response overnight. The patient is currently on amiodarone at 1 mg/min. He is on normal saline running at 30 cc an hour. He is receiving enteral feeding for nutritional support and the patient is on vital HP running at 10 cc an hour. Abdomen is nondistended. WBC count is at 7.4 with a heme of 12.3 and a platelet count of 160. Sodium is at 135, potassium is at 4.8, BUN 31 with a creatinine of 1.1. Glucose at 195 from this morning. On 09/30/2024, the patient is being seen for a follow-up. This morning, the patient is on propofol which is running at 50 mcg/kg/min. The patient is off fentanyl and the patient is off Nimbex. The patient remains intubated on the mechanical ventilator assist-control mode at a rate of 30, tidal volume of 450, FiO2 of 80% with a PEEP of 11. Morning blood gas showed a pH of 7.22 with a pCO2 of 45 and a pO2 of 142. The chest x-ray shows improvement in the right lower lobe consolidation. There is a stable right apical pneumothorax and right-sided chest tube remains in good location. There is some limited subcutaneous emphysema along the right chest and the patient is having positive air leak. The patient was having atrial fibrillation with rapid ventricular response. The patient was becoming hemodynamically unstable and hypotensive requiring more pressors despite being on amiodarone. Based on that, the patient underwent a cardioversion yesterday and this was successful and this morning the patient's cardiac rhythm is back into normal sinus rhythm. The patient remains on amiodarone which is running at 0.5 mg/min. The patient's urine output has dropped considerably and currently is producing only 5 cc an hour. Norepinephrine is running at 0.16 mcg/kg/min and the patient is on a vasopressin physiologic dose. The patient is also receiving vital HP for enteral feeding and nutritional support with rate of 40 cc an hour. Blood work from today shows a WBC count of 11.9, hemoglobin is at 12 and a platelet count is 175. The sodium level is at 134, potassium level is 5.2, bicarb 17, BUN 46 with a creatinine of 1.6. Remains on IV Zosyn. Remains on anticoagulation with Eliquis. Remains on pressors. Remains on bronchodilators. Remains on steroids. Obviously less bronchospastic and wheezy on today's examination. There is also considerable drop in the peak airway pressure which is currently down to 25. On 10/01/2024, the patient is being seen for a follow-up. Remains intubated on the mechanical ventilator. This morning, the patient is on propofol running at 50 mcg/kg/min. Remains on mechanical ventilator assist-control mode with rate of 30, tidal volume of 450, FiO2 of 80% with a PEEP of 10. Earlier this morning, the patient had some oxygen saturation and based on the deficit was brought up to 80%. Subsequent blood gas showed a pH of 7.23 pCO2 47 and pO2 of 78. The patient was double stacking. The patient was also having positive air leak in the right-sided chest tube. Chest x-ray from today shows subcutaneous emphysema along the right chest, right lower lobe consolidation, small right apical pneumothorax, some infiltrates in the left lung base was also noted. The patient remains on IV Zosyn as the patient sputum sample was positive for Enterobacter. I switched this patient to a pressure control mode of mechanical ventilation and the patient is currently on pressure control at rate of 26, pressure of 15, inspiratory time of 1 second, the PEEP was brought up to 12 and FiO2 was kept at 80%. Subsequent blood gas showed a pH of 7.27 with a pCO2 of 48 and pO2 of 62. Seems to be more synchronous on mechanical ventilator and a pressure control mode of mechanical ventilation. The patient is currently off pressors. The patient is off norepinephrine and the patient is also off vasopressin. Remains atrial fibrillation with a controlled rate and remains on amiodarone 0.5 mg/min. Urine output is quite diminished in the order of 10 to 20 cc an hour. The patient has been in a positive fluid balance of 4.9 L over the past 24 hours. The creatinine is on the rise and the creatinine today is up to 2.9 with a BUN of 67. Remains on bicarb infusion and serum bicarb is at 19 and a sodium levels at 135 with a potassium level of 3.7. WBC count of 10.3, hemoglobin of 10.1 and platelet count of 125. The patient is on enteral feeding for nutritional support and she has not produced any bowel movement. He is on vital HP at 50 cc an hour On 10/02/24, the patient is being seen for a FU. The patient remains critical. Overnight, the patient continued to have some difficulty with oxygenation. This morning, the patient with a pressure control at 26, pressure control of 17, FiO2 of 100% and a PEEP of 14. The patient has a pH of 7.3 with a pCO2 of 47 and pO2 of 54. Remains atrial fibrillation. Rate is controlled. Right-sided chest tube in place. Chest x-ray showed evidence of a pneumothorax. Nevertheless, the patient has ongoing air leak and the patient has developed worsening subcutaneous emphysema along the right chest on today's chest x-ray. This also can be seen clinically. The patient remains on vital high-protein at rate of 50 cc an hour. I did spend time, there has been progressive worsening renal function the patient remains oliguric despite receiving IV Lasix.The blood work from today shows a WBC count of 11.2 with a hemoglobin 9.1 and a platelet count of 101. At the same time, the sodium levels at 131, BUN is 97 with a creatinine of 3.79 and a potassium level is at 4.7. Calcium level is at 6.1 that is being replaced. The patient has a serum bicarb of 22. Bicarb drip has been dis continued. Fluid balance is significantly positive over the past 24 hours in the order of 3.9 L. The patient will accordingly will be dialyzed. Remains on IV Zosyn. Remains off pressors. Remains sedated on propofol. Calm and comfortable. Objective - Vital Signs Vital signs: Vital Signs Temp 98.7 F 10/02/24 04:00 Pulse 98 10/02/24 08:30 Resp 14 10/02/24 07:00 BP 125/64 10/02/24 07:00 Pulse Ox 87 L 10/02/24 07:00 FiO2 100 10/02/24 08:06 Intake & Output 10/01/24 10/02/24 10/02/24 18:59 06:59 18:59 Intake Total 2229.565 2404.558 349.893 Output Total 315 335 35 Balance 5573.851 2840.558 314.893 Weight 106.7 kg Intake: IV 1056 1344 26 0.9 KVO 120 130 20 0.9 saline pressure bag 36 39 6 Calcium Gluconate in NaCl 100 2 gm In Saline 1 100ml. bag @ 100 mls/hr IVPB ONCE ONE Rx#:[id number] Dextrose 5% in Water 1, 900 975 000 ml @ 75 mls/hr IV . [id number] with Sodium Bicarb (1 Meq/ml) 150 ml Rx#:[id number] Piperacillin-Tazobactam 3 100 .375 gm In Sodium Chloride 0.9% 100 ml @ 25 mls/hr IVPB Q8HR [facility] Rx# :[id number] Intake, IV Titration 483.565 260.558 193.893 Amount Piperacillin-Tazobactam 3 100 100 .375 gm In Sodium Chloride 0.9% 100 ml @ 25 mls/hr IVPB Q8HR [facility] Rx# :[id number] propofoL 1,000 mg In 383.565 260.558 93.893 Empty Bag 1 bag @ 15 MCG/ KG/MIN 8.45 mls/hr IV . [id number] [facility] Rx#:[id number] Tube Feeding 600 650 100 Other 90 150 30 Output: Chest Tube Drainage 110 130 Right 110 130 Urine 205 205 35 Other: Voiding Method Indwelling Catheter Indwelling Catheter ABP, PAP, CO, CI - Last Documented Arterial Blood Pressure 146/48 - Exam No acute distress, sedated on propofol., Comfortable on sections of the mechanical ventilator. HEENT examination is grossly unremarkable. Mucous membranes are moist. No oral lesions. Neck supple. Full range of motion. No adenopathy thyromegaly or neck vein di stention. Cardiovascular examination reveals r irregular rhythm consistent with atrial fibrillation, rate is controlled. S1-S2 normal. No S3 or S4. No discernible murmur noted. Lungs reveal bilateral rhonchi and expiratory wheezes. Breath sounds are equal but diminished throughout. No crackles. Subcutaneous emphysema is increased along the right hemithorax and the patient has a right-sided chest tube with a positive air leak. Output from the chest tube is minimal at this point in time. Scattered wheezing. Abdomen soft bowel sounds are heard. No masses or tenderness. Extremities are intact. No cyanosis clubbing and there is increased edema in all 4 extremities. Skin is without rash or lesion. Neurologic status is unchanged the patient remains well sedated for now. - Labs CBC & Chem 7: 10/02/24 04:16 10/02/24 04:16 Labs: Abnormal Lab Results - Last 24 Hours (Table) 10/01/24 10/01/24 10/01/24 Range/Units 10:42 11:39 17:29 WBC (3.8-10.6) k/uL RBC (4.30-5.90) m/uL Hgb (13.0-17.5) gm/dL Hct (39.0-53.0) % Plt Count (150-450) k/uL Neutrophils # (1.3-7.7) k/uL Lymphocytes # (1.0-4.8) k/uL ABG pH 7.27 L (7.35-7.45) ABG pCO2 48 H (35-45) mmHg ABG pO2 62 L (83-108) mmHg ABG Total CO2 (19-24) mmol/L ABG O2 Saturation 90.6 L (94-97) % Hemoglobin 10.2 L (13.0-17.5) gm/dL Sodium (137-145) mmol/L BUN (9-20) mg/dL Creatinine (0.66-1.25) mg/dL Glucose (74-99) mg/dL POC Glucose (mg/dL) 203 H 188 H (70-110) mg/dL Calcium (8.4-10.2) mg/dL 10/01/24 10/02/24 10/02/24 Range/Units 22:23 00:02 04:16 WBC 11.2 H (3.8-10.6) k/uL RBC 2.91 L (4.30-5.90) m/uL Hgb 9.1 L (13.0-17.5) gm/dL Hct 28.4 L (39.0-53.0) % Plt Count 101 L (150-450) k/uL Neutrophils # 10.8 H (1.3-7.7) k/uL Lymphocytes # 0.1 L (1.0-4.8) k/uL ABG pH 7.26 L (7.35-7.45) ABG pCO2 51 H (35-45) mmHg ABG pO2 56 L* (83-108) mmHg ABG Total CO2 (19-24) mmol/L ABG O2 Saturation 86.4 L (94-97) % Hemoglobin 9.9 L (13.0-17.5) gm/dL Sodium (137-145) mmol/L BUN (9-20) mg/dL Creatinine (0.66-1.25) mg/dL Glucose (74-99) mg/dL POC Glucose (mg/dL) 208 H (70-110) mg/dL Calcium (8.4-10.2) mg/dL 10/02/24 10/02/24 10/02/24 Range/Units 04:16 04:42 06:02 WBC (3.8-10.6) k/uL RBC (4.30-5.90) m/uL Hgb (13.0-17.5) gm/dL Hct (39.0-53.0) % Plt Count (150-450) k/uL Neutrophils # (1.3-7.7) k/uL Lymphocytes # (1.0-4.8) k/uL ABG pH 7.30 L (7.35-7.45) ABG pCO2 47 H (35-45) mmHg ABG pO2 54 L* (83-108) mmHg ABG Total CO2 25 H (19-24) mmol/L ABG O2 Saturation 85.4 L (94-97) % Hemoglobin 9.1 L (13.0-17.5) gm/dL Sodium 131 L (137-145) mmol/L BUN 97 H (9-20) mg/dL Creatinine 3.79 H (0.66-1.25) mg/dL Glucose 222 H (74-99) mg/dL POC Glucose (mg/dL) 234 H (70-110) mg/dL Calcium 6.1 L* (8.4-10.2) mg/dL Microbiology - Last 24 Hours (Table) 10/01/24 16:08 Gram Stain - Preliminary Sputum 09/29/24 10:42 Blood Culture - Preliminary Blood Assessment and Plan Plan: Acute hypoxemic respiratory failure, secondary to right-sided pneumothorax, with extensive subcutaneous emphysema, requiring intubation, mechanical ventilation, September 26, 2024. The patient remains intubated on mechanical ventilator. The patient has been open extensive consolidation of the right lower lobe probably due to an aspiration episode/aspiration pneumonia and the patient is growing En terobacter and is purulent. Chest x-ray shows a stable right apical pneumothorax and the patient continues to have a persistent air leak. Based on some asynchrony on mechanical ventilator, the patient was switched to a pressure control mode of mechanical ventilation. Still having increased oxygen requirements. Chest x-ray shows some interval worsening in the subcutaneous emphysema on the right. The patient remains on pressure control mode of mechanical ventilation. Chest x-ray and blood gas were noted. Right-sided pneumothorax with persistent air leak, small right apical pneumothorax Subcutaneous emphysema involving the right lung. Chest tube remains in a good location. S/P flexible bronchoscopy, robotically assisted bronchoscopy with radial ultrasound evaluation of the right upper lobe pulmonary nodule, robotically assisted transbronchial needle aspiration, transbronchial biopsy, and BAL, September 25, 2024. Right upper lobe pulmonary nodule, consistent with non-small cell lung cancer, pulm adenocarcinoma History of chronic obstructive pulmonary disease the patient has extensive emphysematous changes upper lobes bilaterally Atrial fibrillation with rapid ventricular response, status post cardioversion, currently on oral amiodarone and anticoagulation with Eliquis. Hypotension, multifactorial, could be related to sepsis/aspiration. The patient is off pressors for now Acute kidney injury with ongoing oliguria and further worsening renal function and development of extensive third spacing. Patient is also in volume overload. The patient will be started on hemodialysis today. History of hypertension. History of hyperlipidemia. History of gastroesophageal reflux disease. History of coronary artery disease, with previous CABG, 2018. Peripheral vascular occlusive disease. History of tobacco use. History of glaucoma. Plan: Keep the patient on propofol Keep the pressure control mode of mechanical ventilation Obtain a follow-up blood gas at noon time Continue IV Zosyn covering for aspiration pneumonia. Echocardiogram showed a preserved LV function Amiodarone 400 mg p.o. twice a day Continue anticoagulation with Eliquis and the dose will be switched to 2.5 mg twice a day Continue enteral feeding for nutritional support Stop the bicarb infusion Nephrology consultation Ultrasound the kidneys to rule out hydronephrosis No response to Lasix and patient remains oliguric Monitor output from the chest tube Monitor airleak Dulcolax suppositories Hemodialysis catheter to be inserted Will start hemodialysis today On a separate note, the pulmonary nodule that was biopsied earlier turned out to be consistent with non-small cell lung cancer. Condition remains critical. Will continue to follow make further recommendations based on his progress. Evaluation was done and 35 minutes. Time with Patient: Greater than 30
[2024-10-02] MEDS: INSULIN GLARGINE (LANTUS) 100 UNIT/ML SYR SQ SCH (18:45)
[2024-10-02 19:17] LABS: Hepatitis B Surface Antigen Nonreactive (Nonreactive)
[2024-10-02] MEDS: APIXABAN 2.5 MG TABLET PO SCH (20:55)
[2024-10-02] MEDS: methylPREDNISolone SOD SUCCI 40 MG/ML 1 ML VIAL IV SCH (20:55)
[2024-10-02] MEDS: PIPERACILLIN-TAZOBACTAM 3.375 GM in SODIUM CHLORIDE 0.9% 100 ML IVPB SCH (20:55)
--- NOTE | 2024-10-02 22:30 | OP ---
OPERATIVE REPORT DATE OF SERVICE : PREOPERATIVE DIAGNOSIS: Acute on chronic renal failure. POSTOPERATIVE DIAGNOSIS: Acute on chronic renal failure. PROCEDURE PERFORMED: Ultrasound-guided right femoral dialysis catheter placement. DESCRIPTION OF PROCEDURE: The patient was seen in the intensive care unit. Right groin was prepped and drapes were applied in a sterile manner. 1% lidocaine was infiltrated in the groin area. Ultrasound-guided micropuncture introduced into the right femoral vein and micropuncture guidewire was passed. Then, we placed a sheath on the top of the guidewire. Then, we passed a regular guidewire, which was parked at the inferior vena cava without any resistance. Dilators were advanced on the top of the guidewire. Then, we placed 30 cm dialysis catheter on the top of the guidewire. Guidewire was removed, flushed with heparinized saline, hep-locked, secured with 3-0 nylon. The patient tolerated the procedure well. MMODL / IJN: [id number] /
--- NOTE | 2024-10-02 22:35 | CONS ---
CONSULTATION SUBJECTIVE: This is a gentleman. I was consulted for placement of an urgent dialysis catheter. The patient has acute kidney injury. The patient had a bronchoscopy done. The patient has right-sided pneumothorax. Chest tube has been in place. Right now, the patient has been intubated. The patient has been on Levophed and vasopressin. The patient also has a history of AFib. MEDICAL HISTORY: History of hypertension, prostate disorder. PHYSICAL EXAMINATION: GENERAL: The patient was seen in intensive care. NECK: Supple. No bruit appreciated. CHEST: The patient has bilateral crackles and has a chest tube. ABDOMEN: Protuberant. EXTREMITIES: Femorals are not palpable. PLAN: Placement of a dialysis catheter. Risks and complications discussed. MMODL / IJN: [id number] /
[2024-10-03 00:31] LABS: Glucose,Whole Blood 161 mg/dL (70-110)
--- NOTE | 2024-10-03 03:40 | CT ---
EXAM: CT Chest Without Intravenous Contrast CLINICAL HISTORY: ITS.REASON CT Reason: pneumothorax, pneumonia TECHNIQUE: Axial computed tomography images of the chest without intravenous contrast. CTDI is 12.8 mGy and DLP is 601.4 mGy-cm. This CT exam was performed using one or more of the following dose reduction techniques: automated exposure control, adjustment of the mA and/or kV according to patient size, and/or use of iterative reconstruction technique. COMPARISON: No relevant prior studies available. FINDINGS: Lungs: Extensive bilateral airspace consolidations, preferentially involving the posterior and inferior lung lewis. Severe bilateral centrilobular emphysema. Pleural space: See below. Heart: Unremarkable. No cardiomegaly. No significant pericardial effusion. No significant coronary artery calcifications. Bones/joints: Sternotomy wires. No acute fracture. No dislocation. Soft tissues: Unremarkable. Vasculature: Unremarkable. No thoracic aortic aneurysm. Lymph nodes: Unremarkable. No enlarged lymph nodes. Tubes, lines and devices: Endotracheal tube terminates in the trachea. RIGHT chest tube terminates in the lung parenchyma. Mild-moderate RIGHT basilar pneumothorax. Correlate for proper positioning. Feeding tube terminates in the stomach. IMPRESSION: 1. Extensive bilateral airspace consolidations, preferentially involving the posterior and inferior lung lewis. 2. Endotracheal tube terminates in the trachea. 3. Severe bilateral centrilobular emphysema. 4. RIGHT chest tube terminates in the lung parenchyma. Mild-moderate RIGHT basilar pneumothorax. Correlate for proper positioning.
[2024-10-03 04:33] LABS: Basophils % (A) 0 %; Eosinophils % (A) 0 %; HCT 26.1 % (39.0-53.0); HGB 8.7 gm/dL (13.0-17.5); Hypochromasia Slight; Lymphocytes # (A) 0.2 k/uL (1.0-4.8); Lymphocytes % (A) 1 %; MCH 32.8 pg (25.0-35.0); MCHC 33.2 g/dL (31.0-37.0); Mean Platelet Volume 9.4; Monocytes # (A) 0.4 k/uL (0-1.0); Monocytes % (A) 3 %; Neutrophils % (A) 96 %; RBC 2.64 m/uL (4.30-5.90); RDW 13.6 % (11.5-15.5); WBC 16.8 k/uL (3.8-10.6)
[2024-10-03 04:42] LABS: ABG Base Excess -4.7 mmol/L; ABG HCO3 23 mmol/L (21-25); ABG Oxygen Saturation 82.9 % (94-97); ABG PCO2 56 mmHg (35-45); ABG PH 7.22 (7.35-7.45); ABG TCO2 25 mmol/L (19-24)
[2024-10-03 04:44] LABS: ABG PO2 57 mmHg (83-108); Allen Test Performed? no
[2024-10-03 05:10] LABS: African American GFR (CKD) 16 (>60 ml/min/1.73 sqM); Anion Gap 15 mmol/L; Calcium 6.8 mg/dL (8.4-10.2); Carbon Dioxide 22 mmol/L (22-30); Chloride 95 mmol/L (98-107); Glucose 137 mg/dL (74-99); Non-African American GFR(CKD) 14 (>60 ml/min/1.73 sqM); Phosphorus 8.5 mg/dL (2.5-4.5); Potassium 5.1 mmol/L (3.5-5.1); Sodium 132 mmol/L (137-145)
[2024-10-03 05:19] LABS: Blood Urea Nitrogen 101 mg/dL (9-20)
[2024-10-03 06:13] LABS: Glucose,Whole Blood 149 mg/dL (70-110)
[2024-10-03 08:07] LABS: Platelet Count 99 k/uL (150-450)
[2024-10-03 08:20] LABS: Poikilocytosis (M) Present
[2024-10-03 09:22] VITALS: BP 115/72; TEMP 98.8
[2024-10-03 09:46] LABS: ABG Base Excess -7.5 mmol/L; ABG HCO3 22 mmol/L (21-25); ABG Oxygen Saturation 71.4 % (94-97); ABG PCO2 67 mmHg (35-45); ABG TCO2 24 mmol/L (19-24)
[2024-10-03 09:52] LABS: ABG PH 7.12 (7.35-7.45)
[2024-10-03 09:53] LABS: ABG PO2 50 mmHg (83-108); Allen Test Performed? no
--- NOTE | 2024-10-03 09:56 | P.PN ---
Subjective Patient is seen in follow-up for acute kidney injury. Started on hemodialysis October 02, 2024. On 100% FiO2. On low-dose Levophed. Vital signs are stable. On Levophed. General: Resting in bed. HEENT: Intubated. LUNGS: Scattered rhonchi. HEART: Rate and Rhythm are regular. ABDOMEN: No distention. EXTREMITITES: 2+ edema. Objective - Vital Signs Vital signs: Vital Signs Temp 98.8 F 10/03/24 08:00 Pulse 92 10/03/24 09:17 Resp 6 L 10/03/24 09:15 BP 115/72 10/03/24 09:00 Pulse Ox 78 L 10/03/24 09:15 FiO2 100 10/03/24 08:42 Intake & Output 10/02/24 10/03/24 10/03/24 18:59 06:59 18:59 Intake Total 934.440 7202.321 123.185 Output Total 505 1905 25 Balance 195.921 51.321 98.185 Weight 106.7 kg Intake: IV 143 269 116 0.9 KVO 110 130 10 0.9 saline pressure bag 33 39 6 Piperacillin-Tazobactam 3 100 100 .375 gm In Sodium Chloride 0.9% 100 ml @ 25 mls/hr IVPB Q8HR [facility] Rx# :[id number] Intake, IV Titration 477.921 287.321 7.185 Amount Norepinephrine 4 mg In 7.185 Sodium Chloride 0.9% 250 ml @ 0.03 MCG/KG/MIN 10. 264 mls/hr IV .Q24H [facility] Rx#:[id number] Piperacillin-Tazobactam 3 100 .375 gm In Sodium Chloride 0.9% 100 ml @ 25 mls/hr IVPB Q8HR [facility] Rx# :[id number] propofoL 1,000 mg In 377.921 287.321 Empty Bag 1 bag @ 15 MCG/ KG/MIN 8.45 mls/hr IV . [id number] [facility] Rx#:[id number] Tube Feeding 50 0 Hemodialysis 1400 Other 30 Output: Chest Tube Drainage 50 170 Right 50 170 Gastric Drainage 350 250 Urine 105 85 25 Hemodialysis 400 Hemodialysis Net Amount 1000 Other: Voiding Method Indwelling Catheter Indwelling Catheter ABP, PAP, CO, CI - Last Documented Arterial Blood Pressure 97/42 - Labs CBC & Chem 7: 10/03/24 04:24 10/03/24 04:24 Labs: Abnormal Lab Results - Last 24 Hours (Table) 10/02/24 10/02/24 10/02/24 Range/Units 11:34 12:21 17:35 WBC (3.8-10.6) k/uL RBC (4.30-5.90) m/uL Hgb (13.0-17.5) gm/dL Hct (39.0-53.0) % Plt Count (150-450) k/uL Neutrophils # (1.3-7.7) k/uL Lymphocytes # (1.0-4.8) k/uL ABG pH 7.24 L (7.35-7.45) ABG pCO2 54 H (35-45) mmHg ABG pO2 57 L* (83-108) mmHg ABG Total CO2 25 H (19-24) mmol/L ABG O2 Saturation 85.3 L (94-97) % Hemoglobin 8.9 L (13.0-17.5) gm/dL Sodium (137-145) mmol/L Chloride (98-107) mmol/L BUN (9-20) mg/dL Creatinine (0.66-1.25) mg/dL Glucose (74-99) mg/dL POC Glucose (mg/dL) 189 H 159 H (70-110) mg/dL Calcium (8.4-10.2) mg/dL Phosphorus (2.5-4.5) mg/dL 10/03/24 10/03/24 10/03/24 Range/Units 00:30 04:24 04:24 WBC 16.8 H (3.8-10.6) k/uL RBC 2.64 L (4.30-5.90) m/uL Hgb 8.7 L (13.0-17.5) gm/dL Hct 26.1 L (39.0-53.0) % Plt Count 99 L (150-450) k/uL Neutrophils # 16.0 H (1.3-7.7) k/uL Lymphocytes # 0.2 L (1.0-4.8) k/uL ABG pH (7.35-7.45) ABG pCO2 (35-45) mmHg ABG pO2 (83-108) mmHg ABG Total CO2 (19-24) mmol/L ABG O2 Saturation (94-97) % Hemoglobin (13.0-17.5) gm/dL Sodium 132 L (137-145) mmol/L Chloride 95 L (98-107) mmol/L BUN 101 H* (9-20) mg/dL Creatinine 3.89 H (0.66-1.25) mg/dL Glucose 137 H (74-99) mg/dL POC Glucose (mg/dL) 161 H (70-110) mg/dL Calcium 6.8 L (8.4-10.2) mg/dL Phosphorus 8.5 H (2.5-4.5) mg/dL 10/03/24 10/03/24 Range/Units 04:30 06:11 WBC (3.8-10.6) k/uL RBC (4.30-5.90) m/uL Hgb (13.0-17.5) gm/dL Hct (39.0-53.0) % Plt Count (150-450) k/uL Neutrophils # (1.3-7.7) k/uL Lymphocytes # (1.0-4.8) k/uL ABG pH 7.22 L (7.35-7.45) ABG pCO2 56 H (35-45) mmHg ABG pO2 57 L* (83-108) mmHg ABG Total CO2 25 H (19-24) mmol/L ABG O2 Saturation 82.9 L (94-97) % Hemoglobin 8.4 L (13.0-17.5) gm/dL Sodium (137-145) mmol/L Chloride (98-107) mmol/L BUN (9-20) mg/dL Creatinine (0.66-1.25) mg/dL Glucose (74-99) mg/dL POC Glucose (mg/dL) 149 H (70-110) mg/dL Calcium (8.4-10.2) mg/dL Phosphorus (2.5-4.5) mg/dL Microbiology - Last 24 Hours (Table) 09/29/24 10:42 Blood Culture - Preliminary Blood 10/01/24 16:08 Gram Stain - Preliminary Sputum Sputum Culture - Preliminary Enterobacter cloacae Complex Assessment and Plan Plan: Assessment: 1. Acute kidney injury secondary to ATN secondary to shock. Creatinine 0.7 on admission. Started on hemodialysis October 02, 2024. Oliguric. No hydronephrosis noted on kidney ultrasound. 2. Acute hypoxic respiratory failure secondary to right-sided pneumothorax with extensive subcutaneous emphysema. 3. Septic shock secondary to aspiration pneumonia on antibiotics. 4. Right upper lobe pulmonary nodule status post bronchoscopy and biopsy September 25, 2024. Biopsy confirms adenocarcinoma. 5. New onset A-fib with RVR now on oral meds. 6. Metabolic acidosis secondary to acute kidney injury. Improved with bicarb drip. 7. History of coronary disease status post CABG in 2018. 8. Hypocalcemia secondary to acute kidney injury and IV bicarb. Replaced. 9. Hyperphosphatemia secondary to acute kidney injury. Plan: Hemodialysis today and again tomorrow. Add PhosLo. Wean FiO2. Tube feeds held due to high residuals. Currently off IV fluids. Urine output remains low despite IV Lasix. Prognosis guarded.
[2024-10-03 10:12] LABS: ABG Base Excess -5.7 mmol/L; ABG HCO3 24 mmol/L (21-25); ABG TCO2 26 mmol/L (19-24)
[2024-10-03] MEDS: CISATRACURIUM 2 MG/ML 5 ML VIAL IV ONE (10:21)
[2024-10-03 10:35] LABS: ABG Base Excess -0.8 mmol/L; ABG HCO3 28 mmol/L (21-25); ABG Oxygen Saturation 65.7 % (94-97); ABG TCO2 31 mmol/L (19-24)
[2024-10-03 10:38] LABS: ABG PCO2 72 mmHg (35-45); ABG PH 7.13 (7.35-7.45)
[2024-10-03 10:39] LABS: ABG PO2 47 mmHg (83-108); Allen Test Performed? no
[2024-10-03 10:40] LABS: ABG PCO2 77 mmHg (35-45); ABG PH 7.17 (7.35-7.45); ABG PO2 45 mmHg (83-108); Allen Test Performed? no
[2024-10-03] MEDS: SODIUM BICARB 8.4% 50 ML SYR (1 MEQ/ML) IV STA ×2 (10:55)
--- NOTE | 2024-10-03 11:13 | XR ---
EXAMINATION TYPE: XR chest 1V portable DATE OF EXAM: 10/03/2024 CLINICAL INDICATION: Male, 74 years old with history of post chest tube insertion, progress study. TECHNIQUE: Single AP portable upright view of the chest is obtained. COMPARISON: Chest x-ray from one day earlier FINDINGS: Stable endotracheal and orogastric tubes. Stable left-sided subclavian central venous cath eter. Overlying sternal wires are redemonstrated. Now 2 right-sided chest tubes. Persistent inferior right-sided subcutaneous emphysema is noted. Stable small right apical pneumotho rax despite chest tubes. Persistent multifocal bilateral increased opacities. Persistent mild cardiom egaly. IMPRESSION: Stable small right apical pneumothorax despite right-sided chest tubes. [facility], , 10/03/2024 11:11 AM
--- NOTE | 2024-10-03 11:15 | XR ---
EXAMINATION TYPE: XR chest 1V DATE OF EXAM: 10/03/2024 CLINICAL INDICATION: Male, 74 years old with history of CHEST TUBE ADJUSTMENT, progress study. TECHNIQUE: Single AP portable upright view of the chest is obtained. COMPARISON: Chest x-ray from earlier today FINDINGS: Stable endotracheal and orogastric tubes. Stable left-sided subclavian central venous cath eter. Overlying sternal wires are redemonstrated. Stable 2 right-sided chest tubes. Persistent inferior right-sided subcutaneous emphysema is noted. Improvement tiny right apical pneu mothorax. Persistent multifocal bilateral increased opacities. Persistent mild cardiomegaly. IMPRESSION: Tiny right apical pneumothorax improved from most recent study. [facility], , 10/03/2024 11:13 AM
--- NOTE | 2024-10-03 11:16 | P.PN ---
Subjective Progress Note Date: 10/03/24 Hospital course: Patient is a 74-year-old male with COPD, GERD, hyperlipidemia, hypertension, CAD (CABG and heart cath), current everyday smoker here for evaluation of difficulty of breathing and subcutaneous air within the chest and neck. Per family at bedside, Patient had bronchoscopy and right-sided pneumothorax yesterday 09/25 at our institution for lung biopsy of the right upper lobe lung nodule with 1.2 cm in size. He developed a pneumothorax post-op and was placed on a thora vent on discharge. 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 He was noted to be awake and alert during this time and did not have any other associated symptoms. He was transferred from [place] and was reported to have right-sided pneumothorax, subcutaneous air and ventilator dependent acute respiratory failure. He was intubated prior to transfer and right-sided chest tube was placed. He was transferred for evaluation by pulmonology. Patient was life flighted here and had stable vitals during transport. Vitals on admission showed pulse rate 66, respiratory rate 18, blood pressure 139/71, O2 saturation 95% on mechanical ventilation FiO2 100%. On admission, chest x-ray showed notable sternotomy and chest tube placement, with subcutaneous emphysema. On admission labs showed WBC 16.2, hemoglobin 15.2, platelet count 258,000. Sodium 135, potassium 4.5, chloride 104, bicarb 22, BUN 12, creatinine 0.74, glucose 152, plasmic lactic acid 2.2, calcium 8.9, magnesium 2.5, albumin 3.9. Patient was admitted to the intensive care unit with hospital course complicated by worsening oxygenation status, right lower lobe infiltrate. Patient's PEEP and FiO2 were titrated accordingly, patient was started on antibiotics. 09/27/2024 patient seen and examined at bedside. Agitated while sedated per RN overnight. Patient still sedated and mechanically ventilated. Labs today showed WBC 14, hemoglobin 13.3, platelet count 218,000, sodium 135, potassium 4.3, bicarb 19, BUN 18, creatinine 0.88, glucose 167, calcium 7.9, magnesium 2.4. Chest x-ray today showed stable mild to moderate acute cardiopulmonary disease which are extensive stable subcutaneous emphysema with no definite pneumothorax, no change in a small retrocardiac infiltrate consistent with pneumonia/atelectasis. ET tube, left-sided PICC line. ABG showed pH 7.34, pCO2 36, pO2 55. 09/28/2024 Patient seen in the ICU - borderline oxygen saturation despite in creasing PEEP and FiO2. Code status being discussed with family. CXR today reviewed and independently interpreted, ongoing pneumothorax, new infiltrate of the right lower lobe. 09/29/2024 patient seen and examined at bedside. Patient still in the ICU sedated and mechanically ventilated. A-fib RVR this morning at 4 AM. Labs today showed WBC 7.4, hemoglobin 12.3, MCV 100.9, platelet count 1 60,000, sodium 131, potassium 4.8, chloride 108, bicarb 22, BUN 31, creatinine 1.16, calcium 7, magnesium 2.7. Chest x-ray today showed stable small right apical pneumothorax, persistent bibasilar acute infiltrates and/or atelectasis, continued improving subcutaneous emphysema. ABG pH 7.2, pCO2 56, pO2 83, FiO2 at 100%. 09/30/2024 patient seen and examined at bedside. Patient still in the ICU sed ated and mechanically ventilated. Converted back to A-fib with RVR this morning around 2 AM. Labs today showed WBC 11.9, hemoglobin 12, MCV 100.7, platelet count 1 75,000, sodium 134, potassium 5.2, bicarb 17, creatinine 1.6, BUN 46, glucose 192, calcium 7, magnesium 2.8. Urinalysis showed +1 protein +2 glucose less than 20 sodium, 105.9 creatinine negative nitrites negative leukocyte Estrace. ABG showed pH 7.22, pCO2 45, pO2 142 at FiO2 80%. Chest x-ray today showed stable small right apical pneumothorax, improving bibasilar acute infiltrates and/or atelectasis worsening right-sided subcutaneous emphysema. 10/01/2024 patient seen and examined at bedside. Patient still in the ICU sedated and mechanically ventilated. Labs today showed WBC 10.3, hemoglobin 10.1, MCV 99.4, platelet count 1 25,000, sodium 135, potassium 3.7, bicarb 19, BUN 67, creatinine 2.94, glucose 173, magnesium 2.8, calcium 6.7. Urine output 500 cc in 24 hours. Currently on indwelling catheter. Chest x-ray today showed stable small right apical pneumothorax and, persistent bilateral multifocal acute infiltrates. 10/02/2024 patient seen and examined at bedside. No acute events overnight. Patient still in the ICU sedated and mechanically ventilated. Labs today showed WBC 11.2, hemoglobin 9.1, platelet count 101,000, sodium 131, potassium 4.7, bicarb 22, BUN 97, creatinine 3.79, glucose 222, calcium 6.1. Chest x-ray shows stable bibasilar opacities, stable pneumothorax and stable subcutaneous emphys gonzalo. 10/03/2024 patient seen and examined at bedside. Patient remained hypoxic overnight after chest CT scan. Patient still in the ICU sedated and mechanically ventilated. Labs today showed WBC 16.8, hemoglobin 8.7, platelet count 99,000, sodium 132, chloride 95, BUN 101, creatinine 3.89, glucose 137, phosphorus 8.5, calcium 6.8. ABG showed pH 1.24, CO2 54, O2 57 FiO2 100%. Hepatitis B nonreactive. Chest x-ray showed no improvement of right lower lobe opacities, improved subcutaneous emphysema. Chest CT showed extensive bilateral airspace consolidations, preferentially involving the posterior inferior lung lewis. Review of systems: Cannot be obtained Physical examination: Vital signs reviewed General: non toxic, no distress, appears at stated age, sedated and mechanically intubated Derm: no unusual rashes/lesions, warm Head: atraumatic, normocephalic, symmetric Eyes: EOMI, anicteric sclera, pupils equal round reactive to light ENT: Nose and ears atraumatic Neck: No cervical lymphadenopathy, trachea midline, supple, subcutaneous crepitus improved Mouth: no lip lesion, mucus membranes moist Cardiovascular: S1S2 regular no murmur Lungs: subcutaneous crackles improved, bibasilar Rales, no accessory muscle use, sternotomy scar midline, chest tube noted on right mid chest area, central line on left upper chest noted Abdominal: soft, nondistended, nontender to palpation, no guarding Ext: muscle strength 5 out of 5 in all 4 extremities grossly, no gross muscle atrophy, no contractures, positive dorsalis pedis pulse bilateral, no edema Neuro: Cannot assess Psych: Cannot assess Workup done during hospitalization: -Echocardiogram showed left ventricular ejection fraction 55 to 60% with mildly increased left ventricular wall thickness, RVSP 50 -Abdominal ultrasound showed no evidence of obstructive uropathy and/or renal calculus Assessment/Plan: 74-year-old male with COPD, solitary lung nodule here for evaluation acute respiratory failure due to pneumothorax now intubated and mechanically ventilated on admission. Had AFib with RVR on admission. Developed septic shock due to health acquired pnemonia and SOCORRO with oliguira requiring renal replacement therapy. #. Acute hypoxic respiratory failure secondary to right-sided pneumothorax #. Septic Shock, improved #. Right lower lobe pneumonia, aspiration versus healthcare acquired #. Right upper lobe pulmonary nodule, status post transbronchial biopsy #. Pulmonary adenocarcinoma -Continue supplemental oxygenation as needed. Currently on mechanical ventilation and on sedation -Placed on Propofol IV and fentanyl IV drip, Nimbex drip started -fentanyl gtt and nimbex gtt have been weaned off -Weaned off pressors -Solu-Medrol 40 mg IV every 6 hours per pulmonology -discontinued Vancomycin and ceftriaxone 09/29 -IV Abx to Zosyn IVPB day 3 -Discontinue IV fluids -Sputum cultures positive for Enterobacter cloacae -MRSA nasal swab and blood cultures negative -Cardiac telemetry -Chest CT ordered -Consult pulmonary, recommended hemodialysis -Follow-up pathology shows non-small cell adenocarcinoma #. Prerenal SOCORRO with oliguria #. Acute Tubular Necrosis -Creatinine increased 2.94 -on gardiner catheter -Nephrology consulted, appreciate recs. Plan to start dialysis today. Placed bicarb drip and discontinued Lasix IV and bicarb drip #. New onset Atrial fibrillation with RVR, controlled -Transitioned to PO amiodarone 400 mg twice daily -[id number] 2, HAS BLED 2. Intiate Eliquis PO twice daily -Maintain HR 100-120 -Per cardiology, continue Eliquis despite renal function. #. Hypocalcemia -Calcium 6.8 -Calcium gluconate IVPB given -Monitor calcium #. Hyperkalemia, resolved #. Hypermagnesemia, stable -Magnesium 2.8 #. Hyperglycemia, controlled -Due to steroid use -Held enteral feeding due to residuals -Glargine 10u daily -A1c 5.8 -Monitor BMP -Insulin sliding scale every 6 hours -Glucose Accu-Cheks every 6 hours Chronic Conditions: #. COPD #. GERD #. Hyperlipidemia #. Hypertension #. CAD -Currently on Plavix. Will hold for now given recent biopsy -Not on aspirin. Initiate ASA 81mg PO daily E: Monitor electrolytes N: Tube feeding DVT ppx: Eliquis 2.5mg PO BID GI ppx: Protonix 40 mg IV daily Prognosis is guarded as patient is critically ill I have seen and evaluated the patient today. Discussed with the resident and agree with the residents finding and plan as documented in the resident's note. Changes highlighted in blue font. Objective - Vital Signs Vital signs: Vital Signs Temp 98.2 F 10/03/24 04:00 Pulse 86 10/03/24 06:00 Resp 0 L 10/03/24 06:00 BP 129/65 10/03/24 06:00 Pulse Ox 82 L 10/03/24 06:00 FiO2 100 10/03/24 04:36 Intake & Output 10/02/24 10/02/24 10/03/24 06:59 18:59 06:59 Intake Total 2404.558 660.419 8051.321 Output Total 074 609 5395 Balance 2069.558 195.921 43.321 Weight 106.7 kg 106.7 kg Intake: IV 1344 143 256 0.9 KVO 130 110 120 0.9 saline pressure bag 39 33 36 Calcium Gluconate in NaCl 100 2 gm In Saline 1 100ml. bag @ 100 mls/hr IVPB ONCE ONE Rx#:[id number] Dextrose 5% in Water 1, 975 000 ml @ 75 mls/hr IV . [id number] with Sodium Bicarb (1 Meq/ml) 150 ml Rx#:[id number] Piperacillin-Tazobactam 3 100 100 .375 gm In Sodium Chloride 0.9% 100 ml @ 25 mls/hr IVPB Q8HR [facility] Rx# :[id number] Intake, IV Titration 260.558 477.921 287.321 Amount Piperacillin-Tazobactam 3 100 .375 gm In Sodium Chloride 0.9% 100 ml @ 25 mls/hr IVPB Q8HR [facility] Rx# :[id number] propofoL 1,000 mg In 260.558 377.921 287.321 Empty Bag 1 bag @ 15 MCG/ KG/MIN 8.45 mls/hr IV . [id number] [facility] Rx#:[id number] Tube Feeding 650 50 0 Hemodialysis 1400 Other 150 30 Output: Chest Tube Drainage 130 50 170 Right 130 50 170 Gastric Drainage 350 250 Urine 205 105 80 Hemodialysis 400 Hemodialysis Net Amount 1000 Other: Voiding Method Indwelling Catheter Indwelling Catheter Indwelling Catheter ABP, PAP, CO, CI - Last Documented Arterial Blood Pressure 123/39 - Labs CBC & Chem 7: 10/03/24 04:24 10/03/24 04:24 Labs: Abnormal Lab Results - Last 24 Hours (Table) 10/02/24 10/02/24 10/02/24 Range/Units 11:34 12:21 17:35 WBC (3.8-10.6) k/uL RBC (4.30-5.90) m/uL Hgb (13.0-17.5) gm/dL Hct (39.0-53.0) % ABG pH 7.24 L (7.35-7.45) ABG pCO2 54 H (35-45) mmHg ABG pO2 57 L* (83-108) mmHg ABG Total CO2 25 H (19-24) mmol/L ABG O2 Saturation 85.3 L (94-97) % Hemoglobin 8.9 L (13.0-17.5) gm/dL Sodium (137-145) mmol/L Chloride (98-107) mmol/L BUN (9-20) mg/dL Creatinine (0.66-1.25) mg/dL Glucose (74-99) mg/dL POC Glucose (mg/dL) 189 H 159 H (70-110) mg/dL Calcium (8.4-10.2) mg/dL Phosphorus (2.5-4.5) mg/dL 10/03/24 10/03/24 10/03/24 Range/Units 00:30 04:24 04:24 WBC 16.8 H (3.8-10.6) k/uL RBC 2.64 L (4.30-5.90) m/uL Hgb 8.7 L (13.0-17.5) gm/dL Hct 26.1 L (39.0-53.0) % ABG pH (7.35-7.45) ABG pCO2 (35-45) mmHg ABG pO2 (83-108) mmHg ABG Total CO2 (19-24) mmol/L ABG O2 Saturation (94-97) % Hemoglobin (13.0-17.5) gm/dL Sodium 132 L (137-145) mmol/L Chloride 95 L (98-107) mmol/L BUN 101 H* (9-20) mg/dL Creatinine 3.89 H (0.66-1.25) mg/dL Glucose 137 H (74-99) mg/dL POC Glucose (mg/dL) 161 H (70-110) mg/dL Calcium 6.8 L (8.4-10.2) mg/dL Phosphorus 8.5 H (2.5-4.5) mg/dL 10/03/24 10/03/24 Range/Units 04:30 06:11 WBC (3.8-10.6) k/uL RBC (4.30-5.90) m/uL Hgb (13.0-17.5) gm/dL Hct (39.0-53.0) % ABG pH 7.22 L (7.35-7.45) ABG pCO2 56 H (35-45) mmHg ABG pO2 57 L* (83-108) mmHg ABG Total CO2 25 H (19-24) mmol/L ABG O2 Saturation 82.9 L (94-97) % Hemoglobin 8.4 L (13.0-17.5) gm/dL Sodium (137-145) mmol/L Chloride (98-107) mmol/L BUN (9-20) mg/dL Creatinine (0.66-1.25) mg/dL Glucose (74-99) mg/dL POC Glucose (mg/dL) 149 H (70-110) mg/dL Calcium (8.4-10.2) mg/dL Phosphorus (2.5-4.5) mg/dL Microbiology - Last 24 Hours (Table) 09/29/24 10:42 Blood Culture - Preliminary Blood 10/01/24 16:08 Gram Stain - Preliminary Sputum Sputum Culture - Preliminary Enterobacter cloacae Complex
--- NOTE | 2024-10-03 11:17 | XR ---
EXAMINATION TYPE: XR chest 1V DATE OF EXAM: 10/03/2024 CLINICAL INDICATION: Male, 74 years old with history of CHEST TUBE ADJUSTMENT, progress study. TECHNIQUE: Single AP portable upright view of the chest is obtained. COMPARISON: Chest x-ray from earlier today FINDINGS: Stable endotracheal and orogastric tubes. Stable left-sided subclavian central venous cath eter. Overlying sternal wires are redemonstrated. There are 2 right-sided chest tubes. There is more medial improved positioning after adjustment Persistent inferior right-sided subcutaneous emphysema is noted. Stable tiny right apical pneumothor ax. Persistent multifocal bilateral increased opacities. Persistent mild cardiomegaly. IMPRESSION: Improved positioning of chest tubes after adjustment. Stable tiny right apical pneumothor ax. Persistent and stable multifocal acute infiltrates and/or edema and cardiomegaly. [facility], , 10/03/2024 11:15 AM
[2024-10-03] MEDS ORDERED: VANCOMYCIN IV PER PHARMACY 1 EACH MISC MISCELLANE PRN (11:26)
[2024-10-03] MEDS: CISATRACURIUM 200 MG in SODIUM CHLORIDE 0.9% 180 ML IV SCH (11:32)
[2024-10-03] MEDS: DEXTROSE 5% IN WATER 1,000 ML with SODIUM BICARB (1 MEQ/ML) 150 ML IV SCH (11:43)
[2024-10-03 11:45] VITALS: RESP 36
[2024-10-03 11:50] LABS: Glucose,Whole Blood 96 mg/dL (70-110)
[2024-10-03] MEDS ORDERED: MORPHINE SULFATE 4 MG/ML SYRINGE IVP PRN (11:56)
[2024-10-03] MEDS ORDERED: LORazepam 2 MG/ML INJ IV PRN (11:56)
[2024-10-03] MEDS ORDERED: MORPHINE SULFATE 2 MG/ML SYRINGE IVP PRN (11:56)
[2024-10-03] MEDS ORDERED: VANCOMYCIN 1,750 MG in SODIUM CHLORIDE 0.9% 500 ML 500 ML IVPB ONE (12:00)
[2024-10-03 12:06] VITALS: PULSE 131
[2024-10-03] MEDS ORDERED: CALCIUM ACETATE 667 MG TAB PO SCH (12:30)
[2024-10-03] MEDS ORDERED: MORPHINE SULFATE 100 MG in SODIUM CHLORIDE 0.9% 90 ML IV SCH (12:30)
--- NOTE | 2024-10-03 14:13 | P.DS ---
Providers Date of admission: 09/26/24 11:19 Attending physician: Sorin Quijano MD Consults: 09/26/24 11:18 Consult Physician Stat Consulting Provider: Jose Antonio Vera Consult Reason/Comments: Vent dependent respiratory failure Do you want consulting provider notified?: Yes 09/29/24 05:17 Consult Physician Routine Consulting Provider: Georges Carrero Consult Reason/Comments: New onset Afib RVR Do you want consulting provider notified?: Yes, Notify in am 09/30/24 10:10 Consult Physician Urgent Consulting Provider: Armani Mcrae Consult Reason/Comments: SOCORRO with anuria Do you want consulting provider notified?: Yes 10/02/24 09:55 Consult Physician Routine Consulting Provider: Sean Carr Consult Reason/Comments: HD catheter placement Do you want consulting provider notified?: Yes [facility]: Hospital Course: Patient is a 74-year-old male with COPD, GERD, hyperlipidemia, hypertension, CAD (CABG and heart cath), current everyday smoker here for evaluation of difficulty of breathing and subcutaneous air within the chest and neck. On admission, chest x-ray showed notable sternotomy and chest tube placement, with subcutaneous emphysema. On admission labs showed WBC 16.2, hemoglobin 15.2, platelet count 258,000. Sodium 135, potassium 4.5, chloride 104, bicarb 22, BUN 12, creatinine 0.74, glucose 152, plasmic lactic acid 2.2, calcium 8.9, magnesium 2.5, albumin 3.9 Vitals on admission showed pulse rate 66, respiratory rate 18, blood pressure 139/71, O2 saturation 95% on mechanical ventilation FiO2 100% Patient is admitted for management of acute hypoxic respiratory failure secondary to right-sided pneumothorax. Patient was placed on mechanical ventilation and intubation, on IV sedation, cardiac telemetry, IV steroids, and new insertion of right-sided chest tube. Patient developed right lower lobe pneumonia and IV antibiotics was initiated along with blood and sputum cultures. Daily chest x-rays showed stable right-sided pneumothorax, improving subcutaneous emphysema but no improvement of consolidations and CT chest was ordered. Chest CT showed extensive bilateral airspace consolidations, preferentially involving the posterior inferior lung lewis. Bronchoscopy pathology showed non-small cell adenocarcinoma. Patient was positive for Enterobacter cloacae assay on sputum culture. He eventually went into septic shock and required vasopressors and improved. Patient also developed atrial fibrillation and was placed on amiodarone IV for 2 days and has transition to p.o as well as placed on anticoagulation. Cardiology conasulted. Echocardiogram ordered showed left ventricular ejection fraction of 55 to 60% with mildly increased left ventricular wall thickness, mild mitral regurgitation and RVSP 5 0. Patient developed SOCORRO with oliguria that required renal replacement therapy. Nephrology consuluted. Urinalysis was noted for negative nitrites, negative leukocyte Estrace, +1 protein, +2 glucose. KUB ultrasound showed no evidence for obstructive uropathy or renal calculus. However, patient continued to have increasing O2 requirements and pressor support despite all standard therapy given and eventually became hypotensive requiring hemodynamic support. Family aware of patient prognosis and decided that the patient would be best as a DNR. Patient today 10/03/2024 at 12:22 PM. Final Diagnosis: #. Acute hypoxic respiratory failure secondary to right-sided pneumothorax #. Septic Shock #. Right lower lobe pneumonia, aspiration versus healthcare acquired #. Right upper lobe pulmonary nodule, status post transbronchial biopsy #. Pulmonary adenocarcinoma #. Prerenal SOCORRO with oliguria #. Acute Tubular Necrosis #. New onset Atrial fibrillation with RVR #. Hypocalcemia #. Hyperkalemia #. Hypermagnesemia #. Hyperglycemia #. COPD #. GERD #. Hyperlipidemia #. Hypertension #. CAD Discussed with the resident and agree with the residents finding and plan as documented in the resident's note. Changes highlighted in blue font. Plan - Discharge Summary Discharge Rx Participant: Yes New Discharge Prescriptions: No Action Clopidogrel [Plavix] 75 mg PO DAILY Latanoprost [Latanoprost 0.005%] 1 drop BOTH EYES HS Dorzolamide-Timol 2.23%/0.68% [Cosopt] 1 drop BOTH EYES BID Atorvastatin [Lipitor] 40 mg PO DAILY Metoprolol Tartrate [Lopressor] 50 mg PO DAILY amLODIPine [Norvasc] 2.5 mg PO DAILY Discharge Medication List Clopidogrel [Plavix] 75 mg PO DAILY 05/16/19 [History] Atorvastatin [Lipitor] 40 mg PO DAILY 03/06/23 [History] Dorzolamide-Timol 2.23%/0.68% [Cosopt] 1 drop BOTH EYES BID 03/06/23 [History] Metoprolol Tartrate [Lopressor] 50 mg PO DAILY 03/06/23 [History] Latanoprost [Latanoprost 0.005%] 1 drop BOTH EYES HS 09/24/24 [History] amLODIPine [Norvasc] 2.5 mg PO DAILY 09/26/24 [History] Follow up Appointment(s)/Referral(s): Cezar Oro DO [Primary Care Provider] - 1-2 days Discharge Disposition: - Preliminary Cause of Preliminary Cause of : pneumonia
--- NOTE | 2024-10-03 14:34 | P.PN ---
Subjective Progress Note Date: 10/03/24 On 09/29/2024, the patient is being seen for a follow-up. This morning, the patient remains intubated on the mechanical ventilator. The patient remains on propofol at around 50 mcg/kg/min and the patient is also on fentanyl 2 mcg/kg/h and the max at 1 mcg/kg/min. The patient is adequately sedated and paralyzed. The patient remains on assist-control mode of mechanical ventilation. Tidal volume is 400 with a rate of 30 with an FiO2 of 100% with a PEEP of 13. Blood gases from today showed a pH of 7.3 with a pCO2 of 49 and pO2 of 117. Chest x- ray shows extensive consolidation of the right lower lobe and this is attributed to an aspiration that occurred here in the intensive care unit. The sputum sample is showing Enterobacter and the patient is on IV Rocephin. The patient remains on bronchodilators. The patient remains on steroids. Right-sided chest tube is in place and there is ongoing air leak. The extent of subcutaneous emphysema has improved clinically and based on the chest x-ray findings. There is a small left-sided pleural effusion in addition on today's chest x-ray. Meanwhile, the patient went into atrial fibrillation with rapid ventricular response overnight. The patient is currently on amiodarone at 1 mg/min. He is on normal saline running at 30 cc an hour. He is receiving enteral feeding for nutritional support and the patient is on vital HP running at 10 cc an hour. Abdomen is nondistended. WBC count is at 7.4 with a heme of 12.3 and a platelet count of 160. Sodium is at 135, potassium is at 4.8, BUN 31 with a creatinine of 1.1. Glucose at 195 from this morning. On 09/30/2024, the patient is being seen for a follow-up. This morning, the patient is on propofol which is running at 50 mcg/kg/min. The patient is off fentanyl and the patient is off Nimbex. The patient remains intubated on the mechanical ventilator assist-control mode at a rate of 30, tidal volume of 450, FiO2 of 80% with a PEEP of 11. Morning blood gas showed a pH of 7.22 with a pCO2 of 45 and a pO2 of 142. The chest x-ray shows improvement in the right lower lobe consolidation. There is a stable right apical pneumothorax and right-sided chest tube remains in good location. There is some limited subcutaneous emphysema along the right chest and the patient is having positive air leak. The patient was having atrial fibrillation with rapid ventricular response. The patient was becoming hemodynamically unstable and hypotensive requiring more pressors despite being on amiodarone. Based on that, the patient underwent a cardioversion yesterday and this was successful and this morning the patient's cardiac rhythm is back into normal sinus rhythm. The patient remains on amiodarone which is running at 0.5 mg/min. The patient's urine output has dropped considerably and currently is producing only 5 cc an hour. Norepinephrine is running at 0.16 mcg/kg/min and the patient is on a vasopressin physiologic dose. The patient is also receiving vital HP for enteral feeding and nutritional support with rate of 40 cc an hour. Blood work from today shows a WBC count of 11.9, hemoglobin is at 12 and a platelet count is 175. The sodium level is at 134, potassium level is 5.2, bicarb 17, BUN 46 with a creatinine of 1.6. Remains on IV Zosyn. Remains on anticoagulation with Eliquis. Remains on pressors. Remains on bronchodilators. Remains on steroids. Obviously less bronchospastic and wheezy on today's examination. There is also considerable drop in the peak airway pressure which is currently down to 25. On 10/01/2024, the patient is being seen for a follow-up. Remains intubated on the mechanical ventilator. This morning, the patient is on propofol running at 50 mcg/kg/min. Remains on mechanical ventilator assist-control mode with rate of 30, tidal volume of 450, FiO2 of 80% with a PEEP of 10. Earlier this morning, the patient had some oxygen saturation and based on the deficit was brought up to 80%. Subsequent blood gas showed a pH of 7.23 pCO2 47 and pO2 of 78. The patient was double stacking. The patient was also having positive air leak in the right-sided chest tube. Chest x-ray from today shows subcutaneous emphysema along the right chest, right lower lobe consolidation, small right apical pneumothorax, some infiltrates in the left lung base was also noted. The patient remains on IV Zosyn as the patient sputum sample was positive for Enterobacter. I switched this patient to a pressure control mode of mechanical ventilation and the patient is currently on pressure control at rate of 26, pressure of 15, inspiratory time of 1 second, the PEEP was brought up to 12 and FiO2 was kept at 80%. Subsequent blood gas showed a pH of 7.27 with a pCO2 of 48 and pO2 of 62. Seems to be more synchronous on mechanical ventilator and a pressure control mode of mechanical ventilation. The patient is currently off pressors. The patient is off norepinephrine and the patient is also off vasopressin. Remains atrial fibrillation with a controlled rate and remains on amiodarone 0.5 mg/min. Urine output is quite diminished in the order of 10 to 20 cc an hour. The patient has been in a positive fluid balance of 4.9 L over the past 24 hours. The creatinine is on the rise and the creatinine today is up to 2.9 with a BUN of 67. Remains on bicarb infusion and serum bicarb is at 19 and a sodium levels at 135 with a potassium level of 3.7. WBC count of 10.3, hemoglobin of 10.1 and platelet count of 125. The patient is on enteral feeding for nutritional support and she has not produced any bowel movement. He is on vital HP at 50 cc an hour On 10/02/24, the patient is being seen for a FU. The patient remains critical. Overnight, the patient continued to have some difficulty with oxygenation. This morning, the patient with a pressure control at 26, pressure control of 17, FiO2 of 100% and a PEEP of 14. The patient has a pH of 7.3 with a pCO2 of 47 and pO2 of 54. Remains atrial fibrillation. Rate is controlled. Right-sided chest tube in place. Chest x-ray showed evidence of a pneumothorax. Nevertheless, the patient has ongoing air leak and the patient has developed worsening subcutaneous emphysema along the right chest on today's chest x-ray. This also can be seen clinically. The patient remains on vital high-protein at rate of 50 cc an hour. I did spend time, there has been progressive worsening renal function the patient remains oliguric despite receiving IV Lasix.The blood work from today shows a WBC count of 11.2 with a hemoglobin 9.1 and a platelet count of 101. At the same time, the sodium levels at 131, BUN is 97 with a creatinine of 3.79 and a potassium level is at 4.7. Calcium level is at 6.1 that is being replaced. The patient has a serum bicarb of 22. Bicarb drip has been dis continued. Fluid balance is significantly positive over the past 24 hours in the order of 3.9 L. The patient will accordingly will be dialyzed. Remains on IV Zosyn. Remains off pressors. Remains sedated on propofol. Calm and comfortable. 10/03/2024, patient was seen in the intensive care unit. The patient obviously has been having difficulty with oxygenation since speech therapist early intervention. The patient remained on a mechanical ventilator on pressure control mode at a rate of 26 with a pressure control of 17 cm and FiO2 of 100% with a PEEP of 14. Morning blood gases showed a pH of 7.22 with a pCO2 of 56 and pO2 of 57. The patient was on low-dose norepinephrine earlier this morning at 0.06 mcg and the patient was also on propofol running at 50 mcg/kg/min. Urine output was low at 10 cc an hour. Noted the patient was restarted on hemodialysis yesterday and the patient had a 1 L of ultrafiltration. A CAT scan of the chest was also done earlier this morning that showed extensive consolidation left lung base and there was also consolidation in the right lower lobe in addition to emphysematous changes bilaterally, a small right anterior pneumothorax and a right-sided chest tube was thought to be held into the lung parenchyma. Doppler from the chest tube was minimal and the patient was still having positive air leak. Subsequently, during our rounds, the patient decompensated. He became significantly hypoxic and his pulse ox dropped down to 40%. During this time, the patient became also unstable hemodynamically. He had episodes of bradycardia and significant hypotension. Immediately, the patient was given sodium bicarb IV push, norepinephrine dose was increased and during the process the patient was also given epinephrine IV push. He was taken off the pressure control and the patient was switched to a volume-cycled mechanical ventilation and he was set at a tidal volume of 400, rate of 36, PEEP was gradually increased up to 24 and FiO2 was At 100%. The patient was also given a 0.1 ms respiratory pause. I inserted another right-sided chest tube and the subsequent chest x-ray showed a very tiny right apical pneumothorax. Otherwise, the right lung was well-expand ed. There was however extensive consolidation of the lung bases bilaterally and the patient had multifocal airspace disease more so in the lung bases. Blood gases were obtained and the patient continued to have severe metabolic and respiratory acidosis. The pH was at 7.12 with a pCO2 of 67 and pO2 of 50. As mentioned, the PEEP was gradually increased to max of the 24. The most recent blood gas showed a pH of 7.17 with a pCO2 of 77 and pO2 of 45. Pressors were switched to a combination of epinephrine and vasopressin. I believe the patient was given a total of 5 doses of sodium bicarb 50 mEq each and restarted on bicarb infusion. Noted the blood work from earlier today showed a white cell count of 16, hemoglobin of 8.7 and a platelet count of 99. The rest of the blood work showed a sodium level of 132, potassium level of 5.1, BUN of 101 and a creatinine of 3.89. Serum bicarb was at 22. Calcium level was at 6.8. The patient remained in atrial fibrillation and the heart rate was ranging between 70 to 130 bpm. The patient was having significant fluctuation in the blood pressure and the heart rate. The family was called to the hospital and I had a lengthy discussion with the , daughter and the son and also spoke to the son who was [place]. I explained to them the situation. Obviously, this whole process started with a right-sided pneumothorax. Nevertheless, the patient developed aspiration with gram-negative Enterobacter cultured on 2 separate occasions and the patient became septic. Subsequently, due to hypotension, the patient developed a creatinine renal failure. For now, the active issue is bilateral pneumonia with significant hypoxic respiratory failure and there is obvious difficulty with oxygenation. The most recent chest x-ray shows no evidence of any pneumothorax. There is subcutaneous emphysema. However, the patient remains pressor dependent, hemodynamically unstable and profoundly hypoxic along with significant respiratory acidosis. Family were very much understanding. His CODE STATUS is already DNR. With subsequent follow-up, the patient became bradycardic and hypotensive again and ultimately it was decided to proceed with comfort care measures. The patient ultimately in the intensive care unit. Objective - Vital Signs Vital signs: Vital Signs Temp 98.8 F 10/03/24 08:00 Pulse 131 H 10/03/24 12:00 Resp 36 H 10/03/24 12:00 BP 115/72 10/03/24 09:00 Pulse Ox 65 L 10/03/24 12:00 FiO2 100 10/03/24 12:00 Intake & Output 10/02/24 10/03/24 10/03/24 18:59 06:59 18:59 Intake Total 302.165 8262.321 299.535 Output Total 505 1905 25 Balance 195.921 51.321 274.535 Weight 106.7 kg Intake: IV 143 269 155 0.9 KVO 110 130 40 0.9 saline pressure bag 33 39 15 Piperacillin-Tazobactam 3 100 100 .375 gm In Sodium Chloride 0.9% 100 ml @ 25 mls/hr IVPB Q8HR [facility] Rx# :[id number] Intake, IV Titration 477.921 287.321 144.535 Amount Norepinephrine 4 mg In 44.535 Sodium Chloride 0.9% 250 ml @ 0.03 MCG/KG/MIN 10. 264 mls/hr IV .Q24H [facility] Rx#:[id number] Piperacillin-Tazobactam 3 100 .375 gm In Sodium Chloride 0.9% 100 ml @ 25 mls/hr IVPB Q8HR [facility] Rx# :[id number] propofoL 1,000 mg In 377.921 287.321 100 Empty Bag 1 bag @ 15 MCG/ KG/MIN 8.45 mls/hr IV . [id number] [facility] Rx#:[id number] Tube Feeding 50 0 Hemodialysis 1400 Other 30 Output: Chest Tube Drainage 50 170 Right 50 170 Gastric Drainage 350 250 Urine 105 85 25 Hemodialysis 400 Hemodialysis Net Amount 1000 Other: Voiding Method Indwelling Catheter Indwelling Catheter Indwelling Catheter ABP, PAP, CO, CI - Last Documented Arterial Blood Pressure 99/51 - Exam No acute distress, sedated on propofol., Comfortable on sections of the mechanical ventilator. The patient is sedated and paralyzed HEENT examination is grossly unremarkable. Mucous membranes are moist. No oral lesions. Neck supple. Full range of motion. No adenopathy thyromegaly or neck vein distention. Cardiovascular examination reveals r irregular rhythm consistent with atrial fibrillation, rate is controlled. S1-S2 normal. No S3 or S4. No discernible murmur noted. Lungs reveal bilateral rhonchi and expiratory wheezes. Breath sounds are equal but diminished throughout. No crackles. Subcutaneous emphysema is increased along the right hemithorax and the patient has a right-sided chest tube with a positive air leak. Output from the chest tube is minimal at this point in time. Scattered wheezing. A second chest tube was also inserted into the right hemithorax with positive air leak. Abdomen soft bowel sounds are heard. No masses or tenderness. Extremities are intact. No cyanosis clubbing and there is increased edema in all 4 extremities. Skin is without rash or lesion. Neurologic status is unchanged the patient remains well sedated for now. Paralytic was also started to maintain synchrony with the mechanical ventilator. - Labs CBC & Chem 7: 10/03/24 04:24 10/03/24 04:24 Labs: Abnormal Lab Results - Last 24 Hours (Table) 10/02/24 10/03/24 10/03/24 Range/Units 17:35 00:30 04:24 WBC 16.8 H (3.8-10.6) k/uL RBC 2.64 L (4.30-5.90) m/uL Hgb 8.7 L (13.0-17.5) gm/dL Hct 26.1 L (39.0-53.0) % Plt Count 99 L (150-450) k/uL Neutrophils # 16.0 H (1.3-7.7) k/uL Lymphocytes # 0.2 L (1.0-4.8) k/uL ABG pH (7.35-7.45) ABG pCO2 (35-45) mmHg ABG pO2 (83-108) mmHg ABG HCO3 (21-25) mmol/L ABG Total CO2 (19-24) mmol/L ABG O2 Saturation (94-97) % Hemoglobin (13.0-17.5) gm/dL Sodium (137-145) mmol/L Chloride (98-107) mmol/L BUN (9-20) mg/dL Creatinine (0.66-1.25) mg/dL Glucose (74-99) mg/dL POC Glucose (mg/dL) 159 H 161 H (70-110) mg/dL Calcium (8.4-10.2) mg/dL Phosphorus (2.5-4.5) mg/dL 10/03/24 10/03/24 10/03/24 Range/Units 04:24 04:30 06:11 WBC (3.8-10.6) k/uL RBC (4.30-5.90) m/uL Hgb (13.0-17.5) gm/dL Hct (39.0-53.0) % Plt Count (150-450) k/uL Neutrophils # (1.3-7.7) k/uL Lymphocytes # (1.0-4.8) k/uL ABG pH 7.22 L (7.35-7.45) ABG pCO2 56 H (35-45) mmHg ABG pO2 57 L* (83-108) mmHg ABG HCO3 (21-25) mmol/L ABG Total CO2 25 H (19-24) mmol/L ABG O2 Saturation 82.9 L (94-97) % Hemoglobin 8.4 L (13.0-17.5) gm/dL Sodium 132 L (137-145) mmol/L Chloride 95 L (98-107) mmol/L BUN 101 H* (9-20) mg/dL Creatinine 3.89 H (0.66-1.25) mg/dL Glucose 137 H (74-99) mg/dL POC Glucose (mg/dL) 149 H (70-110) mg/dL Calcium 6.8 L (8.4-10.2) mg/dL Phosphorus 8.5 H (2.5-4.5) mg/dL 10/03/24 10/03/24 10/03/24 Range/Units 09:44 10:09 10:32 WBC (3.8-10.6) k/uL RBC (4.30-5.90) m/uL Hgb (13.0-17.5) gm/dL Hct (39.0-53.0) % Plt Count (150-450) k/uL Neutrophils # (1.3-7.7) k/uL Lymphocytes # (1.0-4.8) k/uL ABG pH 7.12 L* 7.13 L* 7.17 L* (7.35-7.45) ABG pCO2 67 H 72 H* 77 H* (35-45) mmHg ABG pO2 50 L* 47 L* 45 L* (83-108) mmHg ABG HCO3 28 H (21-25) mmol/L ABG Total CO2 26 H 31 H (19-24) mmol/L ABG O2 Saturation 71.4 L 67.0 L 65.7 L (94-97) % Hemoglobin 8.6 L 8.6 L 7.8 L (13.0-17.5) gm/dL Sodium (137-145) mmol/L Chloride (98-107) mmol/L BUN (9-20) mg/dL Creatinine (0.66-1.25) mg/dL Glucose (74-99) mg/dL POC Glucose (mg/dL) (70-110) mg/dL Calcium (8.4-10.2) mg/dL Phosphorus (2.5-4.5) mg/dL Microbiology - Last 24 Hours (Table) 10/01/24 16:08 Gram Stain - Final Sputum Sputum Culture - Final Enterobacter cloacae Complex 09/29/24 10:42 Blood Culture - Preliminary Blood Assessment and Plan Plan: Acute hypoxemic respiratory failure, secondary to right-sided pneumothorax, with extensive subcutaneous emphysema, requiring intubation, mechanical ventilation, September 26, 2024. Note that, the patient's ICU course was complicated by massive aspiration and extensive bilateral Enterobacter pneumonia. Gram-negative pneumonia was treated with IV Zosyn. The patient became septic and hypotensive and ultimately his hypotension recovered. Nevertheless, the patient sustained an acute kidney injury and he was started on hemodialysis on 10/02/2024. Since early this morning, the patient has been having difficulties with hypoxemia respiratory failure and respiratory acidosis. Ventilator changes were done. A second chest was inserted into the right hemithorax. No much improvement in his overall oxygenation and respiratory acidosis. The patient continued to have e pisodes of bradycardia and hypotension ultimately he despite receiving aggressive resuscitation as discussed. Right-sided pneumothorax with persistent air leak, small right apical pneumothorax. The second chest tube was inserted this morning in the intensive care unit. The most recent chest x-ray shows no significant residual pneumothorax, subcutaneous emphysema extensive consolidation of lung base bilaterally. Subcutaneous emphysema secondary to above. S/P flexible bronchoscopy, robotically assisted bronchoscopy with radial ultrasound evaluation of the right upper lobe pulmonary nodule, robotically assisted transbronchial needle aspiration, transbronchial biopsy, and BAL, September 25, 2024. Right upper lobe pulmonary nodule, consistent with non-small cell lung cancer, pulm adenocarcinoma History of chronic obstructive pulmonary disease the patient has extensive emphysematous changes upper lobes bilaterally Atrial fibrillation with rapid ventricular response, status post cardioversion, currently on oral amiodarone and anticoagulation with Eliquis. Hypotension, multifactorial, could be related to sepsis/aspiration. The patient is off pressors for now Acute kidney injury with ongoing oliguria and further worsening renal function and development of extensive third spacing. Patient is also in volume overload. The patient will be started on hemodialysis today. History of hypertension. History of hyperlipidemia. History of gastroesophageal reflux disease. History of coronary artery disease, with previous CABG, 2018. Peripheral vascular occlusive disease. History of tobacco use. History of glaucoma. Plan: Please refer to the above-mentioned events. The patient prior developed multisystem organ failure. All those complications followed and initial pneumothorax which was a iatrogenic complication of right upper lobe biopsy of a pulmonary nodule. Noted the patient has extensive emphysema with upper lobe predominance right more than left. His course was further complicated by aspiration, Enterobacter pneumonia with extensive consolidation of the lung bases bilaterally. The patient developed sepsis, hypotension and multisystem organ failure. He developed an acute kidney injury. He developed worsening and pneumonia with hypoxemic and hypercapnic respiratory failure and ultimately, due to severe acidosis and hypercapnia and hypoxemia, the patient became hemodynamically unstable and he went into hemodynamic collapse, unresponsive to pressors. The patient this afternoon in the ICU. Family is at the bedside. I met the family on multiple occasions went over the events mentioned above. Answered all the questions to their satisfaction. Evaluation was done and more than 2 hours Time with Patient: Greater than 30
--- NOTE | 2024-10-03 14:35 | P.PCN ---
Date of Procedure: 10/03/24 Preoperative Diagnosis: Right pneumothorax, subcutaneous emphysema Postoperative Diagnosis: Same Procedure(s) Performed: Chest tube, right Anesthesia: local Surgeon: Kaylah Goodman Estimated Blood Loss (ml): 0 Pathology: other Condition: critical Disposition: ICU Operative Findings: A time-out was completed verifying correct patient, procedure, site, positioning, and special equipment if applicable. The patient was positioned appropriately for chest tube placement. The patients right chest was prepped and draped in sterile fashion. 1% Lidocaine was used to anesthetize the surrounding skin area. A 2 cm skin incision was made in the mid-axillary line at the inframammarycrease. Utilizing blunt dissection a subcutaneous tunnel was created cephalad just adjacent to the superior rib. The pleural space was entered bluntly and gush of <air/blood> was observed. A finger was inserted into the pleural space to check for anatomy and guide tube insertion. A 28 thoracostomy tube was inserted using a Sola clamp and positioned appropriately. The chest tube was sutured securely to the skin and a sterile dressing applied. A pleurevac was attached to the chest tube and a chest x-ray obtained. I personally performed this procedure and I was was present for the entire pro cedure. Estimated Blood Loss: 0 The patient tolerated the procedure well and there were no complications.
[2024-10-03] MEDS ORDERED: MEROPENEM 2 GM in SODIUM CHLORIDE 0.9% 100 ML IVPB SCH (16:00)
[2024-10-04] MEDS ORDERED: VANCOMYCIN 1,750 MG in SODIUM CHLORIDE 0.9% 500 ML 500 ML IVPB ONE (09:00)
[2024-10-06 08:04] LABS: Glucose,Whole Blood 167 mg/dL (70-110)
[2024-10-06 18:36] LABS: Hepatitis B Surface AB- Quant 3.5 mIU/mL
== END 2024-10-03 14:55 | disposition expired | DRG 207 ==
LOC: EC 11:07 → 2SICU 11:19
PROVIDERS: ADMIT Internal Medicine; ATTEND Internal Medicine
PROC: 5A1955Z Respiratory Ventilation, Greater than 96 Consecutive Hours (ICD-10-PCS; principal; 2024-09-26)
PROC: 0BH17EZ Insertion of Endotracheal Airway into Trachea, Via Natural or Artificial Opening (ICD-10-PCS; 2024-09-26)
PROC: 02HV33Z Insertion of Infusion Device into Superior Vena Cava, Percutaneous Approach (ICD-10-PCS; 2024-09-26)
PROC: 0W9930Z Drainage of Right Pleural Cavity with Drainage Device, Percutaneous Approach (ICD-10-PCS; 2024-09-26)
PROC: 0D9670Z Drainage of Stomach with Drainage Device, Via Natural or Artificial Opening (ICD-10-PCS; 2024-09-26)
PROC: 3E0G76Z Introduction of Nutritional Substance into Upper GI, Via Natural or Artificial Opening (ICD-10-PCS; 2024-09-26)
PROC: 03HY32Z Insertion of Monitoring Device into Upper Artery, Percutaneous Approach (ICD-10-PCS; 2024-09-26)
PROC: 4A133B1 Monitoring of Arterial Pressure, Peripheral, Percutaneous Approach (ICD-10-PCS; 2024-09-26)
PROC: 4A133J1 Monitoring of Arterial Pulse, Peripheral, Percutaneous Approach (ICD-10-PCS; 2024-09-26)
PROC: 3E043XZ Introduction of Vasopressor into Central Vein, Percutaneous Approach (ICD-10-PCS; 2024-09-27)
PROC: 06H033Z Insertion of Infusion Device into Inferior Vena Cava, Percutaneous Approach (ICD-10-PCS; 2024-10-02)
PROC: 5A1D70Z Performance of Urinary Filtration, Intermittent, Less than 6 Hours Per Day (ICD-10-PCS; 2024-10-02)
PROC: 0W9930Z Drainage of Right Pleural Cavity with Drainage Device, Percutaneous Approach (ICD-10-PCS; 2024-10-03)
DX: J96.01 Acute respiratory failure with hypoxia (principal); A41.9 Sepsis, unspecified organism; R65.21 Severe sepsis with septic shock; N17.0 Acute kidney failure with tubular necrosis; J69.0 Pneumonitis due to inhalation of food and vomit; J15.69 Pneumonia due to other Gram-negative bacteria; E87.4 Mixed disorder of acid-base balance; J90 Pleural effusion, not elsewhere classified; E83.39 Other disorders of phosphorus metabolism; I27.20 Pulmonary hypertension, unspecified; C34.11 Malignant neoplasm of upper lobe, right bronchus or lung; J95.811 Postprocedural pneumothorax; J44.0 Chronic obstructive pulmonary disease with (acute) lower respiratory infection; Z95.820 Peripheral vascular angioplasty status with implants and grafts; I10 Essential (primary) hypertension; I34.0 Nonrheumatic mitral (valve) insufficiency; I48.19 Other persistent atrial fibrillation; E83.41 Hypermagnesemia; Z51.5 Encounter for palliative care; E83.51 Hypocalcemia; I73.9 Peripheral vascular disease, unspecified; Z66 Do not resuscitate; T81.82XA Emphysema (subcutaneous) resulting from a procedure, initial encounter; I25.10 Atherosclerotic heart disease of native coronary artery without angina pectoris; E87.5 Hyperkalemia; R73.9 Hyperglycemia, unspecified; H40.9 Unspecified glaucoma; T38.0X5A Adverse effect of glucocorticoids and synthetic analogues, initial encounter; E78.5 Hyperlipidemia, unspecified; K21.9 Gastro-esophageal reflux disease without esophagitis; N42.9 Disorder of prostate, unspecified; F17.210 Nicotine dependence, cigarettes, uncomplicated; Z79.02 Long term (current) use of antithrombotics/antiplatelets; Z79.899 Other long term (current) drug therapy; Z95.1 Presence of aortocoronary bypass graft
CPT/HCPCS: 71045; 71250; 74018; 76770; 80048; 80053; 81001; 82570; 82805; 83036; 83605; 83735; 84100; 84145; 84300; 85025; 85610; 85730; 86706; 87040; 87070; 87077; 87186; 87205; 87340; 90935; 93005; 93306; 94002; 94003; 94640; 96374; 99285